=== PATIENT | male | born 1945 | race Caucasian/White ===

== ENCOUNTER 2018-07-01 15:38 | Emergency (ER) | payer MEDICARE, OTHER, SELFPAY ==
[2018-07-01 15:43] VITALS: BP 174/105; PULSE 61; RESP 16; TEMP 36.6; O2SAT 91
--- NOTE | 2018-07-01 17:03 | W.ED.GENAD ---
Discharge Plan Disposition Patient Disposition: HOME Condition: Good Discharge Details Chief Complaint: Laceration Clinical Impression: Laceration Primary Care Provider: Enedina Narvaez ED Provider: Norbert Mccall Home Meds and New Rx's Prescriptions: New sulfamethoxazole-trimethoprim [Bactrim DS] 800-160 mg tablet 1 tab PO Q12H Qty: 14 RF: 0 No Action lovastatin 40 MG tablet 60 mg PO HS RF: 0 aspirin [Aspir-81] 81 MG tablet,delayed release (DR/EC) 81 mg PO DAILY RF: 0 loratadine [Claritin] 10 MG tablet 10 mg PO HS RF: 0 metoprolol succinate 25 MG tablet extended release 24 hr 50 mg PO DAILY RF: 0 Discharge Instructions Instructions: Care For Your Stitches (ED), Laceration (ED) Additional Instructions: Please take the antibiotic as directed. Please take Tylenol, Motrin for your pain. If you notice any redness traveling up your finger, drainage, worsening pain, fever or chills please return immediately. Please keep the area dry for the next 48 hours, after this he can gently wash it with soap and water. Please return in 7 days to have it reevaluated for suture removal. Please keep it bandaged at all times and keep it clean. Referrals: Enedina Narvaez [Primary Care Provider] - Discharge Data Discharge Date/Time-TO BE ENTERED AT DEPARTURE: 07/01/18 17:20 Medical Decision Making This is a pleasant 73-year-old male who presents for laceration of his left fifth digit on his dominant hand. Tetanus today, updated, and so we updated it here today. Patient's hand demonstrates surprisingly normal sensation and movement. Although the tendon is visible there is no evidence of tendon damage. He demonstrates excellent flexion extension at the DIP, PIP, and MCP joint. The area was anesthetized with 5 cc of 1% lidocaine without epinephrine. The area was then vigorously scrubbed with chlorhexidine, followed by copious amounts of high-powered saline into the finger and wound itself. No foreign bodies were noted. After hydro-washing a repeat cleaning with 4 chlorhexidine and follow-up washing was again performed. After notable washing was completed, the area was sutured. 11 simple interrupted sutures were placed using 5-0 Ethilon suture. Patient tolerated this well. He is able to flex and extend his finger after the procedure. With no signs of bony tenderness, and no actual crush component to the initial mechanism do not feel that any x-ray imaging is indicated at this time. We will start the patient on an antibiotic, due to the presence of visible tendon on initial exam. I had a long discussion with the patient regarding red flags which return including signs of infection of the patient and his understand. I have extensively reviewed the treatment plan and discharge instructions with the patient. I have addressed all patient concerns at this time. The patient was made aware of what symptoms to monitor for that would warrant a return to the emergency department. Discussed the plan with the patient, they demonstrate verbal understanding and agreement with our assessment and plan at this time. HPI General Date/Time Provider Initiated Documentation: 07/01/18 15:45. HPI Narrative: This is a pleasant 73-year-old male with a past medical history of high cholesterol, and hypertension who presents today for evaluation of injury to his left fifth digit. Patient is left-hand dominant Martin. Patient's tetanus is not up-to-date. 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 It was not crushed however he did cut the side of his thumb. He denies any pain in the bone or with movement, however he does admit to pain when the skin is stretched, or the laceration is further widened. He denies any associated numbness tingling or weakness. He denies any other complaints. He has no other aggravating or relieving factors. He denies any blood thinner use. He denies any recent surgeries. He denies any pertinent family history per Related Data Home Medications Medication Instructions Recorded Confirmed aspirin [Aspir-81] 81 mg PO DAILY 12/05/12 07/01/18 loratadine [Claritin] 10 mg PO HS 12/05/12 07/01/18 lovastatin 60 mg PO HS 12/05/12 07/01/18 metoprolol succinate 50 mg PO DAILY 08/11/16 07/01/18 sulfamethoxazole-trimethoprim 1 tab PO Q12H #14 tab 07/01/18 [Bactrim DS] Previous Rx's Medication Instructions Recorded sulfamethoxazole-trimethoprim 1 tab PO Q12H #14 tab 07/01/18 [Bactrim DS] Allergies Allergy/AdvReac Type Severity Reaction Status Date / Time lisinopril Allergy Mild Unverified 07/01/18 15:49 penicillin V [Penicillin V] Allergy Mild Unverified 07/01/18 15:49 SHARA Inhibitors Allergy Unknown Unverified 07/01/18 15:49 General Stated Complaint: Laceration MOSES: 3 Review of Systems Review of Systems All systems reviewed & are unremarkable except as noted in HPI and below PFSH Medical History Benign hypertension Hyperlipidemia Social History Smoking/Tobacco Use Status: Former Tobacco Use Surgical History Coronary Stent Exam Narrative Exam Narrative: 1.Const: Well-nourished, Well-developed, appearing stated age 2.Eyes: PERRL, no conjunctival injection, and symmetrical lids. 3.ENT: Atraumatic external nose and ears. Moist MM. Neck: Symmetric, trachea midline, No thyromegaly. 4.CVS: +S1/S2, No murmurs or gallops. Peripheral pulses 2+ and equal in all extremities. Brisk capillary refill in all extremities. 5.RESP: Unlabored respiratory effort. Clear to auscultation bilaterally. No wheezes rales or rhonchi 6.GI: Soft, Nontender/Nondistended, No hepatosplenomegaly. No guarding or rebound. 7.MSK: Normocephalic notable laceration on the fifth digit of his left hand. No cyanosis or clubbing, Normal movement of all extremitie. Normal flexion extension of the pinky. Normal movement in all planes. Normal sensation in his thumb, including two-point discrimination less than 1 cm for all aspects of his pinky. The laceration is roughly 3 cm x 1 cm x 5 mm. It is present on the medial aspect of the fifth digit, does not involve the PIP joint. Evaluation of the skin demonstrates presence of the tendon which is intact. Notable soft tissue involvement. No evidence of bony involvement. No evidence of tendon damage. Patient demonstrates excellent extension and flexion at the PIP and DIP joint as well as the MCP joint. 8.Skin: Warm, Dry. No rashes. 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 Sensation grossly intact, no focal neurologic deficits. 10.Psych: (AAO) x3. Appropriate mood and affect Course Vital Signs Temperature 36.6 C 07/01/18 15:43 Pulse 61 07/01/18 15:43 Respiratory Rate 16 07/01/18 15:43 Blood Pressure 174/105 H 07/01/18 15:43 Pulse Oximetry 91 L 07/01/18 15:43 Temperature 36.6 C 07/01/18 15:43 Temperature Source Skin 07/01/18 15:43 Pulse 61 07/01/18 15:43 Respiratory Rate 16 07/01/18 15:43 Respiratory Effort Non-Labored 07/01/18 15:47 Blood Pressure 174/105 H 07/01/18 15:43 Pulse Oximetry 91 L 07/01/18 15:43 Pain Level 4 07/01/18 15:43
[2018-07-01] MEDS: Sulfameth/Trimeth DS TAB 1 TAB PO (17:04)
== END 2018-07-01 17:20 | disposition home or self-care (01) ==
PROVIDERS: Emergency Provider Student in an Organized Health Care Education/Training Program; PCP Nurse Practitioner Family
DX: W23.0XXA Caught, crushed, jammed, or pinched between moving objects, initial encounter; I10 Essential (primary) hypertension; S61.012A Laceration without foreign body of left thumb without damage to nail, initial encounter
CPT/HCPCS: 12002; 90471

== ENCOUNTER 2018-07-08 12:42 | Emergency (ER) | payer MEDICARE, OTHER, SELFPAY ==
[2018-07-08 12:48] VITALS: BP 130/79; PULSE 60; RESP 18; TEMP 36.8; O2SAT 92
--- NOTE | 2018-07-08 13:03 | W.ED.GENAD ---
Discharge Plan Disposition Patient Disposition: HOME Condition: Good Discharge Details Chief Complaint: SutureRem Clinical Impression: Suture check Primary Care Provider: Enedina Nravaez ED Provider: Norbert Mccall Home Meds and New Rx's Prescriptions: No Action lovastatin 40 MG tablet 60 mg PO HS RF: 0 aspirin [Aspir-81] 81 MG tablet,delayed release (DR/EC) 81 mg PO DAILY RF: 0 loratadine [Claritin] 10 MG tablet 10 mg PO HS RF: 0 sulfamethoxazole-trimethoprim [Bactrim DS] 800-160 mg tablet 1 tab PO Q12H Qty: 14 RF: 0 metoprolol succinate 25 MG tablet extended release 24 hr 50 mg PO DAILY RF: 0 Discharge Instructions Instructions: Care For Your Stitches (ED) Additional Instructions: Please come back in 7-10 days for reevaluation of potential removal of your sutures. Please keep the area covered, clean, and dry at all times. He notice any redness, discharge, or pain or numbness or tingling please return immediately for reevaluation. Referrals: Enedina Narvaez [Primary Care Provider] - Medical Decision Making This is a pleasant 73-year-old male who was seen and assessed by myself 1 week ago for a laceration of his fifth digit on his left hand. Tetanus was updated at that time, 11 sutures were placed. On reevaluation 1 week later he demonstrates evidence of good healing, after cleaning and scrubbing sutures were started to be removed, the first 2 sutures were removed and demonstrated no abnormalities and good wound healing however on removal of this third suture moving proximally towards the crux of the wound demonstrated incomplete wound healing. The area was then recovered with Dermabond, no additional sutures were required. We will have the patient come back in 7-10 days for reevaluation of potential suture removal at that time. No evidence of infection, normal sensation, normal movement of the finger throughout I feel that he can be safely discharged home at this time. We discussed red flags which to return the patient understands. I have extensively reviewed the treatment plan and discharge instructions with the patient and their family. I have addressed all patient concerns at this time. The patient and family was made aware of what symptoms to monitor for that would warrant a return to the emergency department. Discussed the plan with the patient and family, they demonstrate verbal understanding and agreement with our assessment and plan at this time. HPI General Date/Time Provider Initiated Documentation: 07/08/18 12:47. HPI Narrative: This is a 73-year-old male who presents for evaluation of suture removal. 7 days ago he was seen and assessed here by myself and had 11 sutures placed in his left pinky finger which was his dominant hand. Tetanus was updated. He is return for evaluation of suture removal. He has had no associated redness discharge numbness or tingling. He has no associated pain, or other complaints. He denies any symptoms of wound dehiscence. He has no other complaints at this time. He denies any other modifying factors. Related Data Home Medications Medication Instructions Recorded Confirmed aspirin [Aspir-81] 81 mg PO DAILY 12/05/12 07/01/18 loratadine [Claritin] 10 mg PO HS 12/05/12 07/01/18 lovastatin 60 mg PO HS 12/05/12 07/01/18 metoprolol succinate 50 mg PO DAILY 08/11/16 07/01/18 sulfamethoxazole-trimethoprim 1 tab PO Q12H #14 tab 07/01/18 [Bactrim DS] Previous Rx's Medication Instructions Recorded sulfamethoxazole-trimethoprim 1 tab PO Q12H #14 tab 07/01/18 [Bactrim DS] Allergies Allergy/AdvReac Type Severity Reaction Status Date / Time lisinopril Allergy Mild Unverified 07/01/18 15:49 penicillin V [Penicillin V] Allergy Mild Unverified 07/01/18 15:49 SHARA Inhibitors Allergy Unknown Unverified 07/01/18 15:49 General Stated Complaint: SutureRem MOSES: 4 Review of Systems Review of Systems All systems reviewed & are unremarkable except as noted in HPI and below PFSH Medical History Benign hypertension Hyperlipidemia Social History Smoking/Tobacco Use Status: Former Tobacco Use Surgical History Coronary Stent Exam Narrative Exam Narrative: 1.Const: Well-nourished, Well-developed, appearing stated age 2.Eyes: PERRL, no conjunctival injection, and symmetrical lids. 3.ENT: Atraumatic external nose and ears. Moist MM. Neck: Symmetric, trachea midline, No thyromegaly. 4.CVS: +S1/S2, No murmurs or gallops. Peripheral pulses 2+ and equal in all extremities. Brisk capillary refill in all extremities. 5.RESP: Unlabored respiratory effort. Clear to auscultation bilaterally. No wheezes rales or rhonchi 6.GI: Soft, Nontender/Nondistended, No hepatosplenomegaly. No guarding or rebound. 7.MSK: Normocephalic/Atraumatic, Extremities w/o deformity or ttp No cyanosis or clubbing, Normal movement of all extremities 8.Skin: Evaluation of the fifth digit on the left hand demonstrates an incision that is clean dry and intact, no evidence of dehiscence, discharge, redness. Normal movement for flexion and extension of the pinky. Normal sensation including two-point discrimination. The wound did appear notably well-healed, 3 sutures were taken out, starting from the distal component and working proximally towards the larger portion of the wound. On removal of the third suture there is evidence of questionable complete wound healing. We did stop removing the sutures at this point. Dermabond was applied to the area. No active bleeding or discharge. 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 Sensation grossly intact, no focal neurologic deficits. 10.Psych: (AAO) x3. Appropriate mood and affect Course Vital Signs Temperature 36.8 C 07/08/18 12:48 Pulse 60 07/08/18 12:48 Respiratory Rate 18 07/08/18 12:48 Blood Pressure 130/79 07/08/18 12:48 Pulse Oximetry 92 L 07/08/18 12:48 Temperature 36.8 C 07/08/18 12:48 Temperature Source Temporal Artery Scan 07/08/18 12:48 Pulse 60 07/08/18 12:48 Respiratory Rate 18 07/08/18 12:48 Respiratory Effort 07/08/18 12:49 Blood Pressure 130/79 07/08/18 12:48 Blood Pressure Position Supine 07/08/18 12:48 Pulse Oximetry 92 L 07/08/18 12:48 Oxygen Delivery Method Room Air 07/08/18 12:48 Oxygen Flow Rate 0 07/08/18 12:48 Pain Level 2 07/08/18 12:48
[2018-07-08 13:07] VITALS: BP 138/80; PULSE 80; RESP 18; TEMP 36.8; O2SAT 99
== END 2018-07-08 13:14 | disposition home or self-care (01) ==
LOC: ER 13:10
PROVIDERS: Emergency Provider Student in an Organized Health Care Education/Training Program; PCP Nurse Practitioner Family
DX: S61.217D Laceration without foreign body of left little finger without damage to nail, subsequent encounter (principal); W23.0XXD Caught, crushed, jammed, or pinched between moving objects, subsequent encounter; Z48.02 Encounter for removal of sutures; I10 Essential (primary) hypertension
CPT/HCPCS: 99281

== ENCOUNTER 2018-07-18 12:44 | Emergency (ER) | payer MEDICARE, OTHER, SELFPAY ==
[2018-07-18 12:49] VITALS: BP 140/78; PULSE 52; RESP 20; TEMP 36.7; O2SAT 94
--- NOTE | 2018-07-18 13:18 | W.ED.GENAD ---
Discharge Plan Disposition Patient Disposition: HOME Condition: Good Discharge Details Chief Complaint: SutureRem Clinical Impression: Encounter for evaluation of wound Primary Care Provider: Enedina Narvaez ED Provider: Norbert Mccall Home Meds and New Rx's Prescriptions: New sulfamethoxazole-trimethoprim [Bactrim DS] 800-160 mg tablet 1 tab PO Q12H Qty: 14 RF: 0 No Action lovastatin 40 MG tablet 60 mg PO HS RF: 0 aspirin [Aspir-81] 81 MG tablet,delayed release (DR/EC) 81 mg PO DAILY RF: 0 loratadine [Claritin] 10 MG tablet 10 mg PO HS RF: 0 metoprolol succinate 25 MG tablet extended release 24 hr 50 mg PO DAILY RF: 0 Discharge Instructions Instructions: Wound Dehiscence (ED) Additional Instructions: Please wash and clean your wound daily as we showed you. Please take the antibiotic as directed. Please redressed it with new clean dressing daily. If you notice any redness that spreads up your hand, please return immediately. As we discussed please follow-up with your new primary care provider down here within a week. If you are unable to follow-up within a week please return here for reevaluation. If you notice any worsening of your symptoms, or any new symptoms such as vomiting, diarrhea, fever, chills, shortness of breath, chest pain, numbness, weakness, or fainting , please return immediately to the emergency department for reevaluation. Please follow up with your primary care provider as soon as possible for reassessment and reevaluation. As always, it was a pleasure participating in your medical care today. Medical Decision Making This is a very pleasant 73-year-old male who was here 2 weeks ago for a laceration on his fifth digit. He had 11 sutures placed at that time, and then was reevaluated 1 week later. At that time 3 sutures were removed however it was clear that there was incomplete wound healing for the rest of the sutured area. Because of this the patient had the sutures remain in place, was given instructions for wound safety, discharged home for return follow-up for reevaluation in the next 3-5 days. 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 On evaluation today it appears that all the remaining sutures have torn through the distal aspect of the skin, and there is no evidence of wound edge reapproximation. Mild granulation tissue is present, no active bleeding. Small amount of white discharge is present however no active drainage, minimal redness, but no signs of spreading redness, fluctuance, or warmth. No evidence of extensive cellulitis. Due to the dehiscence of the wound the remaining sutures were removed as they are not holding the skin together anymore. The area was cleaned and washed vigorously, then re-bandaged and dressed by nursing staff. Unfortunately the patient will require healing with secondary intention secondary to the nature of his dehiscence after prolonged healing.. We will give the patient a splint for his finger. We will start him on Bactrim again as a precaution. We have pot his how to do the dressing changes and washing that was performed here. I have discussed the case with case management and they are going to contact the patient here in the ED today to set up close follow-up within the next week for reevaluation. At a long discussion with the patient regarding the importance of close follow-up, and red flags which to return the patient understands. Hopefully with the splint in the regular wound and dressing changes he will have more gradual in stable healing. I have explicitly stated that he should not be out chain sawing, or doing significant work or labor using that hand secondary to the need for it to heal. I have extensively reviewed the treatment plan and discharge instructions with the patient and their family. I have addressed all patient concerns at this time. The patient and family was made aware of what symptoms to monitor for that would warrant a return to the emergency department. Discussed the plan with the patient and family, they demonstrate verbal understanding and agreement with our assessment and plan at this time. HPI General Date/Time Provider Initiated Documentation: 07/18/18 12:54. HPI Narrative: This is a pleasant 73-year-old male who was seen and assessed by myself 2 week ago for a laceration of his fifth digit on his left hand. Tetanus was updated at that time, 11 sutures were placed. On reevaluation 1 week later he demonstrates evidence of good healing, after cleaning and scrubbing sutures were started to be removed, the first 2 sutures were removed and demonstrated no abnormalities and good wound healing however on removal of this third suture moving proximally towards the crux of the wound demonstrated incomplete wound healing. At that time the rest of the sutures were left in place out of concern for potential dehiscence if more was removed, it was felt that the patient needed more time for healing. Is discharged home with instructions for follow-up within the next 5-7 days for reevaluation and removal. Patient presents today for reevaluation. 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 He has noticed a change in his finger and the laceration site. He admits to a mild amount of drainage, but no increase in pain redness or fever. He denies any other associated symptoms of hand arm or wrist pain. He has no other complaints at this time. Related Data Home Medications Medication Instructions Recorded Confirmed aspirin [Aspir-81] 81 mg PO DAILY 12/05/12 07/18/18 loratadine [Claritin] 10 mg PO HS 12/05/12 07/18/18 lovastatin 60 mg PO HS 12/05/12 07/18/18 metoprolol succinate 50 mg PO DAILY 08/11/16 07/18/18 sulfamethoxazole-trimethoprim 1 tab PO Q12H #14 tab 07/18/18 [Bactrim DS] Previous Rx's Medication Instructions Recorded sulfamethoxazole-trimethoprim 1 tab PO Q12H #14 tab 07/18/18 [Bactrim DS] Allergies Allergy/AdvReac Type Severity Reaction Status Date / Time lisinopril Allergy Mild Unverified 07/18/18 12:51 penicillin V [Penicillin V] Allergy Mild Unverified 07/18/18 12:51 SHARA Inhibitors Allergy Unknown Unverified 07/18/18 12:51 General Stated Complaint: SutureRem MOSES: 4 Review of Systems Review of Systems All systems reviewed & are unremarkable except as noted in HPI and below PFSH Medical History Benign hypertension Hyperlipidemia Social History Smoking/Tobacco Use Status: Former Tobacco Use Surgical History Coronary Stent Exam Narrative Exam Narrative: 1.Const: Well-nourished, Well-developed, appearing stated age 2.Eyes: PERRL, no conjunctival injection, and symmetrical lids. 3.ENT: Atraumatic external nose and ears. Moist MM. Neck: Symmetric, trachea midline, No thyromegaly. 4.CVS: +S1/S2, No murmurs or gallops. Peripheral pulses 2+ and equal in all extremities. Brisk capillary refill in all extremities. 5.RESP: Unlabored respiratory effort. Clear to auscultation bilaterally. No wheezes rales or rhonchi 6.GI: Soft, Nontender/Nondistended, No hepatosplenomegaly. No guarding or rebound. 7.MSK: Normocephalic No cyanosis or clubbing, Normal movement of all extremities. Please see skin for further wound details. 8.Skin: Patient demonstrates normal skin on all extremities except for evaluation over the previous laceration on his fifth digit on his left hand. Patient demonstrates evidence of wound dehiscence, and good granulation tissue with slow wound healing. The superficial wound edges were not reapproximated and you can see where the suture dehisced out most likely secondary to notable flexion while chain sawing. There is no active drainage, no significant discharge. Minimal erythema, no fluctuance, no signs of significant pain on passive extension or flexion of the finger, no clinical evidence of flexor or extensor tenosynovitis. Capillary refill is brisk distal to the injury, and sensation is intact. No other significant abnormalities, no evidence of red streaking up the hand. [address], and only on the proximal component of the skin. The area that had the sutures previously removed demonstrates excellent wound healing, and no evidence of infection or dehiscence. 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 Sensation grossly intact, no focal neurologic deficits. 10.Psych: (AAO) x3. Appropriate mood and affect Course Vital Signs Temperature 36.7 C 07/18/18 12:49 Pulse 52 L 07/18/18 12:49 Respiratory Rate 20 07/18/18 12:49 Blood Pressure 140/78 07/18/18 12:49 Pulse Oximetry 94 L 07/18/18 12:49 Temperature 36.7 C 07/18/18 12:49 Temperature Source Temporal Artery Scan 07/18/18 12:49 Pulse 52 L 07/18/18 12:49 Respiratory Rate 20 07/18/18 12:49 Respiratory Effort Non-Labored 07/18/18 12:49 Blood Pressure 140/78 07/18/18 12:49 Pulse Oximetry 94 L 07/18/18 12:49 Oxygen Delivery Method Room Air 07/18/18 12:49 Oxygen Flow Rate 0 07/18/18 12:49 Pain Level 1 07/18/18 12:49
[2018-07-18 13:48] VITALS: BP 140/78; PULSE 52; RESP 20; TEMP 36.7; O2SAT 94
--- NOTE | 2018-07-18 14:04 | PDOC.ERCMPRO ---
- If Service Date Differs Date of service: 07/18/18 Time of Service: 14:04 Care Management Progress Note Per request of Dr. Stefany CM met with New regarding a follow up appointment for wound dehiscence; reassessment and re-evaluation. Patient has an appointment with [facility] in [place] (Michelle Shea) on July 20, 2018 at 1400.
--- NOTE | 2018-07-18 14:08 | CMPROGNOTE_ITS ---
- If Service Date Differs Date of service: 07/18/18 Time of Service: 14:04 Care Management Progress Note Per request of Dr. Stefany CM met with New regarding a follow up appointment for wound dehiscence; reassessment and re-evaluation. Patient has an appointment with [facility] in [place] (Michelle Shea) on July 20, 2018 at 1400.
== END 2018-07-18 14:05 | disposition home or self-care (01) ==
LOC: ER 14:05
PROVIDERS: Emergency Provider Student in an Organized Health Care Education/Training Program; PCP Nurse Practitioner Family
DX: S61.217D Laceration without foreign body of left little finger without damage to nail, subsequent encounter (principal); W23.0XXD Caught, crushed, jammed, or pinched between moving objects, subsequent encounter; Z48.02 Encounter for removal of sutures

== ENCOUNTER 2019-09-13 12:19 | Inpatient (IN) | payer MEDICARE, OTHER, SELFPAY ==
[2019-09-13] VITALS (29 sets, daily range): BP systolic 134–216; BP diastolic 58–187; PULSE 39–75; RESP 9–27; TEMP 36.2–37.1; O2SAT 88–97
--- NOTE | 2019-09-13 12:25 | W.ED.GENAD ---
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 Presenting today with chief complaint of shortness of breath with exertion x2 weeks. States over the past days also noted cough. No fevers or chills. No GI upset. States he has had some chest discomfort with exertion but this seems to be quite intermittent. Unclear if this is occurred recently. Patient has history of CAD with stent placement. Reports that today symptoms were very different than when he had his myocardial ischemic event historically. No recent travel. No recent antibiotics. Is not having any pain at this point. He is reporting he feels slightly short of breath. His oxygen is noted to be 88% on room air. Patient abducted 95% with 2 L nasal cannula. None exam, patient is tachypneic but otherwise no acute distress. Does have crackles in his bilateral bases. No notable edema in his lower extremities. Calves are soft and nontender. Heart rate is irregular. Patient does appear to be having frequent ectopic beats on monitor does appear to be in bigeminy on occasion. Also has notable pauses. Patient is completely asymptomatic during these times. Plan to obtain ECG, laboratory evaluation and chest x-ray. EKG was reviewed by Dr. Zapata. Patient is in a sinus rhythm rate is 71. He does have PVCs and one notable pause of approximately 1.2 seconds. There is previous EKGs showed no acute ischemic changes. He did have PVCs similar to this in 2013 Chest x-ray reviewed by radiologist; The heart is mildly enlarged. There are mild diffuse bilateral pulmonary interstitial radiodensities which were not present on prior chest films including January 2017. There is fluid in the fissures which has not been present on prior examinations. The findings as described are suggestive of acute CHF. The possibility of superimposed pneumonia is not excluded. Appropriate follow-up studies requested. Labs reviewed. No leukocytosis. BNP is elevated 1824. Troponin is less than 0.05. Remaining labs without significant abnormality. Patient's history and exam is most consistent with CHF exacerbation. Patient is not been diagnosed with this historically. We will treat the patient with IV Lasix. I did discuss this with the patient. Patient's last echocardiogram and a stress echo performed June 15, 2011. At that time, echo was significant for inferobasal hypokinesis and 2+ mitral regurg with normal overall systolic function. Patient was unable to reach target heart rate. Patient underwent myocardial perfusion scan on 04/04/2015. At that time, no ischemia or scar noted. Normal left ventricular function. Patient also mentions has a history of cancer. 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 Not currently undergoing any treatment for this. Patient was seen on 07/06/[address] Esteves. 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 Patient is received 20 mg IV Lasix for CHF. He continues to be on nasal cannula. Feel the patient should be admitted for further cardiac evaluation. Will consult with the hospitalist. Consulted with hospitalist. Patient admitted for continued care. HPI General Mode of arrival: ambulatory. Date/Time Provider Initiated Documentation: 09/13/19 12:24. Limitations to Documentation: no limitations. Information obtained by: patient, family () and RN notes reviewed. HPI Narrative: Patient is a pleasant 74-year-old male, accompanied by his , chief complaint of shortness of breath. He reports with the past 2 weeks he has noted shortness of breath primarily when he is moving his cast. States over the past 24 hours he has noted a cough beginning. He is concerned he may have developed pneumonia since had this historically with similar symptoms. States he has occasionally had some chest discomfort with exertion. Denies any fevers or chills. Patient has had an [place] with stent placement historically reports that this feels very different than he has had historically. Past medical history also pertinent for hyperlipidemia and hypertension. Patient is followed up by cardiology, was last seen by cardiology at [facility] on 07/13/2018. He reports several years since his last stress test. Denies any fevers or chills. No sore throat or other URI symptoms to go home with his concern for pneumonia. Patient has been taking daily aspirin. He is on a beta-audra. Reports is been taking his medications as prescribed. No recent change in medications. Denies any pain in his back. No nausea or vomiting. Denies any episodes of dizziness or lightheadedness. Related Data Home Medications Medication Instructions Recorded Confirmed aspirin [Aspir-81] 81 mg PO DAILY 12/05/12 09/13/19 loratadine [Claritin] 10 mg PO HS 12/05/12 09/13/19 lovastatin 60 mg PO HS 12/05/12 09/13/19 atorvastatin [Lipitor] 80 mg PO QPM #30 tab 09/15/19 furosemide 20 mg PO DAILY #14 tab 09/15/19 metoprolol succinate 12.5 mg PO DAILY #30 tab 09/15/19 Previous Rx's Medication Instructions Recorded atorvastatin [Lipitor] 80 mg PO QPM #30 tab 09/15/19 furosemide 20 mg PO DAILY #14 tab 09/15/19 metoprolol succinate 12.5 mg PO DAILY #30 tab 09/15/19 Allergies Allergy/AdvReac Type Severity Reaction Status Date / Time lisinopril Allergy Mild Unverified 09/13/19 12:35 penicillin V [Penicillin V] Allergy Mild Unverified 09/13/19 12:35 SHARA Inhibitors Allergy Unknown Unverified 09/13/19 12:35 General MOSES: 4 Review of Systems Constitutional Constitutional: Reports as per HPI, Denies chills, Denies fever(s), Denies headache(s), Denies lethargy and Denies poor appetite Eyes Eyes: Denies change in vision ENT Ears, Nose, Mouth, and Throat: Denies dizziness and Denies headache(s) Cardiovascular Cardiovascular: Reports as per HPI, Reports dyspnea and Reports dyspnea on exertion Respiratory Respiratory: Reports as per HPI, Denies change in phlegm color, Denies chest congestion, Reports cough, Denies excessive phlegm production, Denies pain on inspiration, Denies pain with cough, Reports dyspnea, Reports dyspnea on exertion and Denies wheezing Gastrointestinal Gastrointestinal: Reports as per HPI, Denies abdominal pain, Denies diarrhea, Denies nausea and Denies vomiting Genitourinary Genitourinary: Denies system reviewed and no additional complaints, except as docu (denies change in urinary habits) Musculoskeletal Musculoskeletal: Reports as per HPI and Denies back pain Integumentary/Breasts Skin/Breast: Reports as per HPI and Denies rash Neurologic Neurologic: Reports as per HPI, Denies dizziness and Denies headache(s) Allergic/Immunologic Allergic/Immunologic: Denies wheezing [facility] Medical History Benign hypertension CAD (coronary artery disease) (Chronic) Hyperlipidemia Surgical History Coronary Stent x 2 10 yrs ago Social History Smoking/Tobacco Use Status: Former Tobacco Use Drug use: Never Do you feel safe at home: Yes Do you feel safe in your relationship?: Yes Exam Const General: cooperative, healthy appearing, comfortable, no acute distress and well developed Nutritional Appearance: well nourished and overweight Orientation: alert, awake and oriented x3 HENMT Head: normal to inspection Ears: hearing grossly normal bilaterally Mouth: moist mucous membranes Chest Chest: normal inspection of the chest, normal palpation of entire chest wall and no crepitus Resp Effort & Inspection: normal respiratory effort, able to speak in complete sentences and no respiratory distress Auscultation: clear to auscultation bilaterally, crackles bilaterally at the base, no rales, no rhonchi and no wheezes Cardio Rate: regular rate Rhythm: abnormal rhythm irregularly irregular and with ectopic beats Heart Sounds: S1 normal and S2 normal GI Inspection: normal to inspection, no edema and non-distended Palpation: soft, no hepatosplenomegaly, not firm, no guarding, not rigid and nontender Auscultation: normal bowel sounds Back/Spine/Pelvis Back: no CVA tenderness Thoracic/Lumbar Spine: thoracic and lumbar spine normal to inspection Skin General skin exam: no rashes or lesions noted Trauma: no lacerations or abrasions Neuro General: alert, awake and oriented x3 Cognition: normal cognition Speech: speech normal Gait: normal gait Extrem General: normal to inspection, normal capillary refill, no pedal edema, no calf tenderness and normal gait Psych Appearance: grossly normal and well kempt Mental Status: mental status grossly normal Speech and Movement: speech and movement normal
[2019-09-13] MEDS: Normal Saline Flush 10 ML SYR IVP (12:45)
[2019-09-13 12:57] LABS: Abs Immature Grans 0.03 k/cumm (0.0-0.09); Absolute Basophil Count 0.04 k/cumm (0.0-0.2); Absolute Eosinophil Count 0.38 k/cumm (0.0-0.7); Absolute Lymphocyte Count 2.44 k/cumm (1.2-3.4); Absolute Monocyte Count 1.01 k/cumm (0.11-0.7); Absolute Neutrophil Count 5.69 k/cumm (1.2-6.7); Basophils % 0.4; HCT 43.5 % (40.0-50.0); HGB 14.9 g/dL (13.5-17.5); Immature Grans % 0.3; Lymphocytes % 25.4; Mean Corp. HGB Concentration 34.3 g/dL (32.0-36.0); Mean Corpuscular Hemoglobin 29.2 pg (27.0-33.0); Mean Corpuscular Volume 85.3 fL (80-95); Mean Platelet Volume 10.2 fL (8.0-11.0); Monocytes % 10.5; Neutrophils % 59.4; Platelet Count 125 x1000/uL (130-400); RBC Distribution Width 13.7 % (11.8-14.1); White Blood Cell Count 9.59 k/cumm (4.4-10.8)
--- NOTE | 2019-09-13 13:10 | DI.RAD_ITS ---
EXAM: XR CHEST 2V PA LATERAL CLINICAL HISTORY: SOB, cough TECHNIQUE: COMPARISON: CHEST 2 VIEWS PA,LAT from 01/11/2017 CHEST 2 VIEWS PA,LAT from 01/20/2017 FINDINGS: The heart is mildly enlarged. There are mild diffuse bilateral pulmonary interstitial radiodensities which were not present on prior chest films including January 2017. There is fluid in the fissures whic h has not been present on prior examinations. The findings as described are suggestive of acute CHF. The possibility of superimposed pneumonia is not excluded. Appropriate follow-up studies requested. IMPRESSION:
[2019-09-13 13:33] LABS: ALT 29 U/L (16-63); AST 25 U/L (15-37); Albumin 3.3 g/dL (3.4-5.0); Alkaline Phosphatase 56 U/L (46-116); Anion Gap 7.5 mmol/L (3-11); BUN 19 mg/dL (7-18); Bilirubin, Total 0.9 mg/dL (0.2-1.0); CO2 27.5 mmol/L (21.0-32.0); CREATININE 1.09 mg/dL (0.70-1.30); Calcium 8.3 mg/dL (8.5-10.1); Chloride 104 mmol/L (98-107); Glucose 133 mg/dL (74-106); Magnesium 1.7 mg/dL (1.8-2.4); NT-proBNP 1824 pg/mL (<300); Potassium 4.3 mmol/L (3.5-5.1); Sodium 139 mmol/L (136-145); Total Protein 7.6 g/dL (6.4-8.2); Troponin I < 0.05 ng/Ml (<0.06)
[2019-09-13] MEDS: Furosemide 20 MG/2 ML VIAL IVP (13:53)
--- NOTE | 2019-09-13 14:31 | NUR.NOTE ---
pt states he was moving around and laughing during episode of high BP reassessed and provider notified Nursing Note:
--- NOTE | 2019-09-13 16:02 | HPE_ITS ---
Date of service: 09/13/19 Time of Service: 16:03 Assessment and Plan Assessment and plan (1) CHF (congestive heart failure): Status: Chronic Assessment and plan: New onset CHF, with history of CAD, [place] with stent placement approximately 17 years ago. Possibly ischemic cardiomyopathy. BNP elevated to 1824. Continue IV lasix, monitor intake and output and daily weights. Echocardiogram ordered for tomorrow. Stress test tomorrow. Monitor on telemetry. Hold beta audra for bradycardia and MPI tomorrow. Increase to high intensity statin. Continue to trend troponin. (2) CAD (coronary artery disease): Status: Chronic Assessment and plan: With stents placed 17 years ago. Initial troponin ne gative, continue to trend troponin. EKG with no ischemic changes. Monitor on telemetry. He was unable to tolerate lisinopril in the past, consider ARB. Beta-audra on hold as above. Increase to high intensity statin. Echo and stress test tomorrow as above. (3) Bradycardia: Status: Acute Assessment and plan: Appears to be in bigeminy on telemetry. Hold beta- audra as above, continue to monitor. (4) DVT prophylaxis: Status: Acute Assessment and plan: Subcutaneous heparin. SCDs and teds for mechanical DVT prophylaxis. (5) Discharge planning issues: Status: Acute Assessment and plan: Full code. This case was discussed with Dr. Ayala who is in agreement. History of Present Illness History of Present Illness Chief Complaint: shortness of breath and chest pressure. Narrative: New Rizzo is a very pleasant 74-year-old man with a past medical history significant for myocardial infarction with history of cardiac catheterization and 2 stents placed approximately 17 years ago who presented to the emergency department today with shortness of breath that has been progressively worsening over the last month. He reported that he woke up short of breath, unable to lay flat overnight, at that time he had notable chest tightness. In the emergency department, he had an EKG which showed normal sinus rhythm with a heart rate of 71, PVCs and a pause noted for 1.2 seconds. There were no acute ischemic changes noted, per Dr. Zapata's read in the emergency department. Had a chest x-ray which showed findings suggestive of congestive heart failure. His BNP was elevated at 1824. He had rales on lung exam and received Lasix 20 mg IVP. He is admitted for further evaluation and management. At the time of his admission, he continues to feel mildly short of breath, wheezy and continues to have slight substernal chest pressure. He endorses an occasional cough that has not changed from baseline. He cannot not lay flat. He reports that he celebrated new year's gamal and ate salty foods. He denies dizziness or lightheaded sensation. His heart rate was noted to be in the 40s, he reports that his heart rate is generally in the 50s. He denies palpitations. He denies peripheral edema. He denied abdominal pain, nausea, vomiting or diarrhea. He states he feels hungry. He denies any urinary or bowel problems. Review of Systems All systems reviewed & are unremarkable except as noted in HPI and below PFSH Medical History (Updated 09/13/19 @ 16:41 by Amanda Khan NP) Benign hypertension CAD (coronary artery disease) (Chronic) Hyperlipidemia Surgical History Coronary Stent x 2 10 yrs ago Social History Smoking/Tobacco Use Status: Former Tobacco Use Drug use: Never Do you feel safe at home: Yes Do you feel safe in your relationship?: Yes Meds Home Medications and Allergies Home Medications Medication Instructions Recorded Confirmed Type aspirin [Aspir-81] 81 mg PO DAILY 12/05/12 09/13/19 History loratadine [Claritin] 10 mg PO HS 12/05/12 09/13/19 History lovastatin 60 mg PO 12/05/12 09/13/19 History metoprolol succinate 50 mg PO DAILY 08/11/16 09/13/19 History Allergies Allergy/AdvReac Type Severity Reaction Status Date / Time lisinopril Allergy Mild Unverified 09/13/19 12:35 penicillin V [Penicillin V] Allergy Mild Unverified 09/13/19 12:35 SHARA Inhibitors Allergy Unknown Unverified 09/13/19 12:35 Exam Narrative Exam Narrative: General: elderly man laying in bed with head elevated. Alert and oriented, pleasant and cooperative, in NAD. HEENT: normocephalic, atraumatic, pupils equal and round, EOMI, mucous membranes moist. Neck: supple, no JVD. Cardiovascular: bradycardic, HR in the 40s apically. No murmur appreciated. Respiratory: audible expiratory wheeze, respirations appear unlabored, rales to right base. No wheezing on auscultation of lung herrmann. GI: abdomen soft, round, nontender on palpation, normoactive bowel sounds. Extremities: no clubbing, cyanosis or edema. Lacking hair around distal aspect bilaterally. Results Labs Result diagrams: 09/13/19 12:40 09/13/19 12:40 Labs: Laboratory Results - last 24 hr 09/13/19 09/13/19 09/13/19 12:35 12:40 12:40 WBC RBC Hgb Hct MCV MCH MCHC RDW Plt Count MPV Immature Gran % Neutrophils % Lymphocytes % Monocytes % Eosinophils % Basophils % Absolute Neutrophils Absolute Lymphocytes Absolute Monocytes Absolute Eosinophils Absolute Basophils Sodium 139 Cancelled Potassium 4.3 Cancelled Chloride 104 Cancelled Carbon Dioxide 27.5 Cancelled Anion Gap 7.5 Cancelled BUN 19 H Cancelled Creatinine 1.09 Cancelled Estimated GFR/1.73 m2 >= 60.00 Cancelled Glucose 133 H Cancelled Calcium 8.3 L Cancelled Magnesium 1.7 L Total Bilirubin 0.9 Cancelled AST 25 Cancelled ALT 29 Cancelled Alkaline Phosphatase 56 Cancelled Troponin I Cancelled < 0.05 NT-Pro-B Natriuret Pep 1824 H Total Protein 7.6 Cancelled Albumin 3.3 L Cancelled 09/13/19 12:40 WBC 9.59 RBC 5.10 Hgb 14.9 Hct 43.5 MCV 85.3 MCH 29.2 MCHC 34.3 RDW 13.7 Plt Count 125 L MPV 10.2 Immature Gran % 0.3 Neutrophils % 59.4 Lymphocytes % 25.4 Monocytes % 10.5 Eosinophils % 4.0 Basophils % 0.4 Absolute Neutrophils 5.69 Absolute Lymphocytes 2.44 Absolute Monocytes 1.01 H Absolute Eosinophils 0.38 Absolute Basophils 0.04 Sodium Potassium Chloride Carbon Dioxide Anion Gap BUN Creatinine Estimated GFR/1.73 m2 Glucose Calcium Magnesium Total Bilirubin AST ALT Alkaline Phosphatase Troponin I NT-Pro-B Natriuret Pep Total Protein Albumin Last Vital Signs Temp 37.1 C 09/13/19 15:03 Pulse 65 09/13/19 15:03 Resp 22 09/13/19 15:03 BP 154/88 H 09/13/19 15:03 Pulse Ox 95 09/13/19 15:03
[2019-09-13] MEDS: Heparin 5,000 UNITS/ML VIAL 5000 UNITS SC (16:47)
[2019-09-13 17:25] LABS: Troponin I < 0.05 ng/Ml (<0.06)
[2019-09-13] MEDS: Magnesium Oxide 400 MG TAB PO (20:09)
[2019-09-13] MEDS: Atorvastatin 40 MG TAB 80 MG PO (20:09)
[2019-09-13 21:38] LABS: Troponin I < 0.05 ng/Ml (<0.06)
[2019-09-14] VITALS (10 sets, daily range): BP systolic 132–156; BP diastolic 70–97; PULSE 46–68; RESP 16–23; TEMP 36.5–37; O2SAT 93–99
[2019-09-14] MEDS: Heparin 5,000 UNITS/ML VIAL 5000 UNITS SC ×3 (00:17→16:23)
[2019-09-14 06:56] LABS: HCT 45.8 % (40.0-50.0); HGB 15.4 g/dL (13.5-17.5); Mean Corp. HGB Concentration 33.6 g/dL (32.0-36.0); Mean Corpuscular Hemoglobin 28.9 pg (27.0-33.0); Mean Corpuscular Volume 86.1 fL (80-95); Mean Platelet Volume 10.1 fL (8.0-11.0); Platelet Count 115 x1000/uL (130-400); RBC 5.32 m/cumm (4.50-6.00); RBC Distribution Width 13.9 % (11.8-14.1); White Blood Cell Count 7.12 k/cumm (4.4-10.8)
[2019-09-14 07:04] LABS: Anion Gap 3.6 mmol/L (3-11); BUN 20 mg/dL (7-18); CO2 32.4 mmol/L (21.0-32.0); CREATININE 1.15 mg/dL (0.70-1.30); Calcium 8.7 mg/dL (8.5-10.1); Chloride 104 mmol/L (98-107); Glucose 98 mg/dL (74-106); Potassium 4.8 mmol/L (3.5-5.1); Sodium 140 mmol/L (136-145)
[2019-09-14 07:17] LABS: Magnesium 1.9 mg/dL (1.8-2.4); TSH (W/Ref FT4) 1.48 uIU/mL (0.36-3.74)
--- NOTE | 2019-09-14 07:30 | DI.US_ITS ---
APPROVED REPORT EXAM: Comprehensive 2D, Doppler, and color-flow Echocardiogram Patient Location: In-Patient Network Control Operator: Idalia Abdi RDCS (AE) Rhythm: Bradycardia Indications: new CHF hx CAD Conclusion Left Ventricle : Left ventricle is dilated. The left ventricle is moderately dilated. Left ventricul ar systolic function is normal. There is normal left ventricular wall thickness. There is normal LV segmental wall motion. Left ventricular diastolic function is indeterminate. LVEF is estimated to be 55-60% Right Ventricle : Right ventricle is mildly dilated. The right ventricular systolic function is grayson l. Atria : Left atrium is mildly dilated. Right atrium is mildly dilated. Aortic Valve : Aortic valve is trileaflet. No aortic regurgitation is present. There is no aortic alex vular stenosis. Mitral Valve : Mitral valve leaflets are mildly thickened. Moderate mitral regurgitation (RF 33%). No evidence of mitral valve stenosis. Tricuspid Valve : Tricuspid valve is not well visualized. Trace tricuspid regurgitation. Pulmonic Valve : Pulmonic valve is not well visualized. Great Vessels : The aortic root size is normal. 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 IVC is normal in size and collapses >50% with inspiration. Estimated RVSP is 16-19 mmHg. There is no prior echocardiogram available for comparison. Wall motion Left Ventricle Left ventricle is dilated. The left ventricle is moderately dilated. Left ventricular systolic functi on is normal. There is normal left ventricular wall thickness. There is normal LV segmental wall hong on. Left ventricular diastolic function is indeterminate. LVEF is estimated to be 55-60% Right Ventricle Right ventricle is mildly dilated. The right ventricular systolic function is normal. Atria Left atrium is mildly dilated. Right atrium is mildly dilated. Aortic Valve Aortic valve is trileaflet. There is no aortic valvular stenosis. No aortic regurgitation is present. Mitral Valve Mitral valve leaflets are mildly thickened. No evidence of mitral valve stenosis. Moderate mitral reg urgitation (RF 33%). Tricuspid Valve Tricuspid valve is not well visualized. Trace tricuspid regurgitation. Pulmonic Valve Pulmonic valve is not well visualized. Great Vessels The aortic root size is normal. 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 IVC is normal in size a nd collapses >50% with inspiration. Estimated RVSP is 16-19 mmHg. Pericardium There is no pericardial effusion. 2D Dimensions IVSd 1.00 cm M: 0.6-1.2 LV EDV A2C 131.60 mL PWd 0.80 cm M: 0.6 - 1.2 LV EDV A4C 171.40 mL LVDd 6.60 cm M: 4.2 - 5.8 LA Volume Index A2C 38.22 mL/m2 LVDs 4.60 cm M: 2.5 - 4.0 LA Volume Index A4C 46.07 mL/m2 Aortic Root 3.70 cm M: 3.1 - 3.7 LA Volume Index Biplane 46.90 mL/m2 RVID Base (AP4) 4.32 cm (M/F) 2.5-4.1 LA Area A4C 28.91 cm2 RA Area A4C 21.09 cm2 LA Area A2C 23.55 cm2 LVOT 2.30 cm (M/F) 1.5-2.5 EF AP4 63.54 % Ascending Aorta 3.49 cm M: 2.6 - 3.4 EF AP2 51.67 % LVEF (Teich) 56.46 % EF BP 57.20 % LVEF (Pearce's) 57.20 % M: 52 - 72 LV Volume 110.07 mL M: 62 - 150 LV Volume Index 50.49 mL/m2 M: 34 - 74 FS 30.30 % LV Diastology E/A Ratio 1.5 MED E' 0.07 (>0.07 m/s) LV E/e MED 14.35 (<14) LAT E' 0.11 (>0.1 m/s) LV E/e LAT 8.55 (<14) Aortic Valve LVOT Area 4.21 cm2 LVOT Vmax 0.92 m/s LVOT Mean Hu. 0.64 m/s LVOT Peak Gr. 3.4 mmHg AoV Area Vmax 0.00 m/s LVOT Mean Gr. 1.9 mmHg AoV Area/ BSA (Vmax) 1.39 cm2/m2 LVOT VTI 0.200 m ELIDA Mean Hu. 0.00 m/s AoV Vmax 1.27 (0.5-1.3 m/s) ELIDA Mean Hu. Index 1.43 cm2/m2 AoV Mean Hu. 0.87 m/s AoV Peak Grad 6.5 mmHg AoV Mean Grad 3.4 (<5 mmHg) AoV VTI 0.312 (0.18-0.25 m) AoV Area VTI 3.12 (2.5-4.5 cm2) AoV Area/ BSA (VTI) 1.43 cm/m2 Mitral Valve MV E Max Hu. 0.97 (0.4-1.3 m/s) MV A Velocity 0.65 (0.4-1.3 m/s) E/A Ratio 1.49 MV Decel. Time 169.05 (160-240 msec) MV Regurg Volume 49.42 mL MV PHT 49.03 msec MV RF 33.65 % MVA PHT 4.45 cm2 Pulmonary Valve PV Peak Velocity 1.12 (0.5-1.5 m/s) RVOT Peak Gr. 1.38 mmHg RVOT Peak Hu. 0.59 m/s RVOT Mean Gr. 0.80 mmHg RVOT VTI 0.15 m Tricuspid Valve TR P. Velocity 2.02 m/s TV Regurg Vmax 2.02 m/s RAP Estimate 3.00 mmHg RVSP 19.30 mmHg TR P. Gradient 16.30 mmHg
[2019-09-14] MEDS: Normal Saline Flush 10 ML SYR IVP (07:33)
[2019-09-14 07:48] LABS: Hemoglobin A1C 5.9 % (3.8-5.6)
[2019-09-14] MEDS: Furosemide 20 MG/2 ML VIAL IVP (08:28)
[2019-09-14] MEDS: Aspirin E.C. 81 MG TABEC PO (08:31)
[2019-09-14] MEDS: Magnesium Oxide 400 MG TAB PO ×2 (08:31→20:09)
--- NOTE | 2019-09-14 10:02 | PDOC.CMIN ---
- If Service Date Differs Date of service: 09/14/19 Time of Service: 10:02 Care Management Initial Assess REASON FOR HOSPITALIZATION:: Congestive heart failure. PAST MEDICAL HISTORY/PAST SURGICAL HISTORY:: Medical History: Benign hypertension, CAD (coronary artery disease), and. Hyperlipidemia. Surgical History: Coronary Stent x 2 10 yrs ago. PREVIOUS FUNCTIONAL STATUS/SOCIAL/FAMILY SUPPORTS:: New and his , Claire, live in [place] on their [place]. Their three adult children and five grandchildren all live nearby and Claire names them as sources of support. 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 Claire reports that New drives and is independent with his ADLs at baseline. CURRENT FUNCTIONAL STATUS:: New is having an ultrasound done when CM comes to meet with him. CM unsuccessfully attempts to meet with him two more times. CM does meet with patient's while New is having testing done. CM will continue to follow. ADVANCE DIRECTIVES:: None on file. Has patient been provided with information about the portal?: No Did the patient sign up for the portal?: No CODE STATUS:: Full Code INSURANCE COVERAGE / FINANCIAL ISSUES:: [employer] and Medicare. CURRENT HOME/COMMUNITY SERVICES/EQUIPMENT:: None. PRIMARY CARE PHYSICIAN:: Enedina Narvaez NP ([facility]) POTENTIAL DISCHARGE NEEDS:: Follow up appointment with primary care physician and cardiology. PATIENT/FAMILY EDUCATION NEEDS:: Discharge plan, limitations, follow up plan, including Ask Me Three and self management. ANTICIPATED BARRIERS TO DISCHARGE:: None anticipated at this time. TRANSPORTATION:: Via private vehicle by family. PLAN:: New will be discharged when medically cleared by provider. Anticipate no new services at time of discharge. He will be transported home by family via private vehicle. CM continues to follow.
--- NOTE | 2019-09-14 12:11 | W.NUTCONSULT ---
Date of service: 09/14/19 Time of Service: 12:11 Nutritional Consult ASSESSMENT: 74 year old male admitted with bradycardia, hx of CAD, now dx with CHF. Currently NPO for testing, but ate 100% last night on Heart Healthy Diet. BMI indicates class 1 obesity. Recent A1C wnl. Currently not considered at nutritional risk. will follow and adjust meal plan as needed MONITORING AND EVALUATION: po intake, weight trends Time Spent in Nutritional Counseling and Treatment: 0 time spent face to face
--- NOTE | 2019-09-14 13:06 | DI.NM_ITS ---
APPROVED REPORT Exam: Pharmacologic Patient Location: In-Patient Room/Bed: Stress Nurse: Lolita Lee RN BMI: 33.75 Baseline Rhythm: Sinus bradycardia with frequent PVCs Medical History Medical History: Angina, CAD s/p HI, CAD s/p stent, CHF, Obesity , HTN, Hyperlipidemia, SOB Cardiac Medications: Aspirin, Metoprolol succinate, Lovastatin. Allergies: Lisinopril. Penicilllin. SHARA inhibitors. Cardiac Risk Factors: HTN, Hyperlipidemia, FHX of CAD, SOB, former smoker Previous Cardiac Procedures: PCI. Cardiac stent x2. Exercise History: Physically active Lung Sounds: Clear to auscultation, diminished breath sounds in the bases. Heart Sounds: Irregular Stress Test Details Test: Pharmacologic stress testing performed using 0.4 mg of regadenoson per 5 mL given IV over 10 s econds. Nuclear Acquisition: Rest Tc-99m/Stress Tc-99m 1 day Rest Isotope: Tc-99m Sestamibi. Dose: 10.0 Date: 09/14/2019 Injection Time: 1100 Stress Isotope: Tc-99m Sestamibi. Dose: 30.0 Date: 09/14/2019 Injection Time: 1335 HR Max Heart Rate (APMHR): 148 bpm Resting HR Supine: 59 bpm Target HR (85% APMHR): 125 bpm Max HR Achieved: 77 bpm % of APMHR: 52 Recovery HR: 76 bpm BP Resting BP Supine: 138/78 mmHg Max BP: 148/60 mmHg Recovery BP: 140/70 mmHg ECG Resting ECG: Sinus Rhythm with frequent PVCs. ST Change: Normal Ectopy: PVCs Stress ECG: Sinus rhythm with ventricular bigeminy Arrhythmia: VPC's Recovery ECG: Sinus rhythm with ventricular bigeminy. Recovery ST Change: Normal Recovery Arrhythmia: PVCs Clinical Stress Symptoms: No significant symptoms from lexiscan injection. Stress ECG Conclusion 1. There was no evidence of ischemia on the ECG portion of this exam. Protocol Used: Regadenoson Stress Test Summary STAGE HR BP Symptoms NOTES Supine 59 138/78 1 min post lexiscan injection 77 142/62 3 min post lexiscan injection 77 148/60 6 min post lexiscan injection 76 140/70 MPI Conclusion No evidence of ischemia on the imaging portion of this exam. Frequent ectopic beats decrease the sensitivity of this exam and limit interpretation. Due to frequent ectopic beats and subsequent gating issues, ejection fraction and wall motion abnorma lities were unable to be assessed. This likely represents a normal perfusion exam.
[2019-09-14] MEDS: Regadenoson 0.4 MG/5 ML SYR IVP (14:14)
--- NOTE | 2019-09-14 15:36 | PHARADMIT ---
Admission Pharmacy Clinical Review CHF Code Status Full Code Current Weight 100.9 kg Renally Cleared and Narrow Therapeutic Index Meds Crcl ~66.9 mL/min using adjusted body weight current meds okay QTc Value / Action Taken QTc 459 BP Control, Fever BP 135/71 afebrile Electrolytes reviewed within normal limits DVT Prophylaxis heparin Opiate Usage / Scheduled Bowel Regimen Ordered no/prn Plt/SCr for Heparin / Enoxaparin plt 115 SCr 1.15 INR for Warfarin n/a H/H stable, WBC/Bands h/h 15.4/45.8 WBC 7.12 Antibiotic appropriateness none Cultures and Sensitivities none Surgical ABX d/c within 24 hr n/a DM control / Insulin Dosing Bg 98 none Heart Failure (Check EF%) (SHARA's, B-Block, Diuretics) furosemide IV to PO Switch n/a Home Meds Reviewed yes Home Meds Not Ordered lovastatin (changed to high intensity statin), metoprolol (held for bradycardia and stress test today). Comments ECHO and stress test today watch for restart of metoprolol, COUNTRY DIRECTOR mentioned possible starting and ARB for CAD
--- NOTE | 2019-09-14 16:15 | W.PM.PROGNOT ---
Date of Service Date of service: 09/14/19 Time of Service: 16:15 Assessment and Plan Assessment and plan (1) CHF (congestive heart failure): Status: Chronic Assessment and plan: New onset CHF, with history of CAD, [place] with stent placement approximately 17 years ago. BNP elevated to 1824 on admission. Troponin negative x3. Continue lasix, will need to transition to oral. Monitor intake and output and daily weights. Echocardiogram with LVEF 55-60%, possible diastolic dysfunction (diastolic dysfunction indeterminate). Stress test done, results pending. Increased to high intensity statin. Resume beta audra at lower dose, his usual dose is 25 mg at HS, decrease to 12.5 mg at HS, continue to monitor on telemetry, hold for HR <60. (2) CAD (coronary artery disease): Status: Chronic Assessment and plan: With stents placed 17 years ago. Troponin negative x3. EKG with no ischemic changes. Continue to monitor on telemetry. Increased to high intensity statin. Echo as above. Stress test done, results not available. [place] [facility] [place] (3) Bradycardia: Status: Acute Assessment and plan: Initially in bigeminy on telemetry. Decrease beta-audra dose as above, continue to monitor on telemetry. (4) DVT prophylaxis: Status: Acute Assessment and plan: Subcutaneous heparin. SCDs and teds for mechanical DVT prophylaxis. (5) Discharge planning issues: Status: Acute Assessment and plan: Full code. This case was discussed with Dr. Ayala who is in agreement. Subjective Subjective Interval history since last seen: Mr. Rizzo reports feeling better, he denies chest pressure, he does not feel short of breath at rest. He is not coughing. Overall, he reports feeling better. He is still requiring oxygen, he is down to 1 lpm, with oxygen saturations in the low to mid 90s. His beta audra was on hold last night, he was monitored on telemetry, he remained in sinus bradycardia with rates in the 40s and 50s. He had an echo today that showed LVEF of 55-60%, with moderately dilated LV, mildly dilated RA, LA, RV, moderate MR, trace TR. Diastolic function was indeterminate. He went for stress testing today, the first attempt yielded poor quality images and the test was repeated. He is eating and drinking and tolerating his diet with no nausea, vomiting or diarrhea. He denies any bowel or bladder function problems. Exam Narrative Exam Narrative: General: elderly man sitting up in bed. Alert and oriented, pleasant and cooperative, in NAD. HEENT: normocephalic, atraumatic, pupils equal and round, EOMI, mucous membranes moist. Neck: supple, no JVD. Cardiovascular: Heart sounds irregular, rate in the 60s. No murmur appreciated. Respiratory: respirations appear even and unlabored, fine rales to bilateral bases, no wheezing. GI: abdomen soft, round, nontender on palpation, normoactive bowel sounds. Extremities: no clubbing, cyanosis or edema. Objective Objective Clinical Data: Abnormal lab results 09/14/19 09/14/19 09/14/19 Range/Units 06:25 06:25 06:25 Plt Count 115 L (130-400) x1000/uL Carbon Dioxide 32.4 H (21.0-32.0) mmol/L BUN 20 H (7-18) mg/dL Hemoglobin A1c 5.9 H (3.8-5.6) % Vital Signs Temperature 36.8 C 09/14/19 11:50 Temperature Source Tympanic 09/14/19 11:50 Pulse 62 09/14/19 11:50 Pulse Rhythm Irregular 09/14/19 07:25 Pulse 61 09/13/19 14:31 Respiratory Rate 20 09/14/19 11:50 Respiratory Effort Non-Labored 09/14/19 07:25 Respiratory Depth Normal 09/14/19 07:25 Respiratory Pattern Normal 09/14/19 07:25 Blood Pressure 135/71 09/14/19 11:50 Blood Pressure Mean 111 09/13/19 14:31 Blood Pressure Position Supine 09/13/19 12:31 Pulse Oximetry 95 09/14/19 11:50 Oxygen Delivery Method Nasal Cannula 09/14/19 11:50 Oxygen Flow Rate 1 09/14/19 11:50 Pain Level 0 09/14/19 11:50 Comment 09/13/19 15:25 Intake & Output 09/13/19 09/14/19 09/14/19 23:59 11:59 23:59 Intake Total 240 / 240 272 / 272 Output Total 2250 / 2250 1900 / 1900 Balance -2009 / -2009 -1628 / -162 Weight 106.3 kg 100.9 kg Intake: IV Oral 240 / 240 250 / 250 Output: Urine 2250 / 2250 1900 / 1900 Other: Urine Color Yellow Pale Yellow Urine Appearance Clear Clear Urine Odor Normal Normal Voiding Methods Urinal Urinal # Voids 1 Laboratory Results WBC 7.12 k/cumm (4.4-10.8) 09/14/19 06:25 RBC 5.32 m/cumm (4.50-6.00) 09/14/19 06:25 Hgb 15.4 g/dL (13.5-17.5) 09/14/19 06:25 Hct 45.8 % (40.0-50.0) 09/14/19 06:25 MCV 86.1 fL (80-95) 09/14/19 06:25 MCH 28.9 pg (27.0-33.0) 09/14/19 06:25 MCHC 33.6 g/dL (32.0-36.0) 09/14/19 06:25 RDW 13.9 % (11.8-14.1) 09/14/19 06:25 Plt Count 115 x1000/uL (130-400) L 09/14/19 06:25 MPV 10.1 fL (8.0-11.0) 09/14/19 06:25 Immature Gran % 0.3 09/13/19 12:40 Neutrophils % 59.4 09/13/19 12:40 Lymphocytes % 25.4 09/13/19 12:40 Monocytes % 10.5 09/13/19 12:40 Eosinophils % 4.0 09/13/19 12:40 Basophils % 0.4 09/13/19 12:40 Absolute Neutrophils 5.69 k/cumm (1.2-6.7) 09/13/19 12:40 Absolute Lymphocytes 2.44 k/cumm (1.2-3.4) 09/13/19 12:40 Absolute Monocytes 1.01 k/cumm (0.11-0.7) H 09/13/19 12:40 Absolute Eosinophils 0.38 k/cumm (0.0-0.7) 09/13/19 12:40 Absolute Basophils 0.04 k/cumm (0.0-0.2) 09/13/19 12:40 Sodium 140 mmol/L (136-145) 09/14/19 06:25 Potassium 4.8 mmol/L (3.5-5.1) 09/14/19 06:25 Chloride 104 mmol/L (98-107) 09/14/19 06:25 Carbon Dioxide 32.4 mmol/L (21.0-32.0) H 09/14/19 06:25 Anion Gap 3.6 mmol/L (3-11) 09/14/19 06:25 BUN 20 mg/dL (7-18) H 09/14/19 06:25 Creatinine 1.15 mg/dL (0.70-1.30) 09/14/19 06:25 Estimated GFR/1.73 m2 >= 60.00 (mL/min/1.73m2) 09/14/19 06:25 Glucose 98 mg/dL (74-106) 09/14/19 06:25 Hemoglobin A1c 5.9 % (3.8-5.6) H 09/14/19 06:25 Calcium 8.7 mg/dL (8.5-10.1) 09/14/19 06:25 Magnesium 1.9 mg/dL (1.8-2.4) 09/14/19 06:25 Total Bilirubin 0.9 mg/dL (0.2-1.0) 09/13/19 12:40 Total Bilirubin Cancelled 09/13/19 12:40 AST 25 U/L (15-37) 09/13/19 12:40 AST Cancelled 09/13/19 12:40 ALT 29 U/L (16-63) 09/13/19 12:40 ALT Cancelled 09/13/19 12:40 Alkaline Phosphatase 56 U/L (46-116) 09/13/19 12:40 Alkaline Phosphatase Cancelled 09/13/19 12:40 Troponin I < 0.05 ng/Ml (<0.06) 09/13/19 20:30 NT-Pro-B Natriuret Pep 1824 pg/mL (<300) H 09/13/19 12:40 Total Protein 7.6 g/dL (6.4-8.2) 09/13/19 12:40 Total Protein Cancelled 09/13/19 12:40 Albumin 3.3 g/dL (3.4-5.0) L 09/13/19 12:40 Albumin Cancelled 09/13/19 12:40 TSH 1.48 uIU/mL (0.36-3.74) 09/14/19 06:25
[2019-09-14] MEDS: Acetaminophen 325 MG TAB PO (16:21)
[2019-09-14] MEDS: Atorvastatin 40 MG TAB 80 MG PO (20:09)
[2019-09-14] MEDS: Loratidine 10 MG TAB PO (22:45)
[2019-09-15] VITALS (7 sets, daily range): BP systolic 146–156; BP diastolic 75–89; PULSE 49–88; RESP 17–24; TEMP 36.1–36.6; O2SAT 85–97
[2019-09-15] MEDS: Heparin 5,000 UNITS/ML VIAL 5000 UNITS SC ×2 (00:18→07:50)
[2019-09-15 07:24] LABS: Anion Gap 8.4 mmol/L (3-11); BUN 24 mg/dL (7-18); CO2 28.6 mmol/L (21.0-32.0); CREATININE 1.03 mg/dL (0.70-1.30); Calcium 8.7 mg/dL (8.5-10.1); Chloride 102 mmol/L (98-107); Glucose 102 mg/dL (74-106); Magnesium 1.9 mg/dL (1.8-2.4); NT-proBNP 491 pg/mL (<300); Potassium 4.2 mmol/L (3.5-5.1); Sodium 139 mmol/L (136-145)
[2019-09-15] MEDS: Magnesium Oxide 400 MG TAB PO (07:48)
[2019-09-15] MEDS: Aspirin E.C. 81 MG TABEC PO (07:48)
[2019-09-15] MEDS: Furosemide 20 MG/2 ML VIAL IVP (07:49)
[2019-09-15] MEDS: Normal Saline Flush 10 ML SYR IVP (07:50)
[2019-09-15 08:47] LABS: HCT 50.7 % (40.0-50.0); HGB 17.2 g/dL (13.5-17.5); Mean Corp. HGB Concentration 33.9 g/dL (32.0-36.0); Mean Corpuscular Hemoglobin 28.7 pg (27.0-33.0); Mean Corpuscular Volume 84.5 fL (80-95); Mean Platelet Volume 9.9 fL (8.0-11.0); Platelet Count 144 x1000/uL (130-400); RBC Distribution Width 13.9 % (11.8-14.1); White Blood Cell Count 8.31 k/cumm (4.4-10.8)
--- NOTE | 2019-09-15 09:53 | PDOC.CMPRO ---
- If Service Date Differs Date of service: 09/15/19 Time of Service: 09:53 Care Management Progress Note S/O: A:New is a 74 year old male admitted with acute CHF, with a history of coronary artery disease, and chronic CHF P: New will be discharged when medically cleared by provider. Anticipate no new services at time of discharge. He will be transported home by family via private vehicle. CM continues to follow.
[2019-09-15] MEDS: Metoprolol CR 25 MG TABCR 12.5 MG PO (11:17)
--- NOTE | 2019-09-15 11:41 | DSE_ITS ---
Date of service: 09/15/19 Time of Service: 11:46 DS: Diagnosis Discharge Diagnosis (1) CHF (congestive heart failure): Start date: 09/15/19 Start time: 11:46 Status: Chronic Asessment and Plan: Echo with EF 55-60%, Nuclear stress test is normal perfusion. Will continue furosemide 20 mg daily. Follow up with cardiology in 1 week. Weigh self daily. Avoid sodium. Will make sure patient has HF hand book. (2) CAD (coronary artery disease): Status: Chronic (3) Bradycardia: Start date: 09/15/19 Start time: 11:50 Status: Acute Asessment and Plan: Tropol xl cut to 12.5 due to Bradycardia in the 40's at night. (4) DVT prophylaxis: Status: Acute (5) Discharge planning issues: Status: Acute Discharge Plan Disposition Patient Disposition: HOME Condition: Improving Discharge Details Chief Complaint: SOB Reason For Visit: CHF Admit Date/Time: 09/13/19 14:30 Admit Provider: Kar Ayala Attending Provider: Kar Ayala Primary Care Provider: Enedina Narvaez ED Provider: Nichole Quiroz [facility] Hospital Course: 74-year-old man with a past medical history significant for myocardial infarction with history of cardiac catheterization and 2 stents placed approximately 17 years ago who presented to the emergency department today with shortness of breath that has been progressively worsening over the last month. He was admitted from [facility] ED for CHF after presenting with inability to lay flat. Upon admission he had an elevated BNP, rales and xray suggestive of CHF. He was started on lasix and monitored on telemetry. Over the course of hospitalization he lost 6 kg. Echo revealed EF 55-60%, moderately dilated LV, with indeterminate diastolic function. Nuclear stress test, was normal perfusion. Overnight he would become bradycardic in the 40's metoprolol was halved to 12.5 mg and heart rate was stable no lower then 50's last night. He feels well LSC, no SOB, exercise oximetery 93% with ambulation and HR maintained 60-70's. He is being discharged home. He will continue lasix 20 mg daily po, it was discussed with patient and about daily weights, low sodium intake, increased swelling, and SOB. Recommend follow up with cardiology in 1 week. He denies SOB, CP, N/V/D. Home Meds and New Rx's Prescriptions: New atorvastatin [Lipitor] 40 mg Tablet 80 mg PO QPM Qty: 30 RF: 0 furosemide 20 mg Tablet 20 mg PO DAILY Qty: 14 RF: 0 metoprolol succinate 25 mg Tablet Extended Release 24 Hr 12.5 mg PO DAILY Qty: 30 RF: 0 Continued lovastatin 40 MG tablet 60 mg PO HS RF: 0 aspirin [Aspir-81] 81 MG tablet,delayed release (DR/EC) 81 mg PO DAILY RF: 0 loratadine [Claritin] 10 MG tablet 10 mg PO HS RF: 0 Discontinued metoprolol succinate 25 MG tablet extended release 24 hr 25 mg PO DAILY RF: 0 Discharge Instructions Instructions: Heart Failure (DC), Seasoning Without Salt (DC), Dyspnea (GEN), DASH Eating Plan (DC), Low Sodium Diet (DC), Edema (DC) Additional Instructions: Check weight every day at same time and in same amount of clothing. If you have a 3 pound or more weight increase call your primary provider right away. Use other substances than salt to season food such as mrs. Parish, and seasonings that do not include salt. Take only 12.5 mg of metoprolol as your dose has been lowered. Take furosemide daily, this is your water pill. If you have leg swelling, shortness of breath call your doctor immediately. Stand Alone Forms: Nursing Discharge Form Referrals: Enedina Narvaez [Primary Care Provider] - 09/24/19 3:15 pm Activity:: Activity as Tolerated Equipment/Supplies:: No Equipment Needed Diet:: Low Sodium Discharge Orders Discharge Orders: Discharge Order (Routine); Ordered 09/15/19 Ordered By: Dee Francois DS: Summary Status at Discharge Functional status at discharge: independent ambulation Overall status at discharge: patient is back to baseline Mental Status: mental status grossly normal Speech and Movement: speech and movement normal Mood: congruent mood Affect: normal affect Exam Narrative Exam Narrative: General: elderly man sitting up in bed. Alert and oriented, pleasant and cooperative, in NAD. HEENT: normocephalic, atraumatic, pupils equal and round, EOMI, mucous membranes moist. Neck: supple, no JVD. Cardiovascular: Heart sounds irregular, rate in the 60s. No murmur appreciated. Respiratory: respirations appear even and unlabored, LSC to all bases GI: abdomen soft, round, nontender on palpation, normoactive bowel sounds. Extremities: no clubbing, cyanosis or edema. Psych Mental Status: mental status grossly normal Speech and Movement: speech and movement normal Mood: congruent mood Affect: normal affect DS: Data Vitals/I&O Vitals and I&O: Vital Signs Temperature 36.6 C 09/15/19 07:20 Temperature Source Tympanic 09/15/19 07:20 Pulse 57 L 09/15/19 07:20 Pulse Rhythm Irregular 09/15/19 07:20 Pulse 61 09/13/19 14:31 Respiratory Rate 17 09/15/19 07:20 Respiratory Effort Non-Labored 09/15/19 07:20 Respiratory Depth Normal 09/15/19 07:20 Respiratory Pattern Normal 09/15/19 07:20 Blood Pressure 156/89 H 09/15/19 07:20 Blood Pressure Mean 111 09/13/19 14:31 Blood Pressure Position Supine 09/13/19 12:31 Pulse Oximetry 95 09/15/19 08:50 Oxygen Delivery Method Room Air 09/15/19 08:50 Oxygen Flow Rate 0 09/15/19 08:50 Pain Level 0 09/15/19 07:20 Comment 09/15/19 03:40 Intake & Output 09/14/19 09/14/19 09/15/19 11:59 23:59 11:59 Intake Total 272 / 924 652 / 924 760 / 760 Output Total 1900 / 1900 Balance -1628 / -976 652 / -976 760 / 760 Weight 100.9 kg 100.7 kg Intake: IV Oral 250 / 890 640 / 890 760 / 760 Output: Urine 1900 / 1900 Other: Urine Color Pale Yellow Urine Appearance Clear Clear Clear Urine Odor Normal Voiding Methods Urinal Data Completed and Pending Completed studies during hospitalization [Text1]: Exam(s) a RAD:XR chest 2V PA & lateral EXAM: XR CHEST 2V PA LATERAL CLINICAL HISTORY: SOB, cough TECHNIQUE: COMPARISON: CHEST 2 VIEWS PA,LAT from 01/11/2017 CHEST 2 VIEWS PA,LAT from 01/20/2017 FINDINGS: The heart is mildly enlarged. There are mild diffuse bilateral pulmonary interstitial radiodensities which were not present on prior chest films including January 2017. There is fluid in the fissures which has not been present on prior examinations. The findings as described are suggestive of acute CHF. The possibility of superimposed pneumonia is not excluded. Appropriate follow-up studies requested. IMPRESSION: Exam(s) a US:US echocardiogram APPROVED REPORT EXAM: Comprehensive 2D, Doppler, and color-flow Echocardiogram Patient Location: In-Patient Firer Portable Boiler: Idalia Abdi RDCS (AE) Rhythm: Bradycardia Indications: new CHF hx CAD Conclusion Left Ventricle : Left ventricle is dilated. The left ventricle is moderately dilated. Left ventricular systolic function is normal. There is normal left ventricular wall thickness. There is normal LV segmental wall motion. Left ventricular diastolic function is indeterminate. LVEF is estimated to be 55-60% Right Ventricle : Right ventricle is mildly dilated. The right ventricular systolic function is normal. Atria : Left atrium is mildly dilated. Right atrium is mildly dilated. Aortic Valve : Aortic valve is trileaflet. No aortic regurgitation is present. There is no aortic valvular stenosis. Mitral Valve : Mitral valve leaflets are mildly thickened. Moderate mitral regurgitation (RF 33%). No evidence of mitral valve stenosis. Tricuspid Valve : Tricuspid valve is not well visualized. Trace tricuspid regurgitation. Pulmonic Valve : Pulmonic valve is not well visualized. Great Vessels : The aortic root size is normal. 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 IVC is normal in size and collapses >50% with inspiration. Estimated RVSP is 16-19 mmHg. There is no prior echocardiogram available for comparison. Wall motion Left Ventricle Left ventricle is dilated. The left ventricle is moderately dilated. Left ventricular systolic function is normal. There is normal left ventricular wall thickness. There is normal LV segmental wall motion. Left ventricular diastolic function is indeterminate. LVEF is estimated to be 55-60% Right Ventricle Right ventricle is mildly dilated. The right ventricular systolic function is normal. Atria Left atrium is mildly dilated. Right atrium is mildly dilated. Aortic Valve Aortic valve is trileaflet. There is no aortic valvular stenosis. No aortic regurgitation is present. Mitral Valve Mitral valve leaflets are mildly thickened. No evidence of mitral valve stenosis. Moderate mitral regurgitation (RF 33%). Tricuspid Valve Tricuspid valve is not well visualized. Trace tricuspid regurgitation. Pulmonic Valve Pulmonic valve is not well visualized. Great Vessels The aortic root size is normal. 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 IVC is normal in size and collapses >50% with inspiration. Estimated RVSP is 16- 19 mmHg. Pericardium There is no pericardial effusion. Exam: Pharmacologic Patient Location: In-Patient Room/Bed: Stress Nurse: Lolita Lee RN BMI: 33.75 Baseline Rhythm: Sinus bradycardia with frequent PVCs Medical History Medical History: Angina, CAD s/p HI, CAD s/p stent, CHF, Obesity , HTN, Hyperlipidemia, SOB Cardiac Medications: Aspirin, Metoprolol succinate, Lovastatin. Allergies: Lisinopril. Penicilllin. SHARA inhibitors. Cardiac Risk Factors: HTN, Hyperlipidemia, FHX of CAD, SOB, former smoker Previous Cardiac Procedures: PCI. Cardiac stent x2. Exercise History: Physically active Lung Sounds: Clear to auscultation, diminished breath sounds in the bases. Heart Sounds: Irregular Stress Test Details Test: Pharmacologic stress testing performed using 0.4 mg of regadenoson per 5 mL given IV over 10 seconds. Nuclear Acquisition: Rest Tc-99m/Stress Tc-99m 1 day Rest Isotope: Tc-99m Sestamibi. Dose: 10.0 Date: 09/14/2019 Injection Time: 1100 Stress Isotope: Tc-99m Sestamibi. Dose: 30.0 Date: 09/14/2019 Injection Time: 1335 HR Max Heart Rate (APMHR): 148 bpm Resting HR Supine: 59 bpm Target HR (85% APMHR): 125 bpm Max HR Achieved: 77 bpm % of APMHR: 52 Recovery HR: 76 bpm BP Resting BP Supine: 138/78 mmHg Max BP: 148/60 mmHg Recovery BP: 140/70 mmHg ECG Resting ECG: Sinus Rhythm with frequent PVCs. ST Change: Normal Ectopy: PVCs Stress ECG: Sinus rhythm with ventricular bigeminy Arrhythmia: VPC's Recovery ECG: Sinus rhythm with ventricular bigeminy. Recovery ST Change: Normal Recovery Arrhythmia: PVCs Clinical Stress Symptoms: No significant symptoms from lexiscan injection. Stress ECG Conclusion 1. There was no evidence of ischemia on the ECG portion of this exam. Protocol Used: Regadenoson Stress Test Summary STAGE HR BP Symptoms NOTES Supine 59 138/78 1 min post lexiscan injection 77 142/62 3 min post lexiscan injection 77 148/60 6 min post lexiscan injection 76 140/70 MPI Conclusion No evidence of ischemia on the imaging portion of this exam. Frequent ectopic beats decrease the sensitivity of this exam and limit interpretation. Due to frequent ectopic beats and subsequent gating issues, ejection fraction and wall motion abnormalities were unable to be assessed. This likely represents a normal perfusion exam. Labs on day of discharge: Labs from last 24 hours 09/15/19 09/15/19 09/15/19 08:28 08:08 06:40 WBC 8.31 RBC 6.00 Hgb 17.2 Hct 50.7 H MCV 84.5 MCH 28.7 MCHC 33.9 RDW 13.9 Plt Count 144 MPV 9.9 Sodium Cancelled 139 Potassium Cancelled 4.2 Chloride Cancelled 102 Carbon Dioxide Cancelled 28.6 Anion Gap Cancelled 8.4 BUN Cancelled 24 H Creatinine Cancelled 1.03 Estimated GFR/1.73 m2 Cancelled >= 60.00 Glucose Cancelled 102 Calcium Cancelled 8.7 Magnesium Cancelled 1.9 NT-Pro-B Natriuret Pep 491 H [facility] Medical History Benign hypertension CAD (coronary artery disease) (Chronic) Hyperlipidemia Surgical History Coronary Stent x 2 10 yrs ago Social History Smoking/Tobacco Use Status: Former Tobacco Use Drug use: Never Do you feel safe at home: Yes Do you feel safe in your relationship?: Yes
--- NOTE | 2019-09-16 06:39 | PDOC.CMDIS ---
- If Service Date Differs Date of service: 09/15/19 Time of Service: 14:00 LACE Index Scoring Tool - Questions: Length of Stay (in days): 3 Acuity (Admit via E.D.?): Yes Comorbidities: Congestive Heart Failure E.D. Visits: 1 - Answers: Total Score: 9 Risk of Readmission: Low Risk Care Management Discharge Reason for Hospitalization: Congestive heart failure. Discharge Plan: New states he feels ready for discharge, his family is present during CM discharge assessment. He declines home health services at this time. New would like a new primary care provider locally. Telephone provider irrigation specialist Luci Bustillo NP at [facility] [place]. CM had patient complete the request for medcial records and new patient registration which was faxed to [facility] [place] and [facility]. Patient has an appointment with his radio board operator. New will be transported by private car at time of discharge. Patient/Family Education Needs: CHF binder was provided to New and his spouse. CM provided edcuation r/t CHF and reviewed materials with New and his family. New does not currently have a scale which his spouse agrees to purchase. CM educated improtance of daily weights including the same time of day each day. New and his spouse are able to acknowledge if his weight is up more than two pounds he should contact his radio board operator [facility] to review plan to manage CHF.
== END 2019-09-15 14:26 | disposition home or self-care (01) | DRG 293 ==
LOC: ER 14:54 → MS 15:23
PROVIDERS: Nurse Practitioner; Nurse Practitioner Family; Admitting Provider Internal Medicine; Emergency Provider Physician Assistant; PCP Nurse Practitioner Family; Visit Provider Internal Medicine
DX: I50.9 Heart failure, unspecified (principal); I25.10 Atherosclerotic heart disease of native coronary artery without angina pectoris; R00.1 Bradycardia, unspecified; I25.2 Old myocardial infarction; Z95.5 Presence of coronary angioplasty implant and graft; I10 Essential (primary) hypertension; E78.5 Hyperlipidemia, unspecified; Z23 Encounter for immunization
CPT/HCPCS: 36415; 78452; 80048; 80053; 85027; 93005; 93016; 93018; 93306; 96374; 99222; 99232; 99239; 99285; 71046; 83036; 83735; 83880; 84443; 84484; 85025; 93010; 93017; 93225; J1644; J1941; J2785

== ENCOUNTER 2019-09-14 02:43 | Outpatient (CLI) | payer MEDICARE, OTHER, SELFPAY | END 2019-09-14 03:03 | PROVIDERS: PCP Nurse Practitioner Family; Visit Provider Nurse Practitioner | DX: R07.9 Chest pain, unspecified (principal) | CPT/HCPCS: 93017 ==

== ENCOUNTER 2019-09-18 08:25 | Outpatient (CLI) | payer MEDICARE, SELFPAY ==
--- NOTE | 2019-09-18 10:41 | W.HOLTRPT ---
Date of service: 09/18/19 Time of Service: 10:41 Holter Monitor Report Holter Monitor Note: This is a 2-day Holter monitor ordered for indication of bradycardia. ?Patient was in normal sinus rhythm for the majority of the recording. With a mean heart rate of 72. Minimum heart rate was 51 bpm. ?Patient had 2 episodes of supraventricular tachycardia with the longest lasting 3 beats. Patient had rare premature atrial contractions. ?Patient had no episodes of ventricular tachycardia. Patient had occasional (3.4%) single ventricular ectopic beats. ?Patient had numerous episodes of bigeminy which correlated with diary symptoms. ?There were no episodes of atrial fibrillation, pauses greater than 3 seconds or evidence of high degree heart block.
== END 2019-09-18 08:45 ==
PROVIDERS: PCP Nurse Practitioner Family; Visit Provider Internal Medicine
DX: R00.1 Bradycardia, unspecified (principal); I47.1 Supraventricular tachycardia; I49.1 Atrial premature depolarization
CPT/HCPCS: 93227; 93226

== ENCOUNTER 2020-05-30 17:42 | Outpatient (REF) | payer MEDICARE, SELFPAY ==
[2020-05-30 21:32] LABS: Bilirubin Negative (Negative); Blood Small (Negative); Clarity Clear (Clear); Glucose Negative (Negative); Ketones Negative (Negative); Leukocyte Esterase Negative (Negative); Nitrite Negative (Negative)
[2020-05-30 22:16] LABS: Bacteria Few HPF (Negative); C & S Indicated? No; Casts Negative LPF (Negative); Crystals Negative HPF (Negative); Epithelial Cells Negative HPF (Negative); Mucus Negative (Negative); Other Cells Negative (Negative); WBC Negative HPF (0-5)
== END 2020-05-30 18:02 ==
LOC: NCHCN 17:42
PROVIDERS: PCP Nurse Practitioner Family; Visit Provider Nurse Practitioner Family
DX: R82.998 Other abnormal findings in urine (principal); Z87.448 Personal history of other diseases of urinary system
CPT/HCPCS: 81003; 81015

== ENCOUNTER → 2020-08-14 13:50 | Outpatient (BNVA) | payer MEDICARE, SELFPAY | PROVIDERS: PCP Nurse Practitioner Family; Referring Provider Nurse Practitioner Family; Visit Provider Nurse Practitioner Gerontology | DX: R31.29 Other microscopic hematuria (principal); I11.0 Hypertensive heart disease with heart failure; I50.9 Heart failure, unspecified | CPT/HCPCS: 81003; 99204; 99215 ==

== ENCOUNTER 2020-09-15 01:29 | Outpatient (CLI) | payer MEDICARE, SELFPAY ==
--- NOTE | 2020-09-15 08:00 | DI.CT_ITS ---
EXAM: CT ABDOMEN PELVIS WO/W CLINICAL HISTORY: MICROHEMATURIA,R31.9. TECHNIQUE: Imaging Protocol: Axial computed tomography images with coronal and sagittal reformatted images were created and reviewed CONTRAST MATERIAL: Intravenous: Omnipaque 100cc Oral: None COMPARISON: No exams were available for comparison FINDINGS: VISUALIZED LUNG BASES: No nodules nor pleural effusions evident. ABDOMEN: There is no ascites. LIVER: There are no obvious focal hepatic lesions evident . GALLBLADDER/BILIARY: There are multiple gallstones noted in the gallbladder lumen. These all measure 10 x 9 millimeters. There is no gallbladder wall edema or pericholecystic fluid. CBD is not dilate d. PANCREAS: No evidence of pancreatic mass nor dilatation of the pancreatic duct. SPLEEN: Spleen is not enlarged. No obvious intrasplenic lesions. Splenic and portal veins are paten t. ADRENALS: There are no significant adrenal masses. KIDNEYS:There are a few cysts in the kidneys. Largest is in the posterior cortex of the left kidney, measuring 4 x 4 cm. No solid renal masses. No calculi nor hydronephrosis.. ABDOMINAL AORTA: There is abundant para-aortic adenopathy which actually elevates the abdominal aorta . Adenopathy extends into the pelvis. There is minimal prominence of the diameter of the lower abdo amanda aorta measuring 2.5 centimetres and there is also mild arterial megaly both common iliac arteri es. No tight stenosis of these vessels. ABDOMINAL WALL/GI: Midline umbilical fat containing hernia. No bowel obstruction. No omental cake. PELVIS: GI: No evidence of appendicitis.No evidence of sigmoid diverticulitis. LYMPH NODES: There is adenopathy around the aortic bifurcation and along the iliac chains. Shoddy ly mph nodes are noted in both inguinal regions. The largest is in the lateral left inguinal region and measures 2.1 by 1.4 cm. REPRODUCTIVE: Prostate gland is not enlarged. Seminal vesicles unremarkable. URINARY BLADDER: No calculi nor obvious masses evident OSSEOUS: No significant osseous lesions. IMPRESSION: 1. 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 A slightly enlarged lymph node is noted in the lateral left groin. Spleen size is upper normal-slightly prominent. 2. Cholelithiasis noted. No evidence of acute cholecystitis nor dilatation of the biliary tree. 3. 4 centimeter cyst in the left kidney. Other renal cysts are smaller. There are no adrenal masses . 4. No lytic osseous lesions identified. RADIATION DOSE DELIVERED: 2,899.39mGy.cm Total DLP DATA REPOSITORY: All CT scans at this facility are submitted to the National Radiology Data Registry (NRDR) Dose Index Registry (DIR) with the [employer] (ACR). RADIATION OPTIMIZATION: All CT scans at this facility use at least one of these dose optimization te chniques: automated exposure control; mA and/or kV adjustment per patient size (includes targeted exa ms where dose is matched to clinical indication); or iterative reconstruction.
[2020-09-15 13:26] LABS: CREATININE 1.42 mg/dL (0.70-1.30); Estimated GFR 48.87 (mL/min/1.73m2)
[2020-09-15] MEDS: Omnipaque 350 MG/ML 100 ML BTL IV (14:03)
== END 2020-09-15 01:49 ==
PROVIDERS: PCP Nurse Practitioner Family; Visit Provider Nurse Practitioner Gerontology
DX: R31.29 Other microscopic hematuria (principal); R59.0 Localized enlarged lymph nodes; K80.20 Calculus of gallbladder without cholecystitis without obstruction; N28.1 Cyst of kidney, acquired
CPT/HCPCS: 74178; 82565; J3490

== ENCOUNTER → 2020-09-18 14:35 | Outpatient (BNVA) | payer MEDICARE, SELFPAY | PROVIDERS: PCP Nurse Practitioner Family; Referring Provider Nurse Practitioner Family; Visit Provider Nurse Practitioner Gerontology | DX: R31.9 Hematuria, unspecified (principal); N28.1 Cyst of kidney, acquired | CPT/HCPCS: 99213 ==

== ENCOUNTER → 2020-10-21 13:01 | Outpatient (BNVA) | payer MEDICARE, SELFPAY | PROVIDERS: PCP Nurse Practitioner Family; Referring Provider Nurse Practitioner Family; Visit Provider Urology | DX: R31.29 Other microscopic hematuria (principal) | CPT/HCPCS: 52281; 81003; 99213 ==

== ENCOUNTER 2020-12-12 17:15 | Outpatient (REF) | payer MEDICARE, SELFPAY ==
[2020-12-12 19:53] LABS: Abs Immature Grans 0.06 10^3/uL (0.0-0.06); HCT 46.2 % (40.0-50.0); HGB 15.2 g/dL (13.5-17.5); MCH 28.1 pg (27.0-33.0); MCHC 32.9 % (32.0-36.0); MCV 85.6 fL (80-95); Nucleated RBC 0 %; Platelet Count 105 10^3/uL (130-400); RDW 13.3 % (11.8-14.1); RDW-SD 41.3 fL; WBC 9.83 10^3/uL (4.4-10.8)
[2020-12-12 20:11] LABS: Anion Gap 4.6 mmol/L (3-11); BUN 22 mg/dL (7-18); CO2 30.4 mmol/L (21.0-32.0); CREATININE 1.7 mg/dL (0.70-1.30); Calcium 8.8 mg/dL (8.5-10.1); Chloride 104 mmol/L (98-107); Estimated GFR 39.71 (mL/min/1.73m2); Glucose 75 mg/dL (74-106); NT-proBNP 712 pg/mL (<300); Potassium 4.7 mmol/L (3.5-5.1); Sodium 139 mmol/L (136-145)
[2020-12-12 20:23] LABS: Absolute Neutrophil Count 5.31 10^3/uL (1.2-6.7); Bands % 2; Diff Comment Manual Differential; RBC Morphology Normal
[2020-12-12 20:24] LABS: Absolute Eosinophil Count 0.49 10^3/uL (0.0-0.7); Absolute Monocyte Count 0.59 10^3/uL (0.1-0.8)
[2020-12-16 15:25] LABS: Atypical Lymphocytes % 9
[2021-01-30 14:23] LABS: Absolute Lymphocyte Count 3.44 10^3/uL (1.2-3.4)
== END 2020-12-12 17:16 | disposition home or self-care (01) ==
LOC: NCHCN 17:15
PROVIDERS: PCP Nurse Practitioner Family; Visit Provider Nurse Practitioner Family
DX: C83.08 Small cell B-cell lymphoma, lymph nodes of multiple sites (principal); I50.9 Heart failure, unspecified
CPT/HCPCS: 80048; 83880; 85025

== ENCOUNTER 2020-12-25 16:37 | Outpatient (REF) | payer MEDICARE, SELFPAY ==
[2020-12-25 19:48] LABS: HCT 47.2 % (40.0-50.0); HGB 15.4 g/dL (13.5-17.5); MCH 28.1 pg (27.0-33.0); MCHC 32.6 % (32.0-36.0); MPV 10.5 fL (8.0-11.0); Platelet Count 115 10^3/uL (130-400); RBC 5.49 10^6/uL (4.36-5.78); RDW 13.2 % (11.8-14.1); RDW-SD 41.1 fL; WBC 7.59 10^3/uL (4.4-10.8)
[2020-12-25 19:55] LABS: Anion Gap 7.3 mmol/L (3-11); BUN 24 mg/dL (7-18); CO2 29.7 mmol/L (21.0-32.0); CREATININE 1.3 mg/dL (0.70-1.30); Calcium 8.8 mg/dL (8.5-10.1); Chloride 106 mmol/L (98-107); Estimated GFR 54.11 (mL/min/1.73m2); Glucose 108 mg/dL (74-106); Potassium 4.3 mmol/L (3.5-5.1); Sodium 143 mmol/L (136-145)
== END 2020-12-25 16:38 | disposition home or self-care (01) ==
LOC: NCHCN 16:37
PROVIDERS: PCP Nurse Practitioner Family; Visit Provider Nurse Practitioner Family
DX: C83.08 Small cell B-cell lymphoma, lymph nodes of multiple sites (principal); R59.1 Generalized enlarged lymph nodes; I25.10 Atherosclerotic heart disease of native coronary artery without angina pectoris; I50.9 Heart failure, unspecified
CPT/HCPCS: 80048; 85027

== ENCOUNTER 2021-01-20 15:30 | Outpatient (REF) | payer MEDICARE, SELFPAY ==
[2021-01-20 21:36] LABS: Bilirubin Negative (Negative); Blood Small (Negative); Clarity Clear (Clear); Glucose Negative (Negative); Ketones Negative (Negative); Leukocyte Esterase Negative (Negative); Nitrite Negative (Negative); Specific Gravity 1.025 (1.005-1.025)
[2021-01-20 22:09] LABS: Bacteria Negative HPF (Negative); C & S Indicated? No; Casts Negative LPF (Negative); Crystals Negative HPF (Negative); Epithelial Cells Negative HPF (Negative); Mucus Negative (Negative); Other Cells Negative (Negative); WBC Negative HPF (0-5)
== END 2021-01-20 15:31 | disposition home or self-care (01) ==
LOC: NCHCN 15:30
PROVIDERS: PCP Nurse Practitioner Family; Visit Provider Nurse Practitioner Family
DX: R31.9 Hematuria, unspecified (principal)
CPT/HCPCS: 81003; 81015

== ENCOUNTER 2021-02-02 16:42 | Outpatient (REF) | payer MEDICARE, SELFPAY ==
[2021-02-02 21:20] LABS: Abs Immature Grans 0.03 10^3/uL (0.0-0.06); Absolute Basophil Count 0.07 10^3/uL (0.0-0.2); Absolute Eosinophil Count 0.35 10^3/uL (0.0-0.7); Absolute Lymphocyte Count 3.15 10^3/uL (1.2-3.4); Absolute Monocyte Count 0.99 10^3/uL (0.1-0.8); Absolute Neutrophil Count 4.32 10^3/uL (1.2-6.7); Basophils % 0.8; Eosinophils % 3.9; HCT 45.6 % (40.0-50.0); HGB 15.1 g/dL (13.5-17.5); Immature Grans % 0.3; Lymphocytes % 35.4; MCHC 33.1 % (32.0-36.0); MCV 84.6 fL (80-95); MPV 10.5 fL (8.0-11.0); Monocytes % 11.1; Neutrophils % 48.5; Nucleated RBC 0 %; Platelet Count 128 10^3/uL (130-400); RBC 5.39 10^6/uL (4.36-5.78); RDW 13.4 % (11.8-14.1); RDW-SD 41.6 fL; WBC 8.91 10^3/uL (4.4-10.8)
[2021-02-02 21:28] LABS: ALT 24 U/L (16-63); AST 25 U/L (15-37); Albumin 3.5 g/dL (3.4-5.0); Alkaline Phosphatase 62 U/L (46-116); Anion Gap 6.8 mmol/L (3-11); BUN 24 mg/dL (7-18); Bilirubin, Total 0.6 mg/dL (0.2-1.0); CO2 28.2 mmol/L (21.0-32.0); CREATININE 1.1 mg/dL (0.70-1.30); Calcium 8.3 mg/dL (8.5-10.1); Chloride 106 mmol/L (98-107); Glucose 93 mg/dL (74-106); Potassium 4.1 mmol/L (3.5-5.1); Sodium 141 mmol/L (136-145)
== END 2021-02-02 16:43 | disposition home or self-care (01) ==
LOC: NCHCN 16:42
PROVIDERS: PCP Nurse Practitioner Family; Visit Provider Family Medicine
DX: J02.9 Acute pharyngitis, unspecified (principal); C83.08 Small cell B-cell lymphoma, lymph nodes of multiple sites
CPT/HCPCS: 80053; 85025

== ENCOUNTER 2021-02-14 18:57 | Emergency (ER) | payer MEDICARE, SELFPAY ==
--- NOTE | 2021-02-14 19:06 | ED.GENADUL_ITS ---
Discharge Plan Disposition Patient Disposition: HOME Condition: Stable Discharge Details Clinical Impression: Corneal abrasion, right, Foreign body in eye Primary Care Provider: Luci Bustillo ED Provider: Jeane Bashir Home Meds and New Rx's Prescriptions: Continued nitroglycerin 0.4 mg tablet, sublingual 0.4 mg sublingual Q5M PRNRF: 0 naproxen sodium [Aleve] 220 mg capsule 220 mg PO BID PRNRF: 0 ketoconazole 2 % shampoo 1 applic topical ONCE RF: 0 ezetimibe 10 mg tablet 10 mg PO DAILY RF: 0 lovastatin 40 MG tablet 60 mg PO HS RF: 0 aspirin [Aspir-81] 81 MG tablet,delayed release (DR/EC) 81 mg PO DAILY RF: 0 loratadine [Claritin] 10 MG tablet 10 mg PO HS RF: 0 atorvastatin [Lipitor] 40 mg Tablet 80 mg PO QPM Qty: 30 RF: 0 furosemide 20 mg Tablet 20 mg PO DAILY Qty: 14 RF: 0 metoprolol succinate 25 mg Tablet Extended Release 24 Hr 12.5 mg PO DAILY Qty: 30 RF: 0 Discharge Instructions Instructions: Corneal Abrasion (ED), Eye Foreign Body (ED) Additional Instructions: Apply 1/2 inch ribbon of the erythromycin ointment to your right eye 4 times daily for the next 7 days. Call [facility] on Tuesday to schedule a follow-up appointment for reevaluation in the next week. Return immediately to the emergency department if you develop any worsening or new concerning symptoms. Referrals: [facility] [Outside] Discharge Data Discharge Date/Time-TO BE ENTERED AT DEPARTURE: 02/14/21 19:55 Discharge Physician: Jeane Bashir Medical Decision Making 75-year-old male presents with right eye irritation since yesterday. 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 Up-to-date tetanus up-to-date 2 years ago. Right eye conjunctival injection and tearing with some yellow discharge. Herrera lamp exam notes fluorescein uptake and foreign body at 8 o'clock position on right eye. Slit-lamp exam noted a 1 mm brown speck. This foreign body was removed on second attempt with 18-gauge needle. Area was flushed with SBSS. No obvious foreign body remaining. Erythromycin ointment placed within the right eye. Patient placed on care management list for follow-up with [facility] eye care. Usual and customary return precautions given prior to discharge. HPI General Mode of arrival: ambulatory . Date/Time Provider Initiated Documentation: 02/14/21 19:06 . Limitations to Documentation: no limitations . Information obtained by: patient . HPI Narrative: Pt is a 75yo M who presents to the ED w/ a c/o R eye irritation and foreign body sensation since yesterday. 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 He does not wear contacts. He states his tetanus is up to date. He denies fever, headache, blurry vision, dizziness, nausea or vomiting. Related Data Home Medications Medication Instructions Recorded Confirmed aspirin [Aspir-81] 81 mg PO DAILY 12/05/12 02/14/21 loratadine [Claritin] 10 mg PO HS 12/05/12 02/14/21 lovastatin 60 mg PO HS 12/05/12 02/14/21 atorvastatin [Lipitor] 80 mg PO QPM #30 tab 09/15/19 02/14/21 furosemide 20 mg PO DAILY #14 tab 09/15/19 02/14/21 metoprolol succinate 12.5 mg PO DAILY #30 tab 09/15/19 02/14/21 ezetimibe 10 mg tablet 10 mg PO DAILY 06/17/20 09/18/20 ketoconazole 2 % shampoo 1 applic TOPICAL ONCE 06/17/20 02/14/21 naproxen sodium 220 mg capsule 220 mg PO BID PRN 06/17/20 02/14/21 nitroglycerin 0.4 mg sublingual 0.4 mg SUBLINGUAL Q5M PRN 06/17/20 02/14/21 tablet Previous Rx's Medication Instructions Recorded atorvastatin [Lipitor] 80 mg PO QPM #30 tab 09/15/19 furosemide 20 mg PO DAILY #14 tab 09/15/19 metoprolol succinate 12.5 mg PO DAILY #30 tab 09/15/19 Allergies Allergy/AdvReac Type Severity Reaction Status Date / Time lisinopril Allergy Mild Unverified 02/14/21 19:16 penicillin V [Penicillin V] Allergy Mild Unverified 02/14/21 19:16 SHARA Inhibitors Allergy Unknown Unverified 02/14/21 19:16 General MOSES: 4 Review of Systems All systems reviewed & are unremarkable except as noted in HPI and below Constitutional Constitutional: Reports as per HPI, Denies chills and Denies fever(s) Eyes Eyes: Denies blurry vision and Reports irritation ENT Ears, Nose, Mouth, and Throat: Denies dizziness, Denies sore throat and Denies throat swelling Cardiovascular Cardiovascular: Denies chest pain and Denies dyspnea Respiratory Respiratory: Denies cough and Denies dyspnea Gastrointestinal Gastrointestinal: Denies abdominal pain, Denies diarrhea and Denies vomiting Genitourinary Genitourinary: Denies hematuria and Denies dysuria Musculoskeletal Musculoskeletal: Denies back pain and Denies numbness Integumentary/Breasts Skin/Breast: Denies lesions and Denies rash Neurologic Neurologic: Denies dizziness, Denies localized weakness and Denies numbness Allergic/Immunologic Allergic/Immunologic: Denies throat swelling [facility] Medical History (Updated 02/14/21 @ 19:49 by Jeane Bashir DO) Benign hypertension CAD (coronary artery disease) Hyperlipidemia Surgical History Coronary Stent x 2 10 yrs ago Social History Smoking/Tobacco Use Status: Former Tobacco Use Smoking risk assessment performed?: Yes Drug use: Never Substance use type: does not use Do you feel safe at home: Yes Do you feel safe in your relationship?: Yes Exam Const General: cooperative, healthy appearing and no acute distress HENFL Head: normal to inspection Ears: hearing grossly normal bilaterally and external ears normal Mouth: oral mucosae normal Eyes General: appearance normal, both eyes and all related structures Periorbital: periorbital findings normal Eyelids: eyelids normal Conjunctivae: conjunctival abnormality right conjunctival injection diffuse and discharge mucoid Sclera: scleral abnormality right foreign body (noted at 8 o'clock) and scleral injection diffuse Cornea: corneas abnormal on the right fluorescein used, abrasion at the following clock position (8) and foreign body metallic (potentially -- 1mm circular brown speck) and with rust ring present Pupils: PERRL EOM: EOM intact bilaterally Neck Neck: normal visual inspection Resp Effort & Inspection: normal respiratory effort and able to speak in complete sentences Cardio Rate: regular rate Skin General skin exam: no rashes or lesions noted Neuro General: patient alert, patient awake and patient oriented x3 Motor: muscle tone normal throughout Extrem General: normal to inspection and full ROM Psych Appearance: grossly normal Affect: normal affect
[2021-02-14 19:12] VITALS: BP 158/97; PULSE 65; RESP 18; TEMP 36.6; O2SAT 93
[2021-02-14] MEDS: Fluorescein STRIPS 100/BOX 1 MG (19:20)
[2021-02-14] MEDS: Tetracaine 0.5% 4 ML BTL (19:21)
[2021-02-14] MEDS: Balanced Salt Solution 15 ML BTL (19:45)
[2021-02-14] MEDS: Erythromycin Ophth Oint 3.5 GM TUBE OU (19:50)
--- NOTE | 2021-02-14 19:51 | NUR.NOTE ---
Nursing Note:referal and dr note sent to [facility] for corneal abrasion and foreign body 02/14/21
== END 2021-02-14 19:55 | disposition home or self-care (01) ==
PROVIDERS: Emergency Provider Physician Assistant; PCP Nurse Practitioner Family
DX: T15.01XA Foreign body in cornea, right eye, initial encounter (principal); X58.XXXA Exposure to other specified factors, initial encounter; Y92.71 Barn as the place of occurrence of the external cause
CPT/HCPCS: 65222

== ENCOUNTER → 2021-10-27 14:36 | Outpatient (BNVA) | payer MEDICARE, SELFPAY | PROVIDERS: PCP Nurse Practitioner Family; Referring Provider Nurse Practitioner Family; Visit Provider Nurse Practitioner Gerontology | DX: R31.9 Hematuria, unspecified (principal) | CPT/HCPCS: 81003; 99214 ==

== ENCOUNTER 2021-10-30 17:55 | Outpatient (REF) | payer MEDICARE, SELFPAY ==
[2021-10-30 20:54] LABS: HCT 48.4 % (40.0-50.0); HGB 16.3 g/dL (13.5-17.5); MCH 29.1 pg (27.0-33.0); MCHC 33.7 % (32.0-36.0); MCV 86.3 fL (80-95); MPV 10.3 fL (8.0-11.0); Platelet Count 131 10^3/uL (130-400); RBC 5.61 10^6/uL (4.36-5.78); RDW 13.6 % (11.8-14.1); RDW-SD 41.9 fL; WBC 7.97 10^3/uL (4.4-10.8)
[2021-10-30 21:14] LABS: Anion Gap 6.9 mmol/L (3-11); BUN 24 mg/dL (7-18); CO2 26.1 mmol/L (21.0-32.0); CREATININE 1.1 mg/dL (0.70-1.30); Calcium 8.7 mg/dL (8.5-10.1); Chloride 104 mmol/L (98-107); Glucose 80 mg/dL (74-106); Potassium 4.1 mmol/L (3.5-5.1); Sodium 137 mmol/L (136-145); TSH (W/Ref FT4) 1.73 uIU/mL (0.36-3.74)
== END 2021-10-30 17:56 | disposition home or self-care (01) ==
LOC: NCHCN 17:55
PROVIDERS: PCP Nurse Practitioner Family; Visit Provider Nurse Practitioner Family
DX: R00.1 Bradycardia, unspecified (principal); Z12.5 Encounter for screening for malignant neoplasm of prostate
CPT/HCPCS: 80048; 84153; 85027; 83735; 84443

== ENCOUNTER 2021-11-04 11:40 | Emergency (ER) | payer MEDICARE, SELFPAY ==
[2021-11-04] VITALS (33 sets, daily range): BP systolic 150–169; BP diastolic 64–102; PULSE 55–71; RESP 10–26; TEMP 36.9; O2SAT 89–97
--- NOTE | 2021-11-04 11:30 | RT.EKG_ITS ---
APPROVED REPORT Exam: Resting ECG Reason for Exam: chest pressure Patient Location: E HR:70 bpm ECG Measurements Heart Rate 70 AXIS VA 210 P 3 QRSd 112 QRS -23 QT 425 T 20 QTc 460 Conclusion Sinus rhythm...normal P axis, V-rate 60- 99 Ventricular bigeminy...bigeminy string>4 w/ V complexes. Sinus. Ventricular bigeminy. No significant change from previous EKG. No STEMI. I have reviewed and interpreted ECG and agree with software generated interpretation.
--- NOTE | 2021-11-04 12:30 | DI.CT_ITS ---
Exam(s) CT HEAD WO EXAM: CT HEAD WO CLINICAL HISTORY: headache, r/o acute disease. TECHNIQUE: Imaging Protocol: Axial computed tomography images with coronal and sagittal reformatted images were created and reviewed COMPARISON: No exams were available for comparison FINDINGS: Ventricles and Extra axial spaces: Normal in size and morphology for the patient's age. Hemorrhage: None. Cerebral parenchyma: Mild atrophy. No hemorrhage, mass or infarct. Midline shift: None. Brainstem/Cerebellum: Normal. Calvarium: Normal. Visualized Paranasal sinuses/Mastoids: Clear. Soft Tissues: Unremarkable. IMPRESSION: No acute intracranial process. RADIATION DOSE DELIVERED: 762.23mGy.cm Total DLP DATA REPOSITORY: All CT scans at this facility are submitted to the National Radiology Data Registry (NRDR) Dose Index Registry (DIR) with the [employer] (ACR). RADIATION OPTIMIZATION: All CT scans at this facility use at least one of these dose optimization te chniques: automated exposure control; mA and/or kV adjustment per patient size (includes targeted exa ms where dose is matched to clinical indication); or iterative reconstruction.
--- NOTE | 2021-11-04 12:30 | DI.RAD_ITS ---
Exam(s) XR CHEST 2V PA LATERAL EXAM: XR CHEST 2V PA LATERAL CLINICAL HISTORY: chest pain, r/o acute disease TECHNIQUE: 2D digital imaging was performed. COMPARISON: CR XR CHEST 2V PA LATERAL from 09/13/2019 FINDINGS: MEDIASTINUM: Normal. HEART: Normal. PULMONARY VASCULATURE: Normal. LUNGS: Clear. PLEURAL SPACE: No pleural effusion or pneumothorax. BONE:Unremarkable for age. IMPRESSION: No acute abnormality. DATA REPOSITORY: RADIATION DOSE DELIVERED:
[2021-11-04 12:32] LABS: Abs Immature Grans 0.03 10^3/uL (0.0-0.06); Absolute Basophil Count 0.05 10^3/uL (0.0-0.2); Absolute Eosinophil Count 0.29 10^3/uL (0.0-0.7); Absolute Lymphocyte Count 2.79 10^3/uL (1.2-3.4); Absolute Monocyte Count 1.07 10^3/uL (0.1-0.8); Basophils % 0.6; Eosinophils % 3.5; HCT 47.1 % (40.0-50.0); HGB 15.5 g/dL (13.5-17.5); Immature Grans % 0.4; Lymphocytes % 33.9; MCH 28.5 pg (27.0-33.0); MCHC 32.9 % (32.0-36.0); MCV 86.7 fL (80-95); MPV 9.3 fL (8.0-11.0); Neutrophils % 48.6; Nucleated RBC 0 %; Platelet Count 105 10^3/uL (130-400); RBC 5.43 10^6/uL (4.36-5.78); RDW 13.6 % (11.8-14.1); RDW-SD 43.1 fL; WBC 8.23 10^3/uL (4.4-10.8)
--- NOTE | 2021-11-04 12:42 | ED.GENADUL_ITS ---
Discharge Plan Disposition Patient Disposition: HOME Condition: Stable Discharge Details Clinical Impression: Chronic chest pain, Headache, History of bradycardia Primary Care Provider: Luci Bustillo ED Provider: Jeane Bashir Home Meds and New Rx's Prescriptions: Continued nitroglycerin 0.4 mg tablet, sublingual 0.4 mg sublingual Q5M PRN0RF Label Comments: states never used it Rx Instructions: do not exceed 3 doses per episode naproxen sodium [Aleve] 220 mg capsule 220 mg PO BID PRN0RF ketoconazole 2 % shampoo 1 applic topical ONCE 0RF ezetimibe 10 mg tablet 10 mg PO DAILY 0RF Label Comments: pt unsure of med lovastatin 40 MG tablet 60 mg PO HS 0RF aspirin [Aspir-81] 81 MG tablet,delayed release (DR/EC) 81 mg PO DAILY 0RF loratadine [Claritin] 10 MG tablet 10 mg PO HS 0RF atorvastatin [Lipitor] 40 mg Tablet 80 mg PO QPM Qty: 30 0RF furosemide 20 mg Tablet 20 mg PO DAILY Qty: 14 0RF metoprolol succinate 25 mg Tablet Extended Release 24 Hr 12.5 mg PO DAILY Qty: 30 0RF Rx Instructions: stopped last tuesday Discharge Instructions Instructions: Chest Pain (ED), Chronic Pain (ED), Bradycardia (ED), General Headache (ED) Additional Instructions: Your lab work, EKGs and imaging today is reassuring and shows no evidence of acute concerning findings. Your heart rate mostly remained within a normal range while here in the emergency department. Review of records note that you have a history of low heart rate in the past. You have been placed on care management list to arrange for a follow-up appointment with your primary care doctor and with cardiology for further evaluation of your headache, low heart rate and chest pain. An outpatient stress test has been ordered. You will be contacted by the radiology department regarding scheduling of this test. Return immediately to the emergency department if you develop any worsening or new concerning symptoms. Referrals: Sophia Griffin MD [ [facility] STAFF PHYSICIAN] - Discharge Data Discharge Date/Time-TO BE ENTERED AT DEPARTURE: 11/04/21 16:26 Discharge Physician: Jeane Bashir Medical Decision Making 76-year-old male with a history of hypertension, hyperlipidemia, CHF, [place] with cardiac stent placement presents for bradycardia noted at the cancer center today with a complaint of intermittent chest pressure over the past 2 months. Heart rate reported to be mid 40s at [facility]. Heart rate on arrival here 70 with an EKG which notes PVCs and bigeminy which does not appear significantly different than previous EKG. Review of records note that patient had a Holter monitor in 2019 for bradycardia which noted an average heart rate of 70s. Presentation does not appear consistent with ACS as his pain occurs at rest and has had multiple episodes occurring randomly over the past 6 weeks. Considering patient's age and history, will obtain screening labs, chest x-ray. His headache may be related to medication withdrawal from the metoprolol, or could be secondary to dehydration, viral illness, etc. History and presentation does not appear consistent with subarachnoid hemorrhage, CVA. Will obtain a CT head, give a dose of IV fluids and IV Tylenol and reassess. Labs and imaging reviewed and unremarkable. Patient reassessed and his headache is completely resolved. He denies any chest pain. Plan is for repeat troponin and EKG and patient is agreeable. Repeat troponin negative. Repeat EKG unchanged. Patient placed on care management for follow-up appointment with the primary care doctor and with cardiology. An outpatient stress test was ordered. Usual and customary return precautions given prior to discharge. Medical Records Medical records reviewed: Yes I reviewed the patient's medical records. Imaging Data Radiologic Study: Radiologist's impression: ?CT HEAD WO CLINICAL HISTORY: ? headache, r/o acute disease. ? TECHNIQUE:? Imaging Protocol: Axial computed tomography images with coronal and sagittal reformatted images were created and reviewed COMPARISON:? No exams were available for comparison FINDINGS: Ventricles and Extra axial spaces: Normal in size and morphology for the patient's age. Hemorrhage: None. Cerebral parenchyma: Mild atrophy.? No hemorrhage, mass or infarct.? Midline shift: None. Brainstem/Cerebellum: Normal. Calvarium: Normal. Visualized Paranasal sinuses/Mastoids: Clear. Soft Tissues: Unremarkable. IMPRESSION: No acute intracranial process. XR CHEST 2V PA ? LATERAL CLINICAL HISTORY:? chest pain, r/o acute disease TECHNIQUE:? 2D digital imaging was performed. COMPARISON:? CR XR CHEST 2V PA ? LATERAL from 09/13/2019 FINDINGS: MEDIASTINUM: Normal.? HEART: Normal. PULMONARY VASCULATURE: Normal. LUNGS: Clear. ? PLEURAL SPACE: No pleural effusion or pneumothorax. BONE:Unremarkable for age.? IMPRESSION: No acute abnormality.? Lab Data Lab results reviewed: Yes I reviewed the patient's lab results. Labs: Laboratory Tests Range/Units 11/04/21 11/04/21 11/04/21 12:15 12:15 15:15 WBC (4.4-10.8) 10^3/uL 8.23 RBC (4.36-5.78) 10^6/uL 5.43 Hgb (13.5-17.5) g/dL 15.5 Hct (40.0-50.0) % 47.1 MCV (80-95) fL 86.7 MCH (27.0-33.0) pg 28.5 MCHC (32.0-36.0) % 32.9 RDW (11.8-14.1) % 13.6 Plt Count (130-400) 10^3/uL 105 L MPV (8.0-11.0) fL 9.3 Immature Gran % 0.4 Neutrophils % 48.6 Lymphocytes % 33.9 Monocytes % 13.0 Eosinophils % 3.5 Basophils % 0.6 Nucleated RBC % % 0 Absolute Neutrophils (1.2-6.7) 10^3/uL 4.00 Absolute Lymphocytes (1.2-3.4) 10^3/uL 2.79 Absolute Monocytes (0.1-0.8) 10^3/uL 1.07 H Absolute Eosinophils (0.0-0.7) 10^3/uL 0.29 Absolute Basophils (0.0-0.2) 10^3/uL 0.05 Sodium (136-145) mmol/L 137 Potassium (3.5-5.1) mmol/L 3.7 Chloride (98-107) mmol/L 104 Carbon Dioxide (21.0-32.0) mmol/L 26.7 Anion Gap (3-11) mmol/L 6.3 BUN (7-18) mg/dL 19 H Creatinine (0.70-1.30) mg/dL 1.1 Estimated GFR/1.73 m2 (mL/min/1.73m2) >= 60.00 Glucose (74-106) mg/dL 108 H Calcium (8.5-10.1) mg/dL 8.5 Magnesium (1.8-2.4) mg/dL 1.9 Total Bilirubin (0.2-1.0) mg/dL 0.9 AST (15-37) U/L 29 ALT (16-63) U/L 25 Alkaline Phosphatase (46-116) U/L 53 Troponin I (<or=60) ng/L < 50 < 50 Total Protein (6.4-8.2) g/dL 7.9 Albumin (3.4-5.0) g/dL 3.5 ECG Data Attestation: I personally reviewed and interpreted this ECG (s) as follows: Interpretation: Rate of 70, sinus, ventricular bigeminy, no STEMI, no significant change from previous EKG. HPI General Mode of arrival: ambulatory . Date/Time Provider Initiated Documentation: 11/04/21 11:40 . Limitations to Documentation: no limitations . Information obtained by: patient . HPI Narrative: Patient is a 76-year-old male with a history of CHF, hypertension, hyperlipidemia, [place] with cardiac stent placement sent to the ED by Dr. Arriola for bradycardia noted at the [facility] with a heart rate in the 40s with a complaint of intermittent chest pressure for the past 2 months. Patient states he was at the cancer Center today for a routine follow-up appointment. Dr. Arriola called informing us of patient's arrival stating that patient's heart rate was in the mid 40s and patient had endorsed to her that he has had intermittent chest pain occurring over the last 2 months. Patient states that he notices the chest pressure occurring sometimes at rest and sometimes with activity. He states it occurs usually once weekly, is substernal, 4/10 at its worst and without significant radiation. He admits to occasional dizziness when the chest pain occurs but otherwise denies any nausea, vomiting or shortness of breath. He states he has not noted any aggravating or alleviating factors and has not taken any medication for his chest pain. He denies any chest pain at present. He states he saw his PCP in the office on Tuesday and was noted to have bradycardia and his metoprolol was stopped. He states he feels that his chest pressure has been worse since then and has occurred 2 times in the past 5 days, with an episode today that lasted approximately 1 hour and then resolved. He also states he has had a headache since stopping his metoprolol 5 days ago. He states the headache is diffuse and aching. He denies any blurry vision, slurred speech or unilateral weakness or numbness. He also denies any known fever, neck pain, coughing, diarrhea or known exposure to coronavirus. Related Data Home Medications Medication Instructions Recorded Confirmed aspirin 81 mg tablet,delayed 81 mg PO DAILY 12/05/12 11/04/21 release (Aspir-) loratadine 10 mg tablet (Claritin) 10 mg PO HS 12/05/12 11/04/21 lovastatin 40 mg tablet 60 mg PO HS 12/05/12 11/04/21 atorvastatin 40 mg tablet (Lipitor) 80 mg PO QPM #30 tab 09/15/19 11/04/21 furosemide 20 mg tablet 20 mg PO DAILY #14 tab 09/15/19 11/04/21 metoprolol succinate 25 mg 12.5 mg PO DAILY #30 tab 09/15/19 02/14/21 tablet,extended release 24 hr ezetimibe 10 mg tablet 10 mg PO DAILY 06/17/20 09/18/20 ketoconazole 2 % shampoo 1 applic TOPICAL ONCE 06/17/20 11/04/21 naproxen sodium 220 mg capsule 220 mg PO BID PRN 06/17/20 11/04/21 (Aleve) nitroglycerin 0.4 mg sublingual 0.4 mg SUBLINGUAL Q5M PRN 06/17/20 11/04/21 tablet Previous Rx's Medication Instructions Recorded atorvastatin 40 mg tablet (Lipitor) 80 mg PO QPM #30 tab 09/15/19 furosemide 20 mg tablet 20 mg PO DAILY #14 tab 09/15/19 metoprolol succinate 25 mg 12.5 mg PO DAILY #30 tab 09/15/19 tablet,extended release 24 hr Allergies Allergy/AdvReac Type Severity Reaction Status Date / Time lisinopril Allergy Mild Unverified 11/04/21 12:01 penicillin V [Penicillin V] Allergy Mild Unverified 11/04/21 12:01 SHARA Inhibitors Allergy Unknown Unverified 11/04/21 12:01 General Stated Complaint: Chest Pain MOSES: 2 Review of Systems All systems reviewed & are unremarkable except as noted in HPI and below Constitutional Constitutional: Reports as per HPI, Denies chills, Denies excessive sweating, De nies fatigue, Denies fever(s) and Reports headache(s) Eyes Eyes: Denies blurry vision ENT Ears, Nose, Mouth, and Throat: Denies dizziness, Reports headache(s), Denies sore throat and Denies throat swelling Cardiovascular Cardiovascular: Reports chest pain and Denies dyspnea Respiratory Respiratory: Denies cough and Denies dyspnea Gastrointestinal Gastrointestinal: Denies abdominal pain, Denies diarrhea and Denies vomiting Genitourinary Genitourinary: Denies hematuria and Denies dysuria Musculoskeletal Musculoskeletal: Denies back pain and Denies numbness Integumentary/Breasts Skin/Breast: Denies lesions and Denies rash Neurologic Neurologic: Denies behavioral changes, Denies confusion, Denies dizziness, Reports headache(s), Denies localized weakness and Denies numbness Psychiatric Psychiatric: Denies behavioral changes, Denies confusion and Denies depression Endocrine Endocrine: Denies excessive sweating and Denies fatigue Hematologic/Lymphatic Hematologic/Lymphatic: Denies easy bruising and Denies lymphadenopathy Allergic/Immunologic Allergic/Immunologic: Denies throat swelling PFSH All Active Problems (Updated 11/04/21 @ 16:08 by Jeane Bashir DO) Corneal abrasion, right (Acute) Foreign body in eye (Acute) Chronic chest pain (Acute) Headache (Acute) History of bradycardia (Acute) Hematuria (Acute) Bradycardia (Acute) CAD (coronary artery disease) (Chronic) Discharge planning issues (Acute) DVT prophylaxis (Acute) CHF (congestive heart failure) (Chronic) Community acquired pneumonia (Acute) Medical History (Updated 11/04/21 @ 16:08 by Jeane Bashir DO) Benign hypertension Hyperlipidemia Surgical History Coronary Stent x 2 10 yrs ago Social History Smoking/Tobacco Use Status: Former Tobacco Use Smoking risk assessment performed?: Yes Drug use: Never Substance use type: does not use Details: quit smoking in 2000 Do you feel safe at home: Yes Do you feel safe in your relationship?: Yes Exam Const General: cooperative and no acute distress Orientation: alert, awake and oriented x3 HENMT Head: normal to inspection Ears: hearing grossly normal bilaterally, external ears normal and TM's normal bilaterally General nose exam: external nose normal Face and sinus: normal facial exam Mouth: oral mucosae normal Teeth and gingiva: dentition normal Throat: posterior oropharynx normal Eyes General: appearance normal, both eyes and all related structures Eyelids: eyelids normal Pupils: PERRL EOM: EOM intact bilaterally Neck Neck: normal visual inspection Lymphatic: no lymphadenopathy noted Chest Chest: normal inspection of the chest Resp Effort & Inspection: normal respiratory effort and able to speak in complete sentences Auscultation: clear to auscultation bilaterally Cardio Rate: regular rate Rhythm: regular rhythm GI Inspection: normal to inspection Palpation: soft, not firm, no guarding, no hepatosplenomegaly, no masses and nontender Auscultation: normal bowel sounds Back/Spine/Pelvis Back: no CVA tenderness Skin General skin exam: no rashes or lesions noted Neuro General: patient alert, patient awake and moves all extremities Cranial Nerves: CN's II-XI intact bilaterally Cognition: normal cognition Speech: speech normal Gait: normal gait Motor: muscle tone normal throughout and strength 5/5 throughout Sensory Exam: no sensory deficits noted Extrem General: normal to inspection, full ROM and capillary refill normal Psych Appearance: grossly normal Mental Status: mental status grossly normal Speech and Movement: speech and movement normal Affect: normal affect Thought Process: normal Course Vital Signs Vital signs: Vital Signs Temperature 98.4 F 11/04/21 11:50 Pulse 71 11/04/21 11:50 Respiratory Rate 20 11/04/21 11:50 Blood Pressure 164/83 H 11/04/21 11:50 Pulse Oximetry 96 11/04/21 11:50 Temperature 98.4 F 11/04/21 11:50 Temperature Source Skin 11/04/21 11:50 Pulse 71 11/04/21 11:50 Respiratory Rate 16 11/04/21 12:07 Respiratory Effort 11/04/21 12:07 Respiratory Depth Normal 11/04/21 12:07 Respiratory Pattern Normal 11/04/21 12:07 Blood Pressure 164/83 H 11/04/21 11:50 Pulse Oximetry 96 11/04/21 11:50 Oxygen Delivery Method Room Air 11/04/21 11:50 Oxygen Flow Rate 0 11/04/21 11:50 Pain Level 3 11/04/21 11:50 Comment 11/04/21 11:50 Lab/Test Results Lab/Test Results: Laboratory Tests Range/Units 11/04/21 12:15 WBC (4.4-10.8) 10^3/uL 8.23 RBC (4.36-5.78) 10^6/uL 5.43 Hgb (13.5-17.5) g/dL 15.5 Hct (40.0-50.0) % 47.1 MCV (80-95) fL 86.7 MCH (27.0-33.0) pg 28.5 MCHC (32.0-36.0) % 32.9 RDW (11.8-14.1) % 13.6 Plt Count (130-400) 10^3/uL 105 L MPV (8.0-11.0) fL 9.3 Immature Gran % 0.4 Neutrophils % 48.6 Lymphocytes % 33.9 Monocytes % 13.0 Eosinophils % 3.5 Basophils % 0.6 Nucleated RBC % % 0 Absolute Neutrophils (1.2-6.7) 10^3/uL 4.00 Absolute Lymphocytes (1.2-3.4) 10^3/uL 2.79 Absolute Monocytes (0.1-0.8) 10^3/uL 1.07 H Absolute Eosinophils (0.0-0.7) 10^3/uL 0.29 Absolute Basophils (0.0-0.2) 10^3/uL 0.05 PAWSS Have you Been Recently Intoxicated or Drunk Within the Last 30 days?: No Have you Ever Experienced Previous Episodes of Alcohol Withdrawal?: No Have you ever Experienced Withdrawal Seizures?: No Have you ever Experienced Delirium Tremens(DT)s?: No Have you ever undergone Alcohol Rehabilitation Treatment (i.e, inpt ot outpatient treatment programs)?: No Have you ever Experienced Blackouts?: No Have you ever Combined Alcohol with other Downers within the last 90 days?: No Have you ever Combined Alcohol with any other Substance of Abuse during the last 90 days?: No Positive Blood Alcohol level on Presentation? [PCS.BAL]: No Evidence of Increased Autonomic Activity (i.e. HR>120, tremor, sweating, agitation, nausea)?: No Result: 0
[2021-11-04 12:44] LABS: ALT 25 U/L (16-63); AST 29 U/L (15-37); Albumin 3.5 g/dL (3.4-5.0); Alkaline Phosphatase 53 U/L (46-116); Anion Gap 6.3 mmol/L (3-11); BUN 19 mg/dL (7-18); Bilirubin, Total 0.9 mg/dL (0.2-1.0); CO2 26.7 mmol/L (21.0-32.0); CREATININE 1.1 mg/dL (0.70-1.30); Calcium 8.5 mg/dL (8.5-10.1); Chloride 104 mmol/L (98-107); Glucose 108 mg/dL (74-106); Magnesium 1.9 mg/dL (1.8-2.4); Potassium 3.7 mmol/L (3.5-5.1); Sodium 137 mmol/L (136-145); Total Protein 7.9 g/dL (6.4-8.2); Troponin I < 50 ng/L (<or=60)
[2021-11-04] MEDS: Normal Saline 500 ML IV (13:34)
[2021-11-04] MEDS: ACETAMINOPHEN 1,000 MG/100 ML BTL 400 MG IVPB (13:34)
--- NOTE | 2021-11-04 15:13 | NUR.NOTE ---
Nursing Note: Request for outpatient regular exercise treadmill stress test for chest pain faxed to DI. Yulia Cooley
--- NOTE | 2021-11-04 15:15 | RT.EKG_ITS ---
APPROVED REPORT Exam: Resting ECG Reason for Exam: chest pain Patient Location: E HR:59 bpm ECG Measurements Heart Rate 59 AXIS WY 250 P 17 QRSd 111 QRS -26 QT 455 T 6 QTc 451 Conclusion Sinus bradycardia...rate< 60 Prolonged WY interval...WY >220, V-rate 50- 90. Sinus. No STEMI. I have reviewed and interpreted ECG and agree with software generated interpretation.
[2021-11-04 15:38] LABS: Troponin I < 50 ng/L (<or=60)
--- NOTE | 2021-11-04 16:32 | NUR.NOTE ---
Nursing Note: Referral to PCP/[facility] for chest pain, within 1 week faxed. Referral to [facility] Cardiology for chest pain within 2 weeks faxed. Yulia Cooley
== END 2021-11-04 16:26 | disposition home or self-care (01) ==
PROVIDERS: Emergency Provider Physician Assistant; PCP Nurse Practitioner Family
DX: R07.89 Other chest pain (principal); R51.9 Headache, unspecified; R00.1 Bradycardia, unspecified; I11.0 Hypertensive heart disease with heart failure; I50.9 Heart failure, unspecified
CPT/HCPCS: 36415; 80053; 93005; 96361; 96374; 99285; 70450; 71046; 83735; 84484; 85025; 93010; 99284; J0131

== ENCOUNTER 2021-11-09 00:08 | Outpatient (CLI) | payer MEDICARE, SELFPAY ==
--- NOTE | 2021-11-09 15:00 | ETT_ITS ---
APPROVED REPORT Exam: Exercise Treadmill Patient Location: Out-Patient Room/Bed: Stress Nurse: Stephanie Paul RN Ordering Provider:JENNA DUKES, Contact Number: [phone] BMI: 32.99 Baseline Rhythm: Sinus Rhythm Comment: borderline prolonged MI interval, frequent PVCs Indications: Chest pain Medical History Medical History: CAD, [place] (), hypertension, hyperlipidemia, obesity, smoker (former), bradycardia Cardiac Medications: Aspirin, lovastatin, ezetimibe, nitroglycerin, furosemide Allergies: Lisinopril, penicllin Cardiac Risk Factors: Hypertension, hyperlipidemia, obesity, smoker (former), family hx Previous Cardiac Procedures: stent x2 () Pretest Chest Pain Characteristics: None Exercise History: Sedentary Physical Disabilities: None Lung Sounds: Clear to auscultation Heart Sounds: Regular Stress Test Details Test: Exercise stress testing was performed using a Kadeem protocol. Rest Stress HR Resting HR Supine: 69 bpm Max Heart Rate (APMHR): 146 bpm Resting HR Standin bpm Target HR (85% APMHR): 124 bpm Max HR Achieved: 122 bpm % of APMHR: 83 Recovery HR: 86 bpm HR response to stress: Normal HR response to stress BP Resting BP Supine: 152/84 mmHg Resting BP Standin/86 mmHg Max BP: 185/84 mmHg Recovery BP: 146/78 mmHg BP response to stress: Normal blood pressure response to stress. ECG Resting ECG: Sinus Rhythm, borderline prolonged MI interval Ectopy: Frequent PVCs, couplets, bigeminy Stress ECG: Sinus Tachycardia ST Change: No significant ST segment changes noted Arrhythmia: Rare PAC, frequent multifocal PVCs, bigeminy, couplets, NSVT 3 beat run Recovery ECG: Sinus Rhythm Recovery ST Change: No significant ST segment changes noted Recovery Arrhythmia: Rare PAC, frequent multifocal PVCs, bigeminy, couplets Clinical Reason for Termination: Fatigue Stress Symptoms: General Fatigue, Dyspnea, Chest pain Exercise duration: 8 min25 sec Highest Stage Reached: Stage 3: 3.4 mph at 14% grade. Exercise capacity: 10.16 METs Abraham Treadmill Score: 3.4 Rate Pressure Product: [id number] Stress ECG Conclusion 1. The resting electrocardiogram showed sinus rhythm, first-degree AV block, late transition 2. Patient exercised on the Kadeem protocol completed a workload of 10.16 METS 3. The patient described anterior chest discomfort with activity which was relieved with rest, consis tent with angina 4. Normal hemodynamic response to exercise. The patient achieved 83% of predicted heart rate for age 5. There was no electrocardiographic evidence of myocardial ischemia at a slightly submaximal heart r ate 6. Ventricular ectopic beats were noted Abraham Treadmill Score is 3.4 which is Moderate risk. Stress Test Summary STAGE Time (mins) Speed (mph) Grade (%) HR BP SYMPTOMS METS Supine 69 152/84 Standing 74 154/86 SpO2 92% 1 3 1.7 10 94 156/86 SpO2 86% 4.6 2 6 2.5 12 104 162/90 Midsternal CP 3/10, SpO2 86% 7 3 9 3.4 14 122 168/94 Midsternal CP 4/10, mild SOB, SpO2 90% 10.2 1 min recovery 101 174/92 Midsternal CP 2/10, SOB improving, SpO2 93% 3 min recovery 90 182/84 Symptoms resolved, SpO2 92% 6 min recovery 83 146/78 SpO2 93% 9 min recovery 86
== END 2021-11-09 00:28 ==
PROVIDERS: PCP Nurse Practitioner Family; Visit Provider Physician Assistant
DX: R07.89 Other chest pain (principal); I25.2 Old myocardial infarction; I10 Essential (primary) hypertension; I49.3 Ventricular premature depolarization
CPT/HCPCS: 93016; 93018; 93017

== ENCOUNTER 2021-12-04 12:47 | Outpatient (CLI) | payer MEDICARE, SELFPAY ==
--- NOTE | 2021-12-04 12:45 | RT.EKG_ITS ---
APPROVED REPORT Exam: Resting ECG Reason for Exam: NPW Baseline needed Patient Location: O HR:62 bpm ECG Measurements Heart Rate 62 AXIS IN 230 P -24 QRSd 112 QRS -25 QT 424 T -22 QTc 431 Conclusion Sinus rhythm...normal P axis, V-rate 50- 99 Ventricular bigeminy...bigeminy string>4 w/ V complexes Inferior infarct, age indeterminate...Q>35mS, T neg, II III aVF
== END 2021-12-04 12:48 | disposition home or self-care (01) ==
LOC: DI.CARD 12:55
PROVIDERS: PCP Nurse Practitioner Family; Referring Provider Nurse Practitioner Family; Visit Provider Internal Medicine Cardiovascular Disease
DX: G89.29 Other chronic pain (principal); I25.10 Atherosclerotic heart disease of native coronary artery without angina pectoris; I50.9 Heart failure, unspecified; R00.1 Bradycardia, unspecified; R07.9 Chest pain, unspecified
CPT/HCPCS: 93010

== ENCOUNTER → 2021-12-04 12:47 | Outpatient (BNVA) | payer MEDICARE, SELFPAY | PROVIDERS: PCP Nurse Practitioner Family; Referring Provider Nurse Practitioner Family; Visit Provider Internal Medicine Cardiovascular Disease | DX: R07.9 Chest pain, unspecified (principal); G89.29 Other chronic pain; R00.1 Bradycardia, unspecified; I25.10 Atherosclerotic heart disease of native coronary artery without angina pectoris; I50.9 Heart failure, unspecified | CPT/HCPCS: 93005; 99203; 99214 ==

== ENCOUNTER → 2021-12-21 00:55 | Outpatient (CLI) | payer MEDICARE, SELFPAY ==
--- NOTE | 2021-12-21 07:30 | DI.NM_ITS ---
APPROVED REPORT Exam: Pharmacologic Patient Location: Out-Patient Room/Bed: Stress Nurse: Stephanie Paul RN Ordering Provider:BARNEY MCKEON, Contact Number: [phone] BMI: 32.68 Baseline Rhythm: Sinus Rhythm Comment: 1 degree AV block, frequent PVCs, bigeminy Indications: CAD, chest pain Medical History Medical History: Hypertension, hyperlipidemia, obesity, CAD, [place] () Cardiac Medications: Aspitin, lovastatin, ezetimibe, nitroglycerin, furosemide, amlodipine Allergies: Lisinopril, penicillin, qi inhibitors Cardiac Risk Factors: CVD, Hypertension, hyperlipidemia, obesity, smoker (former), family hx Previous Cardiac Procedures: MARYANN x2 () Pretest Chest Pain Characteristics: None Exercise History: Sedentary Physical Disabilities: None Lung Sounds: Clear to auscultation Heart Sounds: Regular Stress Test Details Test: Exercise stress converted to pharmacologic stress due to failure to obtain a diagnostic stress test. Reason for pharmacologic stress test: changed from exercise stress test due to inability to reach t arget heart rate. Nuclear Acquisition: Rest Tc-99m/Stress Tc-99m 1 day Rest Isotope: Tc-99m Sestamibi. Dose: 11.0 Date: 12/21/2021 Injection Time: 1130 Stress Isotope: Tc-99m Sestamibi. Dose: 36.0 Date: 12/21/2021 Injection Time: 1337 HR Resting HR Supine: 68 bpm Max Heart Rate (APMHR): 146 bpm Resting HR Standin bpm Target HR (85% APMHR): 124 bpm Max HR Achieved: 111 bpm % of APMHR: 76 Recovery HR: 79 bpm HR response to stress: Accelerated HR response to stress BP Resting BP Supine: 158/68 mmHg Resting BP Standin/90 mmHg Max BP: 168/84 mmHg Recovery BP: 148/78 mmHg ECG Resting ECG: Sinus Rhythm, 1 degree AV block Ectopy: Frequent PVCs, bigeminy Stress ECG: Sinus Tachycardia ST Change: Nondiagnostic low heart rate Arrhythmia: Frequent multifocal PVCs, bigeminy, couplet Recovery ECG: Sinus Rhythm, 1 degree AV block Recovery ST Change: Nondiagnostic low heart rate Recovery Arrhythmia: Rare PAC, frequent PVCs, bigeminy, couplet Clinical Stress Symptoms: Chest pain, General Fatigue, Dizziness, Dyspnea Exercise capacity: 8.39 METs Rate Pressure Product: [id number] Stress ECG Conclusion 1. Resting electrocardiogram showed poor R wave progression 2. Patient underwent stress testing using low-level exercise coupled with pharmacologic stress with r egadenoson 3. Peak workload was 8.39 METS, peak heart rate was 76% of predicted for age 4. The electrocardiographic portion of the test was nondiagnostic due to inadequate heart rate 5. See MPI report Stress Test Summary STAGE Time (mins) Speed (mph) Grade (%) HR BP SYMPTOMS METS Supine 68 158/68 Standing 69 148/90 SpO2 95% 1 3 1.7 10 91 148/72 SpO2 89% 4.6 2 6 2.5 12 103 152/88 Mild SOB, SpO2 89% 7 1 min post Lexiscan injection 103 152/82 Chest pain 5/10, SpO2 85% 3 min post Lexiscan injection 92 168/84 Chest pain 5/10, mild dizziness, SpO2 96% 6 min post Lexiscan injection 83 168/70 Chest pain 3/10, dizziness resolved, SpO2 96% 9 min post Lexiscan injection 79 148/78 Chest pain resolved, SpO2 94% Exercise stress test converted to pharmacologic stress due to inability to reach target heart rate. P t received Regandenoson with low level exercise at 2.0 mph and 0% grade. Pt tolerated pharmacologic s tress with low level exercise well. MPI Conclusion Myocardial perfusion appears normal without evidence of ischemia or prior infarction LV is mildly dilated EF is 39%, mild global hypokinesis Radiologist Interpretation Radiologist agrees with Batcher Operator's Interpretation. Radiologist Interpretation by: Anny Castro MD Interpretation Date/Time: 12/21/2021 16:08:11
[2021-12-21] MEDS: Regadenoson 0.4 MG/5 ML SYR IVP (14:08)
== END ==
PROVIDERS: PCP Nurse Practitioner Family; Visit Provider Internal Medicine Cardiovascular Disease
DX: G89.29 Other chronic pain (principal); I25.10 Atherosclerotic heart disease of native coronary artery without angina pectoris; R07.9 Chest pain, unspecified
CPT/HCPCS: 78452; 93016; 93018; 93017; J2785

== ENCOUNTER → 2021-12-31 11:04 | Outpatient (BNVA) | payer MEDICARE, SELFPAY | PROVIDERS: PCP Nurse Practitioner Family; Referring Provider Nurse Practitioner Family; Visit Provider Internal Medicine Cardiovascular Disease | DX: I25.10 Atherosclerotic heart disease of native coronary artery without angina pectoris (principal); R00.1 Bradycardia, unspecified; I77.810 Thoracic aortic ectasia; I25.2 Old myocardial infarction | CPT/HCPCS: 99213 ==

== ENCOUNTER 2022-02-16 14:21 | Outpatient (CLI) | payer MEDICARE, SELFPAY ==
--- NOTE | 2022-02-16 14:00 | DI.RAD_ITS ---
Exam(s) XR SHOULDER LT COMPLETE 2+V EXAM: XR SHOULDER LT COMPLETE 2+V CLINICAL HISTORY: left shoulder pain. TECHNIQUE: 2D digital imaging was performed. Three views. COMPARISON: CR RIGHT SHOULDER 1 VIEW from 12/28/2012 FINDINGS: BONES: No acute fracture is present. No bony destructive lesion is seen. JOINTS: No dislocation present. Spurring at the AC joint. Spurring at the undersurface of the acrom ion. Mild spurring at the glenoid. SOFT TISSUE: Normal. IMPRESSION: Degenerative changes greatest of the AC joint. DATA REPOSITORY: RADIATION DOSE DELIVERED:
== END 2022-02-16 14:22 | disposition home or self-care (01) ==
LOC: DIORS 14:22
PROVIDERS: PCP Nurse Practitioner Family; Referring Provider Nurse Practitioner Family; Visit Provider Student in an Organized Health Care Education/Training Program
DX: M75.52 Bursitis of left shoulder; M75.22 Bicipital tendinitis, left shoulder; R00.1 Bradycardia, unspecified; I50.9 Heart failure, unspecified
CPT/HCPCS: 20610; 99214; 73030; J1040

== ENCOUNTER → 2022-03-24 00:54 | Outpatient (CLI) | payer MEDICARE, SELFPAY ==
--- NOTE | 2022-03-24 14:02 | DI.US_ITS ---
APPROVED REPORT EXAM: Comprehensive 2D, Doppler, and color-flow Echocardiogram Patient Location: Out-Patient Collar Tailor: Ivy George RDCS (AE) Indications: CAD. LV function, Ascending aorta dilation Other Information Study Quality: Adequate Conclusion Left ventricle is mildly dilated. Wall thickness is normal. Estimated ejection fraction is 45 to 50 % with global hypokinesis Normal right ventricular size and systolic function Left atrium is mildly to moderately dilated. Right atrium is borderline dilated Aortic valve is trileaflet, very mildly sclerotic with trace regurgitation Mild mitral annular calcification. Moderate mitral regurgitation Normal tricuspid valve with trace to mild regurgitation. Right ventricular systolic pressure is 14 m mHg Aortic root and ascending aorta are normal in size Wall motion Left Ventricle Left ventricle is mildly dilated. Left ventricular systolic function is mildly decreased. There is no rmal left ventricular wall thickness. There is global hypokinesis of the left ventricle. There is no ventricular septal defect visualized. LVEF is 45-50%. Right Ventricle Right ventricle is grossly normal in size. Right ventricular systolic function is grossly normal. The RVSP is 13.7 mmHg. Atria Left atrium is mild to moderately dilated. Right atrium is borderline dilated. The interatrial septum is intact with no evidence for an atrial septal defect. Aortic Valve The aortic valve is very mildly sclerotic Aortic valve is trileaflet. There is no aortic valvular tessie nosis. Mild aortic regurgitation. Mitral Valve Mild mitral annular calcification. No evidence of mitral valve stenosis. Moderate mitral regurgitatio n. Tricuspid Valve The tricuspid valve is normal in structure. There is no tricuspid valve stenosis. Trace to mild tricu spid regurgitation. Pulmonic Valve The pulmonary valve is normal in structure. There is no pulmonic valvular stenosis. Trace pulmonic re gurgitation. Great Vessels The aortic root is normal in size. The ascending aorta is normal in size. Aortic arch is normal in ca liber. IVC is normal in size and collapses >50% with inspiration. Pericardium There is no pericardial effusion. 2D Dimensions IVSD d PLAX 1.08 cm M: 0.6-1.2 LV Vol A4C d MOD 120.6 mL LVPW d PLAX 1.07 cm M: 0.6 - 1.2 LA vol/ BSA A4C s A-L 22.9 mL/m2 LVID d PLAX 6.51 cm M: 4.2 - 5.8 LA Area A4C s MOD 16.46 cm2 LVDs 4.95 cm M: 2.5 - 4.0 LV EF A4C MOD 45.2 % Ao Root d 3.50 cm M: 3.1 - 3.7 RA Area A4C 22.61 cm2 RA Vol/ BSA A4C s A-L 35.5 mL/m2 Ao Asc Diam d 3.40 cm M: 2.6 - 3.4 LV EF Teichholz 46.5 % LV Volume Index 57.57 mL/m2 M: 34 - 74 FS 23.85 % M-Mode TAPSE 3.15 cm (M/F) >1.7 LV Diastology MV E' medial 0.098 (>0.07 m/s) E/A Ratio 1.7 LV E/e MED 11.15 (<14) MV E Vmax 1.09 (0.4-1.3 m/s) MV E' lateral 0.117 (>0.1 m/s) MV A Vmax 0.65 (0.4-1.3 m/s) LV E/e LAT 9.25 (<14) MV E/A Ratio 1.64 MV E/E' medial 11.15 MV E/E' lateral 9.29 Aortic Valve LVOT Area 3.94 cm2 AoV Area Vmax 2.80 cm2 LVOT Vmax 1.27 m/s AoV Area/ BSA (Vmax) 1.34 cm2/m2 LVOT Mean Hu. 0.86 m/s ELIDA Mean Hu. 2.81 cm2 LVOT Peak Grad 6.4 mmHg ELIDA Mean Hu. Index 1.34 cm2/m2 LVOT Mean Grad 3.6 mmHg AR DT 3980 msec LVOT VTI 0.258 m AR PHT 1154 msec LVOT Diam s 2.20 cm AoV Vmax 1.78 m/s Velocity Ratio 0.71 AoV Mean Hu. 1.21 m/s AoV Peak Grad 12.7 mmHg LVOT SV 101.58 mL AoV Mean Grad 6.6 mmHg AoV VTI 0.397 m AoV Area VTI 2.56 cm2 AoV Area/ BSA (VTI) 1.22 cm/m2 Mitral Valve MV DT 204 (160-240 msec) MV PHT 59 msec MV Area PHT 3.72 cm2 MV VTI 0.495 m MV Area VTI 2.05 (4.0-6.0 cm2) Pulmonary Valve PV Vmax 1.15 (0.5-1.5 m/s) RVOT Peak Gr. 1.25 mmHg PV Peak Grad 5.3 mmHg RVOT Mean Gr. 0.55 mmHg PV Mean Grad 2.7 mmHg RVOT VTI 0.121 m PV VTI 0.223 m RVOT Vmax 0.56 m/s Tricuspid Valve TR Peak Grad 10.6 mmHg TR Vmax 1.63 m/s RA Pressure 3.00 mmHg RVSP (TR) 13.7 mmHg
== END ==
PROVIDERS: PCP Nurse Practitioner Family; Visit Provider Internal Medicine Cardiovascular Disease
DX: I77.810 Thoracic aortic ectasia (principal)
CPT/HCPCS: 93306

== ENCOUNTER → 2022-04-01 11:25 | Outpatient (BNVA) | payer MEDICARE, SELFPAY | PROVIDERS: PCP Nurse Practitioner Family; Referring Provider Nurse Practitioner Family; Visit Provider Internal Medicine Cardiovascular Disease | DX: I25.10 Atherosclerotic heart disease of native coronary artery without angina pectoris (principal); I10 Essential (primary) hypertension; I50.9 Heart failure, unspecified; I77.810 Thoracic aortic ectasia | CPT/HCPCS: 99214; 99213 ==

== ENCOUNTER 2022-04-01 11:35 | Outpatient (CLI) | payer MEDICARE, SELFPAY | END 2022-04-01 11:36 | disposition home or self-care (01) | LOC: DI.CARD 11:35 | PROVIDERS: PCP Nurse Practitioner Family; Visit Provider Internal Medicine Cardiovascular Disease | DX: R69 Illness, unspecified (principal) | CPT/HCPCS: 93010 ==

== ENCOUNTER 2022-05-07 18:39 | Outpatient (REF) | payer MEDICARE, SELFPAY ==
[2022-05-10 09:34] LABS: PSA, Diagnostic 1.6 ng/mL (<=6.5)
== END 2022-05-07 18:40 | disposition home or self-care (01) ==
LOC: NCHCN 18:39
PROVIDERS: PCP Nurse Practitioner Family; Visit Provider Nurse Practitioner Family
DX: R39.11 Hesitancy of micturition (principal); Z12.5 Encounter for screening for malignant neoplasm of prostate
CPT/HCPCS: 84153

== ENCOUNTER 2022-07-07 03:25 | Outpatient (CLI) | payer MEDICARE, SELFPAY ==
[2022-07-07 13:21] LABS: Abs Immature Grans 0.03 10^3/uL (0.0-0.06); Absolute Basophil Count 0.08 10^3/uL (0.0-0.2); Absolute Eosinophil Count 0.44 10^3/uL (0.0-0.7); Absolute Lymphocyte Count 4.03 10^3/uL (1.2-3.4); Absolute Monocyte Count 0.95 10^3/uL (0.1-0.8); Absolute Neutrophil Count 4.11 10^3/uL (1.2-6.7); Basophils % 0.8; Eosinophils % 4.6; HCT 45.4 % (40.0-50.0); HGB 15.3 g/dL (13.5-17.5); Immature Grans % 0.3; Lymphocytes % 41.8; MCH 29.7 pg (27.0-33.0); MCHC 33.7 % (32.0-36.0); MCV 88 fL (80-95); MPV 9.3 fL (8.0-11.0); Monocytes % 9.9; Neutrophils % 42.6; Platelet Count 132 10^3/uL (130-400); RBC 5.15 10^6/uL (4.36-5.78); RDW-SD 42.3 fL; WBC 9.64 10^3/uL (4.4-10.8)
[2022-07-07 13:40] LABS: ALT 23 U/L (16-63); AST 28 U/L (15-37); Albumin 3.6 g/dL (3.4-5.0); Alkaline Phosphatase 61 U/L (46-116); Anion Gap 3.2 mmol/L (3-11); BUN 21 mg/dL (7-18); Bilirubin, Total 0.5 mg/dL (0.2-1.0); CO2 29.8 mmol/L (21.0-32.0); CREATININE 1.1 mg/dL (0.70-1.30); Calcium 8.7 mg/dL (8.5-10.1); Chloride 104 mmol/L (98-107); Estimated GFR 70.01 (mL/min/1.73m2); Glucose 114 mg/dL (74-106); LDH 223 U/L (85-227); Potassium 4.2 mmol/L (3.5-5.1); Sodium 137 mmol/L (136-145); Total Protein 8.3 g/dL (6.4-8.2)
== END 2022-07-07 03:26 | disposition home or self-care (01) ==
LOC: LBO 03:25
PROVIDERS: PCP Nurse Practitioner Family; Visit Provider Internal Medicine Hematology & Oncology
DX: C91.10 Chronic lymphocytic leukemia of B-cell type not having achieved remission (principal)
CPT/HCPCS: 36415; 80053; 83615; 85025

== ENCOUNTER → 2022-08-31 13:20 | Outpatient (BNVA) | payer MEDICARE, SELFPAY | PROVIDERS: PCP Nurse Practitioner Family; Referring Provider Nurse Practitioner Family; Visit Provider Internal Medicine Cardiovascular Disease | DX: I25.10 Atherosclerotic heart disease of native coronary artery without angina pectoris (principal); I10 Essential (primary) hypertension | CPT/HCPCS: 93005; 99214 ==

== ENCOUNTER 2022-08-31 13:31 | Outpatient (CLI) | payer MEDICARE, SELFPAY ==
--- NOTE | 2022-08-31 13:30 | RT.EKG_ITS ---
APPROVED REPORT Exam: Resting ECG Reason for Exam: bradycardia Patient Location: O HR:90 bpm ECG Measurements Heart Rate 90 AXIS MD 189 P 27 QRSd 119 QRS -27 QT 407 T 8 QTc 498 Conclusion Sinus rhythm...normal P axis, V-rate 50- 99 Ventricular bigeminy...bigeminy string>4 w/ V complexes Late transition Baseline wander in lead(s) V4
== END 2022-08-31 13:32 | disposition home or self-care (01) ==
LOC: DI.CARD 13:32
PROVIDERS: PCP Nurse Practitioner Family; Visit Provider Internal Medicine Cardiovascular Disease
DX: R00.1 Bradycardia, unspecified (principal); R94.31 Abnormal electrocardiogram [ECG] [EKG]
CPT/HCPCS: 93010

== ENCOUNTER → 2022-10-26 14:16 | Outpatient (BNVA) | payer MEDICARE, SELFPAY | PROVIDERS: PCP Nurse Practitioner Family; Visit Provider Nurse Practitioner Gerontology | DX: R31.9 Hematuria, unspecified (principal); R39.89 Other symptoms and signs involving the genitourinary system | CPT/HCPCS: 51798; 81003; 99213 ==

== ENCOUNTER 2022-10-26 14:47 | Outpatient (CLI) | payer MEDICARE, SELFPAY ==
[2022-10-26 17:35] LABS: Bilirubin Negative (Negative); Blood Trace-intact (Negative); Clarity Clear (Clear); Glucose Negative (Negative); Ketones Negative (Negative); Leukocyte Esterase Negative (Negative); Nitrite Negative (Negative); Specific Gravity 1.025 (1.005-1.025); Urobilinogen 0.2 EU/dL (Up TO 0.2)
[2022-10-26 17:44] LABS: Bacteria Negative HPF (Negative); C & S Indicated? No; Casts Negative LPF (Negative); Crystals Negative HPF (Negative); Epithelial Cells Rare HPF (Negative); Mucus Negative (Negative); RBC 0-2 HPF (0-2); WBC 0-2 HPF (0-5)
== END 2022-10-26 14:48 | disposition home or self-care (01) ==
LOC: LBO 14:48 → LBN 17:07
PROVIDERS: PCP Nurse Practitioner Family; Visit Provider Nurse Practitioner Gerontology
DX: R31.9 Hematuria, unspecified (principal)
CPT/HCPCS: 81003; 81015

== ENCOUNTER 2022-11-23 00:54 | Outpatient (CLI) | payer MEDICARE, SELFPAY ==
--- NOTE | 2022-11-23 13:45 | DI.CT_ITS ---
Exam(s) CT CHEST WO EXAM: CT CHEST WO CLINICAL HISTORY: PULMONARY NODULE, R91.1. TECHNIQUE: Imaging protocol: Axial computed tomography images were obtained and coronal and sagittal reformatted images were created and reviewed. CONTRAST MATERIAL: Noncontrast COMPARISON: CT CT ABDOMEN PELVIS WO/W from 09/15/2020 FINDINGS: Pulmonary parenchyma: No consolidation. Nodules: 7 x 4 millimeter nodule inferolateral left lower lobe. Two nodules, 3 and 4 millimeters in the left upper lobe. Two perifissural nodules at right minor fissure. These nodules are stable from prior. No new nodules. Emphysema: Mild greater in upper lobes.. Tracheobronchial tree: No mucous plugging. No bronchiectasis . Interstitial changes: None. Pleura: No effusion or pneumothorax. Heart: The heart is mildly dilated. The coronary arteries show moderate calcifications. Aorta: Thoracic aorta non-dilated. No significantatherosclerotic changes. Lymph nodes: Multiple enlarged bilateral axillary and mediastinal lymph nodes and, roughly stable fro m prior. Bones: Degenerative changes are seen. No evidence of compression fracture. Upper abdomen: Unremarkable. IMPRESSION: Stable pulmonary nodules. Stable mediastinal and axillary adenopathy. RADIATION DOSE DELIVERED: 644.8mGy.cm Total DLP 644.8mGy.cm Total DLP DATA REPOSITORY: All CT scans at this facility are submitted to the National Radiology Data Registry (NRDR) Dose Index Registry (DIR) with the [employer] ([employer]). RADIATION OPTIMIZATION: All CT scans at this facility use at least one of these dose optimization te chniques: automated exposure control; mA and/or kV adjustment per patient size (includes targeted exa ms where dose is matched to clinical indication); or iterative reconstruction.
== END 2022-11-23 01:14 ==
LOC: DI 00:55
PROVIDERS: PCP Nurse Practitioner Family; Visit Provider Nurse Practitioner Family
DX: R91.1 Solitary pulmonary nodule (principal); J43.8 Other emphysema; J98.4 Other disorders of lung; R59.0 Localized enlarged lymph nodes
CPT/HCPCS: 71250

== ENCOUNTER 2022-12-08 14:31 | Outpatient (REF) | payer MEDICARE, SELFPAY ==
[2022-12-08 22:08] LABS: Abs Immature Grans 0.04 10^3/uL (0.0-0.06); Absolute Basophil Count 0.05 10^3/uL (0.0-0.2); Absolute Monocyte Count 1.35 10^3/uL (0.1-0.8); Basophils % 0.4; Eosinophils % 2.6; HCT 47.1 % (40.0-50.0); HGB 16.1 g/dL (13.5-17.5); Immature Grans % 0.3; Lymphocytes % 25.6; MCH 29.2 pg (27.0-33.0); MCHC 34.2 % (32.0-36.0); MCV 86 fL (80-95); MPV 9.9 fL (8.0-11.0); Monocytes % 10.5; Neutrophils % 60.6; Platelet Count 130 10^3/uL (130-400); RBC 5.51 10^6/uL (4.36-5.78); RDW 13.2 % (11.8-14.1); RDW-SD 41.1 fL; WBC 12.88 10^3/uL (4.4-10.8)
[2022-12-08 22:16] LABS: Absolute Eosinophil Count 0.33 10^3/uL (0.0-0.7); Absolute Neutrophil Count 7.81 10^3/uL (1.2-6.7)
[2022-12-08 22:30] LABS: ALT 31 U/L (16-63); AST 36 U/L (15-37); Albumin 3.7 g/dL (3.4-5.0); Alkaline Phosphatase 71 U/L (46-116); Anion Gap 6.8 mmol/L (3-11); BUN 24 mg/dL (7-18); Bilirubin, Total 0.5 mg/dL (0.2-1.0); CO2 28.2 mmol/L (21.0-32.0); CREATININE 1.1 mg/dL (0.70-1.30); Calcium 8.6 mg/dL (8.5-10.1); Calculated LDL 54 mg/dL (<100); Chloride 104 mmol/L (98-107); Cholesterol 119 mg/dL (<200); Estimated GFR 70.01 (mL/min/1.73m2); Glucose 80 mg/dL (74-106); HDL Cholesterol 32 mg/dL (40-60); Potassium 4.1 mmol/L (3.5-5.1); Sodium 139 mmol/L (136-145); Total Protein 8.2 g/dL (6.4-8.2); Triglyceride 165 mg/dL (<150)
[2022-12-08 22:49] LABS: LDH 260 U/L (85-227)
== END 2022-12-08 14:32 | disposition home or self-care (01) ==
LOC: NCHCN 14:31
PROVIDERS: PCP Nurse Practitioner Family; Visit Provider Nurse Practitioner Family
DX: E78.5 Hyperlipidemia, unspecified (principal); C83.00 Small cell B-cell lymphoma, unspecified site
CPT/HCPCS: 80053; 80061; 83615; 85025

== ENCOUNTER → 2023-03-08 10:37 | Outpatient (BNVA) | payer MEDICARE, SELFPAY | PROVIDERS: PCP Nurse Practitioner Family; Visit Provider Internal Medicine Cardiovascular Disease | DX: I25.10 Atherosclerotic heart disease of native coronary artery without angina pectoris (principal); I10 Essential (primary) hypertension | CPT/HCPCS: 99213 ==

== ENCOUNTER 2023-03-10 15:29 | Outpatient (REF) | payer MEDICARE, SELFPAY ==
[2023-03-10 21:16] LABS: HCT 48.3 % (40.0-50.0); HGB 16.4 g/dL (13.5-17.5); MCH 29.1 pg (27.0-33.0); MCV 86 fL (80-95); MPV 9.9 fL (8.0-11.0); Platelet Count 146 10^3/uL (130-400); RBC 5.63 10^6/uL (4.36-5.78); RDW 13.2 % (11.8-14.1)
[2023-03-10 22:28] LABS: ALT 31 U/L (16-63); AST 34 U/L (15-37); Albumin 3.8 g/dL (3.4-5.0); Alkaline Phosphatase 74 U/L (46-116); Anion Gap 5.8 mmol/L (3-11); BUN 23 mg/dL (7-18); Bilirubin, Total 0.4 mg/dL (0.2-1.0); CO2 29.2 mmol/L (21.0-32.0); Calcium 8.7 mg/dL (8.5-10.1); Chloride 104 mmol/L (98-107); Glucose 84 mg/dL (74-106); Potassium 4.4 mmol/L (3.5-5.1); Sodium 139 mmol/L (136-145); Total Protein 8.7 g/dL (6.4-8.2)
== END 2023-03-10 15:30 | disposition home or self-care (01) ==
LOC: NCHCN 15:29
PROVIDERS: PCP Nurse Practitioner Family; Visit Provider Nurse Practitioner Family
DX: R53.83 Other fatigue (principal)
CPT/HCPCS: 80053; 85027; 84443

== ENCOUNTER 2023-06-29 21:45 | Outpatient (REF) | payer MEDICARE, SELFPAY ==
[2023-06-29 21:39] LABS: Abs Immature Grans 0.04 10^3/uL (0.0-0.06); Absolute Basophil Count 0.07 10^3/uL (0.0-0.2); Absolute Eosinophil Count 0.35 10^3/uL (0.0-0.7); Absolute Lymphocyte Count 3.91 10^3/uL (1.2-3.4); Absolute Monocyte Count 0.95 10^3/uL (0.1-0.8); Absolute Neutrophil Count 4.05 10^3/uL (1.2-6.7); Basophils % 0.7; Eosinophils % 3.7; HCT 45.8 % (40.0-50.0); HGB 15.3 g/dL (13.5-17.5); Immature Grans % 0.4; Lymphocytes % 41.7; MCH 28.9 pg (27.0-33.0); MCHC 33.4 % (32.0-36.0); MCV 86 fL (80-95); MPV 9.6 fL (8.0-11.0); Monocytes % 10.1; Neutrophils % 43.4; Platelet Count 160 10^3/uL (130-400); RDW 13.5 % (11.8-14.1); RDW-SD 42.4 fL; WBC 9.37 10^3/uL (4.4-10.8)
[2023-06-29 21:52] LABS: ALT 27 U/L (16-63); AST 31 U/L (15-37); Albumin 3.6 g/dL (3.4-5.0); Alkaline Phosphatase 77 U/L (46-116); Anion Gap 4.1 mmol/L (3-11); BUN 26 mg/dL (7-18); Bilirubin, Total 0.4 mg/dL (0.2-1.0); CO2 29.9 mmol/L (21.0-32.0); CREATININE 1.2 mg/dL (0.70-1.30); Calcium 9.4 mg/dL (8.5-10.1); Chloride 103 mmol/L (98-107); Estimated GFR 62.67 (mL/min/1.73m2); Glucose 102 mg/dL (74-106); LDH 225 U/L (85-227); Potassium 4.4 mmol/L (3.5-5.1); Sodium 137 mmol/L (136-145); Total Protein 8.7 g/dL (6.4-8.2)
[2023-07-01 09:03] LABS: IgA 380 mg/dL (85-499); IgG 2600 mg/dL (610-1616); IgM 69 mg/dL (35-242)
== END 2023-06-29 21:46 | disposition home or self-care (01) ==
LOC: NCHCN 21:45
PROVIDERS: PCP Nurse Practitioner Family; Visit Provider Nurse Practitioner Family
DX: C91.10 Chronic lymphocytic leukemia of B-cell type not having achieved remission (principal)
CPT/HCPCS: 80053; 82784; 83615; 85025

== ENCOUNTER 2023-08-28 08:33 | Emergency (ER) | payer MEDICARE, SELFPAY ==
[2023-08-28 08:35] VITALS: BP 213/106; PULSE 62; RESP 18; TEMP 36.4; O2SAT 96
[2023-08-28 09:00] VITALS: BP 157/82
--- NOTE | 2023-08-28 09:08 | ED.GENADUL_ITS ---
Discharge Plan Disposition Patient Disposition: Home Condition: Stable Discharge Details Clinical Impression: Lumbar back pain Primary Care Provider: Luci Bustillo ED Provider: Norbert Doherty Home Meds and New Rx's Prescriptions: New cyclobenzaprine 10 mg tablet 10 mg PO TID PRN (Reason: back spasm) Qty: 30 0RF prednisone 20 mg tablet 40 mg PO DAILY 6 Days Qty: 12 0RF lidocaine [Lidoderm] 5 % adhesive patch,medicated 2 patch topical DAILY Qty: 30 0RF Rx Instructions: leave on most painful area for up to 12 hrs diclofenac sodium 1 % gel 2 g topical QID Qty: 100 0RF Rx Instructions: apply 1-2 of gel to lower back area four times per day Continued nitroglycerin 0.4 mg tablet, sublingual 0.4 mg sublingual Q5M PRN Patient Comments: states never used it Rx Instructions: do not exceed 3 doses per episode ketoconazole 2 % shampoo 1 applic topical ONCE ezetimibe 10 mg tablet 10 mg PO DAILY Patient Comments: pt unsure of med amlodipine 2.5 mg tablet 2.5 mg PO DAILY Qty: 90 3RF lovastatin 40 MG tablet 60 mg PO HS aspirin [Aspir-81] 81 MG tablet,delayed release (DR/EC) 81 mg PO DAILY loratadine [Claritin] 10 MG tablet 10 mg PO HS furosemide 20 mg Tablet 20 mg PO DAILY Qty: 14 0RF Discharge Instructions Instructions: Prednisone (By mouth), Cyclobenzaprine (By mouth), Diclofenac (On the skin), Lidocaine Patch (On the skin), Low Back Strain (ED) Additional Instructions: You were seen in the emergency department for your acute low back pain, you need to see physical therapy ultimately to learn exercises and stretches for your lower back to cure this on a long-term basis. I have sent prescriptions to your pharmacy for a muscle relaxer called cyclobenzaprine, be careful as this can make you feel little woozy, do not operate heavy machinery on this medication. I have also sent prescription for lidocaine patches as well as topical anti- inflammatory diclofenac gel to place on your lower back as well as a prednisone burst, we gave you prednisone today so please start the prednisone by prescription tomorrow. In the meantime keep taking 1000 mg of Tylenol every 6 hours, call your doctor who prescribes your celecoxib to see if you can increase your dose for about a week or discontinue this and take 2 Aleve in the morning and 2 in the evening 12 hours apart for about a week and then switch back to your normal celecoxib dose. You can apply gentle heat and ice to the area for relief, gentle massage is good for the area, you may want to make an appointment with an massage therapist or chiropractor while you await physical therapy visits. Please return to the emergency department for any signs of spinal emergency like urinary retention, loss of bowel without noticing in your pants, numbness in the groin. Referrals: [facility] [Provider Group] Luci Bustillo [Primary Care Provider] - Discharge Data Discharge Date/Time-TO BE ENTERED AT DEPARTURE: 08/28/23 10:01 Medical Decision Making This dictation utilizes [id number] dictation software and may contain unedited grammatical errors. 78 y/o M presents to ED today with a chief complaint of lumbar back pain, severe for the past two days. 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 Patients' medical history: cardiac history, hyperlipidemia, hypertension. 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 Pertinent exam findings / vital signs include MSK: Normal ROM, no swelling/deformity to bilateral UEs or LEs, moving all extremities without weakness, no cyanosis, spine midline without tenderness, normal curvature. no vertebral exquisite tenderness/crepitus/step-offs, has paraspinal lumbar tenderness bilaterally, strength 5/5 in bilateral LEs, sensation intact to light touch in dermatomes of LEs, no unilateral leg swelling, no saddle anesthesia. Differential / pathologies of concern include lumbar spasm, sciatica, not vertebral fracture. Diagnostic studies of: -none, reasonable for trial of lumbar spasm relief prior to non-emergent imaging. Interventions of: -Rx of muscle relaxers, prednisone, recommend therapeutic APAP/NSAIDs, topical lidocaine patches, follow with PT/ortho/chiro/massage. ED Course/Assessment/Plan: 78-year-old male presents with acute lumbar spasm with intermittent radicular symptoms, there is no sign of spinal cord or column emergent findings, counseled the patient on therapeutic dosing of Tylenol and ibuprofen and provided prescriptions for us Galbo muscle relaxer, prednisone, Lidoderm topical, recommend trial of Voltaren, recommend he follow-up with orthopedics or PT or chiropractor or massage therapy. Recommend he receive imaging with failure to i mprove by outpatient study. Recommend he return to the ER urgently for any paralysis of either leg, urinary retention, bowel incontinence, numbness to the groin. Findings not consistent with cauda equina or spinal epidural abscess or vertebral fracture, no signs of neurovascular compromise of the lower extremities. Disposition of Lumbar Back Pain. Patient verbalized understanding of the plan and return to ED criteria and engaged in shared decision making. Medical Records Medical records reviewed: Yes I reviewed the patient's medical records. HPI General Date/Time Provider Initiated Documentation: 08/28/23 09:08 . 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 Quality described as sharp shooting low back pains worse with movement, no radiation to urinary retention, bowel incon tinence, saddle anesthesia, history of IVDU, paralysis of either leg, fever, abdominal pain, dysuria. Severity is described as 8-9/10. Palliating factors include Tylenol, but little relief. Provoking factors include ADLs. Events leading up to the incident/Associated Symptoms: patient has not seen orthopaedics, PT, or chiropractor for these issues. Patient not anticoagulated. Related Data Home Medications Medication Instructions Recorded Confirmed aspirin 81 mg tablet,delayed 81 mg PO DAILY 12/05/12 08/28/23 release (Aspir-) loratadine 10 mg tablet (Claritin) 10 mg PO HS 12/05/12 08/28/23 lovastatin 40 mg tablet 60 mg PO HS 12/05/12 08/28/23 furosemide 20 mg tablet 20 mg PO DAILY #14 tabs 09/15/19 08/28/23 ezetimibe 10 mg tablet 10 mg PO DAILY 06/17/20 08/28/23 ketoconazole 2 % shampoo 1 applic topical ONCE 06/17/20 08/28/23 nitroglycerin 0.4 mg sublingual 0.4 mg sublingual Q5M PRN 06/17/20 08/28/23 tablet amlodipine 2.5 mg tablet 2.5 mg PO DAILY #90 tabs 07/22/23 08/28/23 cyclobenzaprine 10 mg tablet 10 mg PO TID PRN back spasm #30 08/28/23 tabs diclofenac sodium 1 % topical gel 2 g topical QID back pain #100 08/28/23 grams lidocaine 5 % topical patch 2 patch topical DAILY back pain 08/28/23 (Lidoderm) #30 ea prednisone 20 mg tablet 40 mg (2 x 20 mg) PO DAILY back 08/28/23 spasm 6 days #12 tabs Previous Rx's Medication Instructions Recorded furosemide 20 mg tablet 20 mg PO DAILY #14 tabs 09/15/19 amlodipine 2.5 mg tablet 2.5 mg PO DAILY #90 tabs 07/22/23 cyclobenzaprine 10 mg tablet 10 mg PO TID PRN back spasm #30 08/28/23 tabs diclofenac sodium 1 % topical gel 2 g topical QID back pain #100 08/28/23 grams lidocaine 5 % topical patch 2 patch topical DAILY back pain 08/28/23 (Lidoderm) #30 ea prednisone 20 mg tablet 40 mg (2 x 20 mg) PO DAILY back 08/28/23 spasm 6 days #12 tabs Allergies Allergy/AdvReac Type Severity Reaction Status Date / Time lisinopril Allergy Mild Verified 08/28/23 08:40 penicillin V [Penicillin V] Allergy Mild Verified 08/28/23 08:40 SHARA Inhibitors Allergy Unknown Verified 08/28/23 08:40 General Stated Complaint: Nk/Back Pain MOSES: 4 Review of Systems All systems reviewed & are unremarkable except as noted in HPI and below PFSH All Active Problems (Updated 08/28/23 @ 09:13 by SHRADDHA Rodriguez) Lumbar back pain (Acute) Tendinitis of long head of biceps brachii of left shoulder (Acute) Bursitis of left shoulder (Acute) Hyperlipidemia (Acute) Obesity (Chronic) Ascending aorta dilation (Acute) Lymphadenopathy (Acute) Ocular migraine (Acute) 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) Pre-diabetes (Acute) Corneal abrasion, right (Acute) Foreign body in eye (Acute) Hematuria (Acute) Bradycardia (Acute) CAD (coronary artery disease) (Chronic) Discharge planning issues (Acute) DVT prophylaxis (Acute) CHF (congestive heart failure) (Chronic) Community acquired pneumonia (Acute) Medical History Basal cell carcinoma arm Benign hypertension Hyperlipidemia Myocardial infarction Surgical History Coronary Stent x 2 10 yrs ago Social History Smoking/Tobacco Use Status: Former Tobacco Use Smoking risk assessment performed?: Yes Drug use: Never Substance use type: does not use Details: quit smoking in 2000 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 SKIN: Warm, pink, dry, intact, without rashes/lesions/ulcerations. HEAD: Normocephalic, atraumatic, normal hair distribution for gender/age. EYES: Pupils PERRLA, EOMs intact without nystagmus, normal conjunctiva, no exudates on lids/lashes. ENT: Nares patent, no circumoral cyanosis, no facial swelling NECK: Supple, trachea midline, painless cervical ROM. LUNGS/CHEST: Non-labored respirations, normal A/P diameter, symmetrical expansion, no chest wall deformity HEART (CV/PV): Regular rate, pedal pulses intact 2+ bilaterally, no peripheral edema, no JVD. ABDOMEN: Soft, non-distended, no guarding. MSK: Normal ROM, no swelling/deformity to bilateral UEs or LEs, moving all extremities without weakness, no cyanosis, spine midline without tenderness, normal curvature. no vertebral exquisite tenderness/crepitus/step-offs, has paraspinal lumbar tenderness bilaterally, strength 5/5 in bilateral LEs, sensation intact to light touch in dermatomes of LEs, no unilateral leg swelling, no saddle anesthesia NEURO: Mental Status AAOx4 - alert to person, place, time, events No facial droop, no forehead involvement. Motor: No focal weakness - strength 5/5 in bilateral UEs and LEs, proximal and distal, symmetric. Sensory: sensation intact to light touch globally. Gait normal: patient ambulated without ataxia into ED room. PSYCH: euthymic, cooperative, pleasant, appropriate speech Course Vital Signs Vital signs: Vital Signs Temperature 36.4 C L 08/28/23 08:35 Pulse 62 08/28/23 08:35 Respiratory Rate 18 08/28/23 08:35 Blood Pressure 213/106 H 08/28/23 08:35 Pulse Oximetry 96 08/28/23 08:35 Temperature 36.4 C L 08/28/23 08:35 Temperature Source Skin 08/28/23 08:35 Pulse 62 08/28/23 08:35 Respiratory Rate 18 08/28/23 08:35 Respiratory Effort Normal 08/28/23 08:38 Blood Pressure 157/82 H 08/28/23 09:00 Blood Pressure Position Sitting 08/28/23 08:35 Pulse Oximetry 96 08/28/23 08:35 Oxygen Delivery Method Room Air 08/28/23 08:35 Oxygen Flow Rate 0 08/28/23 08:35 Pain Level 7 08/28/23 08:52
[2023-08-28] MEDS: Cyclobenzaprine 10 MG TAB PO (09:44)
[2023-08-28] MEDS: Acetaminophen 500 MG TAB 1000 MG PO (09:44)
[2023-08-28] MEDS: predniSONE 20 MG TAB 60 MG PO (09:44)
[2023-08-28] MEDS: Lidocaine 5% Patch 2 PATCH TP (09:45)
== END 2023-08-28 10:01 | disposition home or self-care (01) ==
PROVIDERS: Emergency Provider Physician Assistant; PCP Nurse Practitioner Family
DX: M54.50 Low back pain, unspecified (principal)
CPT/HCPCS: 99283; 99284; J7512

== ENCOUNTER → 2023-09-23 13:54 | Outpatient (BNVA) | payer MEDICARE, SELFPAY | PROVIDERS: PCP Nurse Practitioner Family; Referring Provider Nurse Practitioner Family; Visit Provider Internal Medicine Interventional Cardiology | DX: I25.10 Atherosclerotic heart disease of native coronary artery without angina pectoris (principal); I10 Essential (primary) hypertension; I50.22 Chronic systolic (congestive) heart failure; E78.5 Hyperlipidemia, unspecified | CPT/HCPCS: 99213 ==

== ENCOUNTER → 2023-10-25 01:26 | Outpatient (CLI) | payer MEDICARE, SELFPAY ==
--- NOTE | 2023-10-25 12:00 | DI.US_ITS ---
Exam(s) US CAROTID EXAM: US CAROTID CLINICAL HISTORY: CAROTID BRUIT,R09.89. TECHNIQUE: Ultrasound carotids performed using grayscale, color-flow, and spectral Doppler imaging. COMPARISON: No exams were available for comparison FINDINGS: RIGHT CAROTID ARTERY: Plaque: Minimal. Velocity elevation: None. LEFT CAROTID ARTERY: Plaque: Minimal. Velocity elevation: None. VERTEBRAL ARTERIES: Antegrade flow. Measurements: R Bulb: 65.9cm/s PS / 11.5cm/s ED R CCA: 106.1cm/s PS / 20.6cm/s ED R ECA: 94.4cm/s PS / 12.8cm/s ED R ICA Prox: 56.4cm/s PS / 14cm/s ED R ICA Mid: 78.2cm/s PS / 23cm/s ED R ICA Distal: 85.9cm/s PS /7.6cm/s ED R Vert: 23.1cm/s PS / 5.3cm/s ED R SVR: 0.8 R DVR: 0.4 L Bulb: 53.2cm/s PS / 9.6cm/s ED L CCA: 75.8cm/s PS / 18.3cm/s ED L ECA: 84.7cm/s PS / 8.4cm/s ED L ICA Prox: 73.8cm/s PS / 19.3cm/s ED L ICA Mid: 83.5cm/s PS / 22.9cm/s ED L ICA Distal: 91.9cm/s PS / 28.9cm/s ED L Vert: PS / ED L SVR: 1.2 L DVR: 1.6 Note is made of several enlarged lymph nodes in the soft tissues of the neck. They do have normal hy perechoic and vascular halnia. IMPRESSION: No evidence for hemodynamically significant carotid stenosis. Criteria for Carotid Stenosis: Normal: ICA PSV <125 cm/s no plaque or intimal thickening is visible. <50% stenosis: ICA PSV <125 cm/s and plaque or intimal thickening is visible. 50-69% stenosis: ICA PSV is 125-250 cm/s and plaque is visible. >70% stenosis to near occlusion: ICA PSV >250 cm/s with visible plaque and luminal narrowing. DATA REPOSITORY:
== END ==
PROVIDERS: PCP Nurse Practitioner Family; Visit Provider Nurse Practitioner Family
DX: R09.89 Other specified symptoms and signs involving the circulatory and respiratory systems (principal)
CPT/HCPCS: 93880

== ENCOUNTER 2024-01-25 15:09 | Outpatient (CLI) | payer MEDICARE, SELFPAY ==
[2024-01-25 12:34] LABS: Abs Immature Grans 0.04 10^3/uL (0.0-0.06); Absolute Basophil Count 0.06 10^3/uL (0.0-0.2); Absolute Eosinophil Count 0.36 10^3/uL (0.0-0.7); Absolute Monocyte Count 0.89 10^3/uL (0.1-0.8); Absolute Neutrophil Count 3.98 10^3/uL (1.2-6.7); Basophils % 0.6 %; Eosinophils % 3.8 %; HCT 46.8 % (40.0-50.0); HGB 15.7 g/dL (13.5-17.5); Immature Grans % 0.4 %; Lymphocytes % 44.1 %; MCH 28.9 pg (27.0-33.0); MCHC 33.5 % (32.0-36.0); MCV 86 fL (80-95); MPV 9.6 fL (8.0-11.0); Monocytes % 9.3 %; Neutrophils % 41.8 %; Platelet Count 133 10^3/uL (130-400); RBC 5.44 10^6/uL (4.36-5.78); RDW 13.4 % (11.8-14.1); RDW-SD 41.4 fL; WBC 9.53 10^3/uL (4.4-10.8)
[2024-01-25 12:57] LABS: ALT 35 U/L (16-63); AST 27 U/L (15-37); Albumin 3.6 g/dL (3.4-5.0); Alkaline Phosphatase 60 U/L (46-116); Anion Gap 8.3 mmol/L (3-11); BUN 27 mg/dL (7-18); Bilirubin, Total 0.5 mg/dL (0.2-1.0); CO2 26.7 mmol/L (21.0-32.0); CREATININE 1.3 mg/dL (0.70-1.30); Calcium 8.6 mg/dL (8.5-10.1); Chloride 105 mmol/L (98-107); Estimated GFR 56.93 (mL/min/1.73m2); Glucose 95 mg/dL (74-106); LDH 212 U/L (85-227); Potassium 4.1 mmol/L (3.5-5.1); Sodium 140 mmol/L (136-145); Total Protein 8.6 g/dL (6.4-8.2)
== END 2024-01-25 15:10 | disposition home or self-care (01) ==
LOC: LBO 15:10
PROVIDERS: PCP Nurse Practitioner Family; Visit Provider Internal Medicine Hematology & Oncology
DX: C91.10 Chronic lymphocytic leukemia of B-cell type not having achieved remission (principal)
CPT/HCPCS: 36415; 80053; 83615; 85025

== ENCOUNTER → 2024-04-05 00:37 | Outpatient (CLI) | payer MEDICARE, SELFPAY ==
--- NOTE | 2024-04-05 06:45 | DI.US_ITS ---
APPROVED REPORT EXAM: Comprehensive 2D, Doppler, and color-flow Echocardiogram Patient Location: Out-Patient Wood Buffer: Ivy George RDCS (AE) Indications: Congestive heart failure Other Information Study Quality: Fair. Technically limited study due to body habitus. Conclusion Normal left ventricular wall thickness and chamber size. Ejection fraction is 55%. No segmental wal l motion abnormalities are identified Normal right ventricular size and function Left atrium is moderately dilated. Right atrium is borderline dilated Aortic valve is sclerotic and trileaflet with mild regurgitation Mild mitral annular calcification. Moderate eccentric mitral regurgitation Right ventricular systolic pressure could not be estimated Wall motion Left Ventricle The left ventricle is normal size. The left ventricular systolic function is normal. The left ventric ular ejection fraction is within the normal range. There is normal left ventricular wall thickness. T here is normal LV segmental wall motion.. There is no ventricular septal defect visualized. LVEF is 5 5%. Right Ventricle Right ventricle is grossly normal in size. Right ventricular systolic function is grossly normal. Atria Left atrium is moderately dilated. Right atrium is borderline dilated. The interatrial septum is inta ct with no evidence for an atrial septal defect. Aortic Valve The Aortic valve is sclerotic. Aortic valve is trileaflet. There is no aortic valvular stenosis. Mild aortic regurgitation. Mitral Valve Mild mitral annular calcification. No evidence of mitral valve stenosis. Moderate mitral regurgitatio n. Mitral regurgitation jet is posteriorly directed. Tricuspid Valve The tricuspid valve is normal in structure. There is no tricuspid valve stenosis. Trace to mild tricu spid regurgitation. Unable to assess PA pressure. Pulmonic Valve The pulmonary valve is normal in structure. There is no pulmonic valvular stenosis. Trace pulmonic re gurgitation. Great Vessels The aortic root is normal in size. The ascending aorta is normal in size. Aortic arch is normal in ca liber. The IVC collapses <50% with inspiration. Pericardium There is no pericardial effusion. 2D Dimensions IVSD d PLAX 1.00 cm M: 0.6-1.2 Ao Root d 3.63 cm M: 3.1 - 3.7 LVPW d PLAX 1.00 cm M: 0.6 - 1.2 Ao Asc Diam d 3.26 cm M: 2.6 - 3.4 LVID d PLAX 5.67 cm M: 4.2 - 5.8 LVDs 4.63 cm M: 2.5 - 4.0 LV EF Teichholz 37.7 % FS 18.45 % LV EDV (Teich) 158.3 mL LV ESV (Teich) 98.7 mL M-Mode TAPSE 2.37 cm (M/F) >1.7 Auto EF LV EDV A4C 174.4 mL LV EDV A2C 182.1 mL LV EDV BP 176.0 mL LV ESV A4C 81.6 mL LV ESV A2C 91.4 mL LV ESV BP 85.9 mL LVEF(%) A4C 53.2 % LVEF(%) A2C 49.8 % LVEF(%) BP 51.2 % LV SV A4C 92.8 ml LV SV A2C 90.7 ml LV SV BP 90.1 ml LV CO A4C 5.0 L/min LV CO A2C 4.6 L/min LV CO BP 4.8 L/min HR A4C 53.98 BPM HR A2C 50.64 BPM LV EDV Index (BP) LA Volume LA Length A4C 6.4 cm LA Length A2C 5.3 cm LA Area A4C s 26.01 cm2 LA Area A2C s 22.96 cm2 LA Vol A4C A-L 89.16 mL LA Vol A2C A-L 83.89 mL LA Vol Biplane A-L 95.0 mL LA Vol/BSA A4C A-L LA Vol/BSA A2C A-L LA Vol/BSA BP A-L 44.8 mL/m2 LA Vol A4C MOD 81.2 mL LA Vol A2C MOD 76.8 mL LA Vol BP MOD 86.6 mL RA Volume RA Area A4C 16.0 cm2 RA ESV A4C (A-L) 41.9mL RA Vol/BSA A4C A-L RA Length A4C 5.2 cm RA ESV A4C (MOD) 40.4mL LV Diastology MV E' medial 0.062 (>0.07 m/s) MV E Vmax 0.92 (0.4-1.3 m/s) MV E/E' MED 15.02 (<14) MV A Vmax 0.75 (0.4-1.3 m/s) MV E' lateral 0.097 (>0.1 m/s) E/A Ratio 1.2 MV E/E' LAT 9.51 (<14) MV E' Average 0.079 m/s MV E/E'(average) 11.64 Aortic Valve AoV Vmax 1.52 m/s LVOT Vmax 0.87 m/s AoV Peak Grad 9.2 mmHg LVOT Peak Grad 3.0 mmHg AoV Area (Vmax) 1.99 cm2 LVOT VTI 0.230 m AoV VTI 0.384 m LVOT Mean Grad 1.7 mmHg AoV Mean Hu. 1.05 m/s LVOT SV 79.98 mL AoV Mean Grad 5.0 mmHg LVOT Diam s 2.10 cm AoV Area (VTI) 2.08 cm2 AV Regurg Peak Gr. 9.23 mmHg Velocity Ratio 0.57 Mitral Valve MV DT 190 (160-240 msec) MV Vmax TIPS 0.91 m/s MV Mean Grad 1.0 (<2mmHg) MV VTI 0.398 m Pulmonary Valve PV Vmax 1.15 (0.5-1.5 m/s) RVOT Vmax 0.45 m/s PV Peak Grad 5.3 mmHg RVOT Peak Gr. 0.8 mmHg PV Mean Hu 0.76 m/s RVOT VTI 0.144 m PV Mean Grad 2.7 mmHg RVOT Mean Gr. 0.5 mmHg Tricuspid Valve TV S' 0.14 m/s
== END ==
PROVIDERS: PCP Nurse Practitioner Family; Visit Provider Internal Medicine Interventional Cardiology
DX: I50.9 Heart failure, unspecified (principal)
CPT/HCPCS: 93306

== ENCOUNTER 2024-04-09 10:07 | Outpatient (CLI) | payer MEDICARE, SELFPAY ==
--- NOTE | 2024-04-09 10:15 | RT.EKG_ITS ---
APPROVED REPORT Exam: Resting ECG Reason for Exam: CAD Patient Location: O HR:52 bpm ECG Measurements Heart Rate 52 AXIS NM 236 P -18 QRSd 115 QRS -28 QT 470 T 11 QTc 438 Conclusion Sinus rhythm...normal P axis, V-rate 50- 99 Prolonged NM interval...NM >220, V-rate 50- [address]-T abnormalities
== END 2024-04-09 10:08 | disposition home or self-care (01) ==
LOC: DI.CARD 10:23
PROVIDERS: PCP Nurse Practitioner Family; Visit Provider Internal Medicine Cardiovascular Disease
DX: I25.10 Atherosclerotic heart disease of native coronary artery without angina pectoris (principal); R00.1 Bradycardia, unspecified; I10 Essential (primary) hypertension
CPT/HCPCS: 93010

== ENCOUNTER → 2024-04-09 10:07 | Outpatient (BNVA) | payer MEDICARE, SELFPAY | PROVIDERS: PCP Nurse Practitioner Family; Referring Provider Nurse Practitioner Family; Visit Provider Internal Medicine Cardiovascular Disease | DX: R94.31 Abnormal electrocardiogram [ECG] [EKG] (principal); I44.0 Atrioventricular block, first degree; I25.10 Atherosclerotic heart disease of native coronary artery without angina pectoris; I10 Essential (primary) hypertension | CPT/HCPCS: 93005; 99213 ==

== ENCOUNTER 2024-09-20 02:34 | Outpatient (CLI) | payer MEDICARE, SELFPAY ==
--- NOTE | 2024-09-20 | DI.NM_ITS ---
APPROVED REPORT Exam: Pharmacologic Patient Location: Out-Patient Room/Bed: Stress Nurse: Rufino Wesley RN Ordering Provider:SAKSHI KAUR, Contact Number: [phone] BMI: 33.14 Baseline Rhythm: Sinus Bradycardia. Comment: Frequent PAC's; Frequent PVC's. Indications: Chest Pain unspecified. Medical History Medical History: HLD; Benign HTN; Coronary Artery Disease; Prediabetes; Former Smoker; Obesity; Luis cardia. Cardiac Medications: Amlodipine; Aspirin; Celecoxib; Ezetimibe; Furosemide; Lovastatin; Nitroglycerin . Allergies: Lisinopril; Penicillins. Cardiac Risk Factors: Family Hx; HLD; Benign HTN; CVD; Prediabetes; Former Smoker; Obesity. Previous Cardiac Procedures: Stent in 2013. Pretest Chest Pain Characteristics: None. Exercise History: Indeterminate. Physical Disabilities: Back Pain. Lung Sounds: Clear bilaterally throughout, anterior and posterior. Heart Sounds: S1 and S2 auscultated. Stress Test Details Test: Pharmacologic stress was paired with low level exercise. Reason for pharmacologic stress test: physical limitation. Nuclear Acquisition: Rest Tc-99m/Stress Tc-99m 1 day Rest Isotope: Tc-99m Sestamibi. Dose: 10.0 Date: 09/20/2024 Injection Time: 0920 Stress Isotope: Tc-99m Sestamibi. Dose: 30.0 Date: 09/20/2024 Injection Time: 1125 HR Resting HR Supine: 58 bpm Max Heart Rate (APMHR): 143 bpm Resting HR Standin bpm Target HR (85% APMHR): 122 bpm Max HR Achieved: 85 bpm % of APMHR: 59 Recovery HR: 59 bpm BP Resting BP Supine: 170/100 mmHg Resting BP Standin/78 mmHg Max BP: 170/100 mmHg Recovery BP: 158/80 mmHg ECG Resting ECG: Sinus Bradycardia. Ectopy: Frequent PAC's; Frequent PVC's. Stress ECG: Sinus Rhythm. ST Change: Nondiagnostic low heart rate. Arrhythmia: Frequent PAC's; Frequent PVC's. Comment: ? Biphasic T waves noted in leads aVF and V6. Recovery ECG: Sinus Rhythm. Recovery ST Change: Nondiagnostic low heart rate. Recovery Arrhythmia: Frequent PAC's; Frequent PVC's. Comment: ? Biphasic T waves noted in leads aVF and V6. Clinical Stress Symptoms: Mild dizziness; Mild headache. Exercise duration: 04 min03 sec Exercise capacity: 1.77 METs Angina Score: None Rate Pressure Product: [id number] Stress ECG Conclusion 1. Resting electrocardiogram showed vertical axis 2. Patient underwent testing using pharmacologic stress with regadenoson 3. Peak heart rate achieved was 59% of maximal predicted for age 4. The electrocardiographic portion of the test was nondiagnostic 5. Atrial and ventricular ectopy was noted 6. See MPI report Stress Test Summary STAGE HR BP SpO2 Symptoms NOTES Supine 58 170/100 90 Pt. complaining of mild headache. Pt. states that he usually drinks coffee in the morning. Standing 60 152/78 92 Pt. complaining of mild headache. 1 min post Lexiscan injection 76 154/90 Pt. complaining of mild dizziness and mild headache. 3 min post Lexiscan injection 63 158/92 91 Pt. complaining of minimal dizziness and mild headache. 6 min post Lexiscan injection 59 158/80 91 Pt. denies dizziness and is complaining of mild headache . Pt. complaining of minimal dizziness immediately post lexiscan injection. Pt. also complaining of a m ild headache, but states that he usually drinks coffee in the morning. Pt. states that dizziness has resolved prior to leaving the Stress Lab. Pt. encouraged to get a cup of coffee and a snack at the [facility] following the stress portion of the exam. Pt. was conversing pleasantly with nursing staff up on leaving the Stress Lab. Pt. left ambulatory in no apparent distress. MPI Conclusion Myocardial perfusion is normal. There is no ischemia or evidence of prior infarction Calculated ejection fraction is 42% but visually appears higher than within the range of normal. Wal l motion is normal
[2024-09-20] MEDS: Regadenoson 0.4 MG/5 ML SYR IVP (11:24)
== END 2024-09-20 02:54 ==
LOC: DI 02:36
PROVIDERS: PCP Nurse Practitioner Family; Visit Provider Nurse Practitioner Family
DX: R07.9 Chest pain, unspecified (principal)
CPT/HCPCS: 78452; 93016; 93018; 93017; J2785

== ENCOUNTER → 2024-10-23 14:18 | Outpatient (BNVA) | payer MEDICARE, SELFPAY | PROVIDERS: PCP Nurse Practitioner Family; Visit Provider Nurse Practitioner Gerontology | DX: R31.9 Hematuria, unspecified (principal) | CPT/HCPCS: 81003; 99213 ==

== ENCOUNTER 2024-10-23 15:56 | Outpatient (REF) | payer MEDICARE, SELFPAY ==
[2024-10-23 16:34] LABS: Bilirubin Negative (Negative); Blood Trace-intact (Negative); Clarity Clear (Clear); Glucose Negative (Negative); Ketones Negative (Negative); Leukocyte Esterase Negative (Negative); Nitrite Negative (Negative); Urobilinogen 0.2 mg/dL (Up to 0.2)
[2024-10-23 16:46] LABS: Bacteria Rare HPF (Negative); C & S Indicated? No; Casts Negative LPF (Negative); Crystals Negative HPF (Negative); Epithelial Cells Rare HPF (Negative); Mucus Negative (Negative); Other Cells Negative (Negative); WBC Negative HPF (0-5)
== END 2024-10-23 15:57 | disposition home or self-care (01) ==
LOC: LBN 15:56
PROVIDERS: PCP Nurse Practitioner Family; Visit Provider Nurse Practitioner Gerontology
DX: R31.9 Hematuria, unspecified (principal)
CPT/HCPCS: 81003; 81015

== ENCOUNTER → 2024-11-29 10:04 | Outpatient (BNVA) | payer MEDICARE, SELFPAY | PROVIDERS: PCP Nurse Practitioner Family; Visit Provider Internal Medicine Cardiovascular Disease | DX: I25.10 Atherosclerotic heart disease of native coronary artery without angina pectoris (principal) | CPT/HCPCS: 99214 ==

== ENCOUNTER 2024-12-04 13:14 | Outpatient (REF) | payer MEDICARE, SELFPAY ==
[2024-12-04 15:15] LABS: Abs Immature Grans 0.04 10^3/uL (0.0-0.06); Absolute Basophil Count 0.07 10^3/uL (0.0-0.2); Absolute Eosinophil Count 0.39 10^3/uL (0.0-0.7); Absolute Lymphocyte Count 2.99 10^3/uL (1.2-3.4); Absolute Monocyte Count 1.17 10^3/uL (0.1-0.8); Absolute Neutrophil Count 3.61 10^3/uL (1.2-6.7); Basophils % 0.8 %; Eosinophils % 4.7 %; HCT 47.4 % (40.0-50.0); HGB 15.5 g/dL (13.5-17.5); Immature Grans % 0.5 %; Lymphocytes % 36.2 %; MCH 28.6 pg (27.0-33.0); MCHC 32.7 % (32.0-36.0); MCV 88 fL (80-95); MPV 9.7 fL (8.0-11.0); Monocytes % 14.1 %; Neutrophils % 43.7 %; Platelet Count 163 10^3/uL (130-400); RBC 5.42 10^6/uL (4.36-5.78); RDW 13.1 % (11.8-14.1); RDW-SD 41.4 fL; WBC 8.27 10^3/uL (4.4-10.8)
[2024-12-04 15:25] LABS: Bacteria Negative HPF (Negative); C & S Indicated? No; Casts Negative LPF (Negative); Crystals Negative HPF (Negative); Epithelial Cells Rare HPF (Negative); Mucus Negative (Negative); RBC 0-2 HPF (0-2); WBC Negative HPF (0-5)
[2024-12-04 15:39] LABS: ALT 16 U/L (16-63); AST 21 U/L (15-37); Albumin 3.7 g/dL (3.4-5.0); Alkaline Phosphatase 73 U/L (46-116); Anion Gap 6.4 mmol/L (3-11); BUN 25 mg/dL (7-18); Bilirubin, Total 0.4 mg/dL (0.2-1.0); CO2 29.6 mmol/L (21.0-32.0); CREATININE 1.1 mg/dL (0.70-1.30); Calculated LDL 47 mg/dL (<100); Chloride 104 mmol/L (98-107); Cholesterol 116 mg/dL (<200); Estimated GFR 69.14 (mL/min/1.73m2); Glucose 92 mg/dL (74-106); HDL Cholesterol 33 mg/dL (>or=40); Potassium 4.4 mmol/L (3.5-5.1); Sodium 140 mmol/L (136-145); Triglyceride 183 mg/dL (<150)
[2024-12-04 23:16] LABS: PSA, Screening 0.8 ng/mL (<=6.5)
== END 2024-12-04 13:15 | disposition home or self-care (01) ==
LOC: NCHCN 13:14
PROVIDERS: PCP Nurse Practitioner Family; Visit Provider Nurse Practitioner Family
DX: I10 Essential (primary) hypertension (principal); N50.811 Right testicular pain; E78.5 Hyperlipidemia, unspecified; Z12.5 Encounter for screening for malignant neoplasm of prostate
CPT/HCPCS: 80053; 80061; 84153; 81015; 85025

== ENCOUNTER 2024-12-15 11:21 | Emergency (ER) | payer MEDICARE, SELFPAY ==
[2024-12-15] VITALS (14 sets, daily range): BP systolic 125–185; BP diastolic 58–82; PULSE 50–81; RESP 14–18; TEMP 36.7; O2SAT 87–98
--- NOTE | 2024-12-15 11:15 | RT.EKG_ITS ---
APPROVED REPORT Exam: Resting ECG Reason for Exam: Chest Pain Patient Location: E HR:58 bpm ECG Measurements Heart Rate 58 AXIS DC 216 P -16 QRSd 105 QRS -29 QT 428 T 46 QTc 421 Conclusion Sinus bradycardia...rate< 60 Borderline prolonged DC interval...DC >212, V-rate 50- 90 Inferior infarct, old...Q >35mS, II III aVF
--- NOTE | 2024-12-15 11:30 | DI.CT_ITS ---
Exam(s) CT CHEST PE ABD PELVIS W EXAM: CT CHEST PE ABD PELVIS W CLINICAL HISTORY: chest and abdomen pain, hypoxia. TECHNIQUE: Imaging Protocol: Axial CT angiography was performed with multi-slice acquisition and mu lti-planar and/or 3D reconstructions. Computer aided detection (CAD) was utilized. CONTRAST MATERIAL: Intravenous: Omnipaque 350contrast volume:100 mL COMPARISON: CT CT ABDOMEN PELVIS WO/W from 09/15/2020 CT,PT NM PET CT STANDARD SKULL BASE TO MID-THIGH from 06/11/[address] CHEST WO from 11/23/2022 CT,NM,TMT NM MPI REST STRESS GRP from 09/20/2024 FINDINGS: CHEST: Tracheobronchial tree: Patent where visualized. No evidence of bronchiectasis. Pulmonary parenchyma: There is a stable 7 mm nodule in the lateral aspect of the left lower lobe (ser ies 18, image 102). The nodules in the left upper lobe appears stable. Centrilobular emphysematous changes are present in the lung apices. No new pulmonary nodules are seen. No focal consolidating i nfiltrates are present. Dependent atelectatic changes are seen in the lungs. The perifissural nodul es in the right lung are unchanged. Pulmonary Arteries: No evidence of filling defect to suggest pulmonary emboli. Mediastinum and Sejal: There is mediastinal and hilar adenopathy present. There is a 3.7 x 2.6 cm sub carinal lymph node present. (Series 18, image 73). This has shown interval increase in size compare d to the prior examination. The esophagus is unremarkable. Visualized thyroid gland: Unremarkable. Pleura: No effusion or pneumothorax. Heart: Cardiomegaly. Three vessel coronary artery calcification is present. There is no evidence of right heart strain. The RV to LV ratio is less than 1. No pericardial effusion. Aorta: Thoracic aorta non-dilated. Atherosclerotic calcification is present. Bones: Within normal limits for the patient's age. Soft tissues: There is again seen bilateral axillary and supraclavicular adenopathy. Tubes, Catheters, and Lines: ABDOMEN: Liver: Normal density. No measurable mass. Portal, Superior Mesenteric, and Splenic Veins: Unremarkable. Gallbladder and Biliary Tract: Cholelithiasis. No biliary ductal dilatation. Pancreas: Normal density, no abnormal calcifications or inflammatory process. Spleen: Normal. Adrenals: No masses seen. Kidneys: The left kidney appears to be slightly delayed enhancement compared to the right kidney. Th is may be due to the extent adenopathy in the left renal hilum. There is no nephrolithiasis. No rig ht hydronephrosis. There are bilateral simple renal cysts. No follow-up is recommended. Abdominal Aorta: Abdominal portion non-dilated. Atherosclerotic calcification is present. Renal jazmyn ry appears to be in case 2 in the left periaortic adenopathy. There is near complete encasement of t he left renal vein. Bowel: No obstruction or bowel wall thickening. Appendix is unremarkable. The stomach is incompletely distended limiting evaluation. Peritoneal Cavity: There are multiple small nodules distributed in the abdominal cavity likely reflec ting adenopathy. Metastatic disease cannot be excluded. No free air. Lymph Nodes: There has been marked progression of the retroperitoneal adenopathy since the most recen t CT examination from 11/23/2022. There is extensive left periaortic adenopathy which now extends int o the left renal hilum encasing the left renal artery and nearly completely surrounding the left amisha l vein. There is decreased enhancement of both the renal artery and renal vein. There is also delay ed enhancement of the left kidney. There is a poor fat plane between the adenopathy and the left marlo opsoas muscle. There is also extensive aortocaval adenopathy. Bones: Within normal limits for the patient's age. Soft Tissues: There is a small fat containing umbilical hernia. PELVIS: Bladder: Symmetric distention, no gross wall thickening. Reproductive Organs: Unremarkable as visualized. Lymph Nodes: There is bilateral iliac and inguinal adenopathy. Bones: Within normal limits. IMPRESSION: 1. No evidence of pulmonary embolism or thoracic aortic aneurysm. 2. Significant progression of the thoracic, abdominal and pelvic adenopathy. 3. The adenopathy progression is most significant in the left periaortic region in the abdomen. Ther e is extension into the left renal hilum with encasement of the left renal artery and the significant portion of the left renal vein. There is subtle decreased enhancement of the left kidney as a resul t. 4. Cholelithiasis. No biliary ductal dilatation. 5. Findings were discussed with Dr. Marinelli at 1 p.m. on 12/15/2024. RADIATION DOSE DELIVERED: 605.64mGy.cm Total DLP DATA REPOSITORY: All CT scans at this facility are submitted to the National Radiology Data Registry (NRDR) Dose Index Registry (DIR) with the [employer] (ACR). RADIATION OPTIMIZATION: All CT scans at this facility use at least one of these dose optimization te chniques: automated exposure control; mA and/or kV adjustment per patient size (includes targeted exa ms where dose is matched to clinical indication); or iterative reconstruction.
--- NOTE | 2024-12-15 11:38 | ED.GENADUL_ITS ---
Discharge Plan Disposition Patient Disposition: Home Condition: Stable Discharge Details Clinical Impression: Chest pain, Abdominal pain Primary Care Provider: Luci Bustillo ED Provider: Fidencio Marinelli Home Meds and New Rx's Prescriptions: Continued nitroglycerin 0.4 mg tablet, sublingual 0.4 mg sublingual Q5M PRN Patient Comments: states never used it Rx Instructions: do not exceed 3 doses per episode ketoconazole 2 % shampoo 1 applic topical ONCE ezetimibe 10 mg tablet 10 mg PO DAILY Patient Comments: pt unsure of med amlodipine 2.5 mg tablet 2.5 mg PO DAILY Qty: 90 3RF lovastatin 40 MG tablet 60 mg PO HS aspirin [Aspir-81] 81 MG tablet,delayed release (DR/EC) 81 mg PO DAILY loratadine [Claritin] 10 MG tablet 10 mg PO HS furosemide 20 mg Tablet 20 mg PO DAILY Qty: 14 0RF cyclobenzaprine 10 mg tablet 10 mg PO TID PRN (Reason: back spasm) Qty: 30 0RF lidocaine [Lidoderm] 5 % adhesive patch,medicated 2 patch topical DAILY Qty: 30 0RF Rx Instructions: leave on most painful area for up to 12 hrs diclofenac sodium 1 % gel 2 g topical QID Qty: 100 0RF Rx Instructions: apply 1-2 of gel to lower back area four times per day Discharge Instructions Additional Instructions: Your blood work and CAT scan did not show any emergent findings. You do have worsening of your lymphadenopathy which is probably related to your cancer. Follow-up with your primary care provider and your oncologist. If you feel more ill or have severe worsening pain or new symptoms such as high fevers return to the emergency department for reevaluation. HPI General Mode of arrival: ambulatory . Date/Time Provider Initiated Documentation: 12/15/24 11:22 . Limitations to Documentation: no limitations . Information obtained by: patient . History of Present Illness 79 year old M presents to the emergency department with the chief complaint of chest and abdomen pain, described as moderate, Quality is described as burning and aching, and is localized to the chest and abdomen. Patient started experiencing this day(s) (1) and it has been intermittent. No relieving factors improve symptom(s), No exacerbating factors reported . Patient notes denies fever/chills and shortness of breath. Patient did receive the following treatments prior to arrival, none Related Data Home Medications ?Medication ?Instructions ?Recorded ?Confirmed aspirin 81 mg tablet,delayed 81 mg PO DAILY 12/05/12 12/15/24 release (Aspir-) loratadine 10 mg tablet (Claritin) 10 mg PO HS 12/05/12 12/15/24 lovastatin 40 mg tablet 60 mg PO HS 12/05/12 12/15/24 furosemide 20 mg tablet 20 mg PO DAILY #14 tabs 09/15/19 12/15/24 ezetimibe 10 mg tablet 10 mg PO DAILY 06/17/20 12/15/24 ketoconazole 2 % shampoo 1 applic topical ONCE 06/17/20 12/15/24 nitroglycerin 0.4 mg sublingual 0.4 mg sublingual Q5M PRN 06/17/20 12/15/24 tablet cyclobenzaprine 10 mg tablet 10 mg PO TID PRN back spasm #30 08/28/23 12/15/24 tabs diclofenac sodium 1 % topical gel 2 g topical QID back pain #100 08/28/23 12/15/24 grams lidocaine 5 % topical patch 2 patch topical DAILY back pain 08/28/23 12/15/24 (Lidoderm) #30 ea amlodipine 2.5 mg tablet 2.5 mg PO DAILY #90 tabs 07/24/24 12/15/24 Previous Rx's ?Medication ?Instructions ?Recorded furosemide 20 mg tablet 20 mg PO DAILY #14 tabs 09/15/19 cyclobenzaprine 10 mg tablet 10 mg PO TID PRN back spasm #30 08/28/23 tabs diclofenac sodium 1 % topical gel 2 g topical QID back pain #100 08/28/23 grams lidocaine 5 % topical patch 2 patch topical DAILY back pain 08/28/23 (Lidoderm) #30 ea amlodipine 2.5 mg tablet 2.5 mg PO DAILY #90 tabs 07/24/24 Allergies Allergy/AdvReac Type Severity Reaction Status Date / Time lisinopril Allergy Mild Other (See Verified 12/15/24 11:52 Comment) penicillin V (Penicillin V) Allergy Mild Other (See Verified 12/15/24 11:52 Comment) SHARA Inhibitors Allergy Unknown Other (See Verified 12/15/24 11:52 Comment) General Stated Complaint: Chest Pain MOSES: 2 Review of Systems All systems reviewed & are unremarkable except as noted in HPI and below Constitutional Constitutional: Denies chills, Denies fever(s) and Denies weakness Cardiovascular Cardiovascular: Reports chest pain and Denies dyspnea Respiratory Respiratory: Denies cough and Denies dyspnea Gastrointestinal Gastrointestinal: Reports abdominal pain, Denies nausea and Denies vomiting Musculoskeletal Musculoskeletal: Reports back pain Neurologic Neurologic: Denies weakness Exam Const General: no acute distress Orientation: alert [facility] Head: normal to inspection Ears: external ears normal General nose exam: external nose normal Mouth: moist mucous membranes Eyes General: appearance normal, both eyes and all related structures Neck Neck: normal visual inspection Resp Effort & Inspection: normal respiratory effort and able to speak in complete sentences Cardio Jugular venous pressure: no JVD Rate: regular rate GI Palpation: soft and tender Skin General skin exam: no rashes or lesions noted Neuro General: patient alert and patient oriented x3 Extrem General: normal to inspection Psych Mental Status: mental status grossly normal Course Vital Signs Vital signs: Vital Signs Temperature 36.7 C 12/15/24 11:24 Pulse 81 12/15/24 11:24 Respiratory Rate 16 12/15/24 11:24 Blood Pressure 185/82 H 12/15/24 11:24 Pulse Oximetry 87 L 12/15/24 11:24 Temperature 36.7 C 12/15/24 11:24 Temperature Source Oral 12/15/24 11:24 Pulse 81 12/15/24 11:24 Respiratory Rate 16 12/15/24 11:24 Blood Pressure 185/82 H 12/15/24 11:24 Blood Pressure Position Sitting 12/15/24 11:24 Pulse Oximetry 87 L 12/15/24 11:24 Oxygen Delivery Method Room Air 12/15/24 11:24 Oxygen Flow Rate 0 12/15/24 11:24 Pain Level 2 12/15/24 11:24 Medical Decision Making 79-year-old male with history of coronary artery disease status post stent a few years ago per patient, hypertension who comes in with chronic low back pain but last night at some chest tightness and has had upper abdominal pain this morning so came in for evaluation. He says he is currently not having any chest pain. He denies any pain with exertion, difficulty breathing, diaphoresis or vomiting. He has clear lung sounds, soft abdomen with mild tenderness in the epigastric area. No CVA tenderness, has reproducible tenderness in the lumbar region of his back without step-offs or other palpable or visible deformities. He has noted to be 92% on room air. Given his age and risk factors we will proceed with CBC, CMP, troponins, lipase and also obtain a CTA of the chest to evaluate for PE and CT abdomen pelvis to evaluate for surgical pathology such as cholecystitis versus SBO. Labs unremarkable, CT shows no acute findings, does have lymphadenopathy that appears to be worsening. He says that he sees oncologist for lymphoma but is not currently getting treatment, he states his next follow-up is in January. He feels well and has no pain now. Feel he is stable for discharge and advised to follow-up with his oncologist or PCP, return precautions given Differential Diagnosis Differential Diagnosis: GERD, acid reflux, NSTEMI, PE Medical Records Medical records reviewed: Yes I reviewed the patient's medical records. Imaging Data Radiologic Study: Attestation: I personally reviewed and interpreted this imaging study as follows: Imaging: CT Scan Radiologist's impression: IMPRESSION: 1. No evidence of pulmonary embolism or thoracic aortic aneurysm. 2. Significant progression of the thoracic, abdominal and pelvic adenopathy. 3. The adenopathy progression is most significant in the left periaortic region in the abdomen. There is extension into the left renal hilum with encasement of the left renal artery and the significant portion of the left renal vein. There is subtle decreased enhancement of the left kidney as a result. 4. Cholelithiasis. No biliary ductal dilatation. 5. Findings were discussed with Dr. Marinelli at 1 p.m. on 12/15/2024. Lab Data Lab results reviewed: Yes I reviewed the patient's lab results. 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) Pre-diabetes (Acute) Corneal abrasion, right (Acute) Foreign body in eye (Acute) Hematuria (Acute) Bradycardia (Acute) CAD (coronary artery disease) (Chronic) Discharge planning issues (Acute) DVT prophylaxis (Acute) Community acquired pneumonia (Acute) Medical History Basal cell carcinoma arm Hyperlipidemia Benign hypertension Surgical History Coronary Stent x 2 10 yrs ago Social History Smoking/Tobacco Use Status: Former Tobacco Use Smoking risk assessment performed?: Yes Drug use: Never Substance use type: does not use Details: quit smoking in 2000 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
[2024-12-15 11:47] LABS: Abs Immature Grans 0.03 10^3/uL (0.0-0.06); Absolute Basophil Count 0.08 10^3/uL (0.0-0.2); Absolute Eosinophil Count 0.39 10^3/uL (0.0-0.7); Absolute Lymphocyte Count 2.89 10^3/uL (1.2-3.4); Absolute Monocyte Count 1.16 10^3/uL (0.1-0.8); Absolute Neutrophil Count 3.89 10^3/uL (1.2-6.7); Basophils % 0.9 %; Eosinophils % 4.6 %; HCT 47.6 % (40.0-50.0); HGB 15.6 g/dL (13.5-17.5); Immature Grans % 0.4 %; Lymphocytes % 34.2 %; MCH 28.6 pg (27.0-33.0); MCHC 32.8 % (32.0-36.0); MCV 87 fL (80-95); MPV 9.1 fL (8.0-11.0); Monocytes % 13.7 %; Neutrophils % 46.2 %; Platelet Count 145 10^3/uL (130-400); RBC 5.46 10^6/uL (4.36-5.78); RDW 13.1 % (11.8-14.1); RDW-SD 41.9 fL; WBC 8.44 10^3/uL (4.4-10.8)
[2024-12-15] MEDS: Normal Saline - Diluent 50 ML VIAL IJ (11:57)
[2024-12-15 11:58] LABS: PTT Activated 26.2 sec (20.6-30.2); Prothrombin Time 10.1 sec (9.1-11.1)
[2024-12-15] MEDS: Omnipaque 350 MG/ML 100 ML BTL IJ (11:58)
[2024-12-15 12:05] LABS: ALT 15 U/L (16-63); AST 22 U/L (15-37); Albumin 3.7 g/dL (3.4-5.0); Alkaline Phosphatase 78 U/L (46-116); Bilirubin, Direct 0.2 mg/dL (0.0-0.2); Bilirubin, Total 0.7 mg/dL (0.2-1.0); Total Protein 8.3 g/dL (6.4-8.2)
[2024-12-15 12:16] LABS: ALT 15 U/L (16-63); AST 21 U/L (15-37); Albumin 3.6 g/dL (3.4-5.0); Alkaline Phosphatase 80 U/L (46-116); Anion Gap 4.5 mmol/L (3-11); BUN 23 mg/dL (7-18); Bilirubin, Direct 0.2 mg/dL (0.0-0.2); Bilirubin, Total 0.7 mg/dL (0.2-1.0); CO2 30.5 mmol/L (21.0-32.0); CREATININE 1.3 mg/dL (0.70-1.30); Calcium 9.1 mg/dL (8.5-10.1); Chloride 103 mmol/L (98-107); Estimated GFR 56.58 (mL/min/1.73m2); Glucose 83 mg/dL (74-106); Lipase 46 U/L (<78); NT-proBNP 345 pg/mL (<300); Potassium 4.4 mmol/L (3.5-5.1); Sodium 138 mmol/L (136-145); Total Protein 8.4 g/dL (6.4-8.2); Troponin I 15 ng/L (<or=76)
[2024-12-15 12:47] LABS: Troponin I 18 ng/L (<or=76)
[2024-12-15 13:32] LABS: Bilirubin Negative (Negative); Blood Small (Negative); Clarity Clear (Clear); Glucose Negative (Negative); Ketones Negative (Negative); Leukocyte Esterase Negative (Negative); Nitrite Negative (Negative); Urobilinogen 0.2 mg/dL (Up to 0.2); pH 5.5 (5-8)
[2024-12-15 13:48] LABS: Bacteria Rare HPF (Negative); C & S Indicated? No; Casts Negative LPF (Negative); Crystals Negative HPF (Negative); Epithelial Cells Rare HPF (Negative); Mucus Negative (Negative); WBC 0-2 HPF (0-5)
== END 2024-12-15 13:50 | disposition home or self-care (01) ==
PROVIDERS: Emergency Provider Emergency Medicine; PCP Nurse Practitioner Family
DX: R10.10 Upper abdominal pain, unspecified (principal); R07.9 Chest pain, unspecified; R00.1 Bradycardia, unspecified; I10 Essential (primary) hypertension; E78.5 Hyperlipidemia, unspecified; I25.10 Atherosclerotic heart disease of native coronary artery without angina pectoris; Z95.5 Presence of coronary angioplasty implant and graft; Z87.891 Personal history of nicotine dependence
CPT/HCPCS: 36415; 71275; 74177; 80053; 80076; 83690; 93005; 99285; 81003; 81015; 82248; 83735; 83880; 84484; 85025; 85610; 85730; 93010; 99284; J3490

== ENCOUNTER 2024-12-20 18:47 | Emergency (ER) | payer MEDICARE, SELFPAY ==
[2024-12-20 18:59] VITALS: BP 167/79; PULSE 63; RESP 20; TEMP 36.9; O2SAT 90
[2024-12-20 19:37] LABS: Bilirubin Small (Negative); Blood Large (Negative); Clarity Cloudy (Clear); Glucose Negative (Negative); Ketones Trace mg/dL (Negative); Leukocyte Esterase Negative (Negative); Nitrite Negative (Negative); Specific Gravity 1.025 (1.005-1.025); Urobilinogen 0.2 mg/dL (Up to 0.2); pH 5.5 (5-8)
[2024-12-20 19:50] LABS: Bacteria Negative HPF (Negative); C & S Indicated? No; Crystals Many Amorphous HPF (Negative); Epithelial Cells Moderate HPF (Negative); Mucus Trace (Negative); Other Cells Few Transitional (Negative); RBC >50 HPF (0-2); WBC 0-2 HPF (0-5)
[2024-12-20 20:00] LABS: Abs Immature Grans 0.04 10^3/uL (0.0-0.06); Absolute Basophil Count 0.08 10^3/uL (0.0-0.2); Absolute Eosinophil Count 0.44 10^3/uL (0.0-0.7); Absolute Lymphocyte Count 2.82 10^3/uL (1.2-3.4); Absolute Monocyte Count 1.35 10^3/uL (0.1-0.8); Basophils % 0.8 %; Eosinophils % 4.5 %; HCT 46.4 % (40.0-50.0); HGB 15.4 g/dL (13.5-17.5); Immature Grans % 0.4 %; MCH 28.8 pg (27.0-33.0); MCHC 33.2 % (32.0-36.0); MCV 87 fL (80-95); MPV 9.3 fL (8.0-11.0); Monocytes % 13.9 %; Neutrophils % 51.4 %; Platelet Count 141 10^3/uL (130-400); RBC 5.35 10^6/uL (4.36-5.78); RDW 13.2 % (11.8-14.1); RDW-SD 41.3 fL; WBC 9.73 10^3/uL (4.4-10.8)
--- NOTE | 2024-12-20 20:15 | DI.CT_ITS ---
Exam(s) CT ABDOMEN PELVIS W EXAM: CT ABDOMEN PELVIS W CLINICAL HISTORY: hematuria, left flank pain, r/o renal infarct. TECHNIQUE: Imaging Protocol: Axial computed tomography images with coronal and sagittal reformatted images were created and reviewed CONTRAST MATERIAL: Intravenous: Omnipaque 350 Contrast volume:100 ml Oral: yes no COMPARISON: CT CT CHEST PE ABD PELVIS W from 12/15/2024 FINDINGS: ABDOMEN and PELVIS: Lung Bases: No acute findings. Liver: Hepatic steatosis.. No suspicious mass. Gallbladder and biliary tract: Cholelithiasis. No wall thickening or pericholecystic fluid. No bili freeman dilation. Pancreas: Normal density. No abnormal calcifications or inflammatory process. No evidence of mass. Spleen: Normal. Kidneys: Extensive retroperitoneal adenopathy is again demonstrated. The adenopathy is confluent fro m the level of the renal vasculature to the aortic bifurcation. Findings are greatest at the left pa ra-aortic region at the level of the left kidney. There is again attenuation of the left renal artery and vein and apparent infiltration into the left renal hilum. There is again mild delay in the left nephrogram but no evidence of renal infarct.No suspicious masses seen. Adrenal glands: No masses seen. Vasculature: Abdominal aorta non-dilated. Soft tissues: Unremarkable. Bladder: No gross wall thickening. No calculi.No focal mass. Bowel: No obstruction. No bowel wall thickening. Appendix normal. Peritoneal cavity: No ascites. No focal collection. No mesenteric inflammatory response. No free air . Bones: Unremarkable for age. Reproductive organs: Unremarkable. Lymph nodes: Extensive retroperitoneal adenopathy is again demonstrated. Findings are greatest at th e left para-aortic region at the level of the left kidney. There is again attenuation of the left re nal artery and vein and apparent infiltration into the left renal hilum. There is again mild delay i n the left nephrogram but no evidence of renal infarct. Bilateral iliac chain adenopathy and inguina l adenopathy again noted. Scattered small lymph nodes are present within the mesentery. IMPRESSION:: Extensive retroperitoneal adenopathy with infiltration into the left renal hilum with a ttenuation of the left renal artery and vein as well as left renal pelvis. There is delayed left nep hrogram but no evidence of renal infarct. RADIATION DOSE DELIVERED: 661.51mGy.cm Total DLP DATA REPOSITORY: All CT scans at this facility are submitted to the National Radiology Data Registry (NRDR) Dose Index Registry (DIR) with the [employer] (ACR). RADIATION OPTIMIZATION: All CT scans at this facility use at least one of these dose optimization te chniques: automated exposure control; mA and/or kV adjustment per patient size (includes targeted exa ms where dose is matched to clinical indication); or iterative reconstruction.
[2024-12-20 20:17] LABS: ALT 18 U/L (16-63); AST 22 U/L (15-37); Albumin 3.8 g/dL (3.4-5.0); Alkaline Phosphatase 78 U/L (46-116); Anion Gap 6.1 mmol/L (3-11); BUN 27 mg/dL (7-18); Bilirubin, Total 0.7 mg/dL (0.2-1.0); CO2 28.9 mmol/L (21.0-32.0); CREATININE 1.5 mg/dL (0.70-1.30); Calcium 9.2 mg/dL (8.5-10.1); Chloride 102 mmol/L (98-107); Estimated GFR 47.65 (mL/min/1.73m2); Glucose 96 mg/dL (74-106); Potassium 4.6 mmol/L (3.5-5.1); Sodium 137 mmol/L (136-145); Total Protein 8.5 g/dL (6.4-8.2)
[2024-12-20] MEDS: Omnipaque 350 MG/ML 100 ML BTL IJ (20:40)
[2024-12-20] MEDS: Normal Saline - Diluent 50 ML VIAL IJ (20:40)
--- NOTE | 2024-12-20 21:21 | DI.VRAD_ITS ---
PROCEDURE INFORMATION: Exam: CT Abdomen And Pelvis With Contrast Exam date and time: 12/20/2024 8:38 PM Age: 79 years old Clinical indication: Abdominal pain; Hematuria, left flank pain, R/O renal infarct TECHNIQUE: Imaging protocol: Computed tomography of the abdomen and pelvis with contrast. Contrast material: [id number]; Contrast volume: 100 ml; Contrast route: INTRAVENOUS (IV); COMPARISON: CT CHEST PE ABD PELVIS W 12/15/2024 11:59 AM FINDINGS: Lungs: Linear bibasilar opacities most consistent with subsegmental atelectasis. Diaphragm: There is a small hiatal hernia. Liver: There is a diffuse decrease in hepatic parenchymal density, consistent with fatty infiltration. Gallbladder and biliary ducts: Multiple gallstones are present. No pericholecystic inflammatory changes to suggest cholecystitis. Pancreas: The pancreas is unremarkable. Spleen: No splenomegaly. No lesions. Adrenal glands: Normal. No mass. Kidneys and ureters: Moderate left hydronephrosis with perinephric edema. Stable renal cysts. Mildly striated left nephrogram, characteristic of early pyelonephritis. Stomach and bowel: Moderate stool throughout the colon and rectum. Appendix: Normal appendix. Intraperitoneal space: Unremarkable. No free air. No significant fluid collection. Vasculature: There is moderate diffuse atherosclerotic disease of the abdominal aorta. Lymph nodes: Extensive para-aorta adenopathy, [id number]-right largest measuring 6.7 x 6.7 cm, this appears stable when compared to recent CT. Urinary bladder: No focal wall thickening of the urinary bladder. Reproductive: Unremarkable as visualized. Bones/joints: No acute osseous abnormality. L4/L5 disc space narrowing with posterior disc bulge. L5/S1 disc space narrowing with posterior disc bulge. Soft tissues: Soft tissues are unremarkable as visualized. IMPRESSION: 1. Moderate left hydronephrosis with perinephric edema. No obstructing stone. Mildly striated left nephrogram, characteristic of early pyelonephritis. 2. Extensive para-aorta adenopathy, [id number]-right largest measuring 6.7 x 6.7 cm, this appears stable when compared to recent CT. Dictated and Authenticated by: Alma Kimball MD. Orderin Stefany Toussaint MD
--- NOTE | 2024-12-20 21:49 | ED.GENADUL_ITS ---
Discharge Plan Disposition Patient Disposition: Home Condition: Good Discharge Details Clinical Impression: Hematuria, Lymphadenopathy, Left flank pain Primary Care Provider: Luci Bustillo ED Provider: Norbert Mccall Home Meds and New Rx's Prescriptions: New tamsulosin [Flomax] 0.4 mg capsule 0.4 mg PO DAILY Qty: 30 0RF No Action nitroglycerin 0.4 mg tablet, sublingual 0.4 mg sublingual Q5M PRN Patient Comments: states never used it Rx Instructions: do not exceed 3 doses per episode ezetimibe 10 mg tablet 10 mg PO DAILY Patient Comments: pt unsure of med lovastatin 40 MG tablet 40 mg PO HS aspirin [Aspir-81] 81 MG tablet,delayed release (DR/EC) 81 mg PO DAILY loratadine [Claritin] 10 MG tablet 10 mg PO HS amlodipine 5 mg tablet 5 mg PO DAILY celecoxib 200 mg capsule 200 mg PO ONCE losartan 25 mg tablet 25 mg PO DAILY furosemide 20 mg Tablet 20 mg PO DAILY Qty: 14 0RF Discharge Instructions Instructions: Blood in Urine (Hematuria), Adult ED Additional Instructions: At this time you have blood in the urine and there is concern that this is coming from your left kidney and may be complicated by the lymphadenopathy around your kidney. Please take the Flomax as prescribed to help reduce the sharp spasms that you are having. Please follow-up closely with both Dr. Dai and Dr. Arriola. Please drink plenty of fluids and stay well-hydrated. As we discussed together there is a chance that the bleeding could worsen. If it does, and you notice significant increase in your bleeding please return immediately for reassessment. If you notice any worsening of your symptoms, or any new symptoms such as vomiting, diarrhea, fever, chills, shortness of breath, chest pain, numbness, weakness, or fainting , please return immediately to the emergency department for reevaluation. Please follow up with your primary care provider as soon as possible for reassessment and reevaluation. As always, it was a pleasure participating in your medical care today. Referrals: Marilee Figueroa MD [ NON-[facility] STAFF PHYSICIAN] - Ezekiel Dai MD [ [facility] STAFF PHYSICIAN] - HPI General Date/Time Provider Initiated Documentation: 12/20/24 19:11 . HPI Narrative: This is a very pleasant 79-year-old male with a past medical history of lymphocytic B-cell lymphoma, chronic lymphadenopathy, coronary artery disease with stenting, hematuria in the distant past, prediabetic, who presents today for evaluation of flank pain and hematuria. Patient developed some left flank pain about a week ago. He was seen and evaluated 5 days ago and 12/15/2024. At that time workup was relatively benign, however CT imaging showed evidence of notable periaortic adenopathy, worse on the left than the right, with significant adenopathy around the vasculature structures for the left kidney, additionally there was evidence of decreased enhancement of the left kidney on the CT scan with contrast. Urinalysis at that time showed no evidence of infection or hematuria. Pain was well-controlled, and he was discharged home with outpatient follow-up. Since then the patient has had persistent left-sided flank pain which is been described as a constant dull ache with intermittent sh nataly episodes 2-3 times per day. And then this evening he noticed significant amount of dark blood that he urinated into the toilet. He denies clots, but the blood was quite notable. He came to the ER for further assessment. He is not on any blood thinner use. He does take daily aspirin. He denies history of kidney stone. No other complaints. Related Data Home Medications ?Medication ?Instructions ?Recorded ?Confirmed aspirin 81 mg tablet,delayed 81 mg PO DAILY 12/05/12 12/20/24 release (Aspir-) loratadine 10 mg tablet (Claritin) 10 mg PO HS 12/05/12 12/20/24 lovastatin 40 mg tablet 40 mg PO HS 12/05/12 12/20/24 furosemide 20 mg tablet 20 mg PO DAILY #14 tabs 09/15/19 12/20/24 ezetimibe 10 mg tablet 10 mg PO DAILY 06/17/20 12/20/24 nitroglycerin 0.4 mg sublingual 0.4 mg sublingual Q5M PRN 06/17/20 12/20/24 tablet amlodipine 5 mg tablet 5 mg PO DAILY 12/20/24 12/20/24 celecoxib 200 mg capsule 200 mg PO ONCE 12/20/24 12/20/24 losartan 25 mg tablet 25 mg PO DAILY 12/20/24 12/20/24 tamsulosin 0.4 mg capsule (Flomax) 0.4 mg PO DAILY #30 caps 12/20/24 Previous Rx's ?Medication ?Instructions ?Recorded furosemide 20 mg tablet 20 mg PO DAILY #14 tabs 09/15/19 tamsulosin 0.4 mg capsule (Flomax) 0.4 mg PO DAILY #30 caps 12/20/24 Allergies Allergy/AdvReac Type Severity Reaction Status Date / Time lisinopril Allergy Mild Other (See Verified 12/20/24 18:54 Comment) penicillin V (Penicillin V) Allergy Mild Other (See Verified 12/20/24 18:54 Comment) SHARA Inhibitors Allergy Unknown Other (See Verified 12/20/24 18:54 Comment) General Stated Complaint: Urinary MOSES: 3 Exam Narrative Exam Narrative: 1.Const: Well-nourished, Well-developed, appearing stated age 2.Eyes: PERRL, no conjunctival injection, and symmetrical lids. 3.ENT: Atraumatic external nose and ears. Moist MM. Neck: Symmetric, trachea midline, No thyromegaly. 4.CVS: +S1/S2, Peripheral pulses 2+ and equal in all extremities. Brisk capillary refill in all extremities. 5.RESP: Unlabored respiratory effort. Clear to auscultation bilaterally. No w heezes rales or rhonchi 6.GI: Soft, nondistended, no guarding or rebound. Mild left-sided CVA tenderness. No significant abdominal pain or tenderness. Genital exam demonstrates an uncircumcised male, bilaterally descended testicles, normal cremasteric reflex. No blood at the urethral meatus. Mild left-sided testicular achiness. No enlargement or mass. No hernia. 7.MSK: Normocephalic/Atraumatic, Extremities w/o deformity or ttp No cyanosis or clubbing, Normal movement of all extremities 8.Skin: Warm, Dry. No rashes or lesions. 9.Neuro: checker loader II-XII grossly intact. Sensation grossly intact, no focal neurologic deficits. 10.Psych: (AAO) x3. Appropriate mood and affect Course Vital Signs Vital signs: Vital Signs Temperature 36.9 C 12/20/24 18:59 Pulse 63 12/20/24 18:59 Respiratory Rate 20 12/20/24 18:59 Blood Pressure 167/79 H 12/20/24 18:59 Pulse Oximetry 90 L 12/20/24 18:59 Temperature 36.9 C 12/20/24 18:59 Temperature Source Oral 12/20/24 18:59 Pulse 63 12/20/24 18:59 Respiratory Rate 20 12/20/24 18:59 Blood Pressure 167/79 H 12/20/24 18:59 Blood Pressure Position Sitting 12/20/24 18:59 Pulse Oximetry 90 L 12/20/24 18:59 Oxygen Delivery Method Room Air 12/20/24 18:59 Oxygen Flow Rate 0 12/20/24 18:59 Pain Level 6 12/20/24 19:06 Lab/Test Results Lab/Test Results: Laboratory Tests Range/Units 12/20/24 12/20/24 17:15 19:54 WBC (4.4-10.8) 10^3/uL 9.73 RBC (4.36-5.78) 10^6/uL 5.35 Hgb (13.5-17.5) g/dL 15.4 Hct (40.0-50.0) % 46.4 MCV (80-95) fL 87 MCH (27.0-33.0) pg 28.8 MCHC (32.0-36.0) % 33.2 RDW (11.8-14.1) % 13.2 Plt Count (130-400) 10^3/uL 141 MPV (8.0-11.0) fL 9.3 Immature Gran % % 0.4 Neutrophils % % 51.4 Lymphocytes % % 29.0 Monocytes % % 13.9 Eosinophils % % 4.5 Basophils % % 0.8 Nucleated RBC % (0.0-0.3) % 0.0 Absolute Neutrophils (1.2-6.7) 10^3/uL 5.00 Absolute Lymphocytes (1.2-3.4) 10^3/uL 2.82 Absolute Monocytes (0.1-0.8) 10^3/uL 1.35 H Absolute Eosinophils (0.0-0.7) 10^3/uL 0.44 Absolute Basophils (0.0-0.2) 10^3/uL 0.08 Sodium (136-145) mmol/L 137 Potassium (3.5-5.1) mmol/L 4.6 Chloride (98-107) mmol/L 102 Carbon Dioxide (21.0-32.0) mmol/L 28.9 Anion Gap (3-11) mmol/L 6.1 BUN (7-18) mg/dL 27 H Creatinine (0.70-1.30) mg/dL 1.5 H Est GFR (CKD-EPI 2020) (mL/min/1.73m2) 47.65 Glucose (74-106) mg/dL 96 Calcium (8.5-10.1) mg/dL 9.2 Total Bilirubin (0.2-1.0) mg/dL 0.7 AST (15-37) U/L 22 ALT (16-63) U/L 18 Alkaline Phosphatase (46-116) U/L 78 Total Protein (6.4-8.2) g/dL 8.5 H Albumin (3.4-5.0) g/dL 3.8 Urine Color (Yellow) Dark Yellow Urine Clarity (Clear) Cloudy Urine pH (5-8) 5.5 Ur Specific [place] (1.005-1.025) 1.025 Urine Protein (Neg-Trace) mg/dL 100 H Urine Ketones (Negative) mg/dL Trace H Urine Blood (Negative) Large H Urine Nitrite (Negative) Negative Urine Bilirubin (Negative) Small H Urine Urobilinogen (Up to 0.2) mg/dL 0.2 Ur Leukocyte Esterase (Negative) Negative Urine RBC (0-2) HPF >50 H Urine WBC (0-5) HPF 0-2 Ur Epithelial Cells (Negative) HPF Moderate Urine Crystals (Negative) HPF Many Amorphous Urine Bacteria (Negative) HPF Negative Urine Mucus (Negative) Trace Urine Other (Negative) Few Transitional Ur Culture Indicated? No Urine Glucose (Negative) mg/dL Negative Medical Decision Making This is a very pleasant 79-year-old male with a past medical history of lymphocytic B-cell lymphoma, chronic lymphadenopathy, coronary artery disease with stenting, hematuria in the distant past, prediabetic, who presents today for evaluation of flank pain and hematuria. Patient developed some left flank pain about a week ago. He was seen and evaluated 5 days ago and 12/15/2024. At that time workup was relatively benign, however CT imaging showed evidence of notable periaortic adenopathy, worse on the left than the right, with significant adenopathy around the vasculature structures for the left kidney, additionally there was evidence of decreased enhancement of the left kidney on the CT scan with contrast. Urinalysis at that time showed no evidence of infection or hematuria. Pain was well-controlled, and he was discharged home with outpatient follow-up. Since then the patient has had persistent left-sided flank pain which is been described as a constant dull ache with intermittent sharp episodes 2-3 times per day. And then this evening he noticed significant amount of dark blood that he urinated into the toilet. He denies clots, but the blood was quite notable. He came to the ER for further assessment. He is not on any blood thinner use. He does take daily aspirin. He denies history of kidney stone. No other complaints. Exam demonstrates well-appearing male, stable vital signs, no blood at the urethral meatus. No active hematuria at this time. Concern for potential kidney stone, however on review of the last scan there was no evidence of hydronephrosis or kidney stone. Also concerned that the lymphadenopathy may be causing vascular inhibition and potential infarct of the kidney, there also could be extension into the ureter itself subsequently causing the bleeding. I do feel that repeat imaging is indicated in this scenario as his pain is worsening and the bleeding is now started. We will recheck labs to make sure that his renal function remains stable. Will monitor closely and reassess. 10:10 PM Laboratory workup shows a slightly worsening kidney function at 1.5, it was 1.35 days ago. GFR is down to 47%, from the initial 56%. Urinalysis shows no evidence of significant WBCs leuk esterase or nitrates, there is notable RBCs present. CT imaging shows moderate left-sided hydronephrosis which is new with associated perinephric edema but no obstructing stone, mildly striated left nephrogram concerning for pyelonephritis or other nephric etiology. Lymphadenopathy otherwise appears stable. Still high level of concern for potential renal infarcts versus extension of the adenopathy into the ureter causing potential bleeding. Or obstruction. We did reach out to Dr. Dai but he is unavailable at this time of night. We will reach out to [facility] urology for further discussion for next steps. Patient otherwise remains hemodynamically stable with normal hemoglobin of 15.4. 11:11 PM I spoke with Dr. Montes of [facility] urology. Case was reviewed. At this time with his stable hemoglobin, relatively stable renal function, there does not appear to be an emergent indication for hematuria workup. However there is urgent indication, and we will recommend close follow-up with Dr. Dai, as well as close follow-up with Dr. Arriola for reassessment of the lymphadenopathy. As the patient does not have severe renal hemorrhage at this time, and the hematuria does appear notably mild and his hemodynamics remained stable and his hemoglobin level remained stable, I do feel that this outpatient option is certainly reasonable. However I did have a long discussion with the patient regarding symptoms that would represent needs for immediate return and reassessment including worsening hematuria. Patient understands. Referral has been placed with both urology and oncology. Patient agrees with plan. Will give Flomax for home use to help decrease spasm. Discussed red flags for which to return. I have extensively reviewed the treatment plan and discharge instructions with the patient. I have addressed all patient concerns at this time. The patient was made aware of what symptoms to monitor for that would warrant a return to the emergency department. Discussed the plan with the patient, they demonstrate verbal understanding and agreement with our assessment and plan at this time. The documentation in this chart was dictated using [employer] dictation software. Please excuse any dictation errors. FINDINGS: Lungs: Linear bibasilar opacities most consistent with subsegmental atelectasis. Diaphragm: There is a small hiatal hernia. Liver: There is a diffuse decrease in hepatic parenchymal density, consistent with fatty infiltration. Gallbladder and biliary ducts: Multiple gallstones are present. No pericholecystic inflammatory changes to suggest cholecystitis. Pancreas: The pancreas is unremarkable. Spleen: No splenomegaly. No lesions. Adrenal glands: Normal. No mass. Kidneys and ureters: Moderate left hydronephrosis with perinephric edema. Stable renal cysts. Mildly striated left nephrogram, characteristic of early pyelonephritis. Stomach and bowel: Moderate stool throughout the colon and rectum. Appendix: Normal appendix. Intraperitoneal space: Unremarkable. No free air. No significant fluid collection. Vasculature: There is moderate diffuse atherosclerotic disease of the abdominal aorta. Lymph nodes: Extensive para-aorta adenopathy, [id number]-right largest measuring 6.7 x 6.7 cm, this appears stable when compared to recent CT. Urinary bladder: No focal wall thickening of the urinary bladder. Reproductive: Unremarkable as visualized. Bones/joints: No acute osseous abnormality. L4/L5 disc space narrowing with posterior disc bulge. L5/S1 disc space narrowing with posterior disc bulge. Soft tissues: Soft tissues are unremarkable as visualized. IMPRESSION: 1. Moderate left hydronephrosis with perinephric edema. No obstructing stone. Mildly striated left nephrogram, characteristic of early pyelonephritis. 2. Extensive para-aorta adenopathy, [id number]-right largest measuring 6.7 x 6.7 cm, this appears stable when compared to recent CT. Thank you for allowing us to participate in the care of your patient. Dictated and Authenticated by: Alma Kimball MD 12/20/2024 9:20 PM Eastern Time ([place] & [place]) Quality:SDOH Health Related Social Needs: Health related social needs food insecurity (Z59.41) PFSH All Active Problems (Updated 12/20/24 @ 23:07 by Norbert Mccall DO) Left flank pain (Acute) Lymphadenopathy (Acute) Hematuria (Acute) Abdominal pain (Acute) Chest pain (Acute) Tendinitis of long head of biceps brachii of left shoulder (Acute) Bursitis of left shoulder (Acute) Hyperlipidemia (Acute) Obesity (Chronic) Lymphadenopathy (Acute) Ocular migraine (Acute) 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) Pre-diabetes (Acute) Corneal abrasion, right (Acute) Foreign body in eye (Acute) Hematuria (Acute) Bradycardia (Acute) CAD (coronary artery disease) (Chronic) Discharge planning issues (Acute) DVT prophylaxis (Acute) Community acquired pneumonia (Acute) Medical History Basal cell carcinoma arm Hyperlipidemia Benign hypertension Surgical History Coronary Stent x 2 10 yrs ago Social History Smoking/Tobacco Use Status: Former Tobacco Use Tobacco: How many years used: 45 Smoking risk assessment performed?: Yes Alcohol Intake: current Alcohol Intake frequency: a few times a month Alcohol type: beer and hard liquor Drug use: Never Substance use type: does not use Details: quit smoking in 2000 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 PAWSS Have you Been Recently Intoxicated or Drunk Within the Last 30 days?: No Have you Ever Experienced Previous Episodes of Alcohol Withdrawal?: No Have you ever Experienced Withdrawal Seizures?: No Have you ever Experienced Delirium Tremens(DT)s?: No Have you ever undergone Alcohol Rehabilitation Treatment (i.e, inpt ot outpatient treatment programs)?: No Have you ever Experienced Blackouts?: No Have you ever Combined Alcohol with other Downers within the last 90 days?: No Have you ever Combined Alcohol with any other Substance of Abuse during the last 90 days?: No Positive Blood Alcohol level on Presentation? [PCS.BAL]: No Evidence of Increased Autonomic Activity (i.e. HR>120, tremor, sweating, agitation, nausea)?: No Result: 0
[2024-12-20] MEDS: Tamsulosin 0.4 MG CAPCR PO (23:02)
[2024-12-20 23:17] VITALS: BP 168/58; PULSE 64; RESP 19; TEMP 37.1; O2SAT 94
== END 2024-12-20 23:17 | disposition home or self-care (01) ==
PROVIDERS: Emergency Provider Student in an Organized Health Care Education/Training Program; PCP Nurse Practitioner Family
DX: R31.9 Hematuria, unspecified (principal); R59.0 Localized enlarged lymph nodes; R10.32 Left lower quadrant pain; E78.5 Hyperlipidemia, unspecified; I10 Essential (primary) hypertension; I25.10 Atherosclerotic heart disease of native coronary artery without angina pectoris; Z95.5 Presence of coronary angioplasty implant and graft; Z79.82 Long term (current) use of aspirin; Z87.891 Personal history of nicotine dependence
CPT/HCPCS: 80053; 99285; 74177; 81003; 81015; 85025; 99284; J3490

== ENCOUNTER → 2024-12-27 15:24 | Outpatient (BNVA) | payer MEDICARE, SELFPAY | PROVIDERS: PCP Nurse Practitioner Family; Referring Provider Nurse Practitioner Family; Visit Provider Nurse Practitioner Gerontology | DX: R31.9 Hematuria, unspecified (principal); C85.90 Non-Hodgkin lymphoma, unspecified, unspecified site | CPT/HCPCS: 99213; 99214 ==

== ENCOUNTER 2025-02-20 06:15 | Emergency (ER) | payer MEDICARE, SELFPAY ==
[2025-02-20 06:20] VITALS: BP 138/82; PULSE 58; RESP 18; TEMP 36.3; O2SAT 90
[2025-02-20 06:26] VITALS: BP 138/82; PULSE 287; O2SAT 90
--- NOTE | 2025-02-20 07:00 | DI.CT_ITS ---
Exam(s) CT ABDOMEN PELVIS W EXAM: CT ABDOMEN PELVIS W CLINICAL HISTORY: lower abdominal pain TECHNIQUE: Imaging Protocol: Axial computed tomography images with coronal and sagittal reformatted images were created and reviewed. CONTRAST MATERIAL: Intravenous: Omnipaque 350 Contrast volume:75 mL Oral: No COMPARISON: CT CT CHEST PE ABD PELVIS W from 12/15/[address] ABDOMEN PELVIS W from 12/20/2024 FINDINGS: ABDOMEN: Lung Bases: Coronary artery calcifications are present. There is again seen subcarinal and left halina r adenopathy which appears stable compared to 12/15/2024. There is a small hiatal hernia. There is ag ain seen a stable 7 mm nodule in the left lower lobe. Liver: Normal density. No measurable mass. Portal, Superior Mesenteric, and Splenic Veins: Unremarkable. Gallbladder and Biliary Tract: Cholelithiasis. No biliary ductal dilatation. Pancreas: Normal density, no abnormal calcifications or inflammatory process. Spleen: Normal. Adrenals: No masses seen. Kidneys: There is again seen extensive retroperitoneal adenopathy which appears unchanged compared to 12/20/2024. There is involvement of the left renal hilum with narrowing of both the renal artery and renal vein. There is also involvement of the left renal collecting system with a delayed enhancemen t pattern of the left kidney. No renal stones are present. Simple cysts are seen in the left kidney . No follow-up is recommended. Abdominal Aorta: Abdominal portion non-dilated. Atherosclerotic calcification is present. Bowel: There are dilated loops of small bowel with air-fluid levels present. There is a transition i n the distal small bowel near the terminal ileum (series 8, image 83). The colon is of normal calibe r. There is no evidence of an appendicitis. Peritoneal Cavity: There is a small amount of pelvic ascites. There is also ascites seen in the aldo hepatic region and in the pericolic gutters. No free air. Lymph Nodes: There is again seen extensive abdominal pelvic adenopathy. There is extensive retroperi toneal adenopathy beginning at the level of the renal arteries and extending to the bifurcation of th e aorta. There is also bilateral iliac and inguinal adenopathy again noted. Bones: Within normal limits for the patient's age. Soft Tissues: There is a small fat containing umbilical hernia. There is a small amount of subcutane ous air in the right inguinal region. This may reflect a previous injection or IV access. Please co rrelate clinically. PELVIS: Bladder: Symmetric distention, no gross wall thickening. Reproductive Organs: Unremarkable as visualized. Lymph Nodes: Within normal limits. Bones: Within normal limits for the patient's age. IMPRESSION: 1. Small bowel dilatation with air-fluid levels to the level of the distal ileum. Issues for small b owel obstruction. 2. Stable extensive abdominal and pelvic adenopathy particularly involving the left renal pelvis with narrowing of the renal artery and vein. There is again seen delayed enhancement of the left kidney. These findings are stable. 3. Trace amount of abdominal pelvic ascites. 4. Stable subcarinal and left hilar adenopathy. 5. Cholelithiasis. RADIATION DOSE DELIVERED: 683.84mGy.cm Total DLP DATA REPOSITORY: All CT scans at this facility are submitted to the National Radiology Data Registry (NRDR) Dose Index Registry (DIR) with the [employer] (ACR). RADIATION OPTIMIZATION: All CT scans at this facility use at least one of these dose optimization te chniques: automated exposure control; mA and/or kV adjustment per patient size (includes targeted exa ms where dose is matched to clinical indication); or iterative reconstruction.
--- NOTE | 2025-02-20 07:04 | ED.GENADUL_ITS ---
Discharge Plan Disposition Patient Disposition: Home Condition: Stable Discharge Details Clinical Impression: Abdominal pain Primary Care Provider: Luci Bustillo ED Provider: Fidencio Marinelli Home Meds and New Rx's Prescriptions: New ondansetron 4 mg tablet,disintegrating 4 mg PO Q8H PRN (Reason: nausea and vomiting) Qty: 30 0RF Continued cyclobenzaprine 10 mg tablet 10 mg PO HS nitroglycerin 0.4 mg tablet, sublingual 0.4 mg sublingual Q5M PRN Patient Comments: states never used it Rx Instructions: do not exceed 3 doses per episode ezetimibe 10 mg tablet 10 mg PO DAILY Patient Comments: pt unsure of med lovastatin 40 MG tablet 40 mg PO HS aspirin [Aspir-81] 81 MG tablet,delayed release (DR/EC) 81 mg PO DAILY loratadine [Claritin] 10 MG tablet 10 mg PO HS amlodipine 5 mg tablet 5 mg PO DAILY celecoxib 200 mg capsule 200 mg PO ONCE losartan 25 mg tablet 25 mg PO DAILY tamsulosin [Flomax] 0.4 mg capsule 0.4 mg PO DAILY Qty: 30 0RF furosemide 20 mg Tablet 20 mg PO DAILY Qty: 14 0RF Discharge Instructions Additional Instructions: Your CAT scan showed question of an ileus versus early bowel obstruction, given the fact that you are pain is improved and is not significantly better I doubt this is an obstruction. I would recommend following up with your oncologist and PCP. If you develop severe worsening abdominal pain or persistent vomiting return to the emergency department for reevaluation. HPI General Mode of arrival: ambulatory . Date/Time Provider Initiated Documentation: 02/20/25 06:25 . Limitations to Documentation: no limitations . Information obtained by: patient . History of Present Illness 79 year old M presents to the emergency department with the chief complaint of abdominal pain, described as moderate, Quality is described as aching, and is localized to the abdomen. Patient reports no radiation. Patient started experiencing this day(s) (1) and it has been constant. No relieving factors improve symptom(s), No exacerbating factors reported . Patient notes denies chest pain, fever/chills and shortness of breath. Patient did receive the following treatments prior to arrival, none Related Data Home Medications ?Medication ?Instructions ?Recorded ?Confirmed aspirin 81 mg tablet,delayed 81 mg PO DAILY 12/05/12 02/20/25 release (Aspir-) loratadine 10 mg tablet (Claritin) 10 mg PO HS 12/05/12 02/20/25 lovastatin 40 mg tablet 40 mg PO HS 12/05/12 02/20/25 furosemide 20 mg tablet 20 mg PO DAILY #14 tabs 09/15/19 02/20/25 ezetimibe 10 mg tablet 10 mg PO DAILY 06/17/20 02/20/25 nitroglycerin 0.4 mg sublingual 0.4 mg sublingual Q5M PRN 06/17/20 02/20/25 tablet amlodipine 5 mg tablet 5 mg PO DAILY 12/20/24 02/20/25 celecoxib 200 mg capsule 200 mg PO ONCE 12/20/24 02/20/25 losartan 25 mg tablet 25 mg PO DAILY 12/20/24 02/20/25 tamsulosin 0.4 mg capsule (Flomax) 0.4 mg PO DAILY #30 caps 12/20/24 02/20/25 cyclobenzaprine 10 mg tablet 10 mg PO HS 12/27/24 02/20/25 ondansetron 4 mg disintegrating 4 mg PO Q8H PRN nausea and 02/20/25 tablet vomiting #30 tabs Previous Rx's ?Medication ?Instructions ?Recorded furosemide 20 mg tablet 20 mg PO DAILY #14 tabs 09/15/19 tamsulosin 0.4 mg capsule (Flomax) 0.4 mg PO DAILY #30 caps 12/20/24 ondansetron 4 mg disintegrating 4 mg PO Q8H PRN nausea and 02/20/25 tablet vomiting #30 tabs Allergies Allergy/AdvReac Type Severity Reaction Status Date / Time lisinopril Allergy Mild Other (See Verified 02/20/25 06:27 Comment) penicillin V (Penicillin V) Allergy Mild Other (See Verified 02/20/25 06:27 Comment) SHARA Inhibitors Allergy Unknown Other (See Verified 02/20/25 06:27 Comment) General Stated Complaint: Abd Prob MOSES: 3 Review of Systems All systems reviewed & are unremarkable except as noted in HPI and below Constitutional Constitutional: Denies chills, Denies fever(s) and Denies weakness Cardiovascular Cardiovascular: Denies chest pain and Denies dyspnea Respiratory Respiratory: Denies cough and Denies dyspnea Gastrointestinal Gastrointestinal: Reports abdominal pain, Reports nausea and Reports vomiting Neurologic Neurologic: Denies weakness Psychiatric Psychiatric: Denies depression Endocrine Endocrine: Denies cold intolerance Exam Const General: no acute distress Orientation: alert [facility] Head: normal to inspection Ears: external ears normal General nose exam: external nose normal Mouth: moist mucous membranes Eyes General: appearance normal, both eyes and all related structures Neck Neck: normal visual inspection Resp Effort & Inspection: normal respiratory effort and able to speak in complete sentences Cardio Rate: regular rate GI Palpation: soft, no guarding and tender Skin General skin exam: no rashes or lesions noted Neuro General: patient alert and patient oriented x3 Extrem General: normal to inspection Psych Mental Status: mental status grossly normal Course Vital Signs Vital signs: Vital Signs Temperature 36.3 C L 02/20/25 06:20 Pulse 58 L 02/20/25 06:20 Respiratory Rate 18 02/20/25 06:20 Blood Pressure 138/82 02/20/25 06:20 Pulse Oximetry 90 L 02/20/25 06:20 Temperature 36.3 C L 02/20/25 06:20 Temperature Source Tympanic 02/20/25 06:20 Pulse 287 H 02/20/25 06:26 Respiratory Rate 18 02/20/25 06:20 Blood Pressure 138/82 02/20/25 06:26 Pulse Oximetry 90 L 02/20/25 06:26 Oxygen Delivery Method Room Air 02/20/25 06:20 Oxygen Flow Rate 0 02/20/25 06:20 Pain Level 8 02/20/25 06:20 Lab/Test Results Lab/Test Results: Laboratory Tests Range/Units 02/20/25 06:31 HIV 1&2 Ag/Ab, 4th Gen Cancelled HIV 1&2 Antibody Rapid Cancelled Medical Decision Making 29-year-old male with history of lymphoma who had a lymph node biopsy in his right groin Tuesday states he was feeling well until last night around 9 or 10 when he woke up with lower abdominal pain and also has had episodes of vomiting. He still feels nauseous as well as some lower abdominal discomfort. He denies any chest pain, difficulty breathing, fevers or chills. He is alert and oriented and speaking clearly. His abdomen is soft, he has tenderness in the right lower and left lower quadrants without guarding. No upper abdominal tenderness. Site where he had a lymph node biopsy in the right groin shows no signs of infection. Given lower abdominal pain will check CBC, CMP, lipase and CT abdomen pelvis to evaluate for disease such as diverticulitis or appendicitis. Labs show no emergent findings, negative lactate. CT shows evidence of a pos sible bowel obstruction. Patient is feeling significantly better and denies any pain currently. Has not any vomiting here. I discussed results with him and he is feeling so much better that he wants to be discharged. Given rapid improvement I feel this is reasonable. 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) Pre-diabetes (Acute) Corneal abrasion, right (Acute) Foreign body in eye (Acute) Hematuria (Acute) Bradycardia (Acute) CAD (coronary artery disease) (Chronic) Discharge planning issues (Acute) DVT prophylaxis (Acute) Community acquired pneumonia (Acute) Medical History Basal cell carcinoma arm Hyperlipidemia Benign hypertension Surgical History Coronary Stent x 2 10 yrs ago Social History Smoking/Tobacco Use Status: Former Tobacco Use Tobacco: How many years used: 45 Smoking risk assessment performed?: Yes Alcohol Intake: current Alcohol Intake frequency: a few times a month Alcohol type: beer and hard liquor Drug use: Never Substance use type: does not use Details: quit smoking in 2000 current occupation: [employer] Current gender identity: male Do you feel safe at home: Yes Do you feel safe in your relationship?: Yes PAWSS Have you Been Recently Intoxicated or Drunk Within the Last 30 days?: No Have you Ever Experienced Previous Episodes of Alcohol Withdrawal?: No Have you ever Experienced Withdrawal Seizures?: No Have you ever Experienced Delirium Tremens(DT)s?: No Have you ever undergone Alcohol Rehabilitation Treatment (i.e, inpt ot outpatient treatment programs)?: No Have you ever Experienced Blackouts?: No Have you ever Combined Alcohol with other Downers within the last 90 days?: No Have you ever Combined Alcohol with any other Substance of Abuse during the last 90 days?: No Positive Blood Alcohol level on Presentation? [PCS.BAL]: No Evidence of Increased Autonomic Activity (i.e. HR>120, tremor, sweating, agitation, nausea)?: No Result: 0
[2025-02-20 07:17] LABS: Lactate 1.2 mmol/L (<or=2.0)
[2025-02-20 07:18] LABS: Abs Immature Grans 0.06 10^3/uL (0.0-0.06); Absolute Basophil Count 0.04 10^3/uL (0.0-0.2); Absolute Lymphocyte Count 1.64 10^3/uL (1.2-3.4); Absolute Monocyte Count 0.81 10^3/uL (0.1-0.8); Absolute Neutrophil Count 8.24 10^3/uL (1.2-6.7); Basophils % 0.4 %; Eosinophils % 2.4 %; HCT 40.5 % (40.0-50.0); HGB 12.9 g/dL (13.5-17.5); Immature Grans % 0.5 %; Lymphocytes % 14.8 %; MCH 27.9 pg (27.0-33.0); MCHC 31.9 % (32.0-36.0); MCV 88 fL (80-95); MPV 9.1 fL (8.0-11.0); Monocytes % 7.3 %; Neutrophils % 74.6 %; Platelet Count 149 10^3/uL (130-400); RBC 4.62 10^6/uL (4.36-5.78); RDW 14.2 % (11.8-14.1); RDW-SD 45.1 fL; WBC 11.05 10^3/uL (4.4-10.8)
[2025-02-20 07:19] LABS: Absolute Eosinophil Count 0.27 10^3/uL (0.0-0.7)
[2025-02-20] MEDS: ACETAMINOPHEN 1,000 MG/100 ML BAG 400 MG IVPB (07:25)
[2025-02-20] MEDS: Normal Saline 1,000 ML 1000 ML IV (07:25)
[2025-02-20] MEDS: Normal Saline Flush 10 ML SYR IVP (07:25)
[2025-02-20] MEDS: Ondansetron 4 MG/2 ML VIAL IVP (07:26)
[2025-02-20 07:35] LABS: ALT 19 U/L (16-63); AST 17 U/L (15-37); Albumin 3.4 g/dL (3.4-5.0); Alkaline Phosphatase 69 U/L (46-116); Anion Gap 4.4 mmol/L (3-11); BUN 27 mg/dL (7-18); Bilirubin, Total 0.6 mg/dL (0.2-1.0); CO2 31.6 mmol/L (21.0-32.0); CREATININE 1.6 mg/dL (0.70-1.30); Calcium 9.3 mg/dL (8.5-10.1); Chloride 102 mmol/L (98-107); Glucose 123 mg/dL (74-106); Lipase 27 U/L (<78); Magnesium 2.1 mg/dL (1.8-2.4); Sodium 138 mmol/L (136-145); Total Protein 7.9 g/dL (6.4-8.2)
[2025-02-20] MEDS: Normal Saline - Diluent 50 ML VIAL IJ ×2 (07:59→08:00)
[2025-02-20] MEDS: Omnipaque 350 MG/ML 100 ML BTL IJ (08:00)
[2025-02-20 09:39] VITALS: BP 151/72; PULSE 60; RESP 12; O2SAT 93
== END 2025-02-20 09:40 | disposition home or self-care (01) ==
PROVIDERS: Emergency Medicine; Emergency Provider Emergency Medicine; PCP Nurse Practitioner Family
DX: R10.30 Lower abdominal pain, unspecified (principal); R11.2 Nausea with vomiting, unspecified; I10 Essential (primary) hypertension; E78.5 Hyperlipidemia, unspecified; I25.10 Atherosclerotic heart disease of native coronary artery without angina pectoris; Z95.5 Presence of coronary angioplasty implant and graft; Z79.82 Long term (current) use of aspirin
CPT/HCPCS: 36415; 80053; 83690; 87389; 96361; 96365; 96374; 99285; 74177; 83605; 83735; 85025; J0131; J2405; J3490

== ENCOUNTER 2025-02-20 10:50 | Observation (INO) | payer MEDICARE, SELFPAY ==
[2025-02-20 11:00] VITALS: BP 153/75; PULSE 90; RESP 19; TEMP 36.5; O2SAT 96
--- NOTE | 2025-02-20 11:43 | ED.GENADUL_ITS ---
Discharge Plan Disposition Patient Disposition: Admit to [facility] Condition: Stable Discharge Details Chief Complaint: Recheck Clinical Impression: Small bowel obstruction Primary Care Provider: Luci Bustillo ED Provider: Fidencio Marinelli Home Meds and New Rx's Prescriptions: No Action cyclobenzaprine 10 mg tablet 10 mg PO HS nitroglycerin 0.4 mg tablet, sublingual 0.4 mg sublingual Q5M PRN Patient Comments: states never used it Rx Instructions: do not exceed 3 doses per episode ezetimibe 10 mg tablet 10 mg PO DAILY Patient Comments: pt unsure of med lovastatin 40 MG tablet 40 mg PO HS aspirin [Aspir-81] 81 MG tablet,delayed release (DR/EC) 81 mg PO DAILY loratadine [Claritin] 10 MG tablet 10 mg PO HS amlodipine 5 mg tablet 5 mg PO DAILY celecoxib 200 mg capsule 200 mg PO ONCE losartan 25 mg tablet 25 mg PO DAILY tamsulosin [Flomax] 0.4 mg capsule 0.4 mg PO DAILY Qty: 30 0RF ondansetron 4 mg tablet,disintegrating 4 mg PO Q8H PRN (Reason: nausea and vomiting) Qty: 30 0RF furosemide 20 mg Tablet 20 mg PO DAILY Qty: 14 0RF HPI General Mode of arrival: ambulatory . Date/Time Provider Initiated Documentation: 02/20/25 10:58 . Limitations to Documentation: no limitations . Information obtained by: patient . History of Present Illness 79 year old M presents to the emergency department with the chief complaint of abdominal pain, described as mild, Quality is described as aching and sharp, and is localized to the abdomen. Patient reports no radiation. Patient started experiencing this day(s) (1) and it has been constant. No relieving factors improve symptom(s), No exacerbating factors reported . Patient notes nausea/vomiting; denies chest pain and shortness of breath. Related Data Home Medications ?Medication ?Instructions ?Recorded ?Confirmed aspirin 81 mg tablet,delayed 81 mg PO DAILY 12/05/12 02/20/25 release (Aspir-) loratadine 10 mg tablet (Claritin) 10 mg PO HS 12/05/12 02/20/25 lovastatin 40 mg tablet 40 mg PO HS 12/05/12 02/20/25 furosemide 20 mg tablet 20 mg PO DAILY #14 tabs 09/15/19 02/20/25 ezetimibe 10 mg tablet 10 mg PO DAILY 06/17/20 02/20/25 nitroglycerin 0.4 mg sublingual 0.4 mg sublingual Q5M PRN 06/17/20 02/20/25 tablet amlodipine 5 mg tablet 5 mg PO DAILY 12/20/24 02/20/25 celecoxib 200 mg capsule 200 mg PO ONCE 12/20/24 02/20/25 losartan 25 mg tablet 25 mg PO DAILY 12/20/24 02/20/25 tamsulosin 0.4 mg capsule (Flomax) 0.4 mg PO DAILY #30 caps 12/20/24 02/20/25 cyclobenzaprine 10 mg tablet 10 mg PO HS 12/27/24 02/20/25 ondansetron 4 mg disintegrating 4 mg PO Q8H PRN nausea and 02/20/25 tablet vomiting #30 tabs Previous Rx's ?Medication ?Instructions ?Recorded furosemide 20 mg tablet 20 mg PO DAILY #14 tabs 09/15/19 tamsulosin 0.4 mg capsule (Flomax) 0.4 mg PO DAILY #30 caps 12/20/24 ondansetron 4 mg disintegrating 4 mg PO Q8H PRN nausea and 02/20/25 tablet vomiting #30 tabs Allergies Allergy/AdvReac Type Severity Reaction Status Date / Time lisinopril Allergy Mild Other (See Verified 02/20/25 06:27 Comment) penicillin V (Penicillin V) Allergy Mild Other (See Verified 02/20/25 06:27 Comment) SHARA Inhibitors Allergy Unknown Other (See Verified 02/20/25 06:27 Comment) General Stated Complaint: Recheck MOSES: 4 Review of Systems All systems reviewed & are unremarkable except as noted in HPI and below Constitutional Constitutional: Denies chills, Denies fever(s) and Denies weakness Cardiovascular Cardiovascular: Denies chest pain and Denies dyspnea Respiratory Respiratory: Denies cough and Denies dyspnea Gastrointestinal Gastrointestinal: Reports abdominal pain, Reports nausea and Reports vomiting Neurologic Neurologic: Denies weakness Exam Const General: no acute distress Orientation: alert [facility] Head: normal to inspection Ears: external ears normal General nose exam: external nose normal Mouth: moist mucous membranes Eyes General: appearance normal, both eyes and all related structures Neck Neck: normal visual inspection Resp Effort & Inspection: normal respiratory effort and able to speak in complete sentences Cardio Rate: regular rate GI Palpation: soft and tender Skin General skin exam: no rashes or lesions noted Neuro General: patient alert and patient oriented x3 Extrem General: normal to inspection Psych Mental Status: mental status grossly normal Course Vital Signs Vital signs: Vital Signs Temperature 36.5 C 02/20/25 11:00 Pulse 90 02/20/25 11:00 Respiratory Rate 19 02/20/25 11:00 Blood Pressure 153/75 H 02/20/25 11:00 Pulse Oximetry 96 02/20/25 11:00 Temperature 36.5 C 02/20/25 11:00 Temperature Source Oral 02/20/25 11:00 Pulse 90 02/20/25 11:00 Respiratory Rate 19 02/20/25 11:00 Blood Pressure 153/75 H 02/20/25 11:00 Blood Pressure Position Sitting 02/20/25 11:00 Pulse Oximetry 96 02/20/25 11:00 Oxygen Delivery Method Room Air 02/20/25 11:00 Oxygen Flow Rate 0 02/20/25 11:00 Pain Level 3 02/20/25 11:00 Medical Decision Making Since 79-year-old male with a history of lymphoma who comes in from the oncology office with likely SBO. He was seen earlier by me in the ER after overnight he had couple episodes of vomiting abdominal pain. He had a possible early bowel obstruction on CT, he had felt better and had no tenderness on reassessment requested discharge. He went to the oncologist office and they felt he should be admitted for steroids as it is likely lymphoma that caused the sbo and observation. Patient has mild lower abdominal discomfort, no vomiting. She is well-appearing, this no peritoneal signs. Will discuss with hospitalist about admission for steroids and observation. 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) Pre-diabetes (Acute) Corneal abrasion, right (Acute) Foreign body in eye (Acute) Hematuria (Acute) Bradycardia (Acute) CAD (coronary artery disease) (Chronic) Discharge planning issues (Acute) DVT prophylaxis (Acute) Community acquired pneumonia (Acute) Medical History Basal cell carcinoma arm Hyperlipidemia Benign hypertension Surgical History Coronary Stent x 2 10 yrs ago Social History Smoking/Tobacco Use Status: Former Tobacco Use Tobacco: How many years used: 45 Smoking risk assessment performed?: Yes Alcohol Intake: current Alcohol Intake frequency: a few times a month Alcohol type: beer and hard liquor Drug use: Never Substance use type: does not use Details: quit smoking in 2000 current occupation: [employer] Current gender identity: male Do you feel safe at home: Yes Do you feel safe in your relationship?: Yes
--- NOTE | 2025-02-20 11:49 | HPE_ITS ---
Date of service: 02/20/25 Time of Service: 12:00 Assessment and Plan Assessment and plan (1) Small bowel obstruction: Status: Acute Assessment and plan: presenting with, constant aching and sharp, localized abdominal pain w/o radiation starting 1 day ago with nausea/vomiting as per CT imaging report: Small bowel dilatation with air-fluid levels to the level of the distal ileum. Issues for small bowel obstruction. 2. Stable extensive abdominal and pelvic adenopathy particularly involving the left renal pelvis with narrowing of the renal artery and vein. There is again seen delayed enhancement of the left kidney. These findings are stable. 3. Trace amount of abdominal pelvic ascites. 4. Stable subcarinal and left hilar adenopathy. 5. Cholelithiasis. oncology office felt it is likely lymphoma that caused the SBO IV methylprednisolone in the ED Oral prednisone in AM Consider gastrografin in AM and imaging (2) Abdominal pain: Status: Acute Assessment and plan: As above IV APAP scheduled PPI (3) SATHISH (acute kidney injury): Status: Acute Assessment and plan: Cr 1.6 baseline around 1.3 LR at 100 cc/hr until 0000 labs in AM (4) Nausea & vomiting: Status: Acute Assessment and plan: Antiemetics PRN PPI IV daily Mylanta PRN (5) Lymphoma: Status: Acute Assessment and plan: Continue outpatient management with oncology Could be the cause of the presentation - d/c on oral prednisone or dexamethasone if effective (6) Hyperlipidemia: Status: Acute Assessment and plan: Continue home medicine regimen once med rec completed (7) Obesity: Status: Chronic Assessment and plan: Counseled on weight management with lifestyle changes in the setting of BMI at 33 and prediabetes w A1C at 5 .9 Offer nutrition consultation Further discussion with PCP and oncology regarding the appropriateness of GLP- 1 inhibitors with Hx of lymphoma (8) Benign hypertension: Assessment and plan: * Continue home medicine regimen once med rec completed and adjust PRN * Will hold ARB and loop diuretic (9) CAD (coronary artery disease): Status: Chronic Assessment and plan: * Continue home medicine regimen once med rec completed (10) DVT prophylaxis: Status: Acute Assessment and plan: On LMWH was refused - SCD's discussed with Dr Sanchez History of Present Illness History of Present Illness Chief Complaint: Abdominal pain Narrative: Since 79-year-old male with a history of lymphoma who comes in from the oncology office with likely SBO. He was seen earlier by me in the ER after overnight he had couple episodes of vomiting abdominal pain. He had a possible early bowel obstruction on CT, he had felt better and had no tenderness on reassessment requested discharge. He went to the oncologist office and they felt he should be admitted for steroids as it is likely lymphoma that caused the sbo and observation. Patient has mild lower abdominal discomfort, no vomiting. She is well-appearing, this no peritoneal signs. Will discuss with hospitalist about admission for steroids and observation.The patient denies chills, new dizziness, objective fevers, cough,chest pain, hematochezia, melena or dysuria but reports subjective fevers, nausea,vomiting, abdominal pain and diarrhea. 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) Pre-diabetes (Acute) Corneal abrasion, right (Acute) Foreign body in eye (Acute) Hematuria (Acute) Bradycardia (Acute) CAD (coronary artery disease) (Chronic) Discharge planning issues (Acute) DVT prophylaxis (Acute) Community acquired pneumonia (Acute) Medical History Basal cell carcinoma arm Hyperlipidemia Benign hypertension Surgical History Coronary Stent x 2 10 yrs ago Social History Smoking/Tobacco Use Status: Former Tobacco Use Tobacco: How many years used: 45 Smoking risk assessment performed?: Yes Alcohol Intake: current Alcohol Intake frequency: a few times a month Alcohol type: beer and hard liquor Drug use: Never Substance use type: does not use Details: quit smoking in 2000 Housing: house current occupation: [employer] Current gender identity: male Do you feel safe at home: Yes Do you feel safe in your relationship?: Yes Meds Allergies and Home Medications Allergies Allergy/AdvReac Type Severity Reaction Status Date / Time lisinopril Allergy Mild Other (See Verified 02/20/25 12:22 Comment) penicillin V (Penicillin V) Allergy Mild Other (See Verified 02/20/25 12:22 Comment) SHARA Inhibitors Allergy Unknown Other (See Verified 02/20/25 12:22 Comment) Home Medications ?Medication ?Instructions ?Recorded ?Confirmed ?Type aspirin 81 mg tablet,delayed 81 mg PO DAILY 12/05/12 02/20/25 History release (Aspir-) loratadine 10 mg tablet (Claritin) 10 mg PO HS 12/05/12 02/20/25 History lovastatin 40 mg tablet 40 mg PO HS 12/05/12 02/20/25 History furosemide 20 mg tablet 20 mg PO DAILY #14 tabs 09/15/19 02/20/25 Rx ezetimibe 10 mg tablet 10 mg PO DAILY 06/17/20 02/20/25 History amlodipine 5 mg tablet 5 mg PO DAILY 12/20/24 02/20/25 History celecoxib 200 mg capsule 200 mg PO HS 12/20/24 02/20/25 History acetaminophen 500 mg capsule 500 mg PO QHS 02/20/25 02/20/25 History losartan 25 mg tablet 25 mg PO QHS 02/20/25 02/20/25 History tamsulosin 0.4 mg capsule (Flomax) 0.4 mg PO QHS 02/20/25 02/20/25 History Exam Narrative Exam Narrative: 79 years old male patient appearing of stated age, w/o acute distress, no neurological focal deficit, clear lungs, S1, S2 regular, abdomen is slightly distended, obese, soft, with aldo-umbilical tenderness, no CVA tenderness, moves all 4 ext. Results Last Vital Signs Temp 36.5 C 02/20/25 11:00 Pulse 90 02/20/25 11:00 Resp 19 02/20/25 11:00 BP 153/75 H 02/20/25 11:00 Pulse Ox 96 02/20/25 11:00 Time Spent Time spent with Patient: >75 minutes Time was spent: preparing to see the patient(eg.review tests), obtaining and/or reviewing separately otained hiistory, ordering medications,tests, procedures, referring, communicating with other health small animal caretaker, indepentently interpreting results, counseling the patient and care coordination
[2025-02-20] MEDS: methylPREDNISolone SUCC 125 MG VIAL IVP (11:50)
--- NOTE | 2025-02-20 12:20 | W.PC.ACHO ---
Registration Status: Primary Language: Preferred Language: ED Information & Data Chief Complaint Recheck 02/20/25 11:47 Triage Note Sent by Dr. Crystal from 02/20/25 11:00 Cancer network. Pt reports told him to come to the hospital to be admitted. Pt was here in the ED this morning and discharged. Pt reports pain reduced significantly this morning, pain nor 3/10, was 15/10 this AM during first visit. Has not vomited since this morning. LBM 3 days ago. Medical / Surgical History (Last Reviewed 11/29/24 @ 10:20 by oSphia Griffin MD) Basal cell carcinoma Hyperlipidemia Benign hypertension (Last Reviewed 11/29/24 @ 10:20 by Sophia Griffin MD) Coronary Stent Most Recent Vital Signs Temperature 36.5 C 02/20/25 11:00 Temperature Source Oral 02/20/25 11:00 Pulse 90 02/20/25 11:00 Respiratory Rate 19 02/20/25 11:00 Blood Pressure 153/75 H 02/20/25 11:00 Blood Pressure Position Sitting 02/20/25 11:00 Pulse Oximetry 96 02/20/25 11:00 Oxygen Delivery Method Room Air 02/20/25 11:00 Oxygen Flow Rate 0 02/20/25 11:00 Pain Level 3 02/20/25 11:00 Allergies lisinopril Allergy (Mild, Verified 02/20/25 06:27) Other (See Comment) penicillin V (Penicillin V) Allergy (Mild, Verified 02/20/25 06:27) Other (See Comment) SHARA Inhibitors Allergy (Unknown, Verified 02/20/25 06:27) Other (See Comment) converted from ingredient allergy: SHARA inhibitors IV IV Catheter Type [Left Saline Lock Antecubital] IV Catheter Gauge [Left 18 Antecubital] Intake and Output - 24 Hour Total 02/20/25 10:50 thru 02/20/25 11:00 Weight 98.883 kg v v v v v v v v v Sending and/or Receiving Nurses: Please use comment section below to note any information pertinent to the patient hand-off not included above. Information / Comments: Pt arrives on stretcher to 218 and transferred w/ no issues Report received from: ZAINAB Pugh @[id number]
[2025-02-20 12:39] VITALS: BP 149/66; PULSE 59; RESP 16; TEMP 36.3; O2SAT 98
--- NOTE | 2025-02-20 13:07 | TELEP.MEDREC ---
Date of service: 02/20/25 Time of Service: 13:07 [facility] Allergies Allergies: lisinopril Allergy (Mild, Verified 02/20/25 12:22) Other (See Comment) penicillin V (Penicillin V) Allergy (Mild, Verified 02/20/25 12:22) Other (See Comment) SHARA Inhibitors Allergy (Unknown, Verified 02/20/25 12:22) Other (See Comment) Interview Person Interviewed: Pt states last medications taken at home yesterday 02/19/25 Quality Quality of Interview/Accuracy of Medication List: Good Changes made to Home Medication List: ADDITIONS: Losartan Tylenol DELETIONS: Cyclobenzaprine Allopurinol Acyclovir CHANGES: Amlodipine to 5mg daily per pt Additional Notes Additional Notes: None Recommended Changes Recommended Changes(reason for recommendation): None Attestation: The home medication list is now updated to the best of my knowledge and is ready to be reconciled by the provider. Please contact the [facility] Medication Reconciliation Pharmacist at for any questions.
[2025-02-20] MEDS: Lactated Ringers 1,000 ML 100 ML IV (14:57)
[2025-02-20 16:58] VITALS: BP 149/66; PULSE 59; RESP 16; TEMP 36.3; O2SAT 98
[2025-02-20] MEDS: Pantoprazole 40 MG VIAL IVP (18:16)
[2025-02-20] MEDS: Normal Saline Flush 10 ML SYR IVP (18:17)
[2025-02-20 19:47] VITALS: BP 161/84; PULSE 64; RESP 20; TEMP 37.3; O2SAT 92
[2025-02-20] MEDS: ACETAMINOPHEN 1,000 MG/100 ML BAG 400 MG (20:42)
[2025-02-20] MEDS: Celecoxib 200 MG CAP PO (20:42)
[2025-02-20] MEDS: Lovastatin 40 MG TAB PO (20:42)
[2025-02-20] MEDS: Loratidine 10 MG TAB PO (20:43)
[2025-02-21] MEDS: Mylanta Suspension 30 ML CUP PO ×2 (01:35→07:49)
[2025-02-21 06:18] LABS: Abs Immature Grans 0.14 10^3/uL (0.0-0.06); Absolute Basophil Count 0.03 10^3/uL (0.0-0.2); Absolute Lymphocyte Count 2.62 10^3/uL (1.2-3.4); Absolute Monocyte Count 1.02 10^3/uL (0.1-0.8); Absolute Neutrophil Count 12.05 10^3/uL (1.2-6.7); Basophils % 0.2 %; HCT 36.5 % (40.0-50.0); HGB 12.1 g/dL (13.5-17.5); Immature Grans % 0.9 %; Lymphocytes % 16.5 %; MCH 28.7 pg (27.0-33.0); MCHC 33.2 % (32.0-36.0); MCV 87 fL (80-95); MPV 9.4 fL (8.0-11.0); Monocytes % 6.4 %; Platelet Count 182 10^3/uL (130-400); RBC 4.22 10^6/uL (4.36-5.78); RDW-SD 43.8 fL; WBC 15.86 10^3/uL (4.4-10.8)
[2025-02-21 06:41] LABS: BUN 34 mg/dL (7-18); CO2 26.4 mmol/L (21.0-32.0); CREATININE 1.7 mg/dL (0.70-1.30); Calcium 9.2 mg/dL (8.5-10.1); Chloride 103 mmol/L (98-107); Estimated GFR 41.01 (mL/min/1.73m2); Glucose 127 mg/dL (74-106); Potassium 5.1 mmol/L (3.5-5.1); Sodium 136 mmol/L (136-145)
[2025-02-21 06:42] LABS: Anion Gap 6.6 mmol/L (3-11)
[2025-02-21] MEDS: ACETAMINOPHEN 1,000 MG/100 ML BAG 400 MG (06:52)
[2025-02-21 07:38] VITALS: BP 150/78; PULSE 62; RESP 16; TEMP 36.6; O2SAT 89
[2025-02-21] MEDS: Normal Saline Flush 10 ML SYR IVP ×5 (07:49→13:01)
[2025-02-21] MEDS: predniSONE 20 MG TAB 60 MG PO (07:50)
[2025-02-21] MEDS: Aspirin E.C. 81 MG TABEC PO (07:50)
[2025-02-21] MEDS: amLODIPine 5 MG TAB PO (07:50)
[2025-02-21 08:18] VITALS: O2SAT 92
--- NOTE | 2025-02-21 08:23 | PDOC.CMIN ---
Date of service: 02/21/25 Time of Service: 08:23 Care Management Initial Assmt Initial Assessment Reason for Hospitalization: SBO Functional Status/Living Situation Patient Presentation: Reginaldo was sitting up in bed when CM met with him. He was polite and agreeable to conversation. Reginaldo was admitted with a possible SBO. He was given a regular diet but did not tolerate it well and vomited this morning. He was given a 5mg dose of compazine which he stated helped some. The order was later changed to 10mg Q4h prn. Reginaldo lives alone in a single family home in [place] on his [address] [place]. He still has the land but no longer has the animals. Reginaldo has 3 children and 5 grandchildren who live locally and are very helpful and supportive. One of his sons stays with him from time to time. Reginaldo is , his having about 4 years ago. He is independent at baseline and does not need to use a cane or walker for ambulatory assistance. Reginaldo receives 3 Squares a day and also fuel assistance in the winter. CM will follow. Town of Residence: [place] Resides with: Alone (one son stays with him sometimes) Significant Other/Family: Local Natural Supports: children and grandchildren Employment Status: Retired Instrumental Activities of Daily Living (ADLs): Independent Medications Medication Management: No Issues/Barriers identified Physical Functioning/Mobility Assistive Device: none Advance Directives Advance Directives: Do you have an Advance Directive: N 09/18/20, 15:04 AD On File at [facility]: N 09/18/20, 15:04 Date Asked 02/18/25 02/18/25, 15:18 AD Date Reviewed 02/20/25 02/20/25, 12:34 COLST On File at [facility] COLST Date Scanned Code Status Resuscitation Status Full Code Portal Pt does not currently have a portal and education provided: Yes Insurance Coverage/Financial Issues Insurance: Medicare [facility] Supplement Care Team Visit Care Team Role Provider Type Bren Olea APRN MD [facility] STAFF PHYSICIAN Lcui Bustillo Primary Care Provider NURSE PRACTITIONER Fidencio Marinelli MD Emergency Provider [facility] STAFF PHYSICIAN Markel Sanchez MD Admit Provider [facility] STAFF PHYSICIAN Attending Provider Discharge Potential Discharge Needs: Surgical F/U Appt Anticipated Barriers to Discharge: None Identified Patient/Family Education Needs: Review discharge instructions, discuss Ask Me Three Transportation: Private vehicle Plan: Anticipate New will be discharged with no new services when medically cleared by provider. He will follow up with his community providers and plan of acre and transport with family. CM will continue to support discharge planning endeavors. Social Determinants of Health Screening Social Determinants of health last assessed in clinic: 02/21/25 Will the Patient Participate in the Screening?: Yes Do you worry about having a steady place to live?: yes What is your living situation today?: I have housing today, but am worried about losing it Problems where you live: pests such as bugs, ants or mice In the past 12 months, have you had to go without electric, gas, oil or water in your home?: no 1. Within the past 12 months, we worried whether our food would run out before we got money to buy more.: Never true (children help out if he needs extra) 2. Within the past 12 months, the food we bought just didn't last and we didn't have money to get more.: Never true Has lack of transportation kept you from medical appointments or from doing things needed for daily living?: no Has anyone in your life made you feel unsafe or unsupported?: no How hard is it for you to pay for the very basics like food, housing, medical care, and heating? Would you say it is:: Very hard Do you want help finding or keeping work or a job?: I do not need or want help If for any reason you need help with day-to-day activities such as bathing, preparing meals, shopping, managing finances, etc., do you get the help you need?: I could use a little more help How often do you feel lonely or isolated from those around you?: Never Do you speak a language other than Setswana at home?: No Does the patient want assistance with any of the above?: Yes Health Related Social Needs Health related social needs: inadequate housing (Z59.1), housing instability, housed, with risk of homelessness (Z59.811), problems related to housing/economic circumstances (Z59.89) and problems with daily activities (Z73.9) Health related social needs details: pt has housing but is on a tight budget PFSH All Active Problems (Updated 02/20/25 @ 18:17 by Bren Olea APRN) Nausea & vomiting (Acute) SATHISH (acute kidney injury) (Acute) Lymphoma (Acute) Small bowel obstruction (Acute) Abdominal pain (Acute) Tendinitis of long head of biceps brachii of left shoulder (Acute) Bursitis of left shoulder (Acute) Hyperlipidemia (Acute) Obesity (Chronic) Lymphadenopathy (Acute) Ocular migraine (Acute) 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) Pre-diabetes (Acute) Corneal abrasion, right (Acute) Foreign body in eye (Acute) Hematuria (Acute) Bradycardia (Acute) CAD (coronary artery disease) (Chronic) Discharge planning issues (Acute) DVT prophylaxis (Acute) Community acquired pneumonia (Acute) Medical History Basal cell carcinoma arm Hyperlipidemia Benign hypertension Surgical History Coronary Stent x 2 10 yrs ago Social History Smoking/Tobacco Use Status: Former Tobacco Use Tobacco: How many years used: 45 Smoking risk assessment performed?: Yes Alcohol Intake: current Alcohol Intake frequency: a few times a month Alcohol type: beer and hard liquor Drug use: Never Substance use type: does not use Details: quit smoking in 2000 Housing: house current occupation: [employer] Current gender identity: male Do you feel safe at home: Yes Do you feel safe in your relationship?: Yes
[2025-02-21] MEDS: Prochlorperazine 10 MG/2 ML VIAL 5 MG IVP ×2 (09:20→10:52)
[2025-02-21] MEDS: Tamsulosin 0.4 MG CAPCR PO (09:20)
[2025-02-21] MEDS: Pantoprazole 40 MG VIAL IVP (10:51)
--- NOTE | 2025-02-21 11:00 | NUR.NOTE ---
Nursing Note: Discrepancy in report if pt had moved his bowels or not. Circled back to pt with provider for more accurate info. Pt states that he moved his bowels a couple times in the ED, very small amts of liquid. Pt is burping, but not passing gas through his rectum. He has vomited 1-3 times this morning, he answers differently each time he is asked. Provider made new orders to follow.
--- NOTE | 2025-02-21 11:14 | W.PM.PROGNOT ---
Date of Service Date of service: 02/21/25 Time of Service: 11:21 Assessment and Plan Assessment and plan (1) Small bowel obstruction: Status: Acute Assessment and plan: presenting with, constant aching and sharp, localized abdominal pain w/o radiation starting 1 day ago with nausea/vomiting Reporting liquid BM on 02/20 but none since inpatient admission 02/20/25- CT imaging report: Small bowel dilatation with air-fluid levels to the level of the distal ileum. Issues for small bowel obstruction. 2. Stable extensive abdominal and pelvic adenopathy particularly involving the left renal pelvis with narrowing of the renal artery and vein. There is again seen delayed enhancement of the left kidney. These findings are stable. 3. Trace amount of abdominal pelvic ascites. 4. Stable subcarinal and left hilar adenopathy. 5. Cholelithiasis. oncology office felt it is likely lymphoma that caused the SBO IV methylprednisolone in the ED Oral prednisone in AM - failed as he has ongoing vomiting- Transitioned to dexamethasone IV Surgical consult On clears for now -low threshold for NPO and NGT placement (2) Abdominal pain: Status: Acute Assessment and plan: As above Continue IV APAP scheduled On IV PPI daily (3) SATHISH (acute kidney injury): Status: Acute Assessment and plan: Cr 1.6 baseline around 1.3- Now 1.7 CT report from admission: Kidneys: Extensive retroperitoneal adenopathy is again demonstrated. The adenopathy is confluent from the level of the renal vasculature to the aortic bifurcation. Findings are greatest at the left para-aortic region at the level of the left kidney. There is again attenuation of the left renal artery and vein and apparent infiltration into the left renal hilum. There is again mild delay in the left nephrogram but no evidence of renal infarct.No suspicious masses seen. LR at 100 cc/hr one liter completed- resume IVF at 50cc/hr re: NPO Monitor urine output Q4 hours labs in AM (4) Nausea & vomiting: Status: Acute Assessment and plan: Antiemetic PRN and adjust PPI IV daily added H2 IV trial Mylanta PRN (5) Lymphoma: Status: Acute Assessment and plan: Continue outpatient management with oncology Could be the cause of the presentation - d/c on oral prednisone or dexamethasone if effective (6) Hyperlipidemia: Status: Acute Assessment and plan: Continue home medicine regimen (7) Obesity: Status: Chronic Assessment and plan: Counseled on weight management with lifestyle changes in the setting of BMI at 33 and prediabetes w A1C at 5 .9 Offer nutrition consultation Further discussion with PCP and oncology regarding the appropriateness of GLP-1 inhibitors with Hx of lymphoma (8) Benign hypertension: Assessment and plan: Continue home medicine regimen once med rec completed and adjust PRN Will hold ARB and loop diuretic -in the setting of increased Cr with SBO (9) CAD (coronary artery disease): Status: Chronic Assessment and plan: Continue home medicine regimen (10) DVT prophylaxis: Status: Acute Assessment and plan: On LMWH was refused - SCD's discussed with Dr Sanchez Subjective Subjective Patient reports: still having pain, pain is less, voiding w/o difficulty, no flatus, no bowel movement, nausea, vomiting and shortness of breath; denies feels better, tolerating liquids well, tolerating a regular diet or fever Exam Narrative Exam Narrative: 79 years old male patient appearing of stated age, w/o acute distress, no neurological focal deficit, clear lungs, S1, S2 regular, abdomen is obese slightly distended and semi-firm , obese, soft, with aldo-umbilical tenderness migrated to both lower quadrant - less intense, no bowel sounds heard, no CVA tenderness, moves all 4 ext. Objective Last Vital Signs Temp 36.6 C 02/21/25 07:38 Pulse 62 02/21/25 07:38 Resp 16 02/21/25 07:38 BP 150/78 H 02/21/25 07:38 Pulse Ox 92 02/21/25 08:18 Laboratory Results - last 24 hr 02/21/25 05:53 WBC 15.86 H RBC 4.22 L Hgb 12.1 L Hct 36.5 L MCV 87 MCH 28.7 MCHC 33.2 RDW 14.0 Plt Count 182 MPV 9.4 Immature Gran % 0.9 Neutrophils % 76.0 Lymphocytes % 16.5 Monocytes % 6.4 Eosinophils % 0.0 Basophils % 0.2 Nucleated RBC % 0.0 Absolute Neutrophils 12.05 H Absolute Lymphocytes 2.62 Absolute Monocytes 1.02 H Absolute Eosinophils 0.00 Absolute Basophils 0.03 Sodium 136 Potassium 5.1 Chloride 103 Carbon Dioxide 26.4 Anion Gap 6.6 BUN 34 H Creatinine 1.7 H Est GFR (CKD-EPI 2020) 41.01 Glucose 127 H Calcium 9.2 PAWSS Have you Been Recently Intoxicated or Drunk Within the Last 30 days?: No Have you Ever Experienced Previous Episodes of Alcohol Withdrawal?: No Have you ever Experienced Withdrawal Seizures?: No Have you ever Experienced Delirium Tremens(DT)s?: No Have you ever undergone Alcohol Rehabilitation Treatment (i.e, inpt ot outpatient treatment programs)?: No Have you ever Experienced Blackouts?: No Have you ever Combined Alcohol with other Downers within the last 90 days?: No Have you ever Combined Alcohol with any other Substance of Abuse during the last 90 days?: No Positive Blood Alcohol level on Presentation? [PCS.BAL]: No Evidence of Increased Autonomic Activity (i.e. HR>120, tremor, sweating, agitation, nausea)?: No Result: 0 Time Spent with Patient Time Spent with Patient: >50 minutes Time was spent: preparing to see the patient(eg.review tests), obtaining and/or reviewing separately otained hiistory, ordering medications,tests, procedures, referring, communicating with other health vision care associate, indepentently interpreting results, counseling the patient and care coordination
--- NOTE | 2025-02-21 11:36 | CHAPLAIN ---
New was sitting up in bed watching tv when I visited. He was pleasant and easily engaged in conversation. New said he expects family members to visit later. 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 I explained my role and offered support.
[2025-02-21] MEDS: Dexamethasone 10 MG/ML VIAL IVP (12:07)
[2025-02-21] MEDS: FAMOTIDINE 20 MG/50 ML BAG 200 MG IV (12:40)
[2025-02-21] MEDS: Lactated Ringers 1,000 ML 50 ML IV (15:04)
[2025-02-21] MEDS: ACETAMINOPHEN 1,000 MG/100 ML BAG 400 MG IVPB (16:08)
[2025-02-21] MEDS: Benzocaine 20% 60 ML CAN TP (17:05)
[2025-02-21 19:13] VITALS: BP 160/75; PULSE 70; RESP 18; TEMP 36.5; O2SAT 94
--- NOTE | 2025-02-21 19:41 | DI.RAD_ITS ---
Exam(s) XR PORTABLE CHEST AP EXAM: XR PORTABLE CHEST AP CLINICAL HISTORY: NG tube placement. TECHNIQUE: 2D digital imaging was performed. COMPARISON: CR XR CHEST 2V PA LATERAL from 11/04/2021 FINDINGS: Single AP portable view. Heart size is upper normal. The mediastinum is not widened. Left lung is clear. There is slightly increased markings in the mid right lung field may indicate subtle infiltrate. No pleural effusions. Distal tip of the Port-A-Cath is in good position at the cavoatrial junction. Distal tip of the NG tube is in the stomach. IMPRESSION: Subtle increased markings in the mid right lung field which may indicate mild infiltrate. No pleural effusions. NG tube and le catheter in good position. DATA REPOSITORY: RADIATION DOSE DELIVERED:
--- NOTE | 2025-02-21 20:14 | DI.VRAD_ITS ---
PROCEDURE INFORMATION: Exam: XR Chest Exam date and time: 02/21/2025 7:32 PM Age: 79 years old Clinical indication: Device placement; Ng tube placement TECHNIQUE: Imaging protocol: Radiologic exam of the chest. Views: 1 view. COMPARISON: CT CHEST PE ABD PELVIS W 12/15/2024 11:59 AM FINDINGS: Tubes, catheters and devices: There is a right Port-A-Cath, the tip of which is projected over the lower SVC. There is an NG tube present, the distal tip of which is projected over the gastric fundus. Lungs: Patchy airspace opacities are present within the right mid lung. The lungs are otherwise clear. Pleural spaces: No pleural effusion. No pneumothorax. Heart/Mediastinum: The heart is normal size. Bones/joints: Unremarkable. IMPRESSION: 1. Distal NG tube projected over the gastric fundus as expected. 2. Patchy right mid lung airspace opacities. Dictated and Authenticated by: Melody Villasenor MD. Orderin Laura Jean Baptiste MD
[2025-02-21] MEDS: Loratidine 10 MG TAB PO (20:49)
[2025-02-21] MEDS: Lovastatin 40 MG TAB PO (20:49)
[2025-02-21] MEDS: Celecoxib 200 MG CAP PO (20:50)
--- NOTE | 2025-02-21 21:07 | SCONE_ITS ---
Date of service: 02/21/25 Time of Service: 15:00 Assessment and Plan Assessment and plan (1) Small bowel obstruction: Status: Acute Assessment and plan: Have requested NG tube placement. Will order KUB for the morning. Plan to treat this nonoperatively. Needs about 72 hours of n.p.o. status with NG tube, afterwards, plan for repeat KUB with enteral contrast. (2) Small lymphocytic B-cell lymphoma involving skin: Status: Acute Assessment and plan: Patient with a B-cell lymphoma, this involves the retroperitoneum and left kidney. He does have access with a Mediport. Do not have copy of report of biopsy, if patient does require surgical procedure, will be helpful to know if this right inguinofemoral biopsy provided sufficient tissue for accurate diagnosis. (3) SATHISH (acute kidney injury): Status: Acute Assessment and plan: N.p.o., he is getting IV hydration, likely some of changes in renal parameters are secondary to lymphoma adjacent to the left kidney. History of Present Illness Narrative: Patient is a 79-year-old male, he is currently undergoing workup and planning for treatment of a lymphoma. He reports that he has been following with oncologist, Dr. Crystal, for over a year now. Recently over the past few months, he develops hematuria, with concern for advancement of his lymphoma. Over the past few weeks, he underwent a right inguinal lymph node biopsy, as well as a Mediport placement. He presents to the hospital on recommendation from his oncologist, over the past 48 hours he has had abdominal distention, associated with nausea vomiting, and minimal bowel function. 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) Pre-diabetes (Acute) Corneal abrasion, right (Acute) Foreign body in eye (Acute) Hematuria (Acute) Bradycardia (Acute) CAD (coronary artery disease) (Chronic) Discharge planning issues (Acute) DVT prophylaxis (Acute) Community acquired pneumonia (Acute) Medical History Basal cell carcinoma arm Hyperlipidemia Benign hypertension Surgical History Coronary Stent x 2 10 yrs ago Social History Smoking/Tobacco Use Status: Former Tobacco Use Tobacco: How many years used: 45 Smoking risk assessment performed?: Yes Alcohol Intake: current Alcohol Intake frequency: a few times a month Alcohol type: beer and hard liquor Drug use: Never Substance use type: does not use Details: quit smoking in 2000 Housing: house current occupation: [employer] Current gender identity: male Do you feel safe at home: Yes Do you feel safe in your relationship?: Yes Exam Narrative Exam Narrative: Patient is a pleasant adult male, he is awake and alert, in minimal discomfort currently. He was examined in the supine position. His cardiac exam is regular rate and rhythm without gross murmur. His pulmonary exam is clear to auscultation bilaterally. His abdomen does have some abdominal obesity, but it is distended as well, with tympany to percussion. There are no prior surgical scars on the abdomen. In the right inguinal femoral region, there is a dressing present from previous lymph node biopsy. There are diminished bowel sounds to auscultation. The abdomen is without guarding or rigidity. There is minimal tenderness to palpation of the abdomen. Results Last Vital Signs Temp 36.5 C 02/21/25 19:13 Pulse 70 02/21/25 19:13 Resp 18 02/21/25 19:13 BP 160/75 H 02/21/25 19:13 Pulse Ox 94 02/21/25 19:13 Labs 02/21/25 05:53 02/21/25 05:53 Labs: Laboratory Results - last 24 hr 02/21/25 05:53 WBC 15.86 H RBC 4.22 L Hgb 12.1 L Hct 36.5 L MCV 87 MCH 28.7 MCHC 33.2 RDW 14.0 Plt Count 182 MPV 9.4 Immature Gran % 0.9 Neutrophils % 76.0 Lymphocytes % 16.5 Monocytes % 6.4 Eosinophils % 0.0 Basophils % 0.2 Nucleated RBC % 0.0 Absolute Neutrophils 12.05 H Absolute Lymphocytes 2.62 Absolute Monocytes 1.02 H Absolute Eosinophils 0.00 Absolute Basophils 0.03 Sodium 136 Potassium 5.1 Chloride 103 Carbon Dioxide 26.4 Anion Gap 6.6 BUN 34 H Creatinine 1.7 H Est GFR (CKD-EPI 2020) 41.01 Glucose 127 H Calcium 9.[address] scan report/results: report reviewed and image reviewed
[2025-02-22] MEDS: ACETAMINOPHEN 1,000 MG/100 ML BAG 400 MG IVPB ×3 (00:09→17:36)
[2025-02-22 06:36] LABS: Absolute Basophil Count 0.05 10^3/uL (0.0-0.2); Absolute Lymphocyte Count 2.93 10^3/uL (1.2-3.4); Absolute Monocyte Count 1.32 10^3/uL (0.1-0.8); Basophils % 0.3 %; HCT 37.4 % (40.0-50.0); HGB 12.1 g/dL (13.5-17.5); Immature Grans % 0.6 %; Lymphocytes % 18.4 %; MCHC 32.4 % (32.0-36.0); MCV 87 fL (80-95); MPV 9.5 fL (8.0-11.0); Monocytes % 8.3 %; Neutrophils % 72.4 %; Platelet Count 174 10^3/uL (130-400); RBC 4.32 10^6/uL (4.36-5.78); RDW-SD 44.2 fL; WBC 15.91 10^3/uL (4.4-10.8)
[2025-02-22 06:38] LABS: Absolute Neutrophil Count 11.52 10^3/uL (1.2-6.7)
[2025-02-22 06:41] LABS: Anion Gap 7.9 mmol/L (3-11); BUN 47 mg/dL (7-18); CO2 29.1 mmol/L (21.0-32.0); CREATININE 1.7 mg/dL (0.70-1.30); Chloride 101 mmol/L (98-107); Estimated GFR 41.01 (mL/min/1.73m2); Glucose 114 mg/dL (74-106); Magnesium 2.5 mg/dL (1.8-2.4); Potassium 5.1 mmol/L (3.5-5.1); Sodium 138 mmol/L (136-145)
[2025-02-22 07:26] VITALS: BP 156/78; PULSE 61; RESP 16; TEMP 36.7; O2SAT 92
[2025-02-22] MEDS: Aspirin E.C. 81 MG TABEC PO (07:35)
[2025-02-22] MEDS: Tamsulosin 0.4 MG CAPCR PO (07:35)
[2025-02-22] MEDS: amLODIPine 5 MG TAB PO (07:35)
[2025-02-22] MEDS: Normal Saline Flush 10 ML SYR IVP ×4 (07:35→19:52)
[2025-02-22] MEDS: Pantoprazole 40 MG VIAL IVP (07:35)
--- NOTE | 2025-02-22 08:25 | DI.RAD_ITS ---
Exam(s) XR ABDOMEN FLAT PLATE EXAM: XR ABDOMEN FLAT PLATE CLINICAL HISTORY: Small bowel obstruction. TECHNIQUE: 2D digital imaging was performed. COMPARISON: Recent CT scan reviewed. FINDINGS: AP supine view the abdomen. There is an NG tube with its distal tip in position in the stomach and the stomach is not overly distended. However, there are still multiple air-filled dilated small bowel loops consistent with small bowel obstruction. There is a paucity of gas in the colon. IMPRESSION: NG tube in satisfactory position in the stomach. Persistent small bowel obstruction pattern. DATA REPOSITORY: RADIATION DOSE DELIVERED:
[2025-02-22] MEDS: Dexamethasone 10 MG/ML VIAL IVP (08:41)
[2025-02-22] MEDS: Lactated Ringers 1,000 ML 50 ML IV (08:41)
--- NOTE | 2025-02-22 09:13 | W.PM.PROGNOT ---
Date of Service Date of service: 02/22/25 Time of Service: 09:13 Assessment and Plan Assessment and plan (1) Small bowel obstruction: Status: Acute Assessment and plan: presenting with, constant aching and sharp, localized abdominal pain w/o radiation starting 1 day ago with nausea/vomiting Reporting liquid BM on 02/20 but none since inpatient admission 02/20/25- CT imaging report: Small bowel dilatation with air-fluid levels to the level of the distal ileum. Issues for small bowel obstruction. 2. Stable extensive abdominal and pelvic adenopathy particularly involving the left renal pelvis with narrowing of the renal artery and vein. There is again seen delayed enhancement of the left kidney. These findings are stable. 3. Trace amount of abdominal pelvic ascites. 4. Stable subcarinal and left hilar adenopathy. 5. Cholelithiasis. oncology office felt it is likely lymphoma that caused the SBO IV methylprednisolone in the ED Oral prednisone in AM - failed as he has ongoing vomiting- Transitioned to dexamethasone IV Surgical consult On clears for now -low threshold for NPO and NGT placement Surgery consult: Have requested NG tube placement. Will order KUB for the morning. Plan to treat this nonoperatively. Needs about 72 hours of n.p.o. status with NG tube, afterwards, plan for repeat KUB with enteral contrast. (2) Small lymphocytic B-cell lymphoma involving skin: Status: Acute Assessment and plan: Patient with a B-cell lymphoma, this involves the retroperitoneum and left kidney. He does have access with a Mediport. Do not have copy of report of biopsy, if patient does require surgical procedure, will be helpful to know if this right inguinofemoral biopsy provided sufficient tissue for accurate diagnosis. (3) SATHISH (acute kidney injury): Status: Acute Assessment and plan: (3) SATHISH (acute kidney injury): Status: Acute Assessment and plan: Cr 1.6 baseline around 1.3- Now 1.7 CT report from admission: Kidneys: Extensive retroperitoneal adenopathy is again demonstrated. The adenopathy is confluent from the level of the renal vasculature to the aortic bifurcation. Findings are greatest at the left para-aortic region at the level of the left kidney. There is again attenuation of the left renal artery and vein and apparent infiltration into the left renal hilum. There is again mild delay in the left nephrogram but no evidence of renal infarct.No suspicious masses seen. LR at 100 cc/hr one liter completed- resume IVF at 50cc/hr re: NPO Monitor urine output Q4 hours N.p.o., he is getting IV hydration, likely some of changes in renal parameters are secondary to lymphoma adjacent to the left kidney. (4) Abdominal pain: Status: Acute Assessment and plan: (2) Abdominal pain: Status: Acute Assessment and plan: As above Continue IV APAP scheduled On IV PPI daily (5) Nausea & vomiting: Status: Acute Assessment and plan: Antiemetic PRN and adjust Decadron mostly to assist in symptomatic release PPI IV daily H2 IV trial assisted in symptom reduction but will hold off for now as Cr is 1.7 Mylanta PRN (6) Hyperlipidemia: Status: Acute Assessment and plan: Continue home medicine regimen (7) Obesity: Status: Chronic Assessment and plan: Counseled on weight management with lifestyle changes in the setting of BMI at 33 and prediabetes w A1C at 5 .9 Offer nutrition consultation Further discussion with PCP and oncology regarding the appropriateness of GLP-1 inhibitors with Hx of lymphoma , but bowel obstruction most likely a contrindication at this time d/t known adverse effects (8) Benign hypertension: (9) DVT prophylaxis: Status: Acute Subjective Subjective Patient reports: still having pain, pain is less, voiding w/o difficulty, no flatus, no bowel movement, nausea, vomiting and shortness of breath; denies feels better, tolerating liquids well, tolerating a regular diet or fever Objective Last Vital Signs Temp 36.7 C 02/22/25 07:26 Pulse 61 02/22/25 07:26 Resp 16 02/22/25 07:26 BP 156/78 H 02/22/25 07:26 Pulse Ox 92 02/22/25 07:26 Laboratory Results - last 24 hr 02/22/25 06:10 WBC 15.91 H RBC 4.32 L Hgb 12.1 L Hct 37.4 L MCV 87 MCH 28.0 MCHC 32.4 RDW 14.0 Plt Count 174 MPV 9.5 Immature Gran % 0.6 Neutrophils % 72.4 Lymphocytes % 18.4 Monocytes % 8.3 Eosinophils % 0.0 Basophils % 0.3 Nucleated RBC % 0.0 Absolute Neutrophils 11.52 H Absolute Lymphocytes 2.93 Absolute Monocytes 1.32 H Absolute Eosinophils 0.00 Absolute Basophils 0.05 Sodium 138 Potassium 5.1 Chloride 101 Carbon Dioxide 29.1 Anion Gap 7.9 BUN 47 H Creatinine 1.7 H Est GFR (CKD-EPI 2020) 41.01 Glucose 114 H Calcium 9.0 Magnesium 2.5 H PAWSS Have you Been Recently Intoxicated or Drunk Within the Last 30 days?: No Have you Ever Experienced Previous Episodes of Alcohol Withdrawal?: No Have you ever Experienced Withdrawal Seizures?: No Have you ever Experienced Delirium Tremens(DT)s?: No Have you ever undergone Alcohol Rehabilitation Treatment (i.e, inpt ot outpatient treatment programs)?: No Have you ever Experienced Blackouts?: No Have you ever Combined Alcohol with other Downers within the last 90 days?: No Have you ever Combined Alcohol with any other Substance of Abuse during the last 90 days?: No Positive Blood Alcohol level on Presentation? [PCS.BAL]: No Evidence of Increased Autonomic Activity (i.e. HR>120, tremor, sweating, agitation, nausea)?: No Result: 0 Time Spent with Patient Time Spent with Patient: 35-49 minutes Time was spent: preparing to see the patient(eg.review tests), obtaining and/or reviewing separately otained hiistory, ordering medications,tests, procedures, referring, communicating with other health senior resident care director, indepentently interpreting results, counseling the patient and care coordination
--- NOTE | 2025-02-22 09:31 | PDOC.CMIN ---
Date of service: 02/22/25 Time of Service: 09:31 Care Management Initial Assmt Initial Assessment Reason for Hospitalization: Abdom {aom Advance Directives Advance Directives: Do you have an Advance Directive: N 09/18/20, 15:04 AD On File at [facility]: N 09/18/20, 15:04 Date Asked 02/18/25 02/18/25, 15:18 AD Date Reviewed 02/20/25 02/20/25, 12:34 COLST On File at [facility] COLST Date Scanned Code Status Resuscitation Status Full Code Care Team Visit Care Team Role Provider Type Bren Olea APRN MD [facility] STAFF PHYSICIAN Luci Bustillo Primary Care Provider NURSE PRACTITIONER Sunny Alvarez MD Other Providers [facility] STAFF PHYSICIAN Fidencio Marinelli MD Emergency Provider [facility] STAFF PHYSICIAN Markel Sanchez MD Admit Provider [facility] STAFF PHYSICIAN Attending Provider Social Determinants of Health Screening Social Determinants of health last assessed in clinic: 02/21/25 Will the Patient Participate in the Screening?: Yes Do you worry about having a steady place to live?: yes What is your living situation today?: I have housing today, but am worried about losing it Problems where you live: pests such as bugs, ants or mice In the past 12 months, have you had to go without electric, gas, oil or water in your home?: no Has lack of transportation kept you from medical appointments or from doing things needed for daily living?: no Has anyone in your life made you feel unsafe or unsupported?: no How hard is it for you to pay for the very basics like food, housing, medical care, and heating? Would you say it is:: Very hard Do you want help finding or keeping work or a job?: I do not need or want help If for any reason you need help with day-to-day activities such as bathing, preparing meals, shopping, managing finances, etc., do you get the help you need?: I could use a little more help How often do you feel lonely or isolated from those around you?: Never Do you speak a language other than [place] at home?: No Does the patient want assistance with any of the above?: Yes Health Related Social Needs Health related social needs: inadequate housing (Z59.1), housing instability, housed, with risk of homelessness (Z59.811), problems related to housing/economic circumstances (Z59.89) and problems with daily activities (Z73.9) Health related social needs details: pt has housing but is on a tight budget [facility] All Active Problems (Updated 02/20/25 @ 18:17 by Bren Olea APRN) Nausea & vomiting (Acute) SATHISH (acute kidney injury) (Acute) Lymphoma (Acute) Small bowel obstruction (Acute) Abdominal pain (Acute) Tendinitis of long head of biceps brachii of left shoulder (Acute) Bursitis of left shoulder (Acute) Hyperlipidemia (Acute) Obesity (Chronic) Lymphadenopathy (Acute) Ocular migraine (Acute) 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) Pre-diabetes (Acute) Corneal abrasion, right (Acute) Foreign body in eye (Acute) Hematuria (Acute) Bradycardia (Acute) CAD (coronary artery disease) (Chronic) Discharge planning issues (Acute) DVT prophylaxis (Acute) Community acquired pneumonia (Acute) Medical History Basal cell carcinoma arm Hyperlipidemia Benign hypertension Surgical History Coronary Stent x 2 10 yrs ago Social History Smoking/Tobacco Use Status: Former Tobacco Use Tobacco: How many years used: 45 Smoking risk assessment performed?: Yes Alcohol Intake: current Alcohol Intake frequency: a few times a month Alcohol type: beer and hard liquor Drug use: Never Substance use type: does not use Details: quit smoking in 2000 Housing: house 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
--- NOTE | 2025-02-22 09:45 | PDOC.CMPRO ---
Date of service: 02/22/25 Time of Service: 13:53 Care Management Progress Note Progress Note Text Progress Note Text: New was lying in bed and visiting with family, when CM arrived. Reginaldo was very pleasant and willing to engage in conversation. Per report, he had a visit with palliative today and is agreeable to a follow up. Reginaldo denies needed additonal support in his home, at this time. CM will continue to follow. Discharge Potential Discharge Needs: PCP F/U Appt and Surgical F/U Appt Anticipated Barriers to Discharge: Medical Status Patient/Family Education Needs: Review discharge instructions, discuss Ask Me Three Transportation: Private vehicle Plan: New's discharge plan is dependant on his improvement with his NG tube. Anticipate, New will be transferred to [facility] on Tuesday, if no improvements with NG tube. If improvement are made, he will be discharged home with new services of HH RN and MENTAL HEALTH COORDINATOR, when medically cleared by provider. He will follow up with his community providers, plan of care, and transport with family. CM will continue to support discharge planning endeavors. Social Determinants of Health Screening Social Determinants of health last assessed in clinic: 02/22/25 Will the Patient Participate in the Screening?: Yes Do you worry about having a steady place to live?: yes What is your living situation today?: I have housing today, but am worried about losing it Problems where you live: pests such as bugs, ants or mice In the past 12 months, have you had to go without electric, gas, oil or water in your home?: no 1. Within the past 12 months, we worried whether our food would run out before we got money to buy more.: Never true (children help out if he needs extra) 2. Within the past 12 months, the food we bought just didn't last and we didn't have money to get more.: Never true Has lack of transportation kept you from medical appointments or from doing things needed for daily living?: no Has anyone in your life made you feel unsafe or unsupported?: no How hard is it for you to pay for the very basics like food, housing, medical care, and heating? Would you say it is:: Very hard Do you want help finding or keeping work or a job?: I do not need or want help If for any reason you need help with day-to-day activities such as bathing, preparing meals, shopping, managing finances, etc., do you get the help you need?: I could use a little more help How often do you feel lonely or isolated from those around you?: Never Do you speak a language other than Polish at home?: No Does the patient want assistance with any of the above?: Yes Health Related Social Needs Health related social needs: inadequate housing (Z59.1), housing instability, housed, with risk of homelessness (Z59.811), problems related to housing/economic circumstances (Z59.89) and problems with daily activities (Z73.9) Health related social needs details: pt has housing but is on a tight budget
--- NOTE | 2025-02-22 10:32 | PGE_ITS ---
Date of Service Date of service: 02/22/25 Time of Service: 10:33 Assessment and Plan Assessment and plan (1) Small bowel obstruction: Status: Acute Assessment and plan: Doing equivocally today. Did not worsened from yesterday. Appears that the NG tube is helping. Continue n.p.o. status, he is on IV fluids, currently at 50 mL/h. May need to increase slightly his IV fluid, will follow creatinine tomorrow. (2) Lymphoma: Status: Acute Assessment and plan: Discussed with patient's oncology nurse from [facility] oncology, Dr. Figueroa not available today. 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 Also appears that the inguinal lymph node biopsy was sufficient. For patient's small bowel obstruction plan to treat him nonoperatively. If he does require operative examination, may be beneficial to perform abdominal lymph node biopsy if amenable anatomically. Subjective Subjective Interval history since last seen: Improvement in abdominal discomfort today. Yesterday placement of NG tube was difficult. He is not passing gas. Overall feels less distended. Exam Narrative Exam Narrative: Vital signs today are acceptable. His abdomen with some active bowel sounds. Still visibly distended, no edema nor stretching of the skin. The abdomen is soft, without rigidity nor guarding. There is tympany to percussion. Objective Last Vital Signs Temp 36.7 C 02/22/25 07:26 Pulse 61 02/22/25 07:26 Resp 16 02/22/25 07:26 BP 156/78 H 02/22/25 07:26 Pulse Ox 92 02/22/25 07:26 Laboratory Results - last 24 hr 02/22/25 06:10 WBC 15.91 H RBC 4.32 L Hgb 12.1 L Hct 37.4 L MCV 87 MCH 28.0 MCHC 32.4 RDW 14.0 Plt Count 174 MPV 9.5 Immature Gran % 0.6 Neutrophils % 72.4 Lymphocytes % 18.4 Monocytes % 8.3 Eosinophils % 0.0 Basophils % 0.3 Nucleated RBC % 0.0 Absolute Neutrophils 11.52 H Absolute Lymphocytes 2.93 Absolute Monocytes 1.32 H Absolute Eosinophils 0.00 Absolute Basophils 0.05 Sodium 138 Potassium 5.1 Chloride 101 Carbon Dioxide 29.1 Anion Gap 7.9 BUN 47 H Creatinine 1.7 H Est GFR (CKD-EPI 2020) 41.01 Glucose 114 H Calcium 9.0 Magnesium 2.5 H Objective Narrative Objective Narrative: Inputs and outputs today show about 1000 of IV fluids in, 1300 cc of fluid out from the NG tube. He is CBC today still shows a elevated white blood cell count of 15, same from yesterday. Mild elevation of the BUN and creatinine, similar to yesterday, with the exception of BUN at 41, yesterday was 34. KUB was performed today, this showing small bowel obstruction. PAWSS Have you Been Recently Intoxicated or Drunk Within the Last 30 days?: No Have you Ever Experienced Previous Episodes of Alcohol Withdrawal?: No Have you ever Experienced Withdrawal Seizures?: No Have you ever Experienced Delirium Tremens(DT)s?: No Have you ever undergone Alcohol Rehabilitation Treatment (i.e, inpt ot outpatient treatment programs)?: No Have you ever Experienced Blackouts?: No Have you ever Combined Alcohol with other Downers within the last 90 days?: No Have you ever Combined Alcohol with any other Substance of Abuse during the last 90 days?: No Positive Blood Alcohol level on Presentation? [PCS.BAL]: No Evidence of Increased Autonomic Activity (i.e. HR>120, tremor, sweating, agitation, nausea)?: No Result: 0 Time Spent with Patient Time Spent with Patient: <25 minutes Time was spent: preparing to see the patient(eg.review tests), obtaining and/or reviewing separately otained hiistory, ordering medications,tests, procedures, referring, communicating with other health chiropractic care and indepentently interpreting results
[2025-02-22] MEDS: Dexamethasone 10 MG/ML VIAL 30 MG IVP (10:36)
--- NOTE | 2025-02-22 11:07 | NUR.NOTE ---
Nursing Note: Bren Olea had spoken to [facility] about pt yesterday. Bren Segundo RN from [facility] called today to get updates, given.
--- NOTE | 2025-02-22 12:10 | W.PALLCONSUL ---
Date of service: 02/22/25 Time of Service: 12:05 History of Present Illness Narrative: Bereket Rizzo is a 79 year old with B-cell lymphoma, followed by [facility] who is currently admitted for SBO, likely r/t lymphoma. Palliative was consulted to discuss GOC. He states he is supposed to start chemo next week. He has been feeling pretty well overall. Prior to this hospitalization, he only had chronic back pain. His has been good. His weight is stable. He is getting around well. He is doing his own ADLs. Reviewed importance of HCA. He would like to name-1. Duane Rizzo, 2. Sanjuana Hancock, others who may be consulted: Babita Mckeon. Reviewed CODE STATUS. He is a FULL CODE. He does not want to be a vegetable. He understands how aggressive CPR is. He had to do it on his 4 years ago when he found her with no pulse in bed. He then watched EMS provide CPR until she was pronounced . This was traumatic for him She was 77 years old and 1 week after their 50th anniversary. Duane stops in and and checks on him daily. He has coffee with him in the morning and dinner in the evening. He stays with him sometimes. He helps out with whatever he needs His daughters live close-by, they also help out if needed. He has 5 grandkids. His goal is to remain in his home through the end of his life. He thinks his kids will help take care of him as needed. Assessment and Plan Assessment and plan (1) Small bowel obstruction: Status: Acute Assessment and plan: Oncology suspects that this is likely r/t lymphoma. NG tube in place. Pain improved. No BM. (2) Small lymphocytic B-cell lymphoma involving skin: Status: Acute Assessment and plan: Patient with a B-cell lymphoma, this involves the retroperitoneum and left kidney. He reports that he is due to start chemo next week. Discussed how Palliative can be helpful especially in the setting of a new treatment starting next week. He agrees to outpatient f/u. (3) SATHISH (acute kidney injury): Status: Acute (4) Abdominal pain: Status: Acute (5) Nausea & vomiting: Status: Acute (6) Hyperlipidemia: Status: Acute (7) Benign hypertension: (8) Palliative care patient: Status: Acute Assessment and plan: Agrees to outpatient f/u. (9) Advanced care planning/counseling discussion: Status: Acute Assessment and plan: New has 3 children that he is close to and they help him with what he needs. His goal is to remain in his home, he thinks his children will help as needed. He named his children to be his health care agents, form completed. He wishes to remain a FULL CODE at this point. Continue to review at future visits. Will ask the Palliative office to schedule outpatient f/u. Review of Systems Narrative: General: very pleasant, elderly man, sitting at the edge of his hospital bed. NG tube in place. He is awake, alert, oriented, talkative. He does not appear to be in distress. HEENT: normocephalic, atraumatic, EOMI, mmm Neck: supple Respiratory: respirations appear even and unlabored at rest and with talking. Ext: moves all 4 extremities freely. PFSH All Active Problems (Updated 02/22/25 @ 13:29 by Amanda Khan NP) Advanced care planning/counseling discussion (Acute) Palliative care patient (Acute) Nausea & vomiting (Acute) SATHISH (acute kidney injury) (Acute) Lymphoma (Acute) Small bowel obstruction (Acute) Abdominal pain (Acute) Tendinitis of long head of biceps brachii of left shoulder (Acute) Bursitis of left shoulder (Acute) Hyperlipidemia (Acute) Obesity (Chronic) Lymphadenopathy (Acute) Ocular migraine (Acute) 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) Pre-diabetes (Acute) Corneal abrasion, right (Acute) Foreign body in eye (Acute) Hematuria (Acute) Bradycardia (Acute) CAD (coronary artery disease) (Chronic) Discharge planning issues (Acute) DVT prophylaxis (Acute) Community acquired pneumonia (Acute) Medical History Basal cell carcinoma arm Hyperlipidemia Benign hypertension Surgical History Coronary Stent x 2 10 yrs ago Social History Smoking/Tobacco Use Status: Former Tobacco Use Tobacco: How many years used: 45 Smoking risk assessment performed?: Yes Alcohol Intake: current Alcohol Intake frequency: a few times a month Alcohol type: beer and hard liquor Drug use: Never Substance use type: does not use Details: quit smoking in 2000 Housing: house 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52 H Absolute Lymphocytes 2.93 Absolute Monocytes 1.32 H Absolute Eosinophils 0.00 Absolute Basophils 0.05 Sodium 138 Potassium 5.1 Chloride 101 Carbon Dioxide 29.1 Anion Gap 7.9 BUN 47 H Creatinine 1.7 H Est GFR (CKD-EPI 2020) 41.01 Glucose 114 H Calcium 9.0 Magnesium 2.5 H Time Spent Time Spent with Patient Time Spent(min): 40
--- NOTE | 2025-02-22 12:19 | PHACLINREV_ITS ---
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 Pharmacy Admission Review Renal Dosing Renal Dosing: BUN 47 mg/dL (7-18) H 02/22/25 06:10 Creatinine 1.7 mg/dL (0.70-1.30) H 02/22/25 06:10 Medications needing adjustments: Reviewed (Crcl ~41.5 mL/min current meds are okay) Anticoagulation Anticoagulation: Hgb 12.1 g/dL (13.5-17.5) L 02/22/25 06:10 Hct 37.4 % (40.0-50.0) L 02/22/25 06:10 Plt Count 174 10^3/uL (130-400) 02/22/25 06:10 Creatinine 1.7 mg/dL (0.70-1.30) H 02/22/25 06:10 DVT Prophylaxis: Reviewed (SCDs ordered, enoxaparin was ordered on admission but refused per H&P) Opiate Usage Evaluate Pain Scale/Pains Meds: N/A Relevant Labs Relevant Labs: Sodium 138 mmol/L (136-145) 02/22/25 06:10 Potassium 5.1 mmol/L (3.5-5.1) 02/22/25 06:10 Chloride 101 mmol/L (98-107) 02/22/25 06:10 Magnesium 2.5 mg/dL (1.8-2.4) H 02/22/25 06:10 Electrolytes, C-Reactive P, ESR: Reviewed DM Control DM Control: Glucose 114 mg/dL (74-106) H 02/22/25 06:10 DM Control: Reviewed (Prediabeted noted in pt's medical history, no recent A1c.) Cardiac Review BP, HR, EF%: Reviewed (BP has been elevated and HR has been low to normal most of admission so far. Home amlodipine dose is order; losartan and furosmide on hold per H&P. ) QTc Review QTc: N/A IV to PO Switch IV Medications: Reviewed (Pt is NPO) Home Meds Home Med List reviewed: Reviewed ([facility] med rec completed 02/20) Relevent Home Meds Not ordered & why?: furosemide and lostartan (being held per H&P), ezetimibe Current Meds Current Medication Order Review: Intervened (Discontinued duplicate med orders, adjusted tamsulosin so 30 min after morning meal ) Comments Comments/Follow Ups: Watch BP, SCr, labs and for med changes (possible renal dose adjustments, IV to PO once pt is no longer NPO, home meds).
--- NOTE | 2025-02-22 12:44 | W.NUTRFU ---
Date of service: 02/22/25 Time of Service: 12:44 Nutrition Note NOTE: 79yo male has been npo status since 611 in ER d/t SBO - NG tube in place today. Per morning meeting plan is to tsfr to [facility] Tuesday if not resolved. PMH significant for Lymphoma, HLD, Obesity (classIII), pre-daibetes, CAD. LAst recorded A1C was 5.9% September 2019. Magnesium 2.5 today - other lytes wnl. fasting glucose 114 this morning. wt history with small changes but stable at least over 2years. Initial nutrition dx: inadequate intake d.t npo status for at least 24 hours while treating for SBO. Will monitor for diet advancement and help support healthy intake. If tsfr necessary will remain available for outpatient services post discharge. Time Spent in Nutritional Counseling and Treatment: 0
[2025-02-22] MEDS: Loratidine 10 MG TAB PO (19:41)
[2025-02-22] MEDS: Celecoxib 200 MG CAP PO (19:41)
[2025-02-22] MEDS: Lovastatin 40 MG TAB PO (19:41)
[2025-02-22 20:14] VITALS: BP 145/91; PULSE 61; RESP 19; TEMP 36.7; O2SAT 89
[2025-02-23] MEDS: Lactated Ringers 1,000 ML 50 ML IV (04:39)
[2025-02-23 07:31] VITALS: BP 154/98; PULSE 77; RESP 16; TEMP 36.5; O2SAT 89
--- NOTE | 2025-02-23 08:00 | DI.RAD_ITS ---
Exam(s) XR ABDOMEN FLAT PLATE EXAM: XR ABDOMEN FLAT PLATE CLINICAL HISTORY: SBO. TECHNIQUE: 2D digital imaging was performed. COMPARISON: CR XR ABDOMEN FLAT PLATE from 02/22/2025 FINDINGS: AP supine view the abdomen-pelvis. NG tube is in the region of the gastric fundus. Stomach is not distended. However, there are air-filled and distended small bowel loops in the abdomen again noted without improvement from yesterday. On the right side there is air which is either within cecum and ascending colon or less dilated small bowel loops. The appendix appears to be aligned with air. IMPRESSION: Persistent mid-distal small-bowel obstruction pattern. May be incomplete obstruction NG tube is in the stomach and the stomach is not distended. DATA REPOSITORY: RADIATION DOSE DELIVERED:
[2025-02-23] MEDS: Aspirin E.C. 81 MG TABEC PO (08:10)
[2025-02-23] MEDS: Pantoprazole 40 MG VIAL IVP ×2 (08:11→19:44)
[2025-02-23] MEDS: Tamsulosin 0.4 MG CAPCR PO (08:11)
[2025-02-23] MEDS: amLODIPine 5 MG TAB PO (08:11)
[2025-02-23] MEDS: Dexamethasone 10 MG/ML VIAL 40 MG IVP (08:11)
[2025-02-23] MEDS: Normal Saline Flush 10 ML SYR IVP ×3 (08:12→19:43)
[2025-02-23] MEDS: ACETAMINOPHEN 1,000 MG/100 ML BAG 400 MG IVPB ×2 (08:13→23:51)
--- NOTE | 2025-02-23 09:43 | DI.VRAD_ITS ---
PROCEDURE INFORMATION: Exam: XR Abdomen Exam date and time: 02/23/2025 8:34 AM Age: 79 years old Clinical indication: Other: Sbo TECHNIQUE: Imaging protocol: Radiologic exam of the abdomen. Views: Frontal supine view of the abdomen. 1 View. COMPARISON: CR XR ABDOMEN FLAT PLATE 02/22/2025 8:09 AM FINDINGS: Tubes, catheters and devices: Tip of the feeding tube is in the stomach. Gastrointestinal tract: Mild increase in the gaseous distension of the visualized bowel loops reaching 5 cm in the mid abdomen ligament, consistent with the patient's known small bowel obstruction. Bones/joints: There are mild degenerative changes of the hip joints. The pubic symphysis demonstrates mild degenerative changes. There are mild degenerative changes of the sacroiliac joints. IMPRESSION: Gaseous distension of the bowel loops consistent with the patient's known small bowel obstruction. Dictated and Authenticated by: Royal Castro MD. Orderin Kim Correa MD
--- NOTE | 2025-02-23 10:45 | W.PM.PROGNOT ---
Date of Service Date of service: 02/23/25 Time of Service: 10:45 Assessment and Plan Assessment and plan (1) Small bowel obstruction: Status: Acute Assessment and plan: Oncology suspects that this is likely r/t lymphoma. NG tube in place, continue routine NG tube care and monitoring. N.p.o. status IV fluid rate increased to 125 cc/hr, monitor fluid volume status closely and adjust as needed. Pain improved. No BM. Repeat abdominal imaging this morning shows ongoing obstruction Encouraging ambulation. Plan for transfer to [facility] tuesday if still obstructed or sooner if deteriorates (2) Small lymphocytic B-cell lymphoma involving skin: Status: Acute Assessment and plan: Patient with a B-cell lymphoma, this involves the retroperitoneum and left kidney. due to start chemo next week. palliative care will be following (3) SATHISH (acute kidney injury): Status: Acute Assessment and plan: bcell lymphoma involving kidney Avoid nephrotoxic drugs Renally dose meds as needed monitor I&O and electrolytes. (4) Nausea & vomiting: Status: Acute Assessment and plan: d/t bowel obstruction Resolved with NG tube (5) Hyperlipidemia: Status: Acute Assessment and plan: statin on hold in setting of SBO (6) Benign hypertension: Assessment and plan: Blood pressures have been elevated as he is off his losartan Lasix and amlodipine scheduled hydralazine with holding parameters scheduled daily furosemide (7) Palliative care patient: Status: Acute Assessment and plan: Palliative care consulted and following (8) DVT prophylaxis: Status: Acute Assessment and plan: Enoxaparin daily discussed with Dr Sanchez Subjective Subjective Patient reports: no new complaints Interval history since last seen: NG tube continues to drain bilious fluid. He has been ambulating frequently in the halls. Has remained hemodynamically stable and afebrile. He is not passing flatus Exam Narrative Exam Narrative: Well-appearing male of stated age no acute distress head is atraumatic normocephalic eyes nonicteric noninjected oral mucosa slightly dry NG tube intact and draining dark green/yellow fluid. Neck full range of motion cardiovascular regular rate and rhythm respirations even and unlabored abdomen is round distended soft nontender no bowel sounds appreciated moves all extremities no peripheral edema neurologic he is awake alert oriented no focal deficits psychiatric appropriate mood and affect Objective Last Vital Signs Temp 36.5 C 02/23/25 07:31 Pulse 77 02/23/25 07:31 Resp 16 02/23/25 07:31 BP 154/98 H 02/23/25 07:31 Pulse Ox 89 L 02/23/25 07:31 PAWSS Have you Been Recently Intoxicated or Drunk Within the Last 30 days?: No Have you Ever Experienced Previous Episodes of Alcohol Withdrawal?: No Have you ever Experienced Withdrawal Seizures?: No Have you ever Experienced Delirium Tremens(DT)s?: No Have you ever undergone Alcohol Rehabilitation Treatment (i.e, inpt ot outpatient treatment programs)?: No Have you ever Experienced Blackouts?: No Have you ever Combined Alcohol with other Downers within the last 90 days?: No Have you ever Combined Alcohol with any other Substance of Abuse during the last 90 days?: No Positive Blood Alcohol level on Presentation? [PCS.BAL]: No Evidence of Increased Autonomic Activity (i.e. HR>120, tremor, sweating, agitation, nausea)?: No Result: 0 Time Spent with Patient Time Spent with Patient: 35-49 minutes Time was spent: preparing to see the patient(eg.review tests), obtaining and/or reviewing separately otained hiistory, ordering medications,tests, procedures, indepentently interpreting results and counseling the patient
[2025-02-23] MEDS: hydrALAZINE 20 MG/ML VIAL 10 MG IVP ×2 (11:13→22:15)
--- NOTE | 2025-02-23 12:14 | W.PM.PROGNOT ---
Date of Service Date of service: 02/23/25 Time of Service: 12:15 Assessment and Plan Assessment and plan (1) Small bowel obstruction: Status: Acute Assessment and plan: Appears to be improving, continue n.p.o. status with NG tube to low intermittent suction. Will order KUB for the morning. Plan for Gastrografin study on Tuesday. (2) Lymphoma: Status: Acute Assessment and plan: Reviewed note from hospitalist, bonnie Jackson today, plans and work for transfer to [facility], if not improving by Tuesday. This is reasonable, was also the plan established by oncologist. Subjective Subjective Interval history since last seen: Patient is passing some gas today. He does not have any nausea. Subjectively feels like his distention is improving. Exam Narrative Exam Narrative: Vitals unremarkable today. Patient is a pleasant adult male, he is in minimal discomfort today. An NG tube is present, the output from this is recorded at 600 cc, the fluid is greenish and translucent. Patient's abdomen is with some abdominal obesity, but also visible distention. There is no edema nor stretching of the skin. There are very diminished bowel sounds. The abdomen is with tympany to percussion, but soft and nontender. Objective Last Vital Signs Temp 36.5 C 02/23/25 07:31 Pulse 77 02/23/25 07:31 Resp 16 02/23/25 07:31 BP 154/98 H 02/23/25 07:31 Pulse Ox 89 L 02/23/25 07:31 Objective Narrative Objective Narrative: Laboratory values unremarkable today. A KUB was performed and this shows persistent small bowel obstruction. On my review of the images, the small intestinal dilation does appear to be improving just slightly. PAWSS Have you Been Recently Intoxicated or Drunk Within the Last 30 days?: No Have you Ever Experienced Previous Episodes of Alcohol Withdrawal?: No Have you ever Experienced Withdrawal Seizures?: No Have you ever Experienced Delirium Tremens(DT)s?: No Have you ever undergone Alcohol Rehabilitation Treatment (i.e, inpt ot outpatient treatment programs)?: No Have you ever Experienced Blackouts?: No Have you ever Combined Alcohol with other Downers within the last 90 days?: No Have you ever Combined Alcohol with any other Substance of Abuse during the last 90 days?: No Positive Blood Alcohol level on Presentation? [PCS.BAL]: No Evidence of Increased Autonomic Activity (i.e. HR>120, tremor, sweating, agitation, nausea)?: No Result: 0 Time Spent with Patient Time Spent with Patient: <25 minutes Time was spent: preparing to see the patient(eg.review tests), obtaining and/or reviewing separately otained hiistory, ordering medications,tests, procedures, indepentently interpreting results and counseling the patient
[2025-02-23 19:17] VITALS: BP 170/89; PULSE 58; RESP 20; TEMP 36.9; O2SAT 92
[2025-02-23 21:31] VITALS: BP 169/88; PULSE 53; RESP 18; TEMP 36.6; O2SAT 97
[2025-02-24] VITALS (7 sets, daily range): BP systolic 129–162; BP diastolic 67–83; PULSE 53–67; RESP 15–19; TEMP 36.3–36.5; O2SAT 92–94
[2025-02-24] MEDS: Lactated Ringers 1,000 ML 50 ML IV (00:59)
[2025-02-24] MEDS: hydrALAZINE 20 MG/ML VIAL 10 MG IVP ×3 (04:48→17:11)
[2025-02-24] MEDS: Normal Saline Flush 10 ML SYR IVP ×5 (04:49→21:18)
--- NOTE | 2025-02-24 08:00 | DI.RAD_ITS ---
Exam(s) XR ABDOMEN FLAT PLATE EXAM: XR ABDOMEN FLAT PLATE CLINICAL HISTORY: SBO. TECHNIQUE: 2D digital imaging was performed. COMPARISON: CR,XR XR ABDOMEN FLAT PLATE from 02/23/2025 FINDINGS: AP supine view of the abdomen-pelvis: There is again noted an NG tube in the stomach and the stomach is not distended. However, there are again noted air-filled dilated small bowel loops in the abdomen and pelvis. There is a small amount of air seen in the splenic flexure of the colon. There is no gas in the rectum. Regional bones unremarkable. IMPRESSION: Persistent small-bowel obstruction pattern. NG tube remains in the stomach. DATA REPOSITORY: RADIATION DOSE DELIVERED:
--- NOTE | 2025-02-24 08:29 | DI.VRAD_ITS ---
PROCEDURE INFORMATION: Exam: XR Abdomen Exam date and time: 02/24/2025 8:10 AM Age: 79 years old Clinical indication: Other: Sbo TECHNIQUE: Imaging protocol: Radiologic exam of the abdomen. Views: Frontal supine view of the abdomen. 1 View. COMPARISON: CR XR ABDOMEN FLAT PLATE 02/23/2025 8:34 AM FINDINGS: Tubes, catheters and devices: Nasogastric tube terminates in the expected location of the stomach. Gastrointestinal tract: Multiple dilated gas-filled small bowel loops consistent with obstruction. Bones/joints: Unremarkable. IMPRESSION: Findings consistent with small bowel obstruction. This is a known finding. Dictated and Authenticated by: Caitlin Shipman MD. Orderin Kim Correa MD
[2025-02-24] MEDS: Aspirin E.C. 81 MG TABEC PO (08:44)
[2025-02-24] MEDS: Furosemide 20 MG/2 ML VIAL 10 MG IVP (08:45)
[2025-02-24] MEDS: Pantoprazole 40 MG VIAL IVP ×2 (08:45→21:17)
[2025-02-24] MEDS: ACETAMINOPHEN 1,000 MG/100 ML BAG 400 MG IVPB ×2 (08:45→16:02)
[2025-02-24] MEDS: Dexamethasone 10 MG/ML VIAL 40 MG IVP (08:45)
--- NOTE | 2025-02-24 12:59 | W.PM.PROGNOT ---
Date of Service Date of service: 02/24/25 Time of Service: 12:59 Assessment and Plan Assessment and plan (1) Small bowel obstruction: Status: Acute Assessment and plan: Doing slightly better today subjectively. His KUB does show some mild improvement in the bowel dilation. The output from the NG tube has dropped down. Plan for Gastrografin study tomorrow. If the contrast tomorrow taken orally fails to pass, it is reasonable to offer him an operation, or wait more time. In his case, I would prefer to wait, as I think he will open up. By Tuesday, he will need to be started on parenteral nutrition, if he remains NPO. From prior notes, there has been discussion of transfer of Mr. Rizzo to [facility], I think this will be good if it can be arranged, as all of his oncologic care has been through [facility]. (2) Lymphoma: Status: Acute Assessment and plan: Some ambiguity, as to the diagnosis of the left sided perirenal mass, this appears as a slow-growing lymphoma. 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 During operative exploration (if he requires it), may need additional lymph node biopsy. (3) SATHISH (acute kidney injury): Status: Acute Assessment and plan: Does not have a history of underlying CKD, have ordered BMP stat for today, to follow fluid status, as well as laboratory values for tomorrow. His urine output appears excellent. Subjective Subjective Interval history since last seen: He still is passing gas. Reports that his sensation of abdominal distention has improved. He is very hungry. He has been ambulating. Exam Narrative Exam Narrative: Patient is a pleasant adult male, he is awake and alert, in no discomfort today. His abdomen on exam today does appear less distended than yesterday superficially. He has hypoactive bowel sounds. The abdomen is soft, and palpation some diminished distention from yesterday. Nontender on examination. Objective Last Vital Signs Temp 36.5 C 02/24/25 07:09 Pulse 67 02/24/25 11:46 Resp 16 02/24/25 07:09 BP 151/83 H 02/24/25 11:46 Pulse Ox 92 02/24/25 07:09 Objective Narrative Objective Narrative: No laboratory values today, none were ordered yesterday either. (Have reordered these stat). KUB was performed today, this shows persistence of the small intestinal dilation, on my view of the images, and some areas of the small intestine the dilation has regressed slightly. PAWSS Have you Been Recently Intoxicated or Drunk Within the Last 30 days?: No Have you Ever Experienced Previous Episodes of Alcohol Withdrawal?: No Have you ever Experienced Withdrawal Seizures?: No Have you ever Experienced Delirium Tremens(DT)s?: No Have you ever undergone Alcohol Rehabilitation Treatment (i.e, inpt ot outpatient treatment programs)?: No Have you ever Experienced Blackouts?: No Have you ever Combined Alcohol with other Downers within the last 90 days?: No Have you ever Combined Alcohol with any other Substance of Abuse during the last 90 days?: No Positive Blood Alcohol level on Presentation? [PCS.BAL]: No Evidence of Increased Autonomic Activity (i.e. HR>120, tremor, sweating, agitation, nausea)?: No Result: 0 Time Spent with Patient Time Spent with Patient: 25-34 minutes Time was spent: preparing to see the patient(eg.review tests), ordering medications,tests, procedures, indepentently interpreting results and counseling the patient
[2025-02-24 13:13] LABS: Abs Immature Grans 0.09 10^3/uL (0.0-0.06); Absolute Basophil Count 0.11 10^3/uL (0.0-0.2); Absolute Eosinophil Count 0.01 10^3/uL (0.0-0.7); Absolute Lymphocyte Count 2.12 10^3/uL (1.2-3.4); Absolute Monocyte Count 0.46 10^3/uL (0.1-0.8); Absolute Neutrophil Count 11.43 10^3/uL (1.2-6.7); Basophils % 0.8 %; Eosinophils % 0.1 %; HCT 41.8 % (40.0-50.0); HGB 13.8 g/dL (13.5-17.5); Immature Grans % 0.6 %; Lymphocytes % 14.9 %; MCH 27.9 pg (27.0-33.0); MCV 85 fL (80-95); MPV 9.2 fL (8.0-11.0); Monocytes % 3.2 %; Neutrophils % 80.4 %; Platelet Count 177 10^3/uL (130-400); RBC 4.94 10^6/uL (4.36-5.78); RDW-SD 42.9 fL; WBC 14.22 10^3/uL (4.4-10.8)
[2025-02-24 13:23] LABS: Anion Gap 7.7 mmol/L (3-11); BUN 51 mg/dL (7-18); CO2 25.3 mmol/L (21.0-32.0); CREATININE 1.3 mg/dL (0.70-1.30); Calcium 8.6 mg/dL (8.5-10.1); Chloride 101 mmol/L (98-107); Estimated GFR 56.58 (mL/min/1.73m2); Glucose 107 mg/dL (74-106); Magnesium 2.3 mg/dL (1.8-2.4); Potassium 4.4 mmol/L (3.5-5.1); Sodium 134 mmol/L (136-145)
--- NOTE | 2025-02-24 13:56 | PGE_ITS ---
Date of Service Date of service: 02/24/25 Time of Service: 13:56 Assessment and Plan Assessment and plan (1) Small bowel obstruction: Status: Acute Assessment and plan: Oncology suspects that this is likely r/t lymphoma. NG tube in place, continue routine NG tube care and monitoring. N.p.o. status IV fluid rate increased to 125 cc/hr, monitor fluid volume status closely and adjust as needed. Pain improved. No BM. Repeat abdominal imaging this morning shows ongoing obstruction Encouraging ambulation. Plan for transfer to [facility] tuesday if still obstructed or sooner if deteriorates 02/24/25 Notes reviewed from (Kim). abd film from this am indicates continued sbo will defer to but will try to facilitated xfer to higher level of care (2) Small lymphocytic B-cell lymphoma involving skin: Status: Acute Assessment and plan: Patient with a B-cell lymphoma, this involves the retroperitoneum and left kidney. due to start chemo next week. palliative care will be following (3) SATHISH (acute kidney injury): Status: Acute Assessment and plan: bcell lymphoma involving kidney Avoid nephrotoxic drugs Renally dose meds as needed monitor I&O and electrolytes. 02/24/25 no am labs, recheck in am (4) Nausea & vomiting: Status: Acute Assessment and plan: d/t bowel obstruction Resolved with NG tube (5) Hyperlipidemia: Status: Acute Assessment and plan: statin on hold in setting of SBO (6) Benign hypertension: Assessment and plan: Blood pressures have been elevated as he is off his losartan Lasix and amlodipine scheduled hydralazine with holding parameters scheduled daily furosemide (7) Palliative care patient: Status: Acute Assessment and plan: Palliative care consulted and following (8) DVT prophylaxis: Status: Acute Assessment and plan: Enoxaparin daily discussed with Dr Sanchez Subjective Subjective Interval history since last seen: pt states that his appetite has returned. Per NS, pt is not to have ice chips Exam Narrative Exam Narrative: Patient is a pleasant adult male, he is awake and alert, in no discomfort today. His abdomen on exam today does appear less distended than yesterday superficially. He has hypoactive bowel sounds. The abdomen is soft, and palpation some diminished distention from yesterday. Nontender on examination. NG tube remains in place Objective Last Vital Signs Temp 36.5 C 02/24/25 07:09 Pulse 67 02/24/25 11:46 Resp 16 02/24/25 07:09 BP 151/83 H 02/24/25 11:46 Pulse Ox 92 02/24/25 07:09 Laboratory Results - last 24 hr 02/24/25 13:04 WBC 14.22 H RBC 4.94 Hgb 13.8 Hct 41.8 MCV 85 MCH 27.9 MCHC 33.0 RDW 14.0 Plt Count 177 MPV 9.2 Immature Gran % 0.6 Neutrophils % 80.4 Lymphocytes % 14.9 Monocytes % 3.2 Eosinophils % 0.1 Basophils % 0.8 Nucleated RBC % 0.0 Absolute Neutrophils 11.43 H Absolute Lymphocytes 2.12 Absolute Monocytes 0.46 Absolute Eosinophils 0.01 Absolute Basophils 0.11 Sodium 134 L Potassium 4.4 Chloride 101 Carbon Dioxide 25.3 Anion Gap 7.7 BUN 51 H Creatinine 1.3 Est GFR (CKD-EPI 2020) 56.58 Glucose 107 H Calcium 8.6 Magnesium 2.3 PAWSS Have you Been Recently Intoxicated or Drunk Within the Last 30 days?: No Have you Ever Experienced Previous Episodes of Alcohol Withdrawal?: No Have you ever Experienced Withdrawal Seizures?: No Have you ever Experienced Delirium Tremens(DT)s?: No Have you ever undergone Alcohol Rehabilitation Treatment (i.e, inpt ot outpatient treatment programs)?: No Have you ever Experienced Blackouts?: No Have you ever Combined Alcohol with other Downers within the last 90 days?: No Have you ever Combined Alcohol with any other Substance of Abuse during the last 90 days?: No Positive Blood Alcohol level on Presentation? [PCS.BAL]: No Evidence of Increased Autonomic Activity (i.e. HR>120, tremor, sweating, agitation, nausea)?: No Result: 0 Time Spent with Patient Time Spent with Patient: 25-34 minutes Time was spent: preparing to see the patient(eg.review tests), obtaining and/or reviewing separately otained hiistory, ordering medications,tests, procedures, referring, communicating with other health manager intensive care unit, indepentently interpreting results, counseling the patient and care coordination
[2025-02-24] MEDS: Lactated Ringers 1,000 ML 125 ML IV (21:18)
[2025-02-25] VITALS (9 sets, daily range): BP systolic 124–157; BP diastolic 63–83; PULSE 53–62; RESP 14–18; TEMP 36.2–36.8; O2SAT 93–95
[2025-02-25] MEDS: ACETAMINOPHEN 1,000 MG/100 ML BAG 400 MG IVPB ×2 (02:12→08:28)
[2025-02-25] MEDS: Lactated Ringers 1,000 ML 125 ML IV (05:51)
[2025-02-25] MEDS: hydrALAZINE 20 MG/ML VIAL 10 MG IVP ×2 (05:52→18:55)
[2025-02-25 06:40] LABS: Absolute Basophil Count 0.13 10^3/uL (0.0-0.2); Absolute Monocyte Count 1.62 10^3/uL (0.1-0.8); Basophils % 0.9 %; HCT 41.7 % (40.0-50.0); HGB 13.2 g/dL (13.5-17.5); Immature Grans % 0.7 %; Lymphocytes % 27.1 %; MCH 26.9 pg (27.0-33.0); MCHC 31.7 % (32.0-36.0); MCV 85 fL (80-95); MPV 9.3 fL (8.0-11.0); Monocytes % 11.6 %; Neutrophils % 59.7 %; Platelet Count 192 10^3/uL (130-400); RDW-SD 43.2 fL; WBC 13.93 10^3/uL (4.4-10.8)
[2025-02-25 06:46] LABS: Absolute Lymphocyte Count 3.78 10^3/uL (1.2-3.4); Absolute Neutrophil Count 8.32 10^3/uL (1.2-6.7)
[2025-02-25 06:57] LABS: Anion Gap 8.4 mmol/L (3-11); BUN 53 mg/dL (7-18); CO2 25.6 mmol/L (21.0-32.0); CREATININE 1.2 mg/dL (0.70-1.30); Calcium 8.9 mg/dL (8.5-10.1); Chloride 104 mmol/L (98-107); Estimated GFR 62.29 (mL/min/1.73m2); Glucose 89 mg/dL (74-106); Potassium 4.3 mmol/L (3.5-5.1); Sodium 138 mmol/L (136-145)
[2025-02-25] MEDS: Gastrografin 120 ML BTL PO (08:08)
[2025-02-25] MEDS: Pantoprazole 40 MG VIAL IVP ×2 (08:29→20:39)
[2025-02-25] MEDS: Dexamethasone 10 MG/ML VIAL 40 MG IVP (08:29)
[2025-02-25] MEDS: Furosemide 20 MG/2 ML VIAL 10 MG IVP (08:29)
[2025-02-25] MEDS: Normal Saline Flush 10 ML SYR IVP ×2 (08:35→20:39)
--- NOTE | 2025-02-25 09:00 | CMPROGNOTE_ITS ---
Date of service: 02/25/25 Time of Service: 09:00 Care Management Progress Note Progress Note Text Progress Note Text: Reginaldo was sitting up in bed when CM met with him. He was talking on the phone and sharing his good news, namely that his NG tube will likely come out tomorrow. Reginaldo informed CM that Dr. Alvarez told him that he passesd his Xray test (gastrograffin study) and is now allowed to have water. His bowel obstruction appears to have resolved and he anticipates having a clear liquid dinner. If he tolerates it, he will have a regular diet in the morning and the NG tube will be removed. Reginaldo admitted to being very relieved and happy with the outcome. He shared that he is scheduled to begin chemotherapy on Tuesday and hopes this does not interfere with the plan. Discharge Potential Discharge Needs: PCP F/U Appt and Surgical F/U Appt Anticipated Barriers to Discharge: None Identified Patient/Family Education Needs: Review discharge instructions, discuss Ask Me Three Transportation: Private vehicle Plan: Anticipate New will be discharged with no new services when medically cleared by provider. He will follow up with his community providers and plan of acre and transport with family. CM will continue to support discharge planning endeavors. Social Determinants of Health Screening Social Determinants of health last assessed in clinic: 02/25/25 Will the Patient Participate in the Screening?: Yes Do you worry about having a steady place to live?: yes What is your living situation today?: I have housing today, but am worried about losing it Problems where you live: pests such as bugs, ants or mice In the past 12 months, have you had to go without electric, gas, oil or water in your home?: no 1. Within the past 12 months, we worried whether our food would run out before we got money to buy more.: Never true 2. Within the past 12 months, the food we bought just didn't last and we didn't have money to get more.: Never true Has lack of transportation kept you from medical appointments or from doing things needed for daily living?: no Has anyone in your life made you feel unsafe or unsupported?: no How hard is it for you to pay for the very basics like food, housing, medical care, and heating? Would you say it is:: Very hard Do you want help finding or keeping work or a job?: I do not need or want help If for any reason you need help with day-to-day activities such as bathing, preparing meals, shopping, managing finances, etc., do you get the help you need?: I could use a little more help How often do you feel lonely or isolated from those around you?: Never Do you speak a language other than Spanish at home?: No Does the patient want assistance with any of the above?: Yes Health Related Social Needs Health related social needs: inadequate housing (Z59.1), housing instability, housed, with risk of homelessness (Z59.811), problems related to housing/economic circumstances (Z59.89) and problems with daily activities (Z73.9) Health related social needs details: pt has housing but is on a tight budget
--- NOTE | 2025-02-25 09:00 | DI.RAD_ITS ---
Exam(s) XR ABDOMEN FLAT PLATE EXAM: 2D digital imaging was performed. CLINICAL HISTORY: Gastrografin study, assess for transit, 1hr film. COMPARISON: CR,XR XR ABDOMEN FLAT PLATE from 02/24/2025 TECHNIQUE: Supine views of the abdomen performed. Two views were obtained. FINDINGS: BOWEL GAS PATTERN: This is a limited examination. These images were obtained 1 hour after administration of Gastrografin. The oral contrast has advanced into the mid small bowel. The bowel gas pattern is unchanged. There is air seen in both the small and large bowel. Air is noted in the rectum. CALCIFICATIONS: No radiopaque calcifications. OSSEOUS STRUCTURES: Normal for age. OTHER FINDINGS: Atherosclerotic calcifications are present. IMPRESSION: 1. These images were obtained 1 hour after the administration of Gastrografin. 2. The oral contrast has advanced into the mid small bowel at this time. 3. Continued follow-up is recommended to exclude small bowel obstruction. DATA REPOSITORY: RADIATION DOSE DELIVERED:
--- NOTE | 2025-02-25 09:10 | PGE_ITS ---
Date of Service Date of service: 02/25/25 Time of Service: 09:10 Assessment and Plan Assessment and plan (1) Small bowel obstruction: Status: Acute Assessment and plan: Oncology suspects that this is likely r/t lymphoma. NG tube discontinue clears IV fluid d/c Repeat abdominal imaging with gastrograffin challenge shows resolved SBO Encouraging ambulation. Notes reviewed from YARIEL (Kim). oral decadron taper on 02/26 asper discussion with [facility] hematology -Dr. Marino for Dr. Arriola (2) Small lymphocytic B-cell lymphoma involving skin: Status: Acute Assessment and plan: Patient with a B-cell lymphoma, this involves the retroperitoneum and left kidney. due to start chemo next week- will call oncology on d/c for plan . palliative care following (3) SATHISH (acute kidney injury): Status: Acute Assessment and plan: bcell lymphoma involving kidney Avoid nephrotoxic drugs Renally dose meds as needed monitor I&O and electrolytes. Cr stable at 1.2 was 1.6 (4) Nausea & vomiting: Status: Acute Assessment and plan: d/t bowel obstruction Resolved (5) Hyperlipidemia: Status: Acute Assessment and plan: statin on hold in setting of SBO CMP in AM no increased LFT's on admission (6) Benign hypertension: Assessment and plan: Blood pressures have been elevated as he is off his losartan Lasix and amlodipine Resume home medicines in AM scheduled hydralazine with holding parameters and stop time scheduled daily furosemide (7) Palliative care patient: Status: Acute Assessment and plan: Palliative care consulted -please read notes (8) DVT prophylaxis: Status: Acute Assessment and plan: Enoxaparin daily discussed with Dr Romero Subjective Subjective Patient reports: feels better, tolerating liquids well, voiding w/o difficulty and afebrile; denies blood in stool, nausea, vomiting or shortness of breath Exam Narrative Exam Narrative: 79 years old male patient appearing of stated age, w/o acute distress, no neurological focal deficit, clear lungs, S1, S2 regular, abdomen is non- distended, soft nontender, bowel sounds are present no CVA tenderness, moves all 4 ext. Objective Last Vital Signs Temp 36.2 C L 02/25/25 07:22 Pulse 55 L 02/25/25 07:22 Resp 14 02/25/25 07:22 BP 145/76 H 02/25/25 07:22 Pulse Ox 95 02/25/25 07:22 Laboratory Results - last 24 hr 02/24/25 02/25/25 13:04 06:20 WBC 14.22 H 13.93 H RBC 4.94 4.90 Hgb 13.8 13.2 L Hct 41.8 41.7 MCV 85 85 MCH 27.9 26.9 L MCHC 33.0 31.7 L RDW 14.0 14.0 Plt Count 177 192 MPV 9.2 9.3 Immature Gran % 0.6 0.7 Neutrophils % 80.4 59.7 Lymphocytes % 14.9 27.1 Monocytes % 3.2 11.6 Eosinophils % 0.1 0.0 Basophils % 0.8 0.9 Nucleated RBC % 0.0 0.0 Absolute Neutrophils 11.43 H 8.32 H Absolute Lymphocytes 2.12 3.78 H Absolute Monocytes 0.46 1.62 H Absolute Eosinophils 0.01 0.00 Absolute Basophils 0.11 0.13 Sodium 134 L 138 Potassium 4.4 4.3 Chloride 101 104 Carbon Dioxide 25.3 25.6 Anion Gap 7.7 8.4 BUN 51 H 53 H Creatinine 1.3 1.2 Est GFR (CKD-EPI 2020) 56.58 62.29 Glucose 107 H 89 Calcium 8.6 8.9 Magnesium 2.3 PAWSS Have you Been Recently Intoxicated or Drunk Within the Last 30 days?: No Have you Ever Experienced Previous Episodes of Alcohol Withdrawal?: No Have you ever Experienced Withdrawal Seizures?: No Have you ever Experienced Delirium Tremens(DT)s?: No Have you ever undergone Alcohol Rehabilitation Treatment (i.e, inpt ot outpatient treatment programs)?: No Have you ever Experienced Blackouts?: No Have you ever Combined Alcohol with other Downers within the last 90 days?: No Have you ever Combined Alcohol with any other Substance of Abuse during the last 90 days?: No Positive Blood Alcohol level on Presentation? [PCS.BAL]: No Evidence of Increased Autonomic Activity (i.e. HR>120, tremor, sweating, agitation, nausea)?: No Result: 0 Time Spent with Patient Time Spent with Patient: >50 minutes Time was spent: preparing to see the patient(eg.review tests), obtaining and/or reviewing [facility], ordering medications,tests, procedures, referring, communicating with other health clinical care leader, indepentently interpreting results, counseling the patient and care coordination
--- NOTE | 2025-02-25 13:00 | DI.RAD_ITS ---
Exam(s) XR ABDOMEN FLAT PLATE EXAM: 2D digital imaging was performed. CLINICAL HISTORY: SBO, gastrografin study, 4hr film. COMPARISON: CR XR ABDOMEN FLAT PLATE from 02/25/2025 TECHNIQUE: Supine views of the abdomen performed. Three images were obtained. FINDINGS: BOWEL GAS PATTERN: The patient was administered Gastrografin prior to this examination. The oral contrast continued to progress and is now in the rectum. There is no evidence of bowel obstruction. CALCIFICATIONS: No radiopaque calcifications. OSSEOUS STRUCTURES: Normal for age. OTHER FINDINGS: There is an enteric tube with its tip in the stomach. IMPRESSION: 1. Nonobstructive bowel gas pattern. 2. The leading edge of the oral contrast is seen in the rectum. DATA REPOSITORY: RADIATION DOSE DELIVERED:
--- NOTE | 2025-02-25 16:47 | PGE_ITS ---
Date of Service Date of service: 02/25/25 Time of Service: 16:47 Assessment and Plan Assessment and plan (1) Small bowel obstruction: Status: Acute Assessment and plan: This does appear to be improving. His KUB in the morning, as well as the afternoon showed good passage of contrast. Will keep the NG tube present, as there was some difficulty in placing it. Will start the patient on a clear liquid diet, NG tube will be clamped. I have ordered KUB for the morning, likely remove NG tube tomorrow, and potentially discharge home. Subjective Subjective Interval history since last seen: Patient is feeling well today. He is not experiencing nausea nor vomiting. He tolerated the enteral contrast, and has had multiple bowel movements. Minimal abdominal pain. Exam Narrative Exam Narrative: Examined patient's abdomen today, it is soft, nontender, nondistended. There are normal active bowel sounds. Objective Last Vital Signs Temp 36.8 C 02/25/25 15:14 Pulse 56 L 02/25/25 15:14 Resp 16 02/25/25 15:14 BP 143/80 H 02/25/25 15:14 Pulse Ox 95 02/25/25 15:14 Laboratory Results - last 24 hr 02/25/25 06:20 WBC 13.93 H RBC 4.90 Hgb 13.2 L Hct 41.7 MCV 85 MCH 26.9 L MCHC 31.7 L RDW 14.0 Plt Count 192 MPV 9.3 Immature Gran % 0.7 Neutrophils % 59.7 Lymphocytes % 27.1 Monocytes % 11.6 Eosinophils % 0.0 Basophils % 0.9 Nucleated RBC % 0.0 Absolute Neutrophils 8.32 H Absolute Lymphocytes 3.78 H Absolute Monocytes 1.62 H Absolute Eosinophils 0.00 Absolute Basophils 0.13 Sodium 138 Potassium 4.3 Chloride 104 Carbon Dioxide 25.6 Anion Gap 8.4 BUN 53 H Creatinine 1.2 Est GFR (CKD-EPI 2020) 62.29 Glucose 89 Calcium 8.9 PAWSS Have you Been Recently Intoxicated or Drunk Within the Last 30 days?: No Have you Ever Experienced Previous Episodes of Alcohol Withdrawal?: No Have you ever Experienced Withdrawal Seizures?: No Have you ever Experienced Delirium Tremens(DT)s?: No Have you ever undergone Alcohol Rehabilitation Treatment (i.e, inpt ot outpatient treatment programs)?: No Have you ever Experienced Blackouts?: No Have you ever Combined Alcohol with other Downers within the last 90 days?: No Have you ever Combined Alcohol with any other Substance of Abuse during the last 90 days?: No Positive Blood Alcohol level on Presentation? [PCS.BAL]: No Evidence of Increased Autonomic Activity (i.e. HR>120, tremor, sweating, agitation, nausea)?: No Result: 0 Time Spent with Patient Time Spent with Patient: <25 minutes Time was spent: preparing to see the patient(eg.review tests), ordering medications,tests, procedures, referring, communicating with other health behavioral health care coordinator and indepentently interpreting results
[2025-02-25] MEDS: Losartan 25 MG TAB PO (20:39)
[2025-02-26] MEDS: ACETAMINOPHEN 1,000 MG/100 ML BAG 400 MG IVPB ×2 (00:11→08:18)
[2025-02-26] MEDS: Loratidine 10 MG TAB PO (02:21)
[2025-02-26 05:15] VITALS: BP 181/88
[2025-02-26] MEDS: hydrALAZINE 20 MG/ML VIAL 10 MG IVP (05:22)
--- NOTE | 2025-02-26 07:02 | W.PC.ACHO ---
Registration Status: ADM IN Primary Language: Preferred Language: Kyrgyz ED Information & Data Chief Complaint Recheck 02/20/25 12:21 Chief Complaint Recheck 02/20/25 11:47 Triage Note Sent by Dr. Crystal from 02/20/25 11:00 [facility]. Pt reports told him to come to the hospital to be admitted. Pt was here in the ED this morning and discharged. Pt reports pain reduced significantly this morning, pain nor 3/10, was 15/10 this AM during first visit. Has not vomited since this morning. LBM 3 days ago. Medical / Surgical History (Last Reviewed 11/29/24 @ 10:20 by Sophia Griffin MD) Basal cell carcinoma Hyperlipidemia Benign hypertension (Last Reviewed 11/29/24 @ 10:20 by Sophia Griffin MD) Coronary Stent Most Recent Vital Signs Temperature 36.6 C 02/25/25 19:32 Temperature Source Tympanic 02/25/25 19:32 Pulse 53 L 02/25/25 19:32 Pulse Rhythm Regular 02/20/25 12:39 Respiratory Rate 18 02/25/25 19:32 Respiratory Effort Normal, Non-Labored 02/20/25 12:39 Respiratory Depth Normal 02/20/25 12:39 Respiratory Pattern Normal 02/20/25 12:39 Blood Pressure 181/88 H 02/26/25 05:15 Blood Pressure Mean 119 02/26/25 05:15 Blood Pressure Position Sitting 02/20/25 11:00 Pulse Oximetry 94 02/25/25 19:32 Oxygen Delivery Method Room Air 02/25/25 19:32 Oxygen Flow Rate 0 02/25/25 19:32 Pain Level 2 02/25/25 09:26 Comment RN notified 02/25/25 07:22 Allergies lisinopril Allergy (Mild, Verified 02/20/25 12:22) Other (See Comment) penicillin V (Penicillin V) Allergy (Mild, Verified 02/20/25 12:22) Other (See Comment) SHARA Inhibitors Allergy (Unknown, Verified 02/20/25 12:22) Other (See Comment) converted from ingredient allergy: SHARA inhibitors Precautions Isolation Standard precaution 02/20/25 12:21 Active Medications Generic Name Dose Route Start Last Admin Trade Name Freq PRN Reason Stop Dose Admin Al Hydrox/Mg Hydrox/Simethicone 30 ml 02/20/25 18:06 02/21/25 07:49 Mylanta Suspension 30 Ml Cup PO 30 ml Q4H PRN PRN Administration Aspirin 81 mg 02/21/25 08:30 02/24/25 08:44 Aspirin E.C. 81 Mg Tabec PO 81 mg On Hold: 02/25/25 05:10 DAILY CARSON Administration Comment: FALL PRECAUTIONS Benzocaine 0 ml 02/21/25 17:00 02/21/25 17:05 Benzocaine 20% 60 Ml Can TP 2 sprays DIRECTED CARSON Administration Diatrizoate Meglum/Diatrizoate Sod 120 ml 02/25/25 08:00 02/25/25 08:08 Gastrografin 120 Ml Btl PO 120 ml DIRECTED CARSON Administration Enoxaparin Sodium 40 mg 02/24/25 08:30 02/24/25 08:46 Enoxaparin 40 Mg/0.4 Ml Syr SC Not Given On Hold: 02/25/25 05:10 DAILY CARSON Comment: FALL PRECAUTIONS Furosemide 10 mg 02/24/25 08:30 02/25/25 08:29 Furosemide 20 Mg/2 Ml Vial IVP 10 mg DAILY CARSON Administration Hydralazine HCl 10 mg 02/23/25 11:00 02/26/25 05:22 Hydralazine 20 Mg/Ml Vial IVP 02/26/25 07:00 10 mg Q6H CARSON Administration Acetaminophen 1,000 mg in 100 mls @ 400 mls/hr 02/21/25 16:00 02/26/25 00:11 Ofirmev IVPB 400 mls/hr Q8H CARSON Administration Losartan Potassium 25 mg 02/25/25 20:00 02/25/25 20:39 Losartan 25 Mg Tab PO 25 mg HS CARSON Administration Pantoprazole Sodium 40 mg 02/23/25 08:30 02/25/25 20:39 Pantoprazole 40 Mg Vial IVP 40 mg BID CARSON Administration Sodium Chloride 0 ml 02/20/25 12:38 02/24/25 16:03 Normal Saline Flush 10 Ml Syr IVP 30 ml PRN PRN Administration Sodium Chloride 0 ml 02/20/25 20:00 02/25/25 20:39 Normal Saline Flush 10 Ml Syr IVP 10 ml BID CARSON Administration IV IV Catheter Type [Left Peripheral IV Antecubital] IV Catheter Gauge [Left 18 Antecubital] Diagnostics 02/26/25 02/25/25 Range/Units 05:35 06:20 Sodium Pending 138 (136-145) mmol/L Potassium Pending 4.3 (3.5-5.1) mmol/L Chloride Pending 104 (98-107) mmol/L Carbon Dioxide Pending 25.6 (21.0-32.0) mmol/L Anion Gap Pending 8.4 (3-11) mmol/L BUN Pending 53 H (7-18) mg/dL Creatinine Pending 1.2 (0.70-1.30) mg/dL Est GFR (CKD-EPI 2020) Pending 62.29 (mL/min/1.73m2) Glucose Pending 89 (74-106) mg/dL Calcium Pending 8.9 (8.5-10.1) mg/dL Total Bilirubin Pending AST Pending ALT Pending Alkaline Phosphatase Pending Total Protein Pending Albumin Pending Intake and Output - 24 Hour Total 02/20/25 10:50 thru 02/26/25 01:09 Intake Total 9219.166 Output Total 06282 Balance -4005.834 Weight 98.883 kg Intake: IV 8979.166 Oral 240 Output: Gastric Drainage 3700 Left Nare 3700 Urine 9075 Emesis 450 Other: Urine Color Yellow Urine Appearance Clear Urine Odor Normal Comment Pt voids ind. in toilet, pt rings appropriately when done. Stool Occult Blood Positive Stool Size Moderate Stool Characteristics Soft Formed Brown Emesis Description Bile Falls Risk Assessment History of Falls Previous History 02/20/25 12:39 Contributing Factors Medications 02/20/25 12:39 Ambulatory Aids Independent 02/20/25 12:39 Tubes/Lines W/no contributing factors 02/20/25 12:39 Gait Evaluation No gait disturbance 02/20/25 12:39 Cognition No cognitive impairment 02/20/25 12:39 Fall Total Score 28 02/20/25 12:39 Level of Risk Moderate Risk 02/20/25 12:39 Problems (Last Reviewed 11/29/24 @ 10:20 by Sophia Griffin MD) Advanced care planning/counseling discussion (Acute) Palliative care patient (Acute) Nausea & vomiting (Acute) SATHISH (acute kidney injury) (Acute) Lymphoma (Acute) Small bowel obstruction (Acute) Abdominal pain (Acute) Hyperlipidemia (Acute) Obesity (Chronic) 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) CAD (coronary artery disease) (Chronic) DVT prophylaxis (Acute) Notes 02/22/25 11:07 Nursing Notes by Ida Elizalde Nursing Note: Bren Olea had spoken to [facility] about pt yesterday. Bren Segundo RN from [facility] called today to get updates, given. Initialized on 02/22/25 11:07 - END OF NOTE 02/21/25 11:00 Nursing Notes by Ida Elizalde Nursing Note: Discrepancy in report if pt had moved his bowels or not. Circled back to pt with provider for more accurate info. Pt states that he moved his bowels a couple times in the ED, very small amts of liquid. Pt is burping, but not passing gas through his rectum. He has vomited 1-3 times this morning, he answers differently each time he is asked. Provider made new orders to follow. Initialized on 02/21/25 11:00 - END OF NOTE v v v v v v v v v Sending and/or Receiving Nurses: Please use comment section below to note any information pertinent to the patient hand-off not included above. Information / Comments:Patient A&O x4. In respiratory distress needing 6L Oxygen via mask with 94% Oxygen saturation. Ambulatory and independent. Given Narcan in ED for opiate. Takes Suboxone and denies any other drugs. Report received from: Ronn
[2025-02-26 07:34] LABS: ALT 51 U/L (16-63); AST 29 U/L (15-37); Albumin 3.2 g/dL (3.4-5.0); Alkaline Phosphatase 69 U/L (46-116); Anion Gap 7.1 mmol/L (3-11); BUN 46 mg/dL (7-18); Bilirubin, Total 0.9 mg/dL (0.2-1.0); CO2 26.9 mmol/L (21.0-32.0); CREATININE 1.3 mg/dL (0.70-1.30); Calcium 8.7 mg/dL (8.5-10.1); Chloride 101 mmol/L (98-107); Estimated GFR 56.58 (mL/min/1.73m2); Glucose 84 mg/dL (74-106); Potassium 3.8 mmol/L (3.5-5.1); Sodium 135 mmol/L (136-145); Total Protein 7.5 g/dL (6.4-8.2)
[2025-02-26 07:36] VITALS: BP 160/84; PULSE 61; RESP 16; TEMP 36.7; O2SAT 93
--- NOTE | 2025-02-26 08:00 | DI.RAD_ITS ---
Exam(s) XR ABDOMEN FLAT PLATE EXAM: 2D digital imaging was performed. CLINICAL HISTORY: Resolving SBO. COMPARISON: CR XR ABDOMEN FLAT PLATE from 02/25/2025 TECHNIQUE: Supine views of the abdomen was performed. Three images were obtained. FINDINGS: LUNG BASES: The visualized portions of the lung bases are clear. BOWEL GAS PATTERN: Nondistended. The oral contrast is seen in the distal colon and rectum. There is no evidence of bowel obstruction. FREE AIR: None. CALCIFICATIONS: No radiopaque calcifications. OSSEOUS STRUCTURES: Normal for age. OTHER FINDINGS: The tip of the enteric tube is seen in the distal esophagus. It has retracted since the prior examination. IMPRESSION: 1. There is no evidence of bowel obstruction. 2. The enteric tube has been retracted. The tip is seen in the distal esophagus. DATA REPOSITORY: RADIATION DOSE DELIVERED:
[2025-02-26] MEDS: Furosemide 20 MG/2 ML VIAL 10 MG IVP (08:18)
[2025-02-26] MEDS: Pantoprazole 40 MG VIAL IVP (08:18)
[2025-02-26] MEDS: Dexamethasone 4 MG TAB 30 MG PO (08:20)
[2025-02-26] MEDS: amLODIPine 5 MG TAB PO (08:20)
--- NOTE | 2025-02-26 09:37 | PDOC.CMPRO ---
Date of service: 02/26/25 Time of Service: 09:38 Care Management Progress Note Discharge Potential Discharge Needs: PCP F/U Appt and Surgical F/U Appt Anticipated Barriers to Discharge: Medical Status Patient/Family Education Needs: Review discharge instructions, discuss Ask Me Three Transportation: Private vehicle Plan: Anticipate New will be discharged with no new services when medically cleared by provider. He will follow up with his community providers and plan of acre and transport with family. CM will continue to support discharge planning endeavors. Social Determinants of Health Screening Social Determinants of health last assessed in clinic: 02/25/25 Will the Patient Participate in the Screening?: Yes Do you worry about having a steady place to live?: yes What is your living situation today?: I have housing today, but am worried about losing it Problems where you live: pests such as bugs, ants or mice In the past 12 months, have you had to go without electric, gas, oil or water in your home?: no Has lack of transportation kept you from medical appointments or from doing things needed for daily living?: no Has anyone in your life made you feel unsafe or unsupported?: no How hard is it for you to pay for the very basics like food, housing, medical care, and heating? Would you say it is:: Very hard Do you want help finding or keeping work or a job?: I do not need or want help If for any reason you need help with day-to-day activities such as bathing, preparing meals, shopping, managing finances, etc., do you get the help you need?: I could use a little more help How often do you feel lonely or isolated from those around you?: Never Do you speak a language other than Beninese at home?: No Does the patient want assistance with any of the above?: Yes Health Related Social Needs Health related social needs: inadequate housing (Z59.1), housing instability, housed, with risk of homelessness (Z59.811), problems related to housing/economic circumstances (Z59.89) and problems with daily activities (Z73.9) Health related social needs details: pt has housing but is on a tight budget
--- NOTE | 2025-02-26 10:04 | W.PM.DS.N ---
Date of service: 02/26/25 Time of Service: 10:04 DS: Diagnosis Discharge Diagnosis (1) Small bowel obstruction: Status: Acute (2) Small lymphocytic B-cell lymphoma involving skin: Status: Acute (3) SATHISH (acute kidney injury): Status: Acute (4) Nausea & vomiting: Status: Acute (5) Hyperlipidemia: Status: Acute (6) Benign hypertension: (7) Palliative care patient: Status: Acute (8) DVT prophylaxis: Status: Acute Discharge Plan Disposition Patient Disposition: Home Condition: Improving Discharge Details Reason For Visit: Abdom pain, SBO, SATHISH, Admit Date/Time: 02/20/25 12:00 Admit Provider: Markel Sanchez Attending Provider: Markel Sanchez Primary Care Provider: Luci Bustillo Hospital Course Hospital Course: This 79-year-old male with a history of lymphoma who comes in from the oncology office with likely SBO to the ED on 02/20/25. He was seen earlier in the day in the ED for a couple episodes of vomiting abdominal pain. He had a possible early bowel obstruction on CT with left renal involvement . The oncologist's office felt he should be admitted for steroids as it is likely lymphoma that caused the SBO and observation. The patient was admitted by hospitalist team for steroids therapy in the setting of SBO d/t lymphoma, SATHISH and observation. Consultation with Dr. Arriola resulted in high dose of IV steroid therapy and decompression with NGT recommended as per surgical consult with Dr. Alvarez. Repeated imaging on 02/25 and 02/26/25 s/p gastrograffin challenged showed no further obstruction. The patient tolerated enteral intake and resumed having adequate bowel movements. Follow-up with Dr. Marino from [facility] hematology in concert with Dr. Arriola resulted in a recommendation for steroid taper at discharge; scripts electronically sent to pharmacy. Call your oncology office after discharge today to enquire about plans for chemotherapy and follow-up with your PCP within 7 days of discharge please. 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 Romero Recommendations for Follow Up Recommended tests to be ordered by follow up provider: CMP Home Meds and New Rx's Prescriptions: New dexamethasone 20 mg tablet 20 mg PO DAILY Qty: 5 0RF Rx Instructions: Take 30 mg tomorrow 02/27 Take 20 mg tomorrow 02/28 and 03/01 Take 10 mg tomorrow 03/02 and 03/03 Take 5 mg tomorrow 03/04 and 03/05 Then stop Continued ezetimibe 10 mg tablet 10 mg PO DAILY Patient Comments: pt unsure of med lovastatin 40 MG tablet 40 mg PO HS Patient Comments: rx for 60mg at HS, pt is taking 40mg HS aspirin [Aspir-81] 81 MG tablet,delayed release (DR/EC) 81 mg PO DAILY loratadine [Claritin] 10 MG tablet 10 mg PO HS amlodipine 5 mg tablet 5 mg PO DAILY Patient Comments: Filled for 5mg in November, then 2.5mg in January. Pt states is taking 5mg. celecoxib 200 mg capsule 200 mg PO HS losartan 25 mg tablet 25 mg PO QHS acetaminophen 500 mg capsule 500 mg PO QHS tamsulosin [Flomax] 0.4 mg capsule 0.4 mg PO QHS furosemide 20 mg Tablet 20 mg PO DAILY Qty: 14 0RF Discharge Instructions Referrals: Luci Bustillo [Primary Care Provider, Medicine] Referral Note: Follow-up within 7 days of discharge please Activity:: Activity as Tolerated Equipment/Supplies:: No Equipment Needed Diet:: heart healthy Discharge Orders Discharge Orders: Discharge Order (Routine); Ordered 02/26/25 Ordered By: Bren Olea DS: Summary Time Spent with Patient providing and/or coordinating discharge services: Greater than 30 minutes Status at Discharge Functional status at discharge: independent ambulation Overall status at discharge: patient is progressing back to baseline Mental Status: mental status grossly normal Speech and Movement: speech and movement normal Mood: congruent mood Affect: normal affect Quality:SDOH Health Related Social Needs: Health related social needs inadequate housing risk of homeless house/econ circumstance daily activities Health related social needs details pt has housing but is on a tight budget Health related social needs details: pt has housing but is on a tight budget Exam Narrative Exam Narrative: 79 years old male patient appearing of stated age, w/o acute distress, no neurological focal deficit, clear lungs, S1, S2 regular, abdomen is non-distended, soft nontender, bowel sounds are present no CVA tenderness, moves all 4 ext. Psych Mental Status: mental status grossly normal Speech and Movement: speech and movement normal Mood: congruent mood Affect: normal affect DS: Data Vitals/I&O Vitals and I&O: Vital Signs Temperature 36.7 C 02/26/25 07:36 Temperature Source Tympanic 02/26/25 07:36 Pulse 61 02/26/25 07:36 Pulse Rhythm Regular 02/20/25 12:39 Respiratory Rate 16 02/26/25 07:36 Respiratory Effort Normal, Non-Labored 02/20/25 12:39 Respiratory Depth Normal 02/20/25 12:39 Respiratory Pattern Normal 02/20/25 12:39 Blood Pressure 160/84 H 02/26/25 07:36 Blood Pressure Mean 109 02/26/25 07:36 Blood Pressure Position Sitting 02/20/25 11:00 Pulse Oximetry 93 02/26/25 07:36 Oxygen Delivery Method Room Air 02/26/25 07:36 Oxygen Flow Rate 0 02/26/25 07:36 Pain Level 10 02/26/25 07:36 Comment RN notified 02/25/25 07:22 Intake & Output 02/25/25 02/25/25 02/26/25 11:59 23:59 11:59 Intake Total 1200 / 2200 1000 / 2200 200 / 200 Output Total 2200 / 2400 200 / 2400 Balance -1000 / -200 800 / -200 200 / 200 Intake: IV 1200 / 2200 1000 / 2200 200 / 200 Output: Gastric Drainage 550 / 550 Left Nare 550 / 550 Urine 1650 / 1850 200 / 1850 Other: Urine Color Yellow Yellow Yellow Urine Appearance Clear Cloudy Clear Urine Odor Normal Normal Normal Comment Pt voids ind. in toilet, pt rings appropriately when done. Stool Occult Blood Positive Stool Size Moderate Stool Characteristics Soft Formed Brown Data Completed and Pending Labs on day of discharge: Labs from last 24 hours 02/26/25 06:24 Sodium 135 L Potassium 3.8 Chloride 101 Carbon Dioxide 26.9 Anion Gap 7.1 BUN 46 H Creatinine 1.3 Est GFR (CKD-EPI 2020) 56.58 Glucose 84 Calcium 8.7 Total Bilirubin 0.9 AST 29 ALT 51 Alkaline Phosphatase 69 Total Protein 7.5 Albumin 3.2 L PFSH All Active Problems (Updated 02/22/25 @ 13:29 by Amanda Khan NP) Advanced care planning/counseling discussion (Acute) Palliative care patient (Acute) Nausea & vomiting (Acute) SATHISH (acute kidney injury) (Acute) Lymphoma (Acute) Small bowel obstruction (Acute) Abdominal pain (Acute) Tendinitis of long head of biceps brachii of left shoulder (Acute) Bursitis of left shoulder (Acute) Hyperlipidemia (Acute) Obesity (Chronic) Lymphadenopathy (Acute) Ocular migraine (Acute) 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) Pre-diabetes (Acute) Corneal abrasion, right (Acute) Foreign body in eye (Acute) Hematuria (Acute) Bradycardia (Acute) CAD (coronary artery disease) (Chronic) Discharge planning issues (Acute) DVT prophylaxis (Acute) Community acquired pneumonia (Acute) Medical History Basal cell carcinoma arm Hyperlipidemia Benign hypertension Surgical History Coronary Stent x 2 10 yrs ago Social History Smoking/Tobacco Use Status: Former Tobacco Use Tobacco: How many years used: 45 Smoking risk assessment performed?: Yes Alcohol Intake: current Alcohol Intake frequency: a few times a month Alcohol type: beer and hard liquor Drug use: Never Substance use type: does not use Details: quit smoking in 2000 Housing: house current occupation: [employer] Current gender identity: male Do you feel safe at home: Yes Do you feel safe in your relationship?: Yes Time Spent with Patient Time Spent with Patient: 70-84 minutes4 Time was spent: preparing to see the patient(eg.review tests), obtaining and/or reviewing separately otained hiistory, ordering medications,tests, procedures, referring, communicating with other health direct support professional caregiver, indepentently interpreting results, counseling the patient and care coordination
--- NOTE | 2025-02-26 17:25 | PDOC.CMDIS ---
Date of service: 02/26/25 Time of Service: 17:25 LACE Index Scoring Tool Questions: Length of Stay (in days): 4 - 6 Was the patient admitted via the E.D.?: Yes Comorbidities: Liver or Renal Disease and Metastatic Solid Tumor E.D. Visits: 4 Answers: Total Score: 16 Risk of Readmission: High Risk Care Management Discharge SDOH Health Related Social Needs: Health related social needs food insecurity Health related social needs details pt has housing but is on a tight budget Health related social needs details: pt has housing but is on a tight budget
== END 2025-02-26 12:32 | disposition home or self-care (01) ==
LOC: ER 12:14 → MS 13:51
PROVIDERS: Surgery; Admitting Provider Family Medicine; Emergency Provider Emergency Medicine; PCP Nurse Practitioner Family; Responsible Provider Nurse Practitioner Acute Care; Visit Provider Family Medicine
DX: K56.609 Unspecified intestinal obstruction, unspecified as to partial versus complete obstruction (principal); N17.9 Acute kidney failure, unspecified; C83.09 Small cell B-cell lymphoma, extranodal and solid organ sites; R11.2 Nausea with vomiting, unspecified; E78.5 Hyperlipidemia, unspecified; E66.9 Obesity, unspecified; Z68.33 Body mass index [BMI] 33.0-33.9, adult; I10 Essential (primary) hypertension; I25.10 Atherosclerotic heart disease of native coronary artery without angina pectoris; R18.8 Other ascites; Z95.828 Presence of other vascular implants and grafts; G43.B0 Ophthalmoplegic migraine, not intractable; Z87.891 Personal history of nicotine dependence; Z95.5 Presence of coronary angioplasty implant and graft; K80.20 Calculus of gallbladder without cholecystitis without obstruction; R91.1 Solitary pulmonary nodule; N28.89 Other specified disorders of kidney and ureter
CPT/HCPCS: 00123; 36415; 80048; 80053; 83690; 87040; 96361; 96365; 96366; 96374; 96375; 96376; 99222; 99231; 99232; 99285; 71045; 74018; 74177; 83605; 83735; 85025; 99223; 99233; 99239; G0378; J0131; J0360; J0780; J1100; J1938; J2405; J2470; J2919; J3490; J7512; J8540

== ENCOUNTER 2025-03-06 00:42 | Outpatient (RCR) | payer MEDICARE, SELFPAY ==
[2025-03-06] MEDS: Normal Saline Flush 10 ML SYR IVP (11:22)
[2025-03-06 11:41] LABS: Abs Immature Grans 0.04 10^3/uL (0.0-0.06); HCT 34.4 % (40.0-50.0); HGB 11.1 g/dL (13.5-17.5); MCH 27.9 pg (27.0-33.0); MCHC 32.3 % (32.0-36.0); MCV 86 fL (80-95); MPV 9.7 fL (8.0-11.0); Platelet Count 105 10^3/uL (130-400); RBC 3.98 10^6/uL (4.36-5.78); RDW 14.3 % (11.8-14.1); RDW-SD 45.1 fL; WBC 3.87 10^3/uL (4.4-10.8)
[2025-03-06 11:53] LABS: ALT 27 U/L (16-63); AST 13 U/L (15-37); Albumin 2.9 g/dL (3.4-5.0); Alkaline Phosphatase 85 U/L (46-116); Anion Gap 5.4 mmol/L (3-11); BUN 31 mg/dL (7-18); Bilirubin, Total 0.6 mg/dL (0.2-1.0); CO2 28.6 mmol/L (21.0-32.0); Calcium 7.8 mg/dL (8.5-10.1); Chloride 103 mmol/L (98-107); Estimated GFR 77.04 (mL/min/1.73m2); Glucose 104 mg/dL (74-106); LDH 160 U/L (85-227); Sodium 137 mmol/L (136-145)
[2025-03-06 12:45] LABS: Absolute Lymphocyte Count 0.97 10^3/uL (1.2-3.4); Absolute Monocyte Count 0.23 10^3/uL (0.1-0.8); Absolute Neutrophil Count 2.67 10^3/uL (1.2-6.7); Bands % 1 %
[2025-03-06 12:46] LABS: Diff Comment Manual Differential; RBC Morphology Normal
== END 2025-03-11 23:59 | disposition home or self-care (01) ==
LOC: INF 00:42
PROVIDERS: PCP Nurse Practitioner Family; Visit Provider Internal Medicine Hematology & Oncology
DX: C91.10 Chronic lymphocytic leukemia of B-cell type not having achieved remission (principal); Z45.2 Encounter for adjustment and management of vascular access device
CPT/HCPCS: 36591; 80053; 96523; 83615; 85025

== ENCOUNTER 2025-04-02 02:42 | Outpatient (RCR) | payer MEDICARE, SELFPAY ==
[2025-03-20] MEDS: Normal Saline Flush 10 ML SYR IVP (07:57)
[2025-03-20 08:45] LABS: Abs Immature Grans 0.31 10^3/uL (0.0-0.06); HCT 34.0 % (40.0-50.0); HGB 10.9 g/dL (13.5-17.5); Immature Grans % 4.3 %; MCH 27.7 pg (27.0-33.0); MCHC 32.1 % (32.0-36.0); MCV 87 fL (80-95); MPV 9.3 fL (8.0-11.0); Platelet Count 291 10^3/uL (130-400); RBC 3.93 10^6/uL (4.36-5.78); RDW 15.6 % (11.8-14.1); RDW-SD 46.2 fL; WBC 7.29 10^3/uL (4.4-10.8)
[2025-03-20 09:03] LABS: ALT 21 U/L (16-63); AST 17 U/L (15-37); Albumin 2.7 g/dL (3.4-5.0); Alkaline Phosphatase 78 U/L (46-116); Anion Gap 4.5 mmol/L (3-11); BUN 15 mg/dL (7-18); Bilirubin, Total 0.3 mg/dL (0.2-1.0); CO2 29.5 mmol/L (21.0-32.0); Calcium 8.4 mg/dL (8.5-10.1); Chloride 102 mmol/L (98-107); Estimated GFR 68.71 (mL/min/1.73m2); Glucose 113 mg/dL (74-106); LDH 219 U/L (85-227); Potassium 4.0 mmol/L (3.5-5.1); Sodium 136 mmol/L (136-145); Total Protein 6.6 g/dL (6.4-8.2)
[2025-03-27] MEDS: Normal Saline Flush 10 ML SYR IVP (09:27)
[2025-03-27 09:55] LABS: Abs Immature Grans 0.32 10^3/uL (0.0-0.06); HCT 34.5 % (40.0-50.0); HGB 11.0 g/dL (13.5-17.5); MCH 28.4 pg (27.0-33.0); MCHC 31.9 % (32.0-36.0); MCV 89 fL (80-95); MPV 9.5 fL (8.0-11.0); Platelet Count 279 10^3/uL (130-400); RBC 3.87 10^6/uL (4.36-5.78); RDW 17.3 % (11.8-14.1); RDW-SD 52.8 fL; WBC 8.21 10^3/uL (4.4-10.8)
[2025-03-27 10:17] LABS: ALT 21 U/L (16-63); AST 21 U/L (15-37); Albumin 2.9 g/dL (3.4-5.0); Alkaline Phosphatase 68 U/L (46-116); Anion Gap 5.5 mmol/L (3-11); BUN 16 mg/dL (7-18); Bilirubin, Total 0.3 mg/dL (0.2-1.0); CO2 29.5 mmol/L (21.0-32.0); Calcium 8.7 mg/dL (8.5-10.1); Chloride 104 mmol/L (98-107); Estimated GFR 68.71 (mL/min/1.73m2); Glucose 131 mg/dL (74-106); LDH 226 U/L (85-227); Potassium 4.0 mmol/L (3.5-5.1); Sodium 139 mmol/L (136-145); Total Protein 6.4 g/dL (6.4-8.2)
[2025-03-27 10:34] LABS: Anisocytosis 2+; Immature Grans % 0.0 %
[2025-04-02] MEDS: Normal Saline Flush 10 ML SYR IVP (07:22)
[2025-04-02 07:32] LABS: Abs Immature Grans 0.13 10^3/uL (0.0-0.06); HCT 38.0 % (40.0-50.0); HGB 11.7 g/dL (13.5-17.5); Immature Grans % 1.5 %; MCH 27.7 pg (27.0-33.0); MCHC 30.8 % (32.0-36.0); MCV 90 fL (80-95); MPV 9.8 fL (8.0-11.0); Platelet Count 197 10^3/uL (130-400); RBC 4.22 10^6/uL (4.36-5.78); RDW 18.6 % (11.8-14.1); RDW-SD 58.4 fL; WBC 8.95 10^3/uL (4.4-10.8)
[2025-04-02 07:51] LABS: ALT 18 U/L (16-63); AST 18 U/L (15-37); Albumin 3.0 g/dL (3.4-5.0); Alkaline Phosphatase 67 U/L (46-116); Anion Gap 5.9 mmol/L (3-11); BUN 19 mg/dL (7-18); Bilirubin, Total 0.5 mg/dL (0.2-1.0); CO2 28.1 mmol/L (21.0-32.0); Calcium 8.1 mg/dL (8.5-10.1); Chloride 104 mmol/L (98-107); Estimated GFR 77.04 (mL/min/1.73m2); Glucose 145 mg/dL (74-106); LDH 186 U/L (85-227); Potassium 3.9 mmol/L (3.5-5.1); Sodium 138 mmol/L (136-145); Total Protein 6.8 g/dL (6.4-8.2)
== END 2025-04-11 23:59 | disposition home or self-care (01) ==
LOC: INF 02:42
PROVIDERS: PCP Nurse Practitioner Family; Visit Provider Internal Medicine Hematology & Oncology
DX: C91.00 Acute lymphoblastic leukemia not having achieved remission (principal); C91.10 Chronic lymphocytic leukemia of B-cell type not having achieved remission; Z45.2 Encounter for adjustment and management of vascular access device
CPT/HCPCS: 36591; 80053; 96523; 83615; 85025

== ENCOUNTER 2025-04-24 02:08 | Outpatient (RCR) | payer MEDICARE, SELFPAY ==
[2025-04-24] MEDS: Normal Saline Flush 10 ML SYR IVP (09:20)
[2025-04-24 09:27] LABS: Abs Immature Grans 0.13 10^3/uL (0.0-0.06); HCT 35.5 % (40.0-50.0); HGB 11.4 g/dL (13.5-17.5); Immature Grans % 2.4 %; MCH 29.2 pg (27.0-33.0); MCHC 32.1 % (32.0-36.0); MCV 91 fL (80-95); MPV 9.6 fL (8.0-11.0); Platelet Count 202 10^3/uL (130-400); RBC 3.91 10^6/uL (4.36-5.78); RDW 18.6 % (11.8-14.1); RDW-SD 60.7 fL; WBC 5.50 10^3/uL (4.4-10.8)
[2025-04-24 09:41] LABS: ALT 20 U/L (16-63); AST 21 U/L (15-37); Albumin 3.0 g/dL (3.4-5.0); Alkaline Phosphatase 56 U/L (46-116); Anion Gap 2.9 mmol/L (3-11); BUN 18 mg/dL (7-18); Bilirubin, Total 0.3 mg/dL (0.2-1.0); CO2 30.1 mmol/L (21.0-32.0); Calcium 8.4 mg/dL (8.5-10.1); Chloride 105 mmol/L (98-107); Estimated GFR 77.04 (mL/min/1.73m2); Glucose 130 mg/dL (74-106); LDH 193 U/L (85-227); Potassium 3.9 mmol/L (3.5-5.1); Sodium 138 mmol/L (136-145); Total Protein 6.5 g/dL (6.4-8.2)
== END 2025-05-12 23:59 | disposition home or self-care (01) ==
LOC: INF 02:08
PROVIDERS: PCP Nurse Practitioner Family; Visit Provider Internal Medicine Hematology & Oncology
DX: C91.10 Chronic lymphocytic leukemia of B-cell type not having achieved remission (principal); Z45.2 Encounter for adjustment and management of vascular access device
CPT/HCPCS: 36591; 80053; 83615; 85025

== ENCOUNTER 2025-05-24 18:32 | Emergency (ER) | payer MEDICARE, SELFPAY ==
[2025-05-24 18:36] VITALS: BP 113/72; PULSE 91; RESP 16; TEMP 36.9; O2SAT 98
--- NOTE | 2025-05-24 19:05 | W.ED.GENAD ---
Discharge Plan Disposition Patient Disposition: Home Condition: Stable Discharge Details Clinical Impression: Leukopenia, Neutropenia, Thrombocytopenia Primary Care Provider: Luci Bustillo ED Provider: Nalini Tejeda Meds and New Rx's Prescriptions: New levofloxacin 750 mg tablet 750 mg PO DAILY Qty: 90 0RF Rx Instructions: Take 1 tablet by mouth daily fluconazole 200 mg tablet 200 mg PO DAILY Qty: 90 0RF Rx Instructions: Please take 1 tablet daily No Action azelastine 0.05 % drops 1 drp ophthalmic (eye) BID valacyclovir 1 gram tablet 1,000 mg PO TID lovastatin 40 mg tablet 60 mg PO DAILY prochlorperazine maleate [Compazine] 10 mg tablet 10 mg PO Q6H PRN nitroglycerin 0.4 mg tablet, sublingual 0.4 mg sublingual Q5-15M PRN Rx Instructions: do not exceed 3 doses per episode gabapentin 300 mg capsule 300 mg PO TID allopurinol 300 mg tablet 300 mg PO DAILY furosemide [Lasix] 20 mg tablet 20 mg PO DAILY selenium sulfide 1 % shampoo 1 applic topical DAILY Rx Instructions: massage into affected area; leave on for 10 mins ; rinse off thoroughly ezetimibe [Zetia] 10 mg tablet 10 mg PO DAILY venetoclax 10 mg-50 mg- 100 mg tablets,dose pack See Rx Instructions PO .COMPLEX Rx Instructions: take 20 mg daily for 7 days (week 1); 50 mg daily for 7 days (week 2); 100 mg daily for 7 days (week 3); 200 mg daily for 7 days (week 4) PO ezetimibe 10 mg tablet 10 mg PO DAILY Patient Comments: pt unsure of med lovastatin 40 MG tablet 40 mg PO HS Patient Comments: rx for 60mg at HS, pt is taking 40mg HS aspirin [Aspir-81] 81 MG tablet,delayed release (DR/EC) 81 mg PO DAILY loratadine [Claritin] 10 MG tablet 10 mg PO HS amlodipine 5 mg tablet 5 mg PO DAILY Patient Comments: Filled for 5mg in November, then 2.5mg in January. Pt states is taking 5mg. celecoxib 200 mg capsule 200 mg PO HS losartan 25 mg tablet 25 mg PO QHS acetaminophen 500 mg capsule 500 mg PO QHS tamsulosin [Flomax] 0.4 mg capsule 0.4 mg PO QHS furosemide 20 mg Tablet 20 mg PO DAILY Qty: 14 0RF Discharge Instructions Instructions: Neutropenia, Neutropenia and fever in people being treated for cancer Additional Instructions: At this time your blood counts are very low, please wear a mask as your immune system is suppressed. I did speak with the [facility] hematology oncology at [facility] they recommend a prophylactic antibiotic called levofloxacin and a antifungal called fluconazole which you should take daily. Please continue to take the other medications previously prescribed. Please follow-up closely with your oncology team at the cancer center within the next 2 to 3 days. If you spike a fever or feel worse at any time I do recommend that you be seen sooner as you may need to be admitted. Follow up with oncology team/primary care provider in2-3 days. Return to ED sooner if any worsening or concerns. Thank you for allowing us to care for you today. Referrals: HEMATOLOGY/ONC,[facility] [OTHER, Oncology] - 3 days Referral Note: ER follow up, Neutropenia, leukopenia, Close follow up Clinical Impression: Leukopenia; Neutropenia; Thrombocytopenia HPI General Mode of arrival: ambulatory. Date/Time Provider Initiated Documentation: 05/24/25 18:33. Limitations to Documentation: no limitations. Information obtained by: patient, RN notes reviewed and old records reviewed. HPI Narrative: 72-year-old male presents to the ER with a chief complaint of generalized weakness which has been ongoing for approximately a week or longer. He was referred here by the cancer center for further evaluation. He is currently undergoing chemotherapy for lymphoma. He does have a history of CLL and gets chemotherapy every 3 weeks last session was approximately 2 weeks ago. He does endorse some intermittent loose yellow stools, denies any dark stools black stools vomiting or vomiting blood. He also endorses some chills and a slight cough. No other associated symptoms or complaints. Patient does have also history of ascending aorta dilatation, arteriosclerotic cardiovascular disease, hyperlipidemia and hypertension. Yet does have a coronary stent. Related Data Home Medications ?Medication ?Instructions ?Recorded ?Confirmed aspirin 81 mg tablet,delayed 81 mg PO DAILY 12/05/12 05/24/25 release (Aspir-) loratadine 10 mg tablet (Claritin) 10 mg PO HS 12/05/12 05/24/25 lovastatin 40 mg tablet 40 mg PO HS 12/05/12 05/24/25 furosemide 20 mg tablet 20 mg PO DAILY #14 tabs 09/15/19 05/24/25 ezetimibe 10 mg tablet 10 mg PO DAILY 06/17/20 05/24/25 amlodipine 5 mg tablet 5 mg PO DAILY 12/20/24 05/24/25 celecoxib 200 mg capsule 200 mg PO HS 12/20/24 05/24/25 acetaminophen 500 mg capsule 500 mg PO QHS 02/20/25 05/24/25 losartan 25 mg tablet 25 mg PO QHS 02/20/25 05/24/25 tamsulosin 0.4 mg capsule (Flomax) 0.4 mg PO QHS 02/20/25 05/24/25 allopurinol 300 mg tablet 300 mg PO DAILY 03/20/25 05/24/25 azelastine 0.05 % eye drops 1 drp ophthalmic (eye) BID 03/20/25 05/24/25 ezetimibe 10 mg tablet (Zetia) 10 mg PO DAILY 03/20/25 05/24/25 furosemide 20 mg tablet (Lasix) 20 mg PO DAILY 03/20/25 05/24/25 gabapentin 300 mg capsule 300 mg PO TID 03/20/25 05/24/25 lovastatin 40 mg tablet 60 mg PO DAILY 03/20/25 05/24/25 nitroglycerin 0.4 mg sublingual 0.4 mg sublingual Q5-15M PRN 03/20/25 05/24/25 tablet prochlorperazine maleate 10 mg 10 mg PO Q6H PRN 03/20/25 05/24/25 tablet (Compazine) selenium sulfide 1 % shampoo 1 applic topical DAILY 03/20/25 05/24/25 valacyclovir 1 gram tablet 1,000 mg PO TID 03/20/25 05/24/25 venetoclax 10 mg (14)-50 mg See Rx Instructions PO .COMPLEX 03/20/25 05/24/25 (7)-100 mg (21) tablets in a dose pack fluconazole 200 mg tablet 200 mg PO DAILY Prophylactic #05/24/25 tabs levofloxacin 750 mg tablet 750 mg PO DAILY Prophylactic #05/24/25 tabs Previous Rx's ?Medication ?Instructions ?Recorded furosemide 20 mg tablet 20 mg PO DAILY #14 tabs 09/15/19 fluconazole 200 mg tablet 200 mg PO DAILY Prophylactic #90 05/24/25 tabs levofloxacin 750 mg tablet 750 mg PO DAILY Prophylactic #90 05/24/25 tabs Allergies Allergy/AdvReac Type Severity Reaction Status Date / Time lisinopril Allergy Mild Other (See Verified 03/20/25 10:13 Comment) penicillin V (Penicillin V) Allergy Mild Other (See Verified 03/20/25 10:13 Comment) SHARA Inhibitors Allergy Unknown Other (See Verified 03/20/25 10:13 Comment) General Stated Complaint: Abd Prob MOSES: 3 Review of Systems All systems reviewed & are unremarkable except as noted in HPI and below Constitutional Constitutional: Reports chills, Reports fatigue, Denies fever(s) and Reports weakness Gastrointestinal Gastrointestinal: Reports abdominal pain and Reports loose stools Neurologic Neurologic: Reports weakness Endocrine Endocrine: Reports fatigue Exam Narrative Exam Narrative: Constitutional: Alert and oriented x3. Appears stated age. Normal body habitus. Head: Normocephalic, no trauma. Eyes: Pupils PERRL, Red reflex noted, EOM's intact. Eyelids symmetrical without lesions, discharge, or swelling. ENT: Bilateral TM's WNL, External ear normal to inspection, no mastoid TTP, swelling, or erythema, Nasal turbinates WNL, no nasal discharge. Normal dentition, Posterior pharynx WNL, no exudate. Chest: RRR, Normal S1, S2, distal pulses intact. Patient does have a port to his right anterior chest. Resp: Lungs clear to auscultation bilaterally, no wheezes, rales, or rhonchi. Abdomen: Soft, non-distended, Normoactive bowel sounds all 4 quads. Musculoskeletal: Normal gait, Moves all 4 extremities without difficulty. Skin: No suspicious rashes or lesions. Capillary refill less than 2 sec. slightly pale. Neurologic: Cranial nerves II-XII intact. Alert and oriented x 3. Motor: No deficits noted. Hematologic/Lymphatic: No ecchymosis, Course Vital Signs Vital signs: Vital Signs Temperature 36.9 C 05/24/25 18:36 Pulse 91 H 05/24/25 18:36 Respiratory Rate 16 05/24/25 18:36 Blood Pressure 113/72 05/24/25 18:36 Pulse Oximetry 98 05/24/25 18:36 Temperature 36.5 C 05/24/25 18:37 Pulse 124 H 05/24/25 18:37 Respiratory Rate 20 05/24/25 18:37 Blood Pressure 106/54 L 05/24/25 18:37 Blood Pressure Position Sitting 05/24/25 18:37 Pulse Oximetry 99 05/24/25 18:37 Oxygen Delivery Method Room Air 05/24/25 18:37 Oxygen Flow Rate 0 05/24/25 18:37 Pain Level 4 05/24/25 18:36 Medical Decision Making 72-year-old male presents to the ER with a chief complaint of generalized weakness which has been ongoing for approximately a week or longer. He was referred here by the cancer center for further evaluation. He is currently undergoing chemotherapy for lymphoma. He does have a history of CLL and gets chemotherapy every 3 weeks last session was approximately 2 weeks ago. He does endorse some intermittent loose yellow stools, denies any dark stools black stools vomiting or vomiting blood. He also endorses some chills and a slight cough. CBC, CMP, lipase and urinalysis ordered. Fluvid chest x-ray and 500 cc normal saline. Patient does have a port, I did okay chief of staff to access this with sterile and facility protocol as deemed necessary per patient request. 2011: Received critical lab result of leukopenia and absolute neutrophil count, WBC is 0.69 and ANC is 0.18, hemoglobin is 9.9 and hematocrit 29.7 platelets are also low at 37, sodium is 132 BUN 27 creatinine 1.1 GFR 68 calcium slightly low at 8.3 albumin 2.9, Fluvid is negative. Chest x-ray is pending at this time. Urinalysis is pending. 2035: [facility] center contacted to speak with Heme/Oncology for consult regarding labs. 2049: Spoke with [facility] Heme/Onc Dr. DE LA CRUZ, he recommends Levofloxacin 750 mg QD and Fluconazole 200mg QD indefinitely. Will give the first dose here. He recommends close follow-up as long as patient is afebrile. Patient remains afebrile here repeat temp is 98.9. Urinalysis shows small blood, negative leukocytes 5-10 RBCs, few bacteria culture not indicated at this time. Will encourage strict close follow-up with the cancer center. Discussed home care, close follow-up and strict return instructions. Patient verbalized understanding. He was ambulatory alert and oriented and hemodynamically stable upon discharge from the department. Will give prescription for levofloxacin and fluconazole. This text was generated using [employer] system, please disregard any oddities of phrase or misspellings. Medical Records Medical records reviewed: Yes I reviewed the patient's medical records. Lab Data Lab results reviewed: Yes I reviewed the patient's lab results. Labs: Laboratory Tests Range/Units 05/24/25 05/24/25 05/24/25 19:36 19:49 20:48 WBC (4.4-10.8) 10^3/uL 0.69 L* RBC (4.36-5.78) 10^6/uL 3.34 L Hgb (13.5-17.5) g/dL 9.9 L Hct (40.0-50.0) % 29.7 L MCV (80-95) fL 89 MCH (27.0-33.0) pg 29.6 MCHC (32.0-36.0) % 33.3 RDW (11.8-14.1) % 16.3 H Plt Count (130-400) 10^3/uL 37 L MPV (8.0-11.0) fL Immature Gran % % Neutrophils % % 26.1 Lymphocytes % % 57.9 Monocytes % % 12.0 Eosinophils % % 0.0 Basophils % % 0.0 Myelocytes % 4 Nucleated RBC % (0.0-0.3) % 0.0 Absolute Neutrophils (1.2-6.7) 10^3/uL 0.18 L* Absolute Lymphocytes (1.2-3.4) 10^3/uL 0.40 L Absolute Monocytes (0.1-0.8) 10^3/uL 0.08 L Absolute Eosinophils (0.0-0.7) 10^3/uL 0.00 Absolute Basophils (0.0-0.2) 10^3/uL 0.00 RBC Morphology Normal Sodium (136-145) mmol/L 132 L Potassium (3.5-5.1) mmol/L 4.3 Chloride (98-107) mmol/L 100 Carbon Dioxide (21.0-32.0) mmol/L 27.9 Anion Gap (3-11) mmol/L 4.1 BUN (7-18) mg/dL 27 H Creatinine (0.70-1.30) mg/dL 1.1 Est GFR (CKD-EPI 2020) (mL/min/1.73m2) 68.71 Glucose (74-106) mg/dL 100 Calcium (8.5-10.1) mg/dL 8.3 L Magnesium (1.8-2.4) mg/dL 1.8 Total Bilirubin (0.2-1.0) mg/dL 0.4 AST (15-37) U/L 16 ALT (16-63) U/L 21 Alkaline Phosphatase (46-116) U/L 48 Total Protein (6.4-8.2) g/dL 6.5 Albumin (3.4-5.0) g/dL 2.9 L Lipase (<78) U/L 24 Urine Color (Yellow) Yellow Urine Clarity (Clear) Clear Urine pH (5-8) 6.0 Ur Specific [place] (1.005-1.025) 1.020 Urine Protein (Neg-Trace) mg/dL Negative Urine Ketones (Negative) mg/dL Negative Urine Blood (Negative) Small H Urine Nitrite (Negative) Negative Urine Bilirubin (Negative) Negative Urine Urobilinogen (Up to 0.2) mg/dL 0.2 Ur Leukocyte Esterase (Negative) Negative Urine RBC (0-2) HPF 5-10 H Urine WBC (0-5) HPF 3-5 Ur Epithelial Cells (Negative) HPF Negative Urine Crystals (Negative) HPF Negative Urine Bacteria (Negative) HPF Few Urine Casts (Negative) LPF 5-10 Hyaline Urine Mucus (Negative) Trace Ur Culture Indicated? No Urine Glucose (Negative) mg/dL Negative COVID-19 Source Nasopharynx SARS-CoV-2 (PCR) (Negative) Negative Influenza Type A (PCR) (Negative) Negative Influenza Type B (PCR) (Negative) Negative RSV (PCR) (Negative) Negative Quality:SDOH Health Related Social Needs: Health related social needs food insecurity Health related social needs details pt has housing but is on a tight budget [facility] All Active Problems (Updated 05/24/25 @ 21:16 by Nalini Tejeda NP) Thrombocytopenia (Chronic) Neutropenia (Acute) Leukopenia (Acute) Herpes zoster (Acute) Lymphoma (Acute) Tendinitis of long head of biceps brachii of left shoulder (Acute) Bursitis of left shoulder (Acute) Hyperlipidemia (Acute) Obesity (Chronic) Lymphadenopathy (Acute) Ocular migraine (Acute) 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) Pre-diabetes (Acute) Corneal abrasion, right (Acute) Foreign body in eye (Acute) Hematuria (Acute) Bradycardia (Acute) CAD (coronary artery disease) (Chronic) Discharge planning issues (Acute) Community acquired pneumonia (Acute) Medical History Chronic lymphocytic leukemia not having achieved remission Ascending aorta dilatation Lesion of lower eyelid SCCA (squamous cell carcinoma) of skin Seborrheic dermatitis Squamous cell carcinoma in situ Actinic keratosis Medication intolerance Smoking hx ASCVD (arteriosclerotic cardiovascular disease) Advanced care planning/counseling discussion Palliative care patient Basal cell carcinoma arm Hyperlipidemia Benign hypertension Surgical History Coronary Stent x 2 10 yrs ago Social History Smoking/Tobacco Use Status: Former Tobacco Use Tobacco: How many years used: 45 Smoking risk assessment performed?: Yes Alcohol Intake: current Alcohol Intake frequency: a few times a month Alcohol type: beer and hard liquor Drug use: Never Substance use type: does not use Details: quit smoking in 2000 Housing: house 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
[2025-05-24 19:49] LABS: Abs Immature Grans 0.06 10^3/uL (0.0-0.06); HCT 29.7 % (40.0-50.0); HGB 9.9 g/dL (13.5-17.5); MCH 29.6 pg (27.0-33.0); MCHC 33.3 % (32.0-36.0); MCV 89 fL (80-95); RBC 3.34 10^6/uL (4.36-5.78); RDW 16.3 % (11.8-14.1); RDW-SD 53.4 fL
--- NOTE | 2025-05-24 19:55 | DI.RAD_ITS ---
Exam(s) XR CHEST 2V PA LATERAL EXAM: XR CHEST 2V PA LATERAL CLINICAL HISTORY: Cough, Chills. TECHNIQUE: 2D digital imaging was performed. COMPARISON: No exams were available for comparison FINDINGS: 2 views: Distal tip of the right sided Port-A-Cath is in the lower SVC in good position. Heart size is normal. The mediastinum is not widened. Left lung is clear. There is some platelike atelectasis in the lower right lung field. No pleural effusions. No pulmonary edema. Evidence of previous right shoulder surgery again noted. IMPRESSION: There is platelike atelectasis or early infiltrate in the right lower lobe. No pleural effusions. Preliminary virtual Radiology report was reviewed. DATA REPOSITORY: RADIATION DOSE DELIVERED:
[2025-05-24 19:56] LABS: ALT 21 U/L (16-63); AST 16 U/L (15-37); Albumin 2.9 g/dL (3.4-5.0); Alkaline Phosphatase 48 U/L (46-116); Anion Gap 4.1 mmol/L (3-11); BUN 27 mg/dL (7-18); Bilirubin, Total 0.4 mg/dL (0.2-1.0); CO2 27.9 mmol/L (21.0-32.0); Calcium 8.3 mg/dL (8.5-10.1); Chloride 100 mmol/L (98-107); Estimated GFR 68.71 (mL/min/1.73m2); Glucose 100 mg/dL (74-106); Lipase 24 U/L (<78); Magnesium 1.8 mg/dL (1.8-2.4); Potassium 4.3 mmol/L (3.5-5.1); Sodium 132 mmol/L (136-145); Total Protein 6.5 g/dL (6.4-8.2)
[2025-05-24 20:11] LABS: WBC 0.69 10^3/uL (4.4-10.8)
[2025-05-24] MEDS: Normal Saline 500 ML IV (20:11)
[2025-05-24 20:17] LABS: Platelet Count 37 10^3/uL (130-400); RBC Morphology Normal
[2025-05-24 20:31] LABS: COVID-19 PCR Negative (Negative); RSV PCR Negative (Negative)
[2025-05-24 21:01] LABS: Glucose Negative (Negative)
[2025-05-24 21:03] LABS: C & S Indicated? No
--- NOTE | 2025-05-24 21:27 | DI.VRAD_ITS ---
PROCEDURE INFORMATION: Exam: XR Chest Exam date and time: 05/24/2025 7:57 PM Age: 80 years old Clinical indication: Cough and other: Cough, chills TECHNIQUE: Imaging protocol: Radiologic exam of the chest. Views: 2 views. COMPARISON: CR XR PORTABLE CHEST AP 08/17/2025 19:32 FINDINGS: Tubes, catheters and devices: Port-A-Cath catheter from the right internal jugular vein approach terminates at the mid superior vena cava. Lungs: The lungs are hyperinflated, consistent with underlying small airways disease. Patchy atelectasis right lower lobe of the lung early pneumonia can not be excluded. The pulmonary vasculature is normal. Pleural spaces: There is no evidence of pneumothorax. There are no pleural effusions present. Heart/Mediastinum: The cardiac silhouette is within normal limits. The mediastinum is normal. Bones/joints: Postsurgical changes right shoulder girdle for rotator cuff repair. The spine, sternum, ribs, and pectoral girdles show no evidence of acute abnormality Soft tissues: There are no soft tissue masses or calcifications. IMPRESSION: 1. The lungs are hyperinflated, consistent with underlying small airways disease. 2. Patchy atelectasis right lower lobe of the lung early pneumonia can not be excluded. Dictated and Authenticated by: Xander Ortega MD. Orderin Ileana Gayle MD
[2025-05-24] MEDS: levoFLOXacin 500 MG TAB PO (21:47)
[2025-05-24] MEDS: Fluconazole 100 MG TAB 200 MG PO (21:48)
[2025-05-24] MEDS: levoFLOXacin 250 MG TAB PO (21:49)
[2025-05-24 22:00] VITALS: BP 134/74; PULSE 74; RESP 16; TEMP 37.2; O2SAT 94
== END 2025-05-24 22:04 | disposition home or self-care (01) ==
LOC: ER 21:48
PROVIDERS: Emergency Provider Registered Nurse Emergency; PCP Nurse Practitioner Family
DX: C85.93 Non-Hodgkin lymphoma, unspecified, intra-abdominal lymph nodes (principal); D72.819 Decreased white blood cell count, unspecified; R53.1 Weakness; Z59.89 Other problems related to housing and economic circumstances; Z59.41 Food insecurity
CPT/HCPCS: 99284 ×2; 80053; 83690; 87637; 71046; 81003; 81015; 83735; 85025

== ENCOUNTER 2025-05-29 15:22 | Emergency (ER) | payer MEDICARE, SELFPAY ==
[2025-05-29 15:29] VITALS: BP 101/66; PULSE 81; RESP 16; TEMP 36.4; O2SAT 92
--- NOTE | 2025-05-29 15:30 | RT.EKG_ITS ---
APPROVED REPORT Exam: Resting ECG Reason for Exam: A-Priyanka Patient Location: E HR:86 bpm ECG Measurements Heart Rate 86 AXIS SC 183 P 13 QRSd 100 QRS 6 QT 363 T -12 QTc 434 Conclusion Sinus rhythm...normal P axis, V-rate 60- 99 Multiple ventricular premature complexes...V complexes w/ short R-R intervls Inferior infarct, old...Q >35mS, II III aVF
[2025-05-29 17:23] LABS: HCT 31.4 % (40.0-50.0); HGB 10.4 g/dL (13.5-17.5); MCH 29.8 pg (27.0-33.0); MCHC 33.1 % (32.0-36.0); MCV 90 fL (80-95); MPV 12.9 fL (8.0-11.0); RBC 3.49 10^6/uL (4.36-5.78); RDW 16.8 % (11.8-14.1); RDW-SD 55.1 fL; WBC 2.84 10^3/uL (4.4-10.8)
[2025-05-29 17:36] LABS: INR 1.0 (0.9-1.1); PTT Activated 32.7 sec (20.6-30.2); Prothrombin Time 10.2 sec (9.1-11.1)
[2025-05-29 17:40] LABS: ALT 43 U/L (16-63); AST 42 U/L (15-37); Albumin 3.0 g/dL (3.4-5.0); Alkaline Phosphatase 66 U/L (46-116); Anion Gap 6.9 mmol/L (3-11); BUN 30 mg/dL (7-18); Bilirubin, Total 0.3 mg/dL (0.2-1.0); CO2 27.1 mmol/L (21.0-32.0); Calcium 8.9 mg/dL (8.5-10.1); Chloride 98 mmol/L (98-107); Estimated GFR 43.83 (mL/min/1.73m2); Glucose 95 mg/dL (74-106); Potassium 4.4 mmol/L (3.5-5.1); Sodium 132 mmol/L (136-145); Total Protein 7.4 g/dL (6.4-8.2); Troponin I 48 ng/L (<or=76)
--- NOTE | 2025-05-29 17:42 | W.ED.GENAD ---
Discharge Plan Disposition Patient Disposition: Home Condition: Stable Discharge Details Clinical Impression: Acute dehydration, Dizziness, Premature ventricular contraction Primary Care Provider: Luci Bustillo ED Provider: Nalini Tejeda Meds and New Rx's Prescriptions: No Action azelastine 0.05 % drops 1 drp ophthalmic (eye) BID valacyclovir 1 gram tablet 1,000 mg PO TID lovastatin 40 mg tablet 60 mg PO DAILY prochlorperazine maleate [Compazine] 10 mg tablet 10 mg PO Q6H PRN nitroglycerin 0.4 mg tablet, sublingual 0.4 mg sublingual Q5-15M PRN Rx Instructions: do not exceed 3 doses per episode gabapentin 300 mg capsule 300 mg PO TID allopurinol 300 mg tablet 300 mg PO DAILY furosemide [Lasix] 20 mg tablet 20 mg PO DAILY selenium sulfide 1 % shampoo 1 applic topical DAILY Rx Instructions: massage into affected area; leave on for 10 mins ; rinse off thoroughly ezetimibe [Zetia] 10 mg tablet 10 mg PO DAILY venetoclax 10 mg-50 mg- 100 mg tablets,dose pack See Rx Instructions PO .COMPLEX Rx Instructions: take 20 mg daily for 7 days (week 1); 50 mg daily for 7 days (week 2); 100 mg daily for 7 days (week 3); 200 mg daily for 7 days (week 4) PO ezetimibe 10 mg tablet 10 mg PO DAILY Patient Comments: pt unsure of med lovastatin 40 MG tablet 40 mg PO HS Patient Comments: rx for 60mg at HS, pt is taking 40mg HS aspirin [Aspir-81] 81 MG tablet,delayed release (DR/EC) 81 mg PO DAILY loratadine [Claritin] 10 MG tablet 10 mg PO HS amlodipine 5 mg tablet 5 mg PO DAILY Patient Comments: Filled for 5mg in November, then 2.5mg in January. Pt states is taking 5mg. celecoxib 200 mg capsule 200 mg PO HS losartan 25 mg tablet 25 mg PO QHS acetaminophen 500 mg capsule 500 mg PO QHS tamsulosin [Flomax] 0.4 mg capsule 0.4 mg PO QHS furosemide 20 mg Tablet 20 mg PO DAILY Qty: 14 0RF levofloxacin 750 mg tablet 750 mg PO DAILY Qty: 90 0RF Rx Instructions: Take 1 tablet by mouth daily fluconazole 200 mg tablet 200 mg PO DAILY Qty: 90 0RF Rx Instructions: Please take 1 tablet daily Discharge Instructions Instructions: Why Water Is Important to Health, Dehydration, Adult ED, Dizziness, Adult ED Additional Instructions: No evidence of heart attack today. You do have some occasional premature ventricular beats, he also are probably dehydrated. You were given some IV fluid repletion. Please continue to increase oral fluids over the next few days including Gatorade or similar. Follow up with primary care provider in 3-5 days. Return to ED sooner if any worsening or concerns. Thank you for allowing us to care for you today. Referrals: Luci Bustillo [Primary Care Provider, Medicine] - 5 days HPI General Mode of arrival: ambulatory. Date/Time Provider Initiated Documentation: 05/29/25 15:31. Limitations to Documentation: no limitations. Information obtained by: patient, family, RN notes reviewed and old records reviewed. HPI Narrative: 80-year-old male with a past medical history of CLL who receives periodic infusions through the infusion center and is being seen by the [facility] presents to the ER with a chief complaint of weak and dizziness. Patient was seen here 5 days ago for similar and was found to be leukopenic and thrombocytopenic and neutropenic. He was placed on Levaquin and Diflucan fluconazole and instructed on close follow-up. He reports that he has lost approximately 5 pounds and has been seen by the cancer center and had labs drawn this morning. They referred him here for further evaluation due to frequent PVCs. Patient has no chest pain, no cough shortness of breath no fever denies any nausea vomiting diarrhea. He has been taking his normal daily medications as prescribed. He states that his labs that were drawn this morning were improved however I do not have a record of those. Related Data Home Medications ?Medication ?Instructions ?Recorded ?Confirmed aspirin 81 mg tablet,delayed 81 mg PO DAILY 12/05/12 05/29/25 release (Aspir-) loratadine 10 mg tablet (Claritin) 10 mg PO HS 12/05/12 05/29/25 lovastatin 40 mg tablet 40 mg PO HS 12/05/12 05/29/25 furosemide 20 mg tablet 20 mg PO DAILY #14 tabs 09/15/19 05/29/25 ezetimibe 10 mg tablet 10 mg PO DAILY 06/17/20 05/29/25 amlodipine 5 mg tablet 5 mg PO DAILY 12/20/24 05/29/25 celecoxib 200 mg capsule 200 mg PO HS 12/20/24 05/29/25 acetaminophen 500 mg capsule 500 mg PO QHS 02/20/25 05/29/25 losartan 25 mg tablet 25 mg PO QHS 02/20/25 05/29/25 tamsulosin 0.4 mg capsule (Flomax) 0.4 mg PO QHS 02/20/25 05/29/25 allopurinol 300 mg tablet 300 mg PO DAILY 03/20/25 05/29/25 azelastine 0.05 % eye drops 1 drp ophthalmic (eye) BID 03/20/25 05/29/25 ezetimibe 10 mg tablet (Zetia) 10 mg PO DAILY 03/20/25 05/29/25 furosemide 20 mg tablet (Lasix) 20 mg PO DAILY 03/20/25 05/29/25 gabapentin 300 mg capsule 300 mg PO TID 03/20/25 05/29/25 lovastatin 40 mg tablet 60 mg PO DAILY 03/20/25 05/29/25 nitroglycerin 0.4 mg sublingual 0.4 mg sublingual Q5-15M PRN 03/20/25 05/29/25 tablet prochlorperazine maleate 10 mg 10 mg PO Q6H PRN 03/20/25 05/29/25 tablet (Compazine) selenium sulfide 1 % shampoo 1 applic topical DAILY 03/20/25 05/29/25 valacyclovir 1 gram tablet 1,000 mg PO TID 03/20/25 05/29/25 venetoclax 10 mg (14)-50 mg See Rx Instructions PO .COMPLEX 03/20/25 05/29/25 (7)-100 mg (21) tablets in a dose pack fluconazole 200 mg tablet 200 mg PO DAILY Prophylactic #05/24/25 05/29/25 tabs levofloxacin 750 mg tablet 750 mg PO DAILY Prophylactic #05/24/25 05/29/25 tabs Previous Rx's ?Medication ?Instructions ?Recorded furosemide 20 mg tablet 20 mg PO DAILY #14 tabs 09/15/19 fluconazole 200 mg tablet 200 mg PO DAILY Prophylactic #05/24/25 tabs levofloxacin 750 mg tablet 750 mg PO DAILY Prophylactic #05/24/25 tabs Allergies Allergy/AdvReac Type Severity Reaction Status Date / Time lisinopril Allergy Mild Other (See Verified 05/29/25 15:44 Comment) penicillin V (Penicillin V) Allergy Mild Other (See Verified 05/29/25 15:44 Comment) SHARA Inhibitors Allergy Unknown Other (See Verified 05/29/25 15:44 Comment) General Stated Complaint: Dizzy/Sync MOSES: 3 Review of Systems All systems reviewed & are unremarkable except as noted in HPI and below Constitutional Constitutional: Reports as per HPI and Reports weakness ENT Ears, Nose, Mouth, and Throat: Reports dizziness Cardiovascular Cardiovascular: Denies chest pain and Denies dyspnea Respiratory Respiratory: Denies dyspnea Gastrointestinal Gastrointestinal: Denies abdominal pain, Denies diarrhea, Denies nausea and Denies vomiting Neurologic Neurologic: Reports dizziness and Reports weakness Hematologic/Lymphatic Hematologic/Lymphatic: Reports as per HPI Exam Narrative Exam Narrative: Constitutional: Alert and oriented x3. Appears stated age. Normal body habitus. Appears chronically ill slightly pale. Head: Normocephalic, no trauma. Eyes: Pupils PERRL, Red reflex noted, EOM's intact. Eyelids symmetrical without lesions, discharge, or swelling. ENT: Bilateral TM's WNL, External ear normal to inspection, no mastoid TTP, swelling, or erythema, Nasal turbinates WNL, no nasal discharge. Normal dentition, Posterior pharynx WNL, no exudate. Chest: RRR, Normal S1, S2, distal pulses intact. Resp: Lungs clear to auscultation bilaterally, no wheezes, rales, or rhonchi. Abdomen: Soft, non-distended, Normoactive bowel sounds all 4 quads. Musculoskeletal: Normal gait, Moves all 4 extremities without difficulty. Skin: No suspicious rashes or lesions. Capillary refill less than 2 sec. Neurologic: Cranial nerves II-XII intact. Alert and oriented x 3. Motor: No deficits noted. Sensory: Intact bilaterally all 4 extremities. Hematologic/Lymphatic: No ecchymosis, no lymphadenopathy. Course Vital Signs Vital signs: Vital Signs Temperature 36.4 C L 05/29/25 15:29 Pulse 81 05/29/25 15:29 Respiratory Rate 16 05/29/25 15:29 Blood Pressure 101/66 05/29/25 15:29 Pulse Oximetry 92 05/29/25 15:29 Temperature 36.4 C L 05/29/25 15:29 Temperature Source Temporal Artery Scan 05/29/25 15:29 Pulse 81 05/29/25 15:29 Respiratory Rate 16 05/29/25 15:29 Respiratory Effort Normal 05/29/25 17:20 Respiratory Depth Normal 05/29/25 17:20 Respiratory Pattern Normal 05/29/25 17:20 Blood Pressure 101/66 05/29/25 15:29 Blood Pressure Position Sitting 05/29/25 15:29 Pulse Oximetry 92 05/29/25 15:29 Oxygen Delivery Method Room Air 05/29/25 15:29 Oxygen Flow Rate 0 05/29/25 15:29 Pain Level 0 05/29/25 15:29 Lab/Test Results Lab/Test Results: Laboratory Tests Range/Units 05/29/25 17:15 Sodium (136-145) mmol/L 132 L Potassium (3.5-5.1) mmol/L 4.4 Chloride (98-107) mmol/L 98 Carbon Dioxide (21.0-32.0) mmol/L 27.1 Anion Gap (3-11) mmol/L 6.9 BUN (7-18) mg/dL 30 H Creatinine (0.70-1.30) mg/dL 1.6 H Est GFR (CKD-EPI 2020) (mL/min/1.73m2) 43.83 Glucose (74-106) mg/dL 95 Calcium (8.5-10.1) mg/dL 8.9 Total Bilirubin (0.2-1.0) mg/dL 0.3 AST (15-37) U/L 42 H ALT (16-63) U/L 43 Alkaline Phosphatase (46-116) U/L 66 Troponin I (<or=76) ng/L 48 Total Protein (6.4-8.2) g/dL 7.4 Albumin (3.4-5.0) g/dL 3.0 L Medical Decision Making EKG was reviewed by myself and Dr. Yves JOSUE attending, please see official report, old EKG available for review, there is occasional PVCs, normal sinus rhythm old inferior infarct, old EKG available for review. Please see official report. Workup ordered including CBC CMP, UA serial troponins, PT PTT. 500 cc normal saline bolus. Patient reports that he has had decreased oral intake with fluids today. Patient did get a chest x-ray last visit 5 days ago. Reported he did have a PET scan done through [facility]. Will consider CT cchest Abd Pelvis to rule out other etiology. Previous CT in February showed some ascites. Differential diagnosis includes but not limited to dehydration, chronic CLL exacerbation, anemia, electrolyte disturbance, urinary tract infection. CBC is much improved from his previous visit white blood cell count is up to 2.84, hemoglobin 10.4 hematocrit 31.4 platelets are 67 which is 37. Sodium 132 BUN 30 creatinine 1.6 GFR 43 initial troponin 48, 1 hour troponin 47 which is downtrending and within normal limits. Discussed results patient verbalized understanding. I did encourage increased oral fluids. He was discharged into the care of his family. Upon reevaluation after fluid bolus patient feels much better. He states that he did stand up and was not dizzy. Urinating prior to discharge with no difficulty. This text was generated using [employer] system, please disregard any oddities of phrase or misspellings. Medical Records Medical records reviewed: Yes I reviewed the patient's medical records. Lab Data Lab results reviewed: Yes I reviewed the patient's lab results. Labs: Laboratory Tests Range/Units 05/29/25 05/29/25 05/29/25 17:15 18:20 19:05 WBC (4.4-10.8) 10^3/uL 2.84 L RBC (4.36-5.78) 10^6/uL 3.49 L Hgb (13.5-17.5) g/dL 10.4 L Hct (40.0-50.0) % 31.4 L MCV (80-95) fL 90 MCH (27.0-33.0) pg 29.8 MCHC (32.0-36.0) % 33.1 RDW (11.8-14.1) % 16.8 H Plt Count (130-400) 10^3/uL 67 L MPV (8.0-11.0) fL 12.9 H Immature Gran % See Differential Neutrophils % % 58.0 Band Neutrophils % % 6 Lymphocytes % % 9.0 Atypical Lymphs % % 2 Monocytes % % 24.0 Eosinophils % % 0.0 Basophils % % 0.0 Metamyelocytes % 1 Nucleated RBC % (0.0-0.3) % 0.0 Absolute Neutrophils (1.2-6.7) 10^3/uL 1.82 Absolute Lymphocytes (1.2-3.4) 10^3/uL 0.31 L Absolute Monocytes (0.1-0.8) 10^3/uL 0.68 Absolute Eosinophils (0.0-0.7) 10^3/uL 0.00 Absolute Basophils (0.0-0.2) 10^3/uL 0.00 RBC Morphology See Below Anisocytosis 1+ PT (9.1-11.1) sec 10.2 INR (0.9-1.1) 1.0 APTT (20.6-30.2) sec 32.7 H Sodium (136-145) mmol/L 132 L Potassium (3.5-5.1) mmol/L 4.4 Chloride (98-107) mmol/L 98 Carbon Dioxide (21.0-32.0) mmol/L 27.1 Anion Gap (3-11) mmol/L 6.9 BUN (7-18) mg/dL 30 H Creatinine (0.70-1.30) mg/dL 1.6 H Est GFR (CKD-EPI 2020) (mL/min/1.73m2) 43.83 Glucose (74-106) mg/dL 95 Calcium (8.5-10.1) mg/dL 8.9 Total Bilirubin (0.2-1.0) mg/dL 0.3 AST (15-37) U/L 42 H ALT (16-63) U/L 43 Alkaline Phosphatase (46-116) U/L 66 Troponin I (<or=76) ng/L 48 47 Total Protein (6.4-8.2) g/dL 7.4 Albumin (3.4-5.0) g/dL 3.0 L Urine Color (Yellow) Yellow Urine Clarity (Clear) Clear Urine pH (5-8) 5.5 Ur Specific Fowler (1.005-1.025) 1.025 Urine Protein (Neg-Trace) mg/dL Negative Urine Ketones (Negative) mg/dL Negative Urine Blood (Negative) Trace-intact H Urine Nitrite (Negative) Negative Urine Bilirubin (Negative) Negative Urine Urobilinogen (Up to 0.2) mg/dL 0.2 Ur Leukocyte Esterase (Negative) Negative Urine RBC (0-2) HPF 0-2 Urine WBC (0-5) HPF 0-2 Ur Epithelial Cells (Negative) HPF Rare Urine Crystals (Negative) HPF Negative Urine Bacteria (Negative) HPF Rare Urine Casts (Negative) LPF 5-10 Hyaline Urine Mucus (Negative) Moderate Urine Other (Negative) Rare Transitional Ur Culture Indicated? No Urine Glucose (Negative) mg/dL Negative ABO/Rh A Negative Antibody Screen NEGATIVE Range/Units 05/29/25 19:58 WBC (4.4-10.8) 10^3/uL RBC (4.36-5.78) 10^6/uL Hgb (13.5-17.5) g/dL Hct (40.0-50.0) % MCV (80-95) fL MCH (27.0-33.0) pg MCHC (32.0-36.0) % RDW (11.8-14.1) % Plt Count (130-400) 10^3/uL MPV (8.0-11.0) fL Immature Gran % Neutrophils % % Band Neutrophils % % Lymphocytes % % Atypical Lymphs % % Monocytes % % Eosinophils % % Basophils % % Metamyelocytes % Nucleated RBC % (0.0-0.3) % Absolute Neutrophils (1.2-6.7) 10^3/uL Absolute Lymphocytes (1.2-3.4) 10^3/uL Absolute Monocytes (0.1-0.8) 10^3/uL Absolute Eosinophils (0.0-0.7) 10^3/uL Absolute Basophils (0.0-0.2) 10^3/uL RBC Morphology Anisocytosis PT (9.1-11.1) sec INR (0.9-1.1) APTT (20.6-30.2) sec Sodium (136-145) mmol/L Potassium (3.5-5.1) mmol/L Chloride (98-107) mmol/L Carbon Dioxide (21.0-32.0) mmol/L Anion Gap (3-11) mmol/L BUN (7-18) mg/dL Creatinine (0.70-1.30) mg/dL Est GFR (CKD-EPI 2020) (mL/min/1.73m2) Glucose (74-106) mg/dL Calcium (8.5-10.1) mg/dL Total Bilirubin (0.2-1.0) mg/dL AST (15-37) U/L ALT (16-63) U/L Alkaline Phosphatase (46-116) U/L Troponin I (<or=76) ng/L Cancelled Total Protein (6.4-8.2) g/dL Albumin (3.4-5.0) g/dL Urine Color (Yellow) Urine Clarity (Clear) Urine pH (5-8) Ur Specific Fowler (1.005-1.025) Urine Protein (Neg-Trace) mg/dL Urine Ketones (Negative) mg/dL Urine Blood (Negative) Urine Nitrite (Negative) Urine Bilirubin (Negative) Urine Urobilinogen (Up to 0.2) mg/dL Ur Leukocyte Esterase (Negative) Urine RBC (0-2) HPF Urine WBC (0-5) HPF Ur Epithelial Cells (Negative) HPF Urine Crystals (Negative) HPF Urine Bacteria (Negative) HPF Urine Casts (Negative) LPF Urine Mucus (Negative) Urine Other (Negative) Ur Culture Indicated? Urine Glucose (Negative) mg/dL ABO/Rh Antibody Screen Quality:SDOH Health Related Social Needs: Health related social needs food insecurity Health related social needs details pt has housing but is on a tight budget [facility] All Active Problems (Updated 05/29/25 @ 19:58 by Nalini Tejeda NP) Premature ventricular contraction (Acute) Dizziness (Acute) Acute dehydration (Acute) Thrombocytopenia (Chronic) Neutropenia (Acute) Leukopenia (Acute) Herpes zoster (Acute) Lymphoma (Acute) Tendinitis of long head of biceps brachii of left shoulder (Acute) Bursitis of left shoulder (Acute) Hyperlipidemia (Acute) Obesity (Chronic) Lymphadenopathy (Acute) Ocular migraine (Acute) 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) Pre-diabetes (Acute) Corneal abrasion, right (Acute) Foreign body in eye (Acute) Hematuria (Acute) Bradycardia (Acute) CAD (coronary artery disease) (Chronic) Discharge planning issues (Acute) Community acquired pneumonia (Acute) Medical History Chronic lymphocytic leukemia not having achieved remission Ascending aorta dilatation Lesion of lower eyelid SCCA (squamous cell carcinoma) of skin Seborrheic dermatitis Squamous cell carcinoma in situ Actinic keratosis Medication intolerance Smoking hx ASCVD (arteriosclerotic cardiovascular disease) Advanced care planning/counseling discussion Palliative care patient Basal cell carcinoma arm Hyperlipidemia Benign hypertension Surgical History Coronary Stent x 2 10 yrs ago Social History Smoking/Tobacco Use Status: Former Tobacco Use Tobacco: How many years used: 45 Smoking risk assessment performed?: Yes Alcohol Intake: current Alcohol Intake frequency: a few times a month Alcohol type: beer and hard liquor Drug use: Never Substance use type: does not use Details: quit smoking in 2000 Housing: house current occupation: [employer] Current gender identity: male Do you feel safe at home: Yes Do you feel safe in your relationship?: Yes
[2025-05-29 17:53] LABS: Platelet Count 67 10^3/uL (130-400)
[2025-05-29] MEDS: Normal Saline 500 ML IV (17:53)
[2025-05-29 17:55] LABS: Anisocytosis 1+
[2025-05-29 18:58] LABS: Troponin I 47 ng/L (<or=76)
[2025-05-29 19:13] LABS: Glucose Negative (Negative)
[2025-05-29 19:25] LABS: C & S Indicated? No; RBC 0-2 HPF (0-2); WBC 0-2 HPF (0-5)
== END 2025-05-29 20:12 | disposition home or self-care (01) ==
PROVIDERS: Emergency Provider Registered Nurse Emergency; PCP Nurse Practitioner Family
DX: I49.3 Ventricular premature depolarization (principal); E86.0 Dehydration; R42 Dizziness and giddiness; I10 Essential (primary) hypertension; I25.10 Atherosclerotic heart disease of native coronary artery without angina pectoris; E78.5 Hyperlipidemia, unspecified; C91.10 Chronic lymphocytic leukemia of B-cell type not having achieved remission; Z79.82 Long term (current) use of aspirin; Z95.5 Presence of coronary angioplasty implant and graft
CPT/HCPCS: 80053; 86850; 86900; 86901; 93005; 96360; 96361; 96366; 99284; 81003; 81015; 84484; 85025; 85610; 85730; 93010

== ENCOUNTER 2025-06-05 07:01 | Outpatient (RCR) | payer MEDICARE, SELFPAY ==
[2025-05-15] MEDS: Normal Saline Flush 10 ML SYR IVP (09:30)
[2025-05-15 09:40] LABS: Abs Immature Grans 0.04 10^3/uL (0.0-0.06); HCT 34.8 % (40.0-50.0); HGB 11.5 g/dL (13.5-17.5); Immature Grans % 1.4 %; MCH 29.7 pg (27.0-33.0); MCHC 33.0 % (32.0-36.0); MCV 90 fL (80-95); MPV 10.2 fL (8.0-11.0); Platelet Count 105 10^3/uL (130-400); RBC 3.87 10^6/uL (4.36-5.78); RDW 17.7 % (11.8-14.1); RDW-SD 58.1 fL; WBC 2.96 10^3/uL (4.4-10.8)
[2025-05-15 09:55] LABS: ALT 19 U/L (16-63); AST 18 U/L (15-37); Albumin 3.2 g/dL (3.4-5.0); Alkaline Phosphatase 61 U/L (46-116); Anion Gap 4.9 mmol/L (3-11); BUN 21 mg/dL (7-18); Bilirubin, Total 0.3 mg/dL (0.2-1.0); CO2 29.1 mmol/L (21.0-32.0); Calcium 8.8 mg/dL (8.5-10.1); Chloride 102 mmol/L (98-107); Glucose 114 mg/dL (74-106); LDH 187 U/L (85-227); Potassium 4.0 mmol/L (3.5-5.1); Sodium 136 mmol/L (136-145); Total Protein 7.2 g/dL (6.4-8.2)
[2025-06-05 08:54] LABS: Abs Immature Grans 0.10 10^3/uL (0.0-0.06); HCT 32.1 % (40.0-50.0); HGB 10.4 g/dL (13.5-17.5); Immature Grans % 2.3 %; MCH 29.2 pg (27.0-33.0); MCHC 32.4 % (32.0-36.0); MCV 90 fL (80-95); MPV 9.4 fL (8.0-11.0); Platelet Count 159 10^3/uL (130-400); RBC 3.56 10^6/uL (4.36-5.78); RDW 16.3 % (11.8-14.1); RDW-SD 54.4 fL; WBC 4.27 10^3/uL (4.4-10.8)
[2025-06-05] MEDS: Normal Saline Flush 10 ML SYR IVP (09:23)
[2025-06-05 09:37] LABS: ALT 37 U/L (16-63); AST 28 U/L (15-37); Albumin 2.9 g/dL (3.4-5.0); Alkaline Phosphatase 65 U/L (46-116); Anion Gap 6.8 mmol/L (3-11); BUN 23 mg/dL (7-18); Bilirubin, Total 0.2 mg/dL (0.2-1.0); CO2 28.2 mmol/L (21.0-32.0); Calcium 9.0 mg/dL (8.5-10.1); Chloride 102 mmol/L (98-107); Glucose 116 mg/dL (74-106); LDH 187 U/L (85-227); Potassium 4.2 mmol/L (3.5-5.1); Sodium 137 mmol/L (136-145); Total Protein 7.2 g/dL (6.4-8.2)
== END 2025-06-11 23:59 | disposition home or self-care (01) ==
LOC: INF 07:01
PROVIDERS: PCP Nurse Practitioner Family; Visit Provider Internal Medicine Hematology & Oncology
DX: C91.10 Chronic lymphocytic leukemia of B-cell type not having achieved remission (principal); Z45.2 Encounter for adjustment and management of vascular access device
CPT/HCPCS: 36591; 80053; 83615; 85025

== ENCOUNTER 2025-07-10 02:19 | Outpatient (RCR) | payer MEDICARE, SELFPAY ==
[2025-06-19] MEDS: Normal Saline Flush 10 ML SYR IVP (12:07)
[2025-06-19 12:19] LABS: Abs Immature Grans 0.02 10^3/uL (0.0-0.06); HCT 28.6 % (40.0-50.0); HGB 9.3 g/dL (13.5-17.5); Immature Grans % 1.1 %; MCH 29.9 pg (27.0-33.0); MCHC 32.5 % (32.0-36.0); MCV 92 fL (80-95); RBC 3.11 10^6/uL (4.36-5.78); RDW 16.2 % (11.8-14.1); RDW-SD 53.1 fL
[2025-06-19 12:31] LABS: Platelet Count 22 10^3/uL (130-400); WBC 1.80 10^3/uL (4.4-10.8)
[2025-06-19 12:32] LABS: ALT 24 U/L (16-63); AST 23 U/L (15-37); Albumin 2.9 g/dL (3.4-5.0); Alkaline Phosphatase 64 U/L (46-116); Anion Gap 6.1 mmol/L (3-11); BUN 17 mg/dL (7-18); Bilirubin, Total 0.3 mg/dL (0.2-1.0); CO2 26.9 mmol/L (21.0-32.0); Calcium 7.9 mg/dL (8.5-10.1); Chloride 104 mmol/L (98-107); Glucose 111 mg/dL (74-106); LDH 143 U/L (85-227); Potassium 3.9 mmol/L (3.5-5.1); RBC Morphology Normal; Sodium 137 mmol/L (136-145); Total Protein 6.3 g/dL (6.4-8.2)
[2025-06-21] MEDS: Normal Saline Flush 10 ML SYR IVP (07:40)
[2025-06-21 07:43] LABS: Abs Immature Grans 0.01 10^3/uL (0.0-0.06); HCT 28.8 % (40.0-50.0); HGB 9.1 g/dL (13.5-17.5); Immature Grans % 0.7 %; MCH 29.2 pg (27.0-33.0); MCHC 31.6 % (32.0-36.0); MCV 92 fL (80-95); RBC 3.12 10^6/uL (4.36-5.78); RDW 16.2 % (11.8-14.1); RDW-SD 52.5 fL
[2025-06-21 07:53] LABS: RBC Morphology Normal
[2025-06-21 08:08] LABS: Platelet Count 25 10^3/uL (130-400); WBC 1.52 10^3/uL (4.4-10.8)
[2025-07-03] MEDS: Normal Saline Flush 10 ML SYR IVP (08:58)
[2025-07-03 09:10] LABS: Abs Immature Grans 0.01 10^3/uL (0.0-0.06); HCT 29.2 % (40.0-50.0); HGB 9.5 g/dL (13.5-17.5); Immature Grans % 0.5 %; MCH 31.0 pg (27.0-33.0); MCHC 32.5 % (32.0-36.0); MCV 95 fL (80-95); MPV 11.0 fL (8.0-11.0); RBC 3.06 10^6/uL (4.36-5.78); RDW 18.7 % (11.8-14.1); RDW-SD 64.2 fL
[2025-07-03 09:25] LABS: Platelet Count 54 10^3/uL (130-400); RBC Morphology Normal
[2025-07-03 09:27] LABS: ALT 19 U/L (16-63); AST 25 U/L (15-37); Albumin 3.0 g/dL (3.4-5.0); Alkaline Phosphatase 57 U/L (46-116); Anion Gap 4.7 mmol/L (3-11); BUN 16 mg/dL (7-18); Bilirubin, Total 0.4 mg/dL (0.2-1.0); CO2 31.3 mmol/L (21.0-32.0); Calcium 8.5 mg/dL (8.5-10.1); Chloride 106 mmol/L (98-107); Glucose 140 mg/dL (74-106); LDH 227 U/L (85-227); Potassium 3.5 mmol/L (3.5-5.1); Sodium 142 mmol/L (136-145); Total Protein 6.4 g/dL (6.4-8.2)
[2025-07-03 09:31] LABS: WBC 1.97 10^3/uL (4.4-10.8)
[2025-07-10] MEDS: Normal Saline Flush 10 ML SYR IVP (08:06)
[2025-07-10 08:35] LABS: Abs Immature Grans 0.02 10^3/uL (0.0-0.06); HCT 29.9 % (40.0-50.0); HGB 10.0 g/dL (13.5-17.5); Immature Grans % 0.7 %; MCH 32.7 pg (27.0-33.0); MCHC 33.4 % (32.0-36.0); MCV 98 fL (80-95); MPV 11.7 fL (8.0-11.0); RBC 3.06 10^6/uL (4.36-5.78); RDW 19.3 % (11.8-14.1); RDW-SD 67.9 fL; WBC 2.69 10^3/uL (4.4-10.8)
[2025-07-10 08:55] LABS: ALT 19 U/L (16-63); AST 22 U/L (15-37); Albumin 3.2 g/dL (3.4-5.0); Alkaline Phosphatase 59 U/L (46-116); Anion Gap 5.8 mmol/L (3-11); BUN 20 mg/dL (7-18); Bilirubin, Total 0.6 mg/dL (0.2-1.0); CO2 29.2 mmol/L (21.0-32.0); Calcium 8.7 mg/dL (8.5-10.1); Chloride 104 mmol/L (98-107); Glucose 111 mg/dL (74-106); LDH 206 U/L (85-227); Potassium 3.7 mmol/L (3.5-5.1); Sodium 139 mmol/L (136-145); Total Protein 6.8 g/dL (6.4-8.2)
[2025-07-10 09:07] LABS: Platelet Count 65 10^3/uL (130-400)
== END 2025-07-12 23:59 | disposition home or self-care (01) ==
LOC: INF 02:19
PROVIDERS: PCP Nurse Practitioner Family; Visit Provider Internal Medicine Hematology & Oncology
DX: C91.10 Chronic lymphocytic leukemia of B-cell type not having achieved remission (principal); Z45.2 Encounter for adjustment and management of vascular access device
CPT/HCPCS: 36591; 80053; 86850; 86900; 86901; 83615; 85025

== ENCOUNTER 2025-08-21 08:58 | Outpatient (RCR) | payer MEDICARE, SELFPAY ==
[2025-08-21] MEDS: Normal Saline Flush 10 ML SYR IVP (09:34)
[2025-08-21 09:43] LABS: Abs Immature Grans 0.08 10^3/uL (0.0-0.06); HCT 34.6 % (40.0-50.0); HGB 12.0 g/dL (13.5-17.5); Immature Grans % 2.2 %; MCH 33.9 pg (27.0-33.0); MCHC 34.7 % (32.0-36.0); MCV 98 fL (80-95); MPV 10.3 fL (8.0-11.0); RBC 3.54 10^6/uL (4.36-5.78); RDW 14.6 % (11.8-14.1); RDW-SD 52.6 fL; WBC 3.72 10^3/uL (4.4-10.8)
[2025-08-21 10:00] LABS: LDH 281 U/L (120-246)
[2025-08-21 10:01] LABS: ALT 22 U/L (10-49); AST 34 U/L (<34); Albumin 4.1 g/dL (3.2-5.0); Alkaline Phosphatase 78 U/L (46-116); Anion Gap 5.7 mmol/L (3-11); BUN 20 mg/dL (9-23); Bilirubin, Total 0.6 mg/dL (0.2-1.2); CO2 29.3 mmol/L (20.0-31.0); Calcium 8.8 mg/dL (8.3-10.6); Chloride 105 mmol/L (98-107); Glucose 95 mg/dL (74-106); Potassium 4.2 mmol/L (3.5-5.1); Sodium 140 mmol/L (136-145); Total Protein 7.3 g/dL (5.7-8.2)
[2025-08-21 10:04] LABS: Platelet Count 97 10^3/uL (130-400); RBC Morphology Normal
== END 2025-09-11 23:59 | disposition home or self-care (01) ==
LOC: INF 08:58
PROVIDERS: PCP Nurse Practitioner Family; Visit Provider Internal Medicine Hematology & Oncology
DX: C91.10 Chronic lymphocytic leukemia of B-cell type not having achieved remission (principal); Z45.2 Encounter for adjustment and management of vascular access device
CPT/HCPCS: 36591; 80053; 83615; 85025